=== PATIENT | female | born 1945 | race Caucasian/White ===

== ENCOUNTER 2016-08-25 13:03 | Emergency (ER) | payer OTHER ==
[~2016-08-25] VITALS: Ht 167.6 cm; Wt 82.0 kg
[2016-08-25 13:08] VITALS: BP 137/80; PULSE 84; RESP 16; TEMP 98.2; O2SAT 98
--- NOTE | 2016-08-25 15:35 | PD ---
HPI Chief Complaint: Musculoskeletal Complaint Time Seen by Provider: 15:35 Travel History International Travel<30 days: No Contact w/Intl Traveler<30days: No Traveled to known affect area: No History of Present Illness HPI 71-year-old female came to the emergency room with history of right leg swelling. Patient says this has been going on for past 1-2 weeks. No history of pain or fever. Patient says that she has history of breast cancer that was recently diagnosed and she is finished chemotherapy. She has also recently been diagnosed with anal cancer and is in the process of getting chemotherapy and radiation. Meanwhile because of the swelling her paper box maker wanted a DVT study. Vital signs were stable. No history of chest pain or shortness of breath. PFSH Past Medical History Narrative Medical List of the past medical, surgical, social and family history is reviewed from the nursing note. Social History Tobacco Use: Yes Allergies-Medications (Allergen,Severity, Reaction): Coded Allergies: Cipro (Verified Allergy, Unknown, 08/25/16) Paxil (Verified Allergy, Unknown, 08/25/16) Tofranil (Verified Allergy, Unknown, 08/25/16) Comments List of her allergies reviewed from the nursing note. Reported Meds & Prescriptions Reported Meds & Active Scripts Active Reported Nitrofurantoin Monohydrate Macrocrystals (Nitrofurantoin Monoh/Nitrofur Macro) 100 Mg Cap 100 Mg PO DIRECTED PRN Anastrozole 1 Mg Tab 1 Mg PO DAILY Acebutolol (Acebutolol HCl) 200 Mg Cap 200 Mg PO DAILY Escitalopram (Escitalopram Oxalate) 20 Mg Tab 20 Mg PO DAILY Fenofibrate 54 Mg Tab 54 Mg PO DAILY [Cystoprotek] DAILY Narrative Medication List of her home medications reviewed from the nursing note. Review of Systems Except as stated in HPI: all other systems reviewed are Neg Physical Exam Narrative GENERAL: Awake, alert, no obvious distress SKIN: Focused skin assessment warm/dry. HEAD: Atraumatic. Normocephalic. EYES: Pupils equal and round. No scleral icterus. No injection or drainage. ENT: No nasal bleeding or discharge. Mucous membranes pink and moist. NECK: Trachea midline. No JVD. CARDIOVASCULAR: Regular rate and rhythm. No murmur appreciated. RESPIRATORY: No accessory muscle use. Clear to auscultation. Breath sounds equal bilaterally. GASTROINTESTINAL: Abdomen soft, non-tender, nondistended. Hepatic and splenic margins not palpable. MUSCULOSKELETAL: No obvious deformities. No clubbing. No cyanosis. Right leg is swollen below the knee. No tenderness. Homans sign negative NEUROLOGICAL: Awake and alert. No obvious cranial nerve deficits. Motor grossly within normal limits. Normal speech. PSYCHIATRIC: Appropriate mood and affect; insight and judgment normal. Data Data Last Documented VS Vital Signs Date Time Temp Pulse Resp B/P Pulse Ox O2 Delivery O2 Flow Rate FiO2 08/25/16 13:08 98.2 84 16 137/80 98 Orders Us Leg Venous Doppler (08/25/16 ) MDM Medical Decision Making Medical Screen Exam Complete: Yes Emergency Medical Condition: Yes Medical Record Reviewed: Yes Differential Diagnosis DVT, Ulrich cyst Narrative Course 4:32 PM ultrasound is back in its negative for DVT or ulrich's cyst. I'll discharge her home. She'll follow up with the primary care. Procedures EKG Prior to Arrival: No Diagnosis Primary Impression: Right leg swelling Referrals: Primary Care Physician Additional Instructions: Please return to the ER if the condition worsens or any other new concerns. Otherwise follow-up with your primary care on Sunday. He should have a repeat ultrasound done within a week in case a DVT shows up by then. Keep the leg elevated. Also follow-up with your oncologist. Disposition: DISCHARGE HOME Condition: Stable Tanya Michael MD Aug 25, 2016 15:35
[2016-08-25] MEDS ORDERED: CYSTOPROTEK (15:53)
[2016-08-25] MEDS ORDERED: ANAS1TAB PO (15:53)
[2016-08-25] MEDS ORDERED: FENO54TA PO (15:53)
[2016-08-25] MEDS ORDERED: NITR100C4 PO (15:53)
[2016-08-25] MEDS ORDERED: ESCI20TA PO (15:53)
[2016-08-25] MEDS ORDERED: ACEB200C PO (15:53)
--- NOTE | 2016-08-25 16:24 | RADRPT ---
EXAM DATE/TIME: 08/25/2016 15:57 [facility] COMPARISON: No previous studies available for comparison. INDICATIONS : Right leg swelling and redness. MEDICAL HISTORY : Carcinoma, breast. Carcinoma, anal. Depression. SURGICAL HISTORY : Lumpectomy. ENCOUNTER: Initial ACUITY: 2 weeks PAIN SCORE: 0/10 LOCATION: Bilateral leg. TECHNIQUE: Venous ultrasound of the leg was performed from the inguinal ligament to the proximal calf. Real-bernadette e, color Doppler and spectral tracing, compression and augmentation techniques were used. FINDINGS: There is normal compressibility of the deep venous system from the inguinal region to the proximal ca lf. No echogenic clot is seen in the lumen of the common femoral, femoral, popliteal, and posterior tibial veins. There is a normal response of the venous system to proximal and distal augmentation an d respiration. CONCLUSION: No DVT is identified in the right lower extremity. Jurgen Olvera MD on August 25, 2016 at 16:22 Board Certified Radiologist. This report was verified electronically.
== END 2016-08-25 17:12 | disposition home or self-care (01) ==
LOC: NEPD 13:03
DX: M79.89 Other specified soft tissue disorders (principal); Z85.3 Personal history of malignant neoplasm of breast; C21.0 Malignant neoplasm of anus, unspecified; Z72.0 Tobacco use
CPT/HCPCS: 93971; 99284

== ENCOUNTER 2016-09-15 06:06 | Day surgery (SDC) | payer OTHER ==
[~2016-09-15] VITALS: Ht 165.1 cm; Wt 81.0 kg
[~2016-09-15 06:06] MED LIST: ACEB200C PO; ANAS1TAB PO; CYSTOPROTEK; ESCI20TA PO; FENO54TA PO; NITR100C4 PO
[2016-09-15 06:38] VITALS: BP 149/93; PULSE 83; RESP 20; TEMP 98.6; O2SAT 92
[2016-09-15] MEDS ORDERED: THER650C (06:43)
[2016-09-15] MEDS ORDERED: CALCCAP (06:43)
[2016-09-15] MEDS ORDERED: MULT1TAB46 (06:43)
[2016-09-15] MEDS ORDERED: VITA2000 PO (06:43)
[2016-09-15] MEDS ORDERED: ASCO500W (06:43)
[2016-09-15] MEDS ORDERED: POVIDONE IODINE 5% (ANTISEPSIS KIT) 4 APPLICATIONS EACH NARE SCH (07:00)
[2016-09-15] MEDS ORDERED: VANCOMYCIN 1000 MG/NS 250 ML - implanted port/tunneled catheter IV SCH ×2 (07:00)
[2016-09-15] MEDS ORDERED: ceFAZolin 2 GM PREMIX 50 ML - implanted port/tunneled catheter insertion IV SCH (07:00)
[2016-09-15] MEDS ORDERED: SODIUM CHLORIDE 0.9% 1000 ML IV SCH (07:00)
[2016-09-15] MEDS ORDERED: CHLORHEXIDINE GLUCONATE 2 % 1 PACK (2 CLOTHS) TOPICAL SCH (07:00)
[2016-09-15] MEDS ORDERED: LIDOCAINE HCL 1% 20 ML VIAL ONE (07:40)
--- NOTE | 2016-09-15 09:03 | PD.RAD ---
Post CT Procedure Prog Note Pre Procedure Diagnosis: (1) Anal cancer (2) Pelvic lymphadenopathy Post Procedure Diagnosis: (1) Anal cancer (2) Pelvic lymphadenopathy Procedure Date: Sep 15, 2016 Supervising Radiologist: Jurgen Olvera Estimated blood loss: minimal Anesthesia: Conscious Sedation Plan of Activity Patient to Unit: ROPU Patient Condition: Good See PACS Report for procedural detail/treatment Biopsy Imaging Guidance: CT Side: Right Biopsy Procedure: Lymph Node, Pelvic Mass Site: right pelvic internal iliac or junction station lymphadenopathy Specimen: Core Biopsy Plan To ROPU then discharge. Jurgen Olvera MD Sep 15, 2016 09:03
[2016-09-15] MEDS ORDERED: LIDOCAINE 1%/EPINEPHrine 1:100,000 SOLN 20 ML VIAL ONE (09:23)
--- NOTE | 2016-09-15 09:28 | RADRPT ---
EXAM DATE/TIME: 09/15/2016 08:08 [facility] COMPARISON: No previous studies available for comparison. INDICATIONS : Right pelvic lymph node. SEDATION TIME: 30 minutes BIOPSY SITE: Right MEDICATION(S): 1.) 3 mg midazolam (Versed) IV 2.) 150 mcg fentanyl (Sublimaze) IV DEVICE(S): 1.) 20 gauge Temno core biopsy needle MEDICAL HISTORY : Carcinoma, breast. Carcinoma, anal. SURGICAL HISTORY : Hysterectomy. ENCOUNTER: Initial ACUITY: 1 day PAIN SCORE: 0/10 LOCATION: Right pelvis A total of eight core specimen(s) were obtained and sent to the laboratory for pathologic evaluation. PROCEDURE: 1. CT guided pelvic biopsy. 2. Conscious sedation with continuous EKG and oximetry monitoring. 3. EKG and oximetry remained stable throughout the procedure. Prior to the procedure informed consent was obtained. The patient's prior PET/CT examination was revi ewed. Using automated exposure control and adjustment of the mA and/or kV according to patient size, radiat ion dose was kept as low as reasonably achievable to obtain optimal diagnostic quality images. DICOM format image data is available electronically for review and comparison. The site was prepped in a sterile fashion. Full sterile technique was used, including cap, mask, corazon rile gloves and gown and a large sterile sheet. Hand hygiene and 2% chlorhexidine and/or betadine/al cohol prep was utilized per protocol for cutaneous antisepsis. The skin and subcutaneous tissues wer e infiltrated with local anesthetic solution. With CT guidance the right pelvic mass was visualized. It is directly adjacent to internal and wireless sales representative al iliac vessels. Biopsy was performed using the prescribed needle as above. Adequate hemostasis was obtained with compression at the puncture site. Follow-up CT scan reveals no hemorrhage or acute abnormality. The patient tolerated the procedure well and there were no complications. The patient was returned to the Radiology Outpatient Unit in stable condition. CONCLUSION: Uncomplicated CT guided biopsy of the right pelvic mass. Jurgen Olvera MD on September 15, 2016 at 9:26 Board Certified Radiologist. This report was verified electronically.
[2016-09-15 10:30] VITALS: BP 122/78; PULSE 81; RESP 16; TEMP 97.8; O2SAT 95
[2016-09-15] MEDS ORDERED: SODIUM CHLORIDE 0.9% FLUSH 10 ML FLUSH IVF PRN (10:30)
[2016-09-15 10:45] VITALS: BP 154/76; PULSE 81; RESP 16; O2SAT 95
--- NOTE | 2016-09-15 10:47 | PD.RAD ---
Post Procedure Progress Note Pre Procedure Diagnosis: (1) Anal cancer Post Procedure Diagnosis: (1) Anal cancer Procedure Date: Sep 15, 2016 Supervising Radiologist: Regan Fitzpatrick Proceduralist/Assist: Juwan Greenberg RT(R), RT Eder(R) Anesthesia: Local, Analgesia, Conscious Sedation Plan of Activity Patient to Unit: ROPU Patient Condition: Good See PACS Report for procedural detail/treatment Central Venous Access Device Procedure 1 Right Internal Jugular Infusaport Placement single lumen Cambodian: 8 Regan Fitzpatrick MD Sep 15, 2016 10:47
[2016-09-15] MEDS ORDERED: MIDAZOLAM HCL 2 MG/2 ML VIAL IV ONE (10:59)
[2016-09-15 11:15] VITALS: BP 122/58; PULSE 78; RESP 16; O2SAT 95
[2016-09-15 11:45] VITALS: BP 118/65; PULSE 76; RESP 16; O2SAT 95
[2016-09-15 12:15] VITALS: BP 121/71; PULSE 80; RESP 16; O2SAT 95
--- NOTE | 2016-09-15 16:47 | RADRPT ---
EXAM DATE/TIME: 09/15/2016 09:41 [facility] COMPARISON: No previous studies available for comparison. INDICATIONS : Patient presents with anal cancer in need of port placement for chemotherapy treatment. MEDICAL HISTORY : Breast and anal cancer Anxiety Arhtritis Uterine fibroids SURGICAL HISTORY : Lumpectomy Pelvic biopsy ENCOUNTER: Initial ACUITY: 1 month PAIN SCORE: 0/10 LOCATION: N/A FLUORO TIME: 0.8 minutes IMAGE SERIES: 0 SEDATION TIME: 30 minutes ACCESS: Right internal jugular vein SEDATION: 1.) 2.5 mg midazolam (Versed) IV 2.) 100 mcg fentanyl (Sublimaze) IV 3.) 0.5mg hydromorphone (Dilaudid) IV 4.) 4mg ondansetron (Zofran) IV Prophylactic antibiotics were administered with appropriate pre-procedure timing. Vancomycin within 2 hours of procedure, Ancef (or alternative) within 1 hour of procedure. DEVICE: 1. 8 Latvian single lumen Smart port CT w/vortex PROCEDURE : 1. Continuous pulse oximetry and EKG monitoring. 2. Intravenous conscious sedation. 3. Ultrasound guidance for venous access. 4. Fluoroscopic guided implantable central venous port placement. The patient was placed supine. The neck was prepped in sterile fashion. Full sterile technique was u sed, including cap, mask, sterile gloves and gown, and a large sterile sheet. Hand hygiene and 2% ch lorhexidine Betadine was utilized per protocol for cutaneous antisepsis with appropriate dry time for site. The skin and subcutaneous tissues were infiltrated with local anesthetic solution. Under direct ultrasound guidance, central venous access was accomplished in the targeted vessel. The ultrasound images depicting access guidance were stored and saved to PACS for permanent record. A s ubcutaneous pocket was created using blunt dissection. The port was introduced to the pocket. The c atheter tubing was fed through a subcutaneous tunnel to the venotomy site. The catheter tubing was c ut to a suitable length and then was introduced through a valved Peel-Away sheath and positioned with catheter tubing tip at the cavo-atrial junction level. The pocket incision was closed with subcutic ular Vicryl suture. Steri-Strips were applied. The port was flushed and locked with heparin solutio n per protocol. Sterile dressing was applied to the site. The patient tolerated the procedure well. Conscious sedation was performed with the prescribed dosages and duration as above in the presence of an independent trained radiology nurse to assist in the monitoring of the patient. EKG and oximetry remained stable throughout the procedure. The patient tolerated the procedure well and there were no complications. The patient was sent to post anesthesia recovery in stable condition. CONCLUSION: Uncomplicated ultrasound and fluoroscopic guided implanted central venous port catheter placement as described in detail above. An 8 Latvian Power port was placed. Regan Fitzpatrick MD on September 15, 2016 at 16:45 Board Certified Radiologist. This report was verified electronically.
== END 2016-09-15 12:50 | disposition home or self-care (01) ==
LOC: HROP 06:06 → HRIP 06:11 → HROP 12:50
PROVIDERS: ATTEND Internal Medicine Hematology & Oncology
DX: C96.9 Malignant neoplasm of lymphoid, hematopoietic and related tissue, unspecified (principal); C50.919 Malignant neoplasm of unspecified site of unspecified female breast; C21.0 Malignant neoplasm of anus, unspecified; F41.9 Anxiety disorder, unspecified; M19.90 Unspecified osteoarthritis, unspecified site; Z90.710 Acquired absence of both cervix and uterus
CPT/HCPCS: 36561; 49180; 76937; 77001; 77012; 88305; 99152; 99153; C1788; J1642; J2250; J3010

== ENCOUNTER 2016-11-03 09:37 | Day surgery (SDC) | payer OTHER ==
[2016-11-03] VITALS (7 sets, daily range): BP systolic 110–165; BP diastolic 65–114; PULSE 74–95; RESP 16–20; TEMP 98.1–98.4; O2SAT 93–96
[~2016-11-03 09:37] MED LIST changes: +ASCO500W; +CALCCAP; +MULT1TAB46; +THER650C; +VITA2000 PO
[2016-11-03] MEDS ORDERED: IOHEXOL 300 MG/ML 50 ML BTL (for RAD DIAG) OTHER ONE (09:38)
[2016-11-03] MEDS ORDERED: ONDA1TAB17 PO (10:05)
[2016-11-03] MEDS ORDERED: PROM25TA10 PO (10:05)
[2016-11-03] MEDS ORDERED: SODIUM CHLORIDE 0.9% 1000 ML IV SCH (10:15)
[2016-11-03] MEDS ORDERED: MIDAZOLAM HCL 2 MG/2 ML VIAL ONE (10:51)
--- NOTE | 2016-11-03 13:43 | RADRPT ---
EXAM DATE/TIME: 11/03/2016 10:17 [facility] COMPARISON: No previous studies available for comparison. INDICATIONS : Patient presents with possible flipped port in need of port evaluation with possible manipulation. MEDICAL HISTORY : Right breast cancer Edema Arthritis Depression High cholesterol Uterine fibroids SURGICAL HISTORY : Right port Lumpectomy Breast biopsy ENCOUNTER: Subsequent ACUITY: > 1 year PAIN SCORE: 0/10 LOCATION: N/A FLUORO TIME: 0.1 minutes IMAGE SERIES: 1 SEDATION TIME: 10minutes CONTRAST: 5 cc Omnipaque (iohexol) 350 MEDICATION(S): 1.) 1.5 mg midazolam (Versed) IV 2.) 75 mcg fentanyl (Sublimaze) IV PROCEDURE : 1. Access of Hveezp-n-vqyd. 2. Port patency injection. The risks, benefits and alternatives to the procedure were explained and verbal and written consent w as obtained. The patient was placed supine. The port was prepped in sterile fashion. Full sterile t echnique was used, including cap, mask, sterile gloves and gown, and a large sterile sheet. Hand hyg iene and 2% chlorhexidine prep was utilized per protocol for cutaneous antisepsis with appropriate dr y time for site. The port was flipped manually. The previously placed port was accessed and positive contrast was inje cted for evaluation. Injection demonstrates good position of the port with each blood return CONCLUSION: 1. Uncomplicated port revision Vinicius Kirk MD on November 03, 2016 at 13:39 Board Certified Radiologist. This report was verified electronically.
== END 2016-11-03 13:40 | disposition home or self-care (01) ==
LOC: HROP 09:37 → HRIP 09:40 → HROP 13:40
PROVIDERS: ATTEND Internal Medicine Hematology & Oncology
DX: T85.698A Other mechanical complication of other specified internal prosthetic devices, implants and grafts, initial encounter (principal); C50.911 Malignant neoplasm of unspecified site of right female breast; C21.0 Malignant neoplasm of anus, unspecified; E78.00 Pure hypercholesterolemia, unspecified
CPT/HCPCS: 36576; 36598; 99152; J1642; J2250; J3010; Q9967

== ENCOUNTER 2016-12-12 13:51 | Day surgery (SDC) | payer OTHER ==
[~2016-12-12] VITALS: Ht 165.1 cm; Wt 75.0 kg
[~2016-12-12 13:51] MED LIST changes: +ONDA8TAB7 PO; +PROM25TA10 PO
[2016-12-12 14:06] VITALS: BP 129/90; PULSE 88; RESP 20; TEMP 98.3; O2SAT 95
[2016-12-12 14:44] LABS: AUTOMATED NEUTROPHIL # 1.9 TH/MM3 (1.8-7.7); BASOPHIL % 0.4 % (0.0-2.0); EOSINOPHIL # 0.1 TH/MM3 (0-0.4); EOSINOPHIL % 2.7 % (0.0-4.0); HEMATOCRIT 36.7 % (35.0-46.0); HEMO FLAGS DIFF FINAL; LYMPH % 36.9 % (9.0-44.0); LYMPHOCYTE # 1.3 TH/MM3 (1.0-4.8); MEAN CELL VOLUME 97.2 FL (80.0-100.0); MEAN CORPUSCULAR HEMOGLOBIN 32.8 PG (27.0-34.0); MEAN CORPUSCULAR HGB CONC 33.7 % (32.0-36.0); MONO % 5.9 % (0.0-8.0); NEUT % 54.1 % (16.0-70.0); PLATELET COUNT 212 TH/MM3 (150-450); RED BLOOD COUNT 3.77 MIL/MM3 (4.00-5.30); RED CELL DISTRIBUTION WIDTH 18.8 % (11.6-17.2); WHITE BLOOD COUNT 3.6 TH/MM3 (4.0-11.0)
[2016-12-12] MEDS ORDERED: MIDAZOLAM HCL 2 MG/2 ML VIAL ONE ×2 (14:45→15:11)
[2016-12-12 14:55] LABS: APTT (PATIENT) 23.9 SEC (24.3-30.1); PROTHROMBIN TIME - PATIENT 10.6 SEC (9.8-11.6)
[2016-12-12 16:00] VITALS: BP 128/76; PULSE 81; RESP 18; TEMP 97.8; O2SAT 92
[2016-12-12 16:15] VITALS: BP 146/88; PULSE 78; RESP 16; O2SAT 94
[2016-12-12 16:45] VITALS: BP 115/73; PULSE 82; RESP 16; O2SAT 94
--- NOTE | 2016-12-12 16:45 | PD.RAD ---
Post Procedure Progress Note Pre Procedure Diagnosis: (1) Flipped Infusaport (2) Anal cancer Post Procedure Diagnosis: (1) Anal cancer (2) Flipped Infusaport Procedure Date: Dec 12, 2016 Supervising Radiologist: Regan Fitzpatrick Proceduralist/Assist: Juwan Greenberg, RT(R), Clem Lares, RT(R) Anesthesia: Local, Analgesia, Conscious Sedation Plan of Activity Patient to Unit: ROPU Patient Condition: Good See PACS Report for procedural detail/treatment Central Venous Access Device Procedure 1 Right Internal Jugular Infusaport Reposition single lumen Austrian: 8 Findings: Port flipped. Second event. Port pocket distended with lidocaine and saline and repositioned appropriately. 2-0 suture placed through lateral suture ringlet to secure port (done fluoroscopically). Will remove in ~10 days. Regan Fitzpatrick MD Dec 12, 2016 16:45
--- NOTE | 2016-12-12 17:09 | RADRPT ---
EXAM DATE/TIME: 12/12/2016 15:51 [facility] COMPARISON: [id number] REVISION, RIGHT, November 03, 2016, 0:00. INDICATIONS : Patient with history of anal cancer.Infusaport flipped. MEDICAL HISTORY : 1. Anal cancer 2. Depression 3. high cholesterol 4. uterine fibroids SURGICAL HISTORY : 1. Infusaport 2. lumpectomy 3. breast bx 4. colonoscopy ENCOUNTER: Initial ACUITY: 2 days PAIN SCORE: FLUORO TIME: 3.4 minutes IMAGE SERIES: 4 SEDATION TIME: 36 minutes ACCESS: Right infusaport SEDATION: 1.) 4 mg midazolam (Versed) IV 2.) 100 mcg fentanyl (Sublimaze) IV PROCEDURE : 1. Continuous pulse oximetry and EKG monitoring. 2. Intravenous conscious sedation. 3. Fluoroscopic guided port revision. 4. Ultrasound guidance for venous access. The patient was placed supine. The neck was prepped in sterile fashion. Full sterile technique was u sed, including cap, mask, sterile gloves and gown, and a large sterile sheet. Hand hygiene and 2% ch lorhexidine Betadine was utilized per protocol for cutaneous antisepsis with appropriate dry time for site. Sterile gel and sterile probe cover were utilized for ultrasound guidance. The port pocket a nd subcutaneous tissues were infiltrated with local anesthetic solution. Direct fluoroscopic images show confirmed that the port was in fact flipped left to right. The port p ocket distended with 15-20 cc of lidocaine and saline, I was able to reposition the port appropriatel y in the pocket with some difficulty. As this was the second time report has flipped, again using 2-0 Prolene suture and a 40 mm curved needle to access the lateral suture ringlet of the port under dire ct fluoroscopic visualization. The suture was secured to the skin surface through infusion tubing and the plan is to leave this in place for approximately 10 days to allow the regional tissues to grow t hrough the port ringlets and secure the device in the port pocket. Conscious sedation was performed with the prescribed dosages and duration as above in the presence of an independent trained radiology nurse to assist in the monitoring of the patient. EKG and oximetry remained stable throughout the procedure. The patient tolerated the procedure well and there were n o complications. The patient was sent to post anesthesia recovery in stable condition. CONCLUSION: Uncomplicated fluoroscopic guided port revision as described in detail above. Patient is scheduled to return in approximately 10 days to have the anchoring suture removed. We will discuss interim dressing changes with the oncology center. Regan Fitzpatrick MD on December 12, 2016 at 16:59 Board Certified Radiologist. This report was verified electronically.
== END 2016-12-12 17:10 | disposition home or self-care (01) ==
LOC: HROP 13:51 → HRIP 13:52 → HROP 17:10
PROVIDERS: ATTEND Internal Medicine Hematology & Oncology
DX: Z45.2 Encounter for adjustment and management of vascular access device (principal); C21.0 Malignant neoplasm of anus, unspecified; I10 Essential (primary) hypertension; Z79.01 Long term (current) use of anticoagulants
CPT/HCPCS: 36576; 77001; 85025; 85610; 85730; 99152; 99153; J2250; J3010; J1642

== ENCOUNTER 2016-12-15 10:01 | Day surgery (SDC) | payer OTHER ==
[2016-12-15 10:13] VITALS: BP 125/77; PULSE 108; RESP 20; TEMP 97.8; O2SAT 96
== END 2016-12-15 11:00 | disposition home or self-care (01) ==
LOC: HROP 10:01 → HRIP 10:04 → HROP 11:00
PROVIDERS: ATTEND Radiology Body Imaging
DX: Z48.00 Encounter for change or removal of nonsurgical wound dressing (principal)
CPT/HCPCS: 99212; G0463

== ENCOUNTER 2016-12-20 10:29 | Day surgery (SDC) | payer OTHER ==
[2016-12-20 10:35] VITALS: BP 123/74; PULSE 93; RESP 20; TEMP 98.3; O2SAT 96
--- NOTE | 2016-12-20 12:15 | PD.RAD ---
Post Procedure Progress Note Pre Procedure Diagnosis: (1) Flipped Infusaport Post Procedure Diagnosis: (1) Flipped Infusaport Procedure Date: Dec 20, 2016 Supervising Radiologist: Regan Fitzpatrick Plan of Activity See PACS Report for procedural detail/treatment Central Venous Access Device Findings: Port with anchor checked. Looks good. No erythema. Dressing changed. Will return Sunday for anchor removal. Regan Fitzpatrick MD Dec 20, 2016 12:15
== END 2016-12-20 10:45 | disposition home or self-care (01) ==
LOC: HROP 10:29 → HRIP 10:32 → HROP 10:45
PROVIDERS: ATTEND Radiology Body Imaging
DX: Z45.2 Encounter for adjustment and management of vascular access device (principal)
CPT/HCPCS: 99212; G0463

== ENCOUNTER 2016-12-22 10:07 | Day surgery (SDC) | payer OTHER ==
[2016-12-22 10:21] VITALS: BP 144/91; PULSE 98; RESP 20; TEMP 97.6; O2SAT 96
== END 2016-12-22 11:00 | disposition home or self-care (01) ==
LOC: HROP 10:07 → HRIP 10:08 → HROP 11:00
PROVIDERS: ATTEND Radiology Body Imaging
DX: Z48.02 Encounter for removal of sutures (principal); C21.0 Malignant neoplasm of anus, unspecified

== ENCOUNTER 2017-12-05 13:06 | Inpatient (IN) ==
--- NOTE | 2017-12-05 15:06 | ED ---
HPI General Chief complaint: Recheck/Abnormal Lab/Rx Stated complaint: doctor sent Time Seen by Provider: 12/05/17 14:00 Source: patient Mode of arrival: ambulatory Limitations: no limitations History of Present Illness HPI narrative: 72-year-old woman, history of breast cancer in the past, recent treatment for anal squamous cell carcinoma with metastases, treated initially with chemotherapy, then treated with radiation to the primary. She presents referred by Dr. Rollins for kidney injury with doubling of her creatinine and right ureteral obstruction. This is been persisting, initially got referred to a darkroom worker I think by her primary physician. She been having back pain off and on for the past month or so. 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 SKIN: Focused skin assessment warm/dry. HEAD: Atraumatic. Normocephalic. EYES: Pupils equal and round. No scleral icterus. No injection or drainage. ENT: No nasal bleeding or discharge. Mucous membranes pink and moist. NECK: Trachea midline. No JVD. CARDIOVASCULAR: Regular rate and rhythm. No murmur appreciated. RESPIRATORY: No accessory muscle use. Clear to auscultation. Breath sounds equal bilaterally. GASTROINTESTINAL: Abdomen soft, non-tender, nondistended. Hepatic and splenic margins not palpable. MUSCULOSKELETAL: No obvious deformities. No clubbing. No cyanosis. No edema. NEUROLOGICAL: Awake and alert. No obvious cranial nerve deficits. Motor grossly within normal limits. Normal speech. PSYCHIATRIC: Appropriate mood and affect; insight and judgment normal. Course Initial Documented Vital Signs Temperature 98.4 F 12/05/17 13:10 Pulse Rate 81 12/05/17 13:10 Respiratory Rate 18 12/05/17 13:10 Blood Pressure 125/73 12/05/17 13:10 Pulse Oximetry 98 12/05/17 13:10 Last Documented Vital Signs Temperature 98.4 F 12/05/17 13:10 Pulse Rate 81 12/05/17 13:10 Respiratory Rate 18 12/05/17 13:10 Blood Pressure 125/73 12/05/17 13:10 Pulse Oximetry 98 12/05/17 13:10 Medical Decision Making MDM Narrative Medical decision making narrative: 72-year-old woman, treatment for recent malignancy, good response, now with ureteral obstruction and. Creatinine doubled from 0.9-2. I reviewed the ultrasound from [facility] [place] [facility], revealed moderate right-sided hydronephrosis to the mid ureter. Suspicion for ureteral obstruction and kidney injury. Patient will be admitted, urology consult, reassess. Medical Screen Exam Complete: Yes Emergency Medical Condition: Yes Discharge Plan Physicians Team ED Provider: Rusty Estrada Primary Care Provider: Mj Shearer Discharge Interventions Interventions: Vital Signs Last Done: 12/05/17 13:10 Status ED Status: With Doctor
[2017-12-05] MEDS ORDERED: Acetaminophen 325 MG Tablet PO PRN ×2 (15:08)
[2017-12-05] MEDS ORDERED: Dextrose 50% in Water 50 ML Vial IV.PUSH PRN (15:08)
[2017-12-05] MEDS ORDERED: Naloxone Inj 0.4 MG/ML Vial IV.PUSH PRN (15:08)
[2017-12-05] MEDS ORDERED: Morphine Sulfate Inj 2 MG/ML Vial IV.PUSH PRN (15:08)
[2017-12-05] MEDS ORDERED: oxyCODONE/Acetaminophen 10/325 Tablet PO PRN (15:08)
[2017-12-05] MEDS ORDERED: Bisacodyl 10 MG Supp RECTAL PRN (15:08)
[2017-12-05] MEDS ORDERED: Morphine Inj 4 MG/ML Vial IV.PUSH PRN ×3 (15:08)
[2017-12-05 15:28] LABS: Baso % (Auto) 0.6 % (0.0-2.0); Eos # (Auto) 0.1 th/mm3 (0.0-0.4); Eos % (Auto) 1.8 % (0.0-4.0); Hematocrit 27.8 % (35.0-46.0); Hemoglobin 9.7 gm/dL (11.6-15.3); Lymph # (Auto) 0.5 th/mm3 (1.0-4.8); Lymph % (Auto) 18.6 % (9.0-44.0); Mean Corpuscular HGB Conc 34.8 % (32.0-36.0); Mean Corpuscular Hemoglobin 32.4 pg (27.0-34.0); Mean Corpuscular Volume 92.9 fL (80.0-100.0); Mean Platelet Volume 7.6 fL (7.0-11.0); Mono # (Auto) 0.1 th/mm3 (0.0-0.9); Mono % (Auto) 5.2 % (0.0-8.0); Neut # (Auto) 2.1 th/mm3 (1.8-7.7); Neut % (Auto) 73.8 % (16.0-70.0); Platelet Count 161 th/mm3 (150-450); Red Blood Count 2.99 mil/mm3 (4.00-5.30); Red Cell Distribution Width 17.1 % (11.6-17.2); White Blood Count 2.9 th/mm3 (4.0-11.0)
[2017-12-05 15:35] LABS: Bilirubin,Urine Negative (Negative); Clarity,Urine Clear (Clear); Color,Urine Yellow (Yellw/Straw); Glucose,Urine (UA) Negative (Negative); Hyaline Casts,Urine 5 /lpf (0-3); Leukocyte Esterase,Urine Negative (Negative); Mucus,Urine Few /lpf (Occasional); Nitrite,Urine Negative (Negative); Specific Gravity,Urine 1.016 (1.002-1.035)
--- NOTE | 2017-12-05 15:40 | P.HPIM ---
History of Present Illness Service: [facility] Primary Care Physician: Mj Shearer MD Chief Complaint: ABNORMAL LABS History of Present Illness: Patient is a 72-year-old female with a history of breast cancer in the past as well as recent treatment for anal squamous cell carcinoma with metastasis that was initially treated with chemotherapy then treated with radiation to the primary. Patient sees Dr. Stallings for oncology. He noted that her kidney function had doubled her creatinine and noted to have a right ureteral obstruction by way of ultrasounds. Noted to have a kidney injury. Patient referred to financial adviser by her primary physician. We will also need to see urology. Regarding this right hydronephrosis and obstruction. Increased renal cell carcinoma. No labs are available here yet today only labs from yesterday Past medical history significant for diabetes as well as the previous breast cancer with history of lumpectomy and radiation and squamous cell carcinoma of the anal area with metastasis that was treated with chemotherapy then treated with radiation to the primary area. Past medical history mother had anal cancer also Inpatient Certification: I certify that the inpatient services were ordered in accordance with Medicare regulations governing the order. This includes certification that hospital inpatient services are reasonable and necessary and in the case of services not specified as inpatient-only under 42 CFR 419.22(n), that they are appropriately provided as inpatient services in accordance to with the 2-midnight benchmark under 43 CFR 412.3(e) Estimated Total Length of Stay (Days): 3 Plans for Post Hospital Care: Not yet determined Review of Systems All other systems reviewed negative except as stated in HPI [facility] - History History Provided By: Patient - Medical History Medical History: Medical History (Last Updated 12/05/17 @ 15:24 by Chicho Castillo DO) Abnormal rectal biopsy Anal cancer Breast cancer Port-A-Cath in place Port-A-Cath in place Squamous cell cancer of scalp and skin of neck - Surgical History Surgical History: Surgical History (Last Reviewed 12/05/17 @ 15:25 by Chicho Castillo DO) H/O lumpectomy - Family History Family History: Family History (Last Updated 12/05/17 @ 15:24 by Chicho Castillo DO) Other Anal cancer - Social History I have reviewed the patient's Social History: Yes - Tobacco History Second Hand Smoke Exposure: No Tobacco Use In Past 30 Days: No Smoking Status: Former smoker - Alcohol History How Often Do You Have a Drink Containing Alcohol: Never - Substance Use History Substance History: No History of Abuse - Travel History History of Recent Travel: No Recent Travel in the [place] Within the Last 8 Weeks: No Recent Travel Out of the Country Within the Last 8 Weeks: No - Immunization History Tetanus Immunization: <5 Years Medications and Allergies Active Medications: Active Medications Acetaminophen (Tylenol) 650 mg PO Q4H PRN PRN Reason: Temp > 100.4 Acetaminophen (Tylenol) 650 mg PO Q6HR PRN PRN Reason: PAIN SCALE 1 TO 2 Al Hydroxide/Mg Hydroxide (Milk Of Magnesia Liq) 30 ml PO Q12H PRN PRN Reason: Mild Constipation Bisacodyl (Dulcolax Supp) 10 mg RECTAL DAILY PRN PRN Reason: SEVERE CONSITIPATION Dextrose (D50w Vial) 50 ml IV.PUSH UNSCH PRN PRN Reason: PER HYPOGLYCEMIA PROTOCOL Famotidine (Pepcid) 10 mg PO BID ALIN Glucagon (Glucagon Inj) 1 mg OTHER PRN PRN PRN Reason: for Hypoglycemia Protocol Sodium Chloride (Ns Inj) 1,000 mls @ 100 mls/hr IV.CONT .Q10H ALIN Insulin Aspart (Novolog Insulin Correctional Sugar Inj) 0 unit SQ ACHS AND 3AM ALIN; Protocol Lactulose (Lactulose Liq) 30 ml PO DAILY PRN PRN Reason: SEVERE CONSITIPATION Morphine Sulfate (Morphine Inj) 2 mg IV.PUSH Q3H PRN PRN Reason: PAIN 3-5; IF UABLE TO TAKE PO Morphine Sulfate (Morphine Inj) 4 mg IV.PUSH Q3H PRN PRN Reason: PAIN 6-10;IF UNABLE TO TAKE PO Morphine Sulfate (Morphine Inj) 4 mg IV.PUSH Q3H PRN PRN Reason: BREAKTHROUGH PAIN Morphine Sulfate (Morphine Inj) 4 mg IV.PUSH Q1H PRN PRN Reason: Pain Scale 7-10 (Intractable) Naloxone HCl (Narcan Inj) 0.4 mg IV.PUSH UNSCH PRN PRN Reason: SEE LABEL COMMENTS Ondansetron HCl (Zofran Inj) 4 mg IV.PUSH Q6H PRN PRN Reason: NAUSEA OR VOMITING Oxycodone/Acetaminophen (Percocet 10/325 Mg) 1 tab PO Q6H PRN PRN Reason: PAIN SCALE 6 TO 10 Oxycodone/Acetaminophen (Percocet 5/325 Mg) 1 tab PO Q6H PRN PRN Reason: PAIN SCALE 3 TO 5 Senna/Docusate Sodium (Cuca-Colace) 1 tab PO BID ALIN Sennosides (Senokot) 17.2 mg PO Q12H PRN PRN Reason: Moderate Constipation Temazepam (Restoril) 15 mg PO HS PRN PRN Reason: INSOMNIA Allergies Allergy/AdvReac Type Severity Reaction Status Date / Time ciprofloxacin Allergy Unknown Hives Verified 12/05/17 13:13 imipramine Allergy Unknown Agitation Verified 12/05/17 13:13 paroxetine Allergy Unknown Agitation Verified 12/05/17 13:13 Home Medications Medication Instructions Recorded Confirmed Type acebutolol 200 mg PO DAILY 12/05/17 12/05/17 History anastrozole 1 mg PO DAILY 12/05/17 12/05/17 History escitalopram oxalate 20 mg PO DAILY 12/05/17 12/05/17 History fenofibrate 54 mg PO BID 12/05/17 12/05/17 History gabapentin 100 mg PO DAILY 12/05/17 12/05/17 History trazodone 50 mg PO HS 12/05/17 12/05/17 History Exam Vital signs: Vital Signs 12/05/17 13:10 12/05/17 14:30 Temperature 98.4 F Pulse Rate 81 76 Respiratory Rate 18 19 Blood Pressure 125/73 120/58 L Pulse Oximetry 98 96 Intake & Output 12/04/17 12/05/17 12/05/17 18:59 06:59 18:59 Weight 68.946 kg Narrative: GENERAL: Awake alert and oriented x3 talkative and cooperative appears stated age SKIN: Warm and dry. HEAD: Atraumatic. Normocephalic. EYES: Pupils equal and round. No scleral icterus. No injection or drainage. ENT: No nasal bleeding or discharge. Mucous membranes pink and moist. NECK: Trachea midline. No JVD. CARDIOVASCULAR: Regular rate and rhythm. S1-S2 no S3 or S4 chest port accessed RESPIRATORY: No accessory muscle use. Clear to auscultation. Breath sounds equal bilaterally. GASTROINTESTINAL: Abdomen soft, non-tender, nondistended. Hepatic and splenic margins not palpable. Some CVA tenderness on the right MUSCULOSKELETAL: Extremities without clubbing, cyanosis, or edema. No obvious deformities. NEUROLOGICAL: Awake and alert. No obvious cranial nerve deficits. Motor grossly within normal limits. Five out of 5 muscle strength in the arms and legs. Normal speech. PSYCHIATRIC: Appropriate mood and affect; insight and judgment normal. Results - Labs CBC & Chem 7: 12/05/17 14:46 12/05/17 14:46 Capalex VTE Risk Assessment [place] VTE Risk Assessment: Moderate/High Risk (score >= 2) Sarthakrini Risk Assessment Model: Point Value = 1 Point Value = 2 Point Value = 3 Point Value = 5 Age 41-60 Minor surgery BMI > 25 kg/m2 Swollen legs Varicose veins or History of unexplained or recurrent spontaneous Oral contraceptives or hormone replacement Sepsis (< 1 month) Serious lung disease, including pneumonia (< 1 month) Abnormal pulmonary function Acute myocardial infarction Congestive heart failure (< 1 month) History of inflammatory bowel disease Medical patient at bed rest Age 61-74 Arthroscopic surgery Major open surgery (> 45 min) Laparoscopic surgery (> 45 min) Malignancy Confined to bed (> 72 hours) Immobilizing plaster cast Central venous access Age >= 75 History of VTE Family history of VTE Factor V Leiden Prothrombin [id number] Lupus anticoagulant Anticardiolipin antibodies Elevated serum homocysteine Heparin-induced thrombocytopenia Other congenital or acquired thrombophilia Stroke (< 1 month) Elective arthroplasty Hip, pelvis, or leg fracture Acute spinal cord injury (< 1 month) Prophylaxis Regimen: Total Risk Factor Score Risk Level Prophylaxis Regimen 0-1 Low Early ambulation 2 Moderate Order ONE of the following: *Sequential Compression Device (SCD) *Heparin 5000 units SQ BID 3-4 Higher Order ONE of the following medications: *Heparin 5000 units SQ TID *Enoxaparin/Lovenox 40 mg SQ daily (WT < 150 kg, CrCl > 30 mL/min) *Enoxaparin/Lovenox 30 mg SQ daily (WT < 150 kg, CrCl > 10-29 mL/min) *Enoxaparin/Lovenox 30 mg SQ BID (WT < 150 kg, CrCl > 30 mL/min) AND/OR *Sequential Compression Device (SCD) 5 or more Highest Order ONE of the following medications: *Heparin 5000 units SQ TID (Preferred with Epidurals) *Enoxaparin/Lovenox 40 mg SQ daily (WT < 150 kg, CrCl > 30 mL/min) *Enoxaparin/Lovenox 30 mg SQ daily (WT < 150 kg, CrCl > 10-29 mL/min) *Enoxaparin/Lovenox 30 mg SQ BID (WT < 150 kg, CrCl > 30 mL/min) AND *Sequential Compression Device (SCD) Assessment and Plan - Plan Right hydronephrosis with elevated creatinine -Continue on IV fluids with normal saline -Consult urology-have discussed with Dr. 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 labs PT and OT to eval and treat Consult urology and oncology and nephrology GI prophylaxis with low-dose Pepcid DVT prophylaxis with SCDs and MALENA rangel Code Status: Full code Discussed Condition With: RN and patient and emergency room physician and urology Discharge Planning: Pending clearance by all
[2017-12-05 15:43] LABS: Calcium 9.3 mg/dL (8.5-10.1); Carbon Dioxide 27.6 meq/L (21.0-32.0); Potassium 4.4 meq/L (3.5-5.1)
[2017-12-05] MEDS ORDERED: Sodium Chloride 0.9% 2 ML Flush PRN IV.FLUSH (16:19)
[2017-12-05] MEDS: Sod Chloride 0.9% Inj 1,000 ML IV.CONT SCH (16:36)
--- NOTE | 2017-12-05 16:46 | CT ---
EXAM DATE: 12/05/2017 4:23 PM EDT AGE/SEX: 72 years / Female INDICATIONS: Abdominal discomfort. Possible obstruction. CLINICAL DATA: This is the patient's initial encounter. Patient reports that signs and symptoms have been present for 4 - 6 days and indicates a pain score of 5/10. MEDICAL/SURGICAL HISTORY: Carcinoma, breast. Carcinoma, anal. None. RADIATION DOSE: 7.58 CTDI (mGy) COMPARISON: [facility], CT ABDOMEN AND PELVIS W/ CONTRAST, 03/07/2017. . TECHNIQUE: Multiple contiguous axial images were obtained through the abdomen. Images were obtained using multiple row detector helical technique. Using automated exposure control and adjustment of the mA and/or kV according to patient size, radiation dose was kept as low as reasonably achievable to o btain optimal diagnostic quality images. DICOM format image data is available electronically for rev iew and comparison. FINDINGS: Lower Lungs: The visualized lower lungs are clear. Liver: The liver has a homogeneous density without space-occupying lesion. There is no dilation of th e biliary tree. Spleen: Homogeneous density without enlargement. Pancreas: Unremarkable without mass or calcification. Kidneys: Left kidney remains unremarkable in appearance. The right kidney now demonstrates moderate hydronephrosis with dilatation of the proximal right ureter down to level of the pelvis. Below that p oint the ureter appears fairly normal in caliber and is difficult to delineate from the bowel and adj acent structures. No distinct ureteral calculus is identified. Adrenal Glands: Unremarkable. Aorta: The aorta and proximal iliac vessels are grossly unremarkable without aneurysmal dilation. Bowel/Mesentery: The bowel loops are grossly unremarkable. The cecum and sigmoid colon have a normal configuration. Abdominal Wall: Intact. Retroperitoneum: Table appearance. There is a borderline prominent right pelvic lymph node again not ed without change. There is no new adenopathy. Bladder: Contours are smooth. Reproductive Organs: No abnormal masses or calcifications seen. Inguinal: The inguinal region is unremarkable without evidence of adenopathy. Bony Structures: Unremarkable. CONCLUSION: 1. Moderate right hydronephrosis and dilatation of the proximal ureter with no identifiable ureteral calculus. The distal ureter is difficult to delineate. 2. The left kidney is unremarkable. 3. Stable right pelvic lymph node likely reactive. Electronically signed by: Clifford Carrasquillo MD 12/05/2017 4:44 PM EDT
[2017-12-05] MEDS: Insulin NovoLOG Aspart Correctional Sugar Inj SQ SCH ×2 (18:15→21:07)
[2017-12-05] MEDS ORDERED: Influenza (Quadrivalent) Vaccine 0.5 ML Syringe IM ONE (18:30)
[2017-12-05] MEDS ORDERED: Temazepam 15 MG Capsule PO PRN (21:00)
[2017-12-05] MEDS ORDERED: FENOFIBRATE 54 MG PO SCH (21:00)
[2017-12-05] MEDS: Sodium Chloride 0.9% 2 ML Flush BID IV.FLUSH SCH (21:06)
[2017-12-05] MEDS: traZODone 50 MG Tablet PO SCH (21:08)
[2017-12-05] MEDS: Senna/Docusate Sodium 8.6/50 MG Tablet PO SCH (21:08)
[2017-12-05] MEDS: Famotidine 20 MG Tablet PO SCH ×2 (21:08→21:13)
[2017-12-06] MEDS: Sod Chloride 0.9% Inj 1,000 ML IV.CONT SCH ×3 (02:42→21:37)
[2017-12-06] MEDS: Insulin NovoLOG Aspart Correctional Sugar Inj SQ SCH ×5 (02:45→20:29)
[2017-12-06 07:29] LABS: Baso % (Auto) 0.7 % (0.0-2.0); Eos # (Auto) 0.1 th/mm3 (0.0-0.4); Eos % (Auto) 4.1 % (0.0-4.0); Hematocrit 25.1 % (35.0-46.0); Hemoglobin 8.5 gm/dL (11.6-15.3); Lymph # (Auto) 0.7 th/mm3 (1.0-4.8); Lymph % (Auto) 28.1 % (9.0-44.0); Mean Corpuscular HGB Conc 33.9 % (32.0-36.0); Mean Corpuscular Hemoglobin 31.6 pg (27.0-34.0); Mean Corpuscular Volume 93.2 fL (80.0-100.0); Mean Platelet Volume 7.1 fL (7.0-11.0); Mono # (Auto) 0.2 th/mm3 (0.0-0.9); Mono % (Auto) 6.4 % (0.0-8.0); Neut # (Auto) 1.6 th/mm3 (1.8-7.7); Neut % (Auto) 60.7 % (16.0-70.0); Platelet Count 141 th/mm3 (150-450); Red Blood Count 2.69 mil/mm3 (4.00-5.30); Red Cell Distribution Width 16.7 % (11.6-17.2); White Blood Count 2.6 th/mm3 (4.0-11.0)
[2017-12-06 07:59] LABS: Albumin 3.4 g/dL (3.4-5.0); Anion Gap 8 meq/L (5-15); Aspartate Aminotransferase 16 U/L (15-37); Blood Urea Nitrogen 31 mg/dL (7-18); Calcium 8.5 mg/dL (8.5-10.1); Carbon Dioxide 26.1 meq/L (21.0-32.0); Chloride 110 meq/L (98-107); Glomerular Filtration Rate 29 mL/min (>89); Glucose,Random 98 mg/dL (74-106); Magnesium 2.2 mg/dL (1.5-2.5); Sodium 144 meq/L (136-145)
[2017-12-06 08:15] LABS: Alanine Aminotransferase 21 U/L (10-53); Alkaline Phosphatase 42 U/L (45-117); Free T4 (Free Thyroxine) 0.94 ng/dL (0.76-1.46); Phosphorus 3.2 mg/dL (2.5-4.9); Total Protein 6.3 g/dL (6.4-8.2)
[2017-12-06] MEDS: Famotidine 20 MG Tablet PO SCH ×2 (08:49→20:28)
[2017-12-06] MEDS: Anastrozole 1 MG Tablet PO SCH (08:50)
[2017-12-06] MEDS: Gabapentin 100 MG Capsule PO SCH (08:50)
[2017-12-06] MEDS: Senna/Docusate Sodium 8.6/50 MG Tablet PO SCH ×2 (08:50→20:29)
--- NOTE | 2017-12-06 10:26 | NM ---
EXAM DATE: 12/06/2017 10:14 AM EDT AGE/SEX: 72 years / Female INDICATIONS: Rule out right renal obstruction. CLINICAL DATA: This is the patient's initial encounter. Patient reports that signs and symptoms have been present for 2 weeks and indicates a pain score of 0/10. MEDICAL/SURGICAL HISTORY: Carcinoma, anal. Carcinoma, breast. Carcinoma, squamous cell. Hist ory of chemotherapy and radiation therapy. . Lumpectomy. COMPARISON: [facility] [place], CT ABDOMEN & PELVIS W/O CONTRAST, 12/05/2017. . TECHNIQUE: Following the intravenous administration of radiotracer, dynamic imaging of flow and excre tory phases was performed. DOSE: 21.2 mCi Tc99m DTPA IV MEDICATION: 40 mg Lasix IV at 13 minutes. min FINDINGS: Flow: There is decreased flow and overall perfusion to the right kidney compared to the left. Differential Function: 30.9 % on Right. 69.1 % on Left. . Excretion: There is normal renal cortical transit time and normal rate of washout from the left kidn ey. There is no radiotracer cumulative within the right collecting system. CONCLUSION: 1. The right kidney showing marked decrease perfusion and overall clinical transit consistent with s evere obstruction. Left kidney is unremarkable. Electronically signed by: Rusty Storm MD 12/06/2017 10:24 AM EDT
[2017-12-06] MEDS ORDERED: Metoprolol Tartrate 25 MG Tablet PO ONE (13:00)
[2017-12-06] MEDS ORDERED: Chlorhexidine Gluconate 2% 1 Pack (2 Cloths) TOPICAL ONE (13:00)
[2017-12-06] MEDS ORDERED: Sodium Chlor 0.9% Inj 500 ML IV.CONT ONE (13:00)
[2017-12-06] MEDS ORDERED: ceFAZolin 1 GM Premix Inj 1 GM/50 ML FROZ.PIGGY IV.SIG ONE (14:53)
[2017-12-06] MEDS ORDERED: ceFAZolin 1 GM Premix Inj 1 GM/50 ML FROZ.PIGGY IV.SIG SCH (15:00)
[2017-12-06] MEDS ORDERED: Iohexol Inj 350 MG/ML 100 ML Bottle (for RAD Diag) IVCONTRAST ONE (16:15)
[2017-12-06 16:38] LABS: Hemoglobin A1c 5.5 % (4.3-6.0)
--- NOTE | 2017-12-06 16:45 | P.OP ---
- Preoperative Diagnosis (1) Obstruction of right ureter (2) Hydronephrosis, right - Postoperative Diagnosis (1) Hydronephrosis, right (2) Obstruction of right ureter Date of procedure: 12/06/17 Procedure: Cystoscopy, right retrograde pyelogram, right ureteral dilatation, right double- J stent insertion Anesthesia: other Surgeon: Corwin Shay DO Estimated blood loss (mL): 0 Pathology: none sent Operation and Findings: 72-year-old female with a history of prior radiation for anal cancer who developed right hydronephrosis with right flank pain. Renal scan demonstrated for perfusion of the right kidney with high-grade obstruction this morning. Decision made to bring the patient to the operating room to undergo cystoscopy right double-J stent insertion. Risk and benefits were discussed preoperatively and she was willing to proceed. Patient was brought to the operating room and identified by myself. She is placed in a dorsal lithotomy position, prepped and draped you sterile fashion, received preprocedure antibiotics and general LMA anesthesia was administered. 22 Telugu cystoscope was inserted the bladder; feldman cystoscopy did not reveal any abnormalities. 5 Telugu open-ended catheter inserted into the distal right ureteral orifice and retrograde pyelogram study was performed. Narrowing of the ureter with beading was noted in the mid ureter. A 0.35 sensor wire was passed through the open- ended catheter. The open-ended catheter was then removed. Attempt was made to place a 6 Telugu right double-J stent but this was unsuccessful. Microvasive ureteral dilators were then passed over the wire and I was able to dilated up to an 8 Telugu. The 6 Telugu 22 cm left double-J stent was then placed with a good curl in the bladder and the kidney. The bladder was evacuated and she was awoken and transferred recovery in stable condition. She will follow-up in the office in a month to see how her symptomatology is. We will need to see if she develops right-sided flank pain she may develop recurrent obstruction, as the stent may fail.
[2017-12-06] MEDS ORDERED: fentaNYL Citrate Inj 100 MCG/2 ML Ampul ONE (16:49)
--- NOTE | 2017-12-06 17:08 | P.PNIM ---
Subjective Interval history: Patient reports mild lower abd discomfort. just got out of surgery. Physical Exam Vital signs: Vital Signs 12/05/17 18:00 12/05/17 19:50 12/05/17 20:00 Temperature 98.5 F 98.4 F Pulse Rate 75 73 76 Respiratory Rate 17 17 Blood Pressure 146/69 H 118/58 L Pulse Oximetry 96 99 12/06/17 00:00 12/06/17 00:05 12/06/17 03:45 Temperature 98.1 F Pulse Rate 73 78 78 Respiratory Rate 16 Blood Pressure 109/59 L Pulse Oximetry 92 L 12/06/17 04:00 12/06/17 08:00 12/06/17 12:00 Temperature 97.9 F 99.0 F 98.0 F Pulse Rate 76 77 83 Respiratory Rate 16 17 17 Blood Pressure 99/56 L 107/54 L 119/61 Pulse Oximetry 95 94 L 95 12/06/17 16:00 Temperature Pulse Rate 86 Respiratory Rate Blood Pressure Pulse Oximetry Intake & Output 12/05/17 12/06/17 12/06/17 18:59 06:59 18:59 Intake Total 1240 / 1240 150 / 150 Balance 1240 / 1240 150 / 150 Weight 71.8 kg 71.8 kg Intake: IV 1000 / 1000 50 / 50 NS Inj 1,000 ML @ 100 mls/hr IV 1000 / 1000 .CONT .Q10H [facility] Rx#:[id number] Ancef 1 GM Premix Inj 1 gm In 50 / 50 50 ml @ 0 mls/hr IV.SIG .STK- MED ONE Rx#:[id number] Oral 240 / 240 Anesthesia Amount 100 / 100 Other: # Voids 3 1 Date of Last Bowel Movement 12/03/17 Weight On Admission 71.8 kg Narrative: GENERAL: This is a well-nourished, well-developed patient, in no apparent distress. Chest wall - right port in place CARDIOVASCULAR: Regular rate and rhythm RESPIRATORY: Clear to auscultation. Breath sounds equal bilaterally. No wheezes , rales, or rhonchi. GASTROINTESTINAL: Abdomen soft, non-tender, nondistended. Normal active bowel sounds MUSCULOSKELETAL: Extremities without clubbing, cyanosis, or edema. NEURO: Alert & Oriented x4 to person, place, time, situation. Moves all ext x4 Results - Labs CBC & Chem 7: 12/06/17 06:30 12/06/17 06:30 Laboratory Results - last 24 hr 12/05/17 12/05/17 12/06/17 18:15 19:33 02:41 WBC RBC Hgb Hct MCV MCH MCHC RDW Plt Count MPV Neut % (Auto) Lymph % (Auto) [place] % (Auto) Eos % (Auto) Baso % (Auto) Neut # (Auto) Lymph # (Auto) [place] # (Auto) Eos # (Auto) Baso # (Auto) WBC Differential Differential Comment Sodium Potassium Chloride Carbon Dioxide Anion Gap BUN Creatinine Estimated GFR POC Glucose 148 H 114 H 94 Random Glucose Calcium Phosphorus Magnesium Total Bilirubin AST ALT Alkaline Phosphatase Total Protein Albumin TSH Free T4 12/06/17 12/06/17 12/06/17 06:30 06:30 13:25 WBC 2.6 L RBC 2.69 L Hgb 8.5 L Hct 25.1 L MCV 93.2 MCH 31.6 MCHC 33.9 RDW 16.7 Plt Count 141 L MPV 7.1 Neut % (Auto) 60.7 Lymph % (Auto) 28.1 [place] % (Auto) 6.4 Eos % (Auto) 4.1 H Baso % (Auto) 0.7 Neut # (Auto) 1.6 L Lymph # (Auto) 0.7 L [place] # (Auto) 0.2 Eos # (Auto) 0.1 Baso # (Auto) 0.0 WBC Differential . Differential Comment Auto diff final Sodium 144 Potassium 4.0 Chloride 110 H Carbon Dioxide 26.1 Anion Gap 8 BUN 31 H Creatinine 1.72 H Estimated GFR 29 L POC Glucose 96 Random Glucose 98 Calcium 8.5 D Phosphorus 3.2 Magnesium 2.2 Total Bilirubin 0.3 AST 16 ALT 21 Alkaline Phosphatase 42 L Total Protein 6.3 L D Albumin 3.4 TSH 2.250 Free T4 0.94 - Imaging Impressions Renal Scan w/Medication NM 12/06/17 00:00 CONCLUSION: 1. The right kidney showing marked decrease perfusion and overall clinical transit consistent with severe obstruction. Left kidney is unremarkable. Assessment and Plan - Plan 72 year old WF presents with Right hydronephrosis with CHOCO -Continue on IV fluids with normal saline NM renogram shows marked decrease perfusion and overall clinical transit consistent with severe obstruction. Dr. 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 Stallings Oncology DVT prophylaxis with SCDs and MALENA rangel Discharge Planning: home in am if renal function improves and cleared by nephrology.
[2017-12-06] MEDS: Sodium Chloride 0.9% 2 ML Flush BID IV.FLUSH SCH ×2 (17:10→20:30)
--- NOTE | 2017-12-06 18:10 | MB ---
cc: JaspalDarrickn Quinton DO DATE: 12/05/2017 HISTORY OF PRESENT ILLNESS: This is a 72-year-old female with history of breast cancer and history of anal squamous cell carcinoma with metastases treated with chemo and radiation in the past. She was noted to have a rise in her creatinine and was seen by Dr. Hanley. She presented to the ER with a 3-month history of right-sided flank pain. CT scan was performed demonstrating right hydronephrosis and hydroureter and also a renal scan was performed demonstrating decreased function of the right kidney with severe high-grade obstruction on that side. PAST MEDICAL HISTORY: Includes breast cancer, anal squamous cell cancer. PAST SURGICAL HISTORY: Noted for lumpectomy. Rectal biopsy. FAMILY HISTORY: Denies heart disease. SOCIAL HISTORY: Former smoker, does not drink. No history of drug abuse. ALLERGIES AND MEDICATIONS: Please refer to the chart. REVIEW OF SYSTEMS: Right-sided flank pain, intermittent in nature over the last 3 months. Denies nausea or vomiting at present, fever, chills, chest pain, shortness of breath, bleeding disorders, gait disturbances skin lesions or psychiatric problems. Remaining review of systems were reviewed and were negative. PHYSICAL EXAMINATION: VITAL SIGNS: Today 98, heart rate 76, respiratory rate 17, 119/61. GENERAL: Well-developed, well-nourished, 72-year-old female in no acute distress. HEENT: Normocephalic, atraumatic. Pupils equal, round, reactive to light. Extraocular movements intact. NECK: Supple. HEART: Regular rate and rhythm. LUNGS: Clear. ABDOMEN: Soft, nontender, nondistended. There is right CVA tenderness noted with palpation. GENITALIA: Normal female external genitalia. EXTREMITIES: Show no cyanosis, clubbing, or edema. LABORATORY DATA: White count 2.6, hemoglobin 8.5, hematocrit 25.1, platelet count of 141. Sodium 144, potassium 4.0, chloride 110, CO2 26.1, BUN of 31, creatinine 1.7, glucose of 96. Again, CT scan moderate right hydro dilatation of the proximal ureter with no identifiable ureteral calculus. Left kidney is unremarkable. Stable right pelvic lymph node, likely reactive. Renal scan: Marked decreased perfusion of the right kidney with overall clinic transit time consistent with severe obstruction. Left kidney is unremarkable. ASSESSMENT: A 72-year-old female with history of squamous anal cancer with right hydronephrosis with obstruction based on renal scan findings, we will plan for cystoscopy, right double-J stent insertion. Risks and benefits discussed. The patient willing to proceed. N.p.o. DO Joseph Myles , 03:51 PM , 04:02 PM
[2017-12-06] MEDS: traZODone 50 MG Tablet PO SCH (20:29)
[2017-12-07 00:01] VITALS: RESP 18
--- NOTE | 2017-12-07 01:04 | MB ---
cc: Shilpi Stallings MD DATE: 12/06/2017 REASON FOR CONSULTATION: Consult requested by hospitalist Dr. Chicho Castillo for followup of anal cancer. HISTORY OF PRESENT ILLNESS: Kaya is a 72-year-old female. She has a history of breast cancer and anal cancer. She has been treated with chemotherapy for stage IV anal cancer. She had an excellent response. However, she was recently found to have locally recurrent/residual disease in the anal area. She was referred to radiation oncologist. The patient was treated with radiation therapy. She has tolerated the treatment well. Subsequently, she was evaluated by colorectal surgeon, Dr. Mohini Andujar. She did the exam and did not find any evidence of residual disease. The patient came in yesterday to my office for followup of anal cancer. She brought in the lab results which showed that her creatinine has gone up from 0.7 to 2.0. The primary physician nurse practitioner obtained the sonogram of the kidneys. This showed right hydronephrosis. The patient was referred to admeasurer, Dr. Brown. The patient has an appointment with Dr. Brown in 2-3 weeks. However when I saw her yesterday, I requested her to see a urologist, Dr. Da Silva. The patient has previously seen Dr. Da Silva. I called up his office and tried to get an earlier appointment. However, I was told that Dr. Da Silva has no openings until end of December. The patient got frustrated with that. She decided to come to the emergency room for further evaluation. The patient came to the emergency room yesterday, and a blood test showed a creatinine of 1.83. Urology was consulted. Dr. Shay saw the patient, who recommended the patient should have a CAT scan of the abdomen and pelvis. This was done and did show moderate right hydronephrosis and dilatation of the proximal ureter with no identifiable ureteral calculus. The distal ureter is difficult to delineate. The left kidney is unremarkable. There is a stable right pelvic lymph node noted, likely reactive. No evidence of residual tumor noted. I have been asked to see the patient for further evaluation of the anal cancer. The patient underwent cystoscopy with right retrograde pyelogram and right ureteral dilatation and right double-J stent insertion today by Dr. Shay. There were no urinary bladder abnormalities noted. A retrograde pyelogram showed narrowing of the ureter with beading in the mid ureter. Attempt was made to place right double-J stent, but this was unsuccessful. Micro invasive ureteral dilators were then passed over the wire, and dilatation was done. A 22 cm left double-J stent was then placed with a good curl in the bladder and the kidney. The patient has tolerated the procedure well. The patient is feeling much better that the procedure went very well, and now she has the ureteral stent. PAST MEDICAL HISTORY: 1. Right breast cancer, which was diagnosed in 10/2015. She had a lumpectomy and sentinel lymph node sampling. The tumor was 0.6 cm. The sentinel lymph nodes were negative. After the lumpectomy, she had radiation therapy, and she was started on anastrozole endocrine therapy in 03/2016. 2. 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 She was treated with palliative cisplatin and 5-FU chemotherapy. However, she had severe reaction from the 5-FU. Subsequently, she was treated with single-agent cisplatin chemotherapy with an excellent response. She completed a total of 9 cycles of cisplatin chemotherapy in 05/2017. Restaging PET scan on 05/30/2017 showed interval resolution of uptake in the multiple lymph nodes with stable uptake in anus. The patient was reevaluated by the colorectal surgeon Dr. Mhoini Andujar. She was found to have residual disease and underwent radiation therapy which she recently finished. 3. Anxiety disorder. 4. Arthritis. 5. Depression. 6. Hypercholesterolemia. 7. Irregular heartbeat. 8. Mitral valve prolapse. 9. Peripheral neuropathy. 10. Rheumatoid arthritis. 11. Melanoma of the skin of the back. PAST SURGICAL HISTORY: Breast biopsy and an anal mass biopsy. Infusaport placement. Right pelvic lymph node biopsy. Colonoscopy. Melanoma removed from the back. Lumpectomy. ALLERGIES: CIPRO, PAXIL, . MEDICATIONS: 1. Anastrozole. 2. Aspirin. 3. Caltrate. 4. Cetirizine. 5. Escitalopram. 6. Fenofibrate. 7. Gabapentin. 8. Lidocaine. 9. Magnesium. 10. Metformin. 11. Ondansetron. 12. . 13. Trazodone. FAMILY HISTORY: Parents from old age. She has 1 brother and 1 sister, 1 son and 1 daughter, all alive and well. SOCIAL HISTORY: The patient is . She stopped smoking 35 years ago. She used to smoke 2 packs a day for 20 years. She quit drinking alcohol 40 years ago. She is a retired counselor. PHYSICAL EXAMINATION: GENERAL: She is a well-developed, well-nourished white female, in no apparent distress. VITAL SIGNS: Temperature 97.8, heart rate is 80, blood pressure 102/55, O2 saturation is 95%. HEAD, EYES, EARS, NOSE, AND THROAT: Pupils equal, round, reactive to light and accommodation, extraocular movements intact. Anicteric. No oral lesions noted. No thrush noted. NECK: Supple. No JVD. No masses noted. LUNGS: Clear. No wheezing, rhonchi, or rales. HEART: Regular rate and rhythm. No murmur heard. ABDOMEN: Soft and nontender. No hepatosplenomegaly. No abnormal bowel sounds. No guarding or rigidity noted. EXTREMITIES: No pedal edema. No cyanosis, no clubbing. NEUROLOGIC: Awake, alert, oriented x 3. Sensory and motor seem to be intact. SKIN: No bruises or petechiae noted. BREASTS: No masses noted. LYMPH NODES: No cervical, supraclavicular, or axillary lymphadenopathy noted. BACK: There is no spinal tenderness noted. ASSESSMENT: 1. Acute renal failure due to right hydronephrosis from ureteral obstruction. 2. Right ureteral obstruction. The etiology of that is unknown. 3. Status post ureteral stent placement. 4. History of anal cancer stage IV, status post chemotherapy followed by radiation therapy to the residual tumor in the anal canal. 5. Right breast cancer, currently on anastrozole. PLAN: I have reviewed her available records. I discussed the CAT scan of the abdomen and pelvis findings which do not show any evidence of residual or recurrent malignancy. She has moderate to severe right hydronephrosis due to ureteral obstruction. The patient underwent cystoscopy which did not show any bladder pathology or abnormalities. Retrograde pyelograms did show significant narrowing of the ureter. She underwent successful ureteral stent placement. No obvious malignancy noted. It is not clear why she had developed right ureteral stricture. I suspect that this could be the effect of the radiation therapy, but this may not be the case. The patient is feeling better. If she remains stable, then she could be discharged to home tomorrow from my standpoint. I will follow her in the office. Thank you for asking my opinion. MD PATY Winchester/sera/do , 11:40 PM , 12:05 AM TRACEY
[2017-12-07] MEDS: Insulin NovoLOG Aspart Correctional Sugar Inj SQ SCH ×2 (03:31→08:43)
[2017-12-07 04:33] VITALS: O2SAT 97
[2017-12-07] MEDS: Sod Chloride 0.9% Inj 1,000 ML IV.CONT SCH ×2 (05:25→07:14)
[2017-12-07 05:59] LABS: Baso % (Auto) 0.2 % (0.0-2.0); Eos % (Auto) 0.5 % (0.0-4.0); Hemoglobin 9.2 gm/dL (11.6-15.3); Lymph # (Auto) 0.5 th/mm3 (1.0-4.8); Lymph % (Auto) 17.3 % (9.0-44.0); Mean Corpuscular HGB Conc 34.3 % (32.0-36.0); Mean Corpuscular Hemoglobin 31.4 pg (27.0-34.0); Mean Corpuscular Volume 91.8 fL (80.0-100.0); Mean Platelet Volume 7.1 fL (7.0-11.0); Mono # (Auto) 0.1 th/mm3 (0.0-0.9); Mono % (Auto) 5.2 % (0.0-8.0); Neut # (Auto) 2.2 th/mm3 (1.8-7.7); Neut % (Auto) 76.8 % (16.0-70.0); Platelet Count 171 th/mm3 (150-450); Red Blood Count 2.94 mil/mm3 (4.00-5.30); Red Cell Distribution Width 16.3 % (11.6-17.2); White Blood Count 2.8 th/mm3 (4.0-11.0)
[2017-12-07 06:21] LABS: Calcium 8.6 mg/dL (8.5-10.1); Carbon Dioxide 27.1 meq/L (21.0-32.0)
[2017-12-07 08:27] VITALS: BP 124/58; TEMP 98.1
[2017-12-07] MEDS: Senna/Docusate Sodium 8.6/50 MG Tablet PO SCH (08:37)
[2017-12-07] MEDS: Gabapentin 100 MG Capsule PO SCH (08:37)
[2017-12-07] MEDS: Anastrozole 1 MG Tablet PO SCH (08:37)
[2017-12-07] MEDS: Famotidine 20 MG Tablet PO SCH (08:38)
[2017-12-07] MEDS: Sodium Chloride 0.9% 2 ML Flush BID IV.FLUSH SCH (08:44)
--- NOTE | 2017-12-07 09:01 | P.PNIM ---
Subjective Interval history: Patient reports some mild burning on urination. No abdominal pain. Tolerating diet after procedure. Physical Exam Vital signs: Vital Signs 12/06/17 12:00 12/06/17 16:00 12/06/17 16:42 Temperature 98.0 F 98.4 F Pulse Rate 83 86 74 Respiratory Rate 17 15 Blood Pressure 119/61 101/56 L Pulse Oximetry 95 96 12/06/17 16:45 12/06/17 17:00 12/06/17 17:15 Temperature Pulse Rate 75 77 73 Respiratory Rate 16 19 19 Blood Pressure 101/56 L 103/56 L 120/57 L Pulse Oximetry 94 L 95 94 L 12/06/17 17:26 12/06/17 17:28 12/06/17 18:00 Temperature 98.2 F 97.8 F Pulse Rate 74 80 Respiratory Rate 18 17 Blood Pressure 122/62 102/55 L Pulse Oximetry 95 95 95 12/06/17 20:00 12/07/17 00:00 12/07/17 03:45 Temperature 98.5 F 98.1 F Pulse Rate 77 72 71 Respiratory Rate 18 18 Blood Pressure 96/50 L 99/58 L Pulse Oximetry 90 L 93 L 12/07/17 04:00 12/07/17 08:00 Temperature 97.9 F 98.1 F Pulse Rate 74 83 Respiratory Rate 18 18 Blood Pressure 109/58 L 124/58 L Pulse Oximetry 97 97 Intake & Output 12/06/17 12/07/17 12/07/17 18:59 06:59 18:59 Intake Total 1550 / 1550 Output Total 1250 / 1250 Balance 1550 / 1550 -1250 / -1250 Weight 68.3 kg Intake: IV 1050 / 1050 NS Inj 1,000 ML @ 100 mls/hr IV 1000 / 1000 .CONT .Q10H [facility] Rx#:[id number] Ancef 1 GM Premix Inj 1 gm In 50 / 50 50 ml @ 0 mls/hr IV.SIG .STK- [facility] ONE Rx#:[id number] Oral 300 / 300 Anesthesia Amount 200 / 200 Output: Urine 1250 / 1250 Other: # Voids 2 Date of Last Bowel Movement 01/03/18 # Bowel Movements 0 Narrative: GENERAL: This is a well-nourished, well-developed patient, in no apparent distress. Chest wall - right port in place CARDIOVASCULAR: Regular rate and rhythm RESPIRATORY: Clear to auscultation. Breath sounds equal bilaterally. No wheezes , rales, or rhonchi. GASTROINTESTINAL: Abdomen soft, non-tender, nondistended. Normal active bowel sounds MUSCULOSKELETAL: Extremities without clubbing, cyanosis, or edema. NEURO: Alert & Oriented x4 to person, place, time, situation. Moves all ext x4 Results - Labs CBC & Chem 7: 12/07/17 05:30 12/07/17 05:30 Laboratory Results - last 24 hr 12/06/17 12/06/17 12/06/17 06:30 13:25 17:06 WBC RBC Hgb Hct MCV MCH MCHC RDW Plt Count MPV Neut % (Auto) Lymph % (Auto) [place] % (Auto) Eos % (Auto) Baso % (Auto) Neut # (Auto) Lymph # (Auto) [place] # (Auto) Eos # (Auto) Baso # (Auto) WBC Differential Differential Comment Sodium Potassium Chloride Carbon Dioxide Anion Gap BUN Creatinine Estimated GFR POC Glucose 96 94 Random Glucose Hemoglobin A1c 5.5 Calcium 12/06/17 12/07/17 12/07/17 19:52 03:30 05:30 WBC 2.8 L RBC 2.94 L Hgb 9.2 L Hct 27.0 L MCV 91.8 MCH 31.4 MCHC 34.3 RDW 16.3 Plt Count 171 MPV 7.1 Neut % (Auto) 76.8 H Lymph % (Auto) 17.3 [place] % (Auto) 5.2 Eos % (Auto) 0.5 Baso % (Auto) 0.2 Neut # (Auto) 2.2 Lymph # (Auto) 0.5 L [place] # (Auto) 0.1 Eos # (Auto) 0.0 Baso # (Auto) 0.0 WBC Differential . Differential Comment Auto diff final Sodium Potassium Chloride Carbon Dioxide Anion Gap BUN Creatinine Estimated GFR POC Glucose 196 H 118 H Random Glucose Hemoglobin A1c Calcium 12/07/17 05:30 WBC RBC Hgb Hct MCV MCH MCHC RDW Plt Count MPV Neut % (Auto) Lymph % (Auto) [place] % (Auto) Eos % (Auto) Baso % (Auto) Neut # (Auto) Lymph # (Auto) [place] # (Auto) Eos # (Auto) Baso # (Auto) WBC Differential Differential Comment Sodium 141 Potassium 4.0 Chloride 106 Carbon Dioxide 27.1 Anion Gap 8 BUN 30 H Creatinine 1.77 H Estimated GFR 28 L POC Glucose Random Glucose 108 H Hemoglobin A1c Calcium 8.6 - Imaging Impressions Renal Scan w/Medication NM 12/06/17 00:00 CONCLUSION: 1. The right kidney showing marked decrease perfusion and overall clinical transit consistent with severe obstruction. Left kidney is unremarkable. Assessment and Plan - Plan 72 year old WF presents with Right hydronephrosis with CHOCO -Given IV fluids with normal saline NM renogram shows marked decrease perfusion and overall clinical transit consistent with severe obstruction. Dr. Shay, Urologist performed cystoscopy, right retrograde pyelogram, right ureteral dilatation, right double-J stent insertion yesterday on 12/05 - postoperative care, pain control, patient urinating without difficulty. Acute on chronic kidney disease stage II - due to obstruction -IVF, s/p right ureteral stent insertion -creatinine has been stable overnight. 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 Stallings Oncology DVT prophylaxis with SCDs and MALENA alessandroe Discharge patient to home Condition on discharge: Improved Regular Diet as tolerated Ad Lisa activity Rx written: Pyridium 100 mg p.o. 3 times daily as needed for dysuria Follow-up with primary care physician FU with Dr. Stallings BMP in 1 week Discharge Planning: dc to home today
--- NOTE | 2017-12-07 09:39 | P.PNURO ---
Subjective Patient symptoms today: Pt feels well s/p cysto with right JJ stent insertion Objective Vital Signs: Vital Signs 12/06/17 12:00 12/06/17 16:00 12/06/17 16:42 Temperature 98.0 F 98.4 F Pulse Rate 83 86 74 Respiratory Rate 17 15 Blood Pressure 119/61 101/56 L Pulse Oximetry 95 96 12/06/17 16:45 12/06/17 17:00 12/06/17 17:15 Temperature Pulse Rate 75 77 73 Respiratory Rate 16 19 19 Blood Pressure 101/56 L 103/56 L 120/57 L Pulse Oximetry 94 L 95 94 L 12/06/17 17:26 12/06/17 17:28 12/06/17 18:00 Temperature 98.2 F 97.8 F Pulse Rate 74 80 Respiratory Rate 18 17 Blood Pressure 122/62 102/55 L Pulse Oximetry 95 95 95 12/06/17 20:00 12/07/17 00:00 12/07/17 03:45 Temperature 98.5 F 98.1 F Pulse Rate 77 72 71 Respiratory Rate 18 18 Blood Pressure 96/50 L 99/58 L Pulse Oximetry 90 L 93 L 12/07/17 04:00 12/07/17 08:00 Temperature 97.9 F 98.1 F Pulse Rate 74 83 Respiratory Rate 18 18 Blood Pressure 109/58 L 124/58 L Pulse Oximetry 97 97 Intake & Output 12/06/17 12/07/17 12/07/17 18:59 06:59 18:59 Intake Total 1550 / 1550 Output Total 1250 / 1250 Balance 1550 / 1550 -1250 / -1250 Weight 68.3 kg Intake: IV 1050 / 1050 NS Inj 1,000 ML @ 100 mls/hr IV 1000 / 1000 .CONT .Q10H [facility] Rx#:[id number] Ancef 1 GM Premix Inj 1 gm In 50 / 50 50 ml @ 0 mls/hr IV.SIG .STK- [facility] Rx#:[id number] Oral 300 / 300 Anesthesia Amount 200 / 200 Output: Urine 1250 / 1250 Other: # Voids 2 Date of Last Bowel Movement 01/03/18 # Bowel Movements 0 Result Diagrams: 12/07/17 05:30 12/07/17 05:30 Imaging: Impressions Renal Scan w/Medication NM 12/06/17 00:00 CONCLUSION: 1. The right kidney showing marked decrease perfusion and overall clinical transit consistent with severe obstruction. Left kidney is unremarkable. Medications and IVs: Active Medications Generic Name Dose Route Start Last Admin Trade Name Cristobal PRN Reason Stop Dose Admin Acebutolol HCl 200 mg 12/06/17 09:00 12/07/17 08:37 Sectral PO 200 mg DAILY ALIN Administration Acetaminophen 650 mg 12/05/17 15:08 12/07/17 08:37 Tylenol PO 650 mg Q4H PRN Administration Temp > 100.4 Acetaminophen 650 mg 12/05/17 15:08 Tylenol PO Q6HR PRN PAIN SCALE 1 TO 2 Al Hydroxide/Mg Hydroxide 30 ml 12/05/17 15:08 Milk Of Magnesia Liq PO Q12H PRN Mild Constipation Anastrozole 1 mg 12/06/17 09:00 12/07/17 08:37 Arimidex PO 1 mg DAILY ALIN Administration Bisacodyl 10 mg 12/05/17 15:08 Dulcolax Supp RECTAL DAILY PRN SEVERE CONSITIPATION Dextrose 50 ml 12/05/17 15:08 D50w Vial IV.PUSH UNSCH PRN PER HYPOGLYCEMIA PROTOCOL Escitalopram Oxalate 20 mg 12/06/17 09:00 12/07/17 08:37 Lexapro PO 20 mg DAILY ALIN Administration Famotidine 10 mg 12/05/17 21:00 12/07/17 08:38 Pepcid PO 10 mg BID ALIN Administration Gabapentin 100 mg 12/06/17 09:00 12/07/17 08:37 Neurontin PO 100 mg DAILY ALIN Administration Glucagon 1 mg 12/05/17 15:08 Glucagon Inj OTHER PRN PRN for Hypoglycemia Protocol Sodium Chloride 1,000 mls @ 100 mls/hr 12/05/17 15:30 12/07/17 07:14 Ns Inj IV.CONT Not Given .Q10H ALIN Lactated Ringer's 1,000 mls @ 30 mls/hr 12/06/17 13:00 12/06/17 15:09 Lr 1000 Ml Inj IV.CONT 12/07/17 12:59 30 mls/hr .Q24H ONE Administration Insulin Aspart 0 unit 12/05/17 17:00 12/07/17 08:43 Novolog Insulin Correctional Sugar Inj SQ Not Given ACHS AND 3AM ALIN Protocol Lactulose 30 ml 12/05/17 15:08 Lactulose Liq PO DAILY PRN SEVERE CONSITIPATION Miscellaneous Information 0 each 12/06/17 16:45 Misc Nursing Information OTHER 12/07/17 16:44 UNSCH PRN SEE LABEL COMMENTS Morphine Sulfate 2 mg 12/05/17 15:08 Morphine Inj IV.PUSH Q3H PRN PAIN 3-5; IF UNABLE TO TAKE PO Morphine Sulfate 4 mg 12/05/17 15:08 Morphine Inj IV.PUSH Q3H PRN PAIN 6-10;IF UNABLE TO TAKE PO Morphine Sulfate 4 mg 12/05/17 15:08 Morphine Inj IV.PUSH Q3H PRN BREAKTHROUGH PAIN Morphine Sulfate 4 mg 12/05/17 15:08 Morphine Inj IV.PUSH Q1H PRN Pain Scale 7-10 (Intractable) Naloxone HCl 0.4 mg 12/05/17 15:08 Narcan Inj IV.PUSH UNSCH PRN SEE LABEL COMMENTS Ondansetron HCl 4 mg 12/05/17 15:08 Zofran Inj IV.PUSH Q6H PRN NAUSEA OR VOMITING Oxycodone/Acetaminophen 1 tab 12/05/17 15:08 Percocet 10/325 Mg PO Q6H PRN PAIN SCALE 6 TO 10 Oxycodone/Acetaminophen 1 tab 12/05/17 15:08 12/06/17 18:43 Percocet 5/325 Mg PO 1 tab Q6H PRN Administration PAIN SCALE 3 TO 5 Senna/Docusate Sodium 1 tab 12/05/17 21:00 12/07/17 08:37 Cuca-Colace PO 1 tab BID ALIN Administration Sennosides 17.2 mg 12/05/17 15:08 Senokot PO Q12H PRN Moderate Constipation Sodium Chloride 2 ml 12/05/17 21:00 12/07/17 08:44 Ns Flush IV.FLUSH 2 ml BID ALIN Administration Sodium Chloride 2 ml 12/05/17 16:19 Ns Flush IV.FLUSH PRN PRN FLUSH AFTER USING IV ACCESS Temazepam 15 mg 12/05/17 21:00 Restoril PO HS PRN INSOMNIA Trazodone HCl 50 mg 12/05/17 21:00 12/06/17 20:29 Desyrel PO 50 mg HS ALIN Administration Objective Remarks: Abd;soft,nt,nd neg CVAT Assessment and Plan - Plan Stable s/p cysto with right JJ stent insertion D/C home F/U one month
[2017-12-07 10:14] VITALS: PULSE 82
--- NOTE | 2017-12-07 18:56 | ECG ---
Date Performed: 12/06/2017 Time Performed: 12:32:50 PTAGE: 72 years EKG: Sinus rhythm MODERATE INTRAVENTRICULAR CONDUCTION DELAY BORDERLINE ECG NO PREVIOUS TRACING DOCTOR: Rafael Chappell Interpretating Date/Time 12/07/2017 18:54:16
== END 2017-12-07 12:09 | disposition home or self-care (01) ==
LOC: NEPE 13:06 → NEDA 15:02 → N04 17:35
PROVIDERS: ADMIT Family Medicine; ATTEND Family Medicine

== ENCOUNTER 2018-03-05 13:58 | Inpatient (IN) ==
--- NOTE | 2018-03-05 14:32 | ED ---
HPI General Chief complaint: Nausea/Vomiting/Diarrhea Stated complaint: kidney/back complaint/dr sent Time Seen by Provider: 03/05/18 14:12 Source: patient Limitations: no limitations History of Present Illness HPI Narrative: 72-year-old female with a history of recurrent metastatic anal cancer and ureteral obstruction status post nephrostomy tube placement presents for evaluation of nausea, vomiting, and weakness for the past week. Patient has been seen in the ED and infusion center and given IV fluids however continues to have minimal p.o. intake. Onset (ago): week(s) (1) Description of Vomiting: food contents Description of Diarrhea: none Associated Abdominal Pain: No Relieving factors: none Exacerbating factors: none Associated symptoms: Reports malaise, nausea/vomiting, weakness and decreased urine output; Denies myalgias, chest pain, cough, diaphoresis, fever/chills, rash, dysuria, shortness of breath and altered mental status Related Data Home Medications Medication Instructions Recorded Confirmed acebutolol 200 mg PO DAILY 12/05/17 03/05/18 anastrozole 1 mg PO DAILY 12/05/17 03/05/18 escitalopram oxalate 20 mg PO DAILY 12/05/17 03/05/18 gabapentin 100 mg PO DAILY 12/05/17 03/05/18 trazodone 50 mg PO HS 12/05/17 03/05/18 ondansetron 8 mg PO TID PRN 03/05/18 03/05/18 Allergies Allergy/AdvReac Type Severity Reaction Status Date / Time ciprofloxacin Allergy Intermediate Hives Verified 03/05/18 14:17 imipramine Allergy Intermediate Agitation Verified 03/05/18 14:17 paroxetine Allergy Intermediate Agitation Verified 03/05/18 14:17 Review of Systems ROS: all other systems reviewed are negative [facility] Medical History Medical History Abnormal rectal biopsy (Acute) Anal cancer (Acute) Breast cancer (Acute) Port-A-Cath in place (Acute) Port-A-Cath in place (Acute) 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) Surgical History Surgical History H/O lumpectomy (Acute) Family History Family History Other Anal cancer Diabetes Social History Social History Substance History: No History of Abuse Second Hand Smoke Exposure: No Smoking Status: Former smoker Tobacco Type: Cigarettes How Often Do You Have a Drink Containing Alcohol: Never Hx Recent Travel: No Recent Travel in [facility] within the Last 8 Weeks: No Recent Out of Country Travel within the Last 8 Weeks: No Immunization History Tetanus Immunization: >5 Years Exam Narrative Exam Narrative: GENERAL: Awake, alert, no acute distress SKIN: Focused skin assessment warm/dry. HEAD: Atraumatic. Normocephalic. EYES: Pupils equal and round. No scleral icterus. No injection or drainage. ENT: No nasal bleeding or discharge. Mucous membranes pink and moist. NECK: Trachea midline. No JVD. CARDIOVASCULAR: Regular rate and rhythm. No murmur appreciated. RESPIRATORY: No accessory muscle use. Clear to auscultation. Breath sounds equal bilaterally. GASTROINTESTINAL: Abdomen soft, non-tender, nondistended. Hepatic and splenic margins not palpable. MUSCULOSKELETAL: No obvious deformities. No clubbing. No cyanosis. No edema. NEUROLOGICAL: Awake and alert. No obvious cranial nerve deficits. Motor grossly within normal limits. Normal speech. PSYCHIATRIC: Appropriate mood and affect; insight and judgment normal. Course Initial Documented Vital Signs Temperature 97.9 F 03/05/18 14:07 Pulse Rate 144 H 03/05/18 14:07 Respiratory Rate 18 03/05/18 14:07 Blood Pressure 90/50 L 03/05/18 14:07 Pulse Oximetry 98 03/05/18 14:07 Last Documented Vital Signs Temperature 97.9 F 03/05/18 14:07 Pulse Rate 94 H 03/05/18 16:50 Respiratory Rate 18 03/05/18 16:50 Blood Pressure 114/64 03/05/18 16:50 Pulse Oximetry 99 03/05/18 16:50 Medical Decision Making MDM Narrative Medical decision making narrative: 72-year-old female with metastatic anal cancer presents for evaluation of persistent vomiting. Concern for bowel obstruction, will check CT abdomen and pelvis. Will check labs to look for electrolyte abnormalities and assess renal function. Will treat with antiemetics. Labs with hypokalemia to 2.8. Will replete intravenously. Labs also show worsening of patient's creatinine to 3.3 from 2.47 yesterday. UA without evidence of infection. EKG was slight ST depressions laterally however first troponin negative. CT scan of the abdomen shows nephrostomy tubes in good position and a large fluid-filled distended stomach. Gastroenterology consulted and will perform EGD tomorrow. Discussed with oncology who recommends admission. Patient admitted to medicine Medical Screen Exam Complete: Yes Emergency Medical Condition: Yes Lab Data Lab results reviewed: Yes I reviewed the patient's lab results. Result diagrams: 03/05/18 14:30 03/05/18 14:30 Lab Results 03/05/18 03/05/18 Range/Units 14:30 14:30 WBC 6.5 (4.0-11.0) th/mm3 RBC 3.66 L (4.00-5.30) mil/mm3 Hgb 11.7 (11.6-15.3) gm/dL Hct 34.2 L (35.0-46.0) % MCV 93.5 (80.0-100.0) fL MCH 31.9 (27.0-34.0) pg MCHC 34.2 (32.0-36.0) % RDW 14.6 (11.6-17.2) % Plt Count 334 D (150-450) th/mm3 MPV 7.5 (7.0-11.0) fL Neut % (Auto) 77.7 H (16.0-70.0) % Lymph % (Auto) 14.9 (9.0-44.0) % [place] % (Auto) 6.3 (0.0-8.0) % Eos % (Auto) 0.8 (0.0-4.0) % Baso % (Auto) 0.3 (0.0-2.0) % Neut # (Auto) 5.0 (1.8-7.7) th/mm3 Lymph # (Auto) 1.0 (1.0-4.8) th/mm3 [place] # (Auto) 0.4 (0.0-0.9) th/mm3 Eos # (Auto) 0.1 (0.0-0.4) th/mm3 Baso # (Auto) 0.0 (0.0-0.2) th/mm3 WBC Differential . Differential Comment Auto diff final Sodium 134 L (136-145) meq/L Potassium 2.8 L* (3.5-5.1) meq/L Chloride 82 L (98-107) meq/L Carbon Dioxide 41.3 H (21.0-32.0) meq/L Anion Gap 11 (5-15) meq/L BUN 51 H (7-18) mg/dL Creatinine 3.30 H (0.50-1.00) mg/dL Estimated GFR 14 L (>89) mL/min Random Glucose 192 H (74-106) mg/dL Calcium 10.0 (8.5-10.1) mg/dL Magnesium 2.5 (1.5-2.5) mg/dL Total Bilirubin 0.8 (0.2-1.0) mg/dL AST 20 (15-37) U/L ALT 17 (10-53) U/L Alkaline Phosphatase 98 (45-117) U/L Troponin I Less than 0.02 L (0.02-0.05) ng/mL Total Protein 9.0 H (6.4-8.2) g/dL Albumin 4.4 (3.4-5.0) g/dL Imaging Data Radiologist's impression: Abdomen/Pelvis CT 03/05/18 14:25 CONCLUSION: 1. Bilateral nephroureteral ostomy is present in good position. There is some soft tissue around the right nephrostomy tube in the upper pelvis uncertain etiology. A new left tube is in excellent position. Markedly distended fluid- filled stomach with a very thin wall. ECG Data Attestation: I personally reviewed and interpreted this ECG as follows: Interpretation: Sinus tachycardia, rate of 106, ST depressions in lead II, aVF, V2 through V6 Discharge Plan Discharge Disposition Patient Disposition: ED Admit(ED Internal Use Only) Discharge Condition Condition: Fair Discharge Order Discharge Orders: ED Use Only Admit Order (Routine); Ordered 03/05/18 Ordered By: Viola Banda Discharge Details Diagnosis: Nausea and/or vomiting, Gastric distention Physicians Team ED Provider: Viola Banda Primary Care Provider: Mj Shearer Attending Provider: Sebastian Rolon Other Providers: Piyush Richards ; [employer] Discharge Interventions Interventions: Vital Signs Last Done: 03/05/18 16:50 Status ED Status: Admitted Patient
[2018-03-05 14:47] LABS: Baso % (Auto) 0.3 % (0.0-2.0); Eos # (Auto) 0.1 th/mm3 (0.0-0.4); Eos % (Auto) 0.8 % (0.0-4.0); Hematocrit 34.2 % (35.0-46.0); Hemoglobin 11.7 gm/dL (11.6-15.3); Lymph % (Auto) 14.9 % (9.0-44.0); Mean Corpuscular HGB Conc 34.2 % (32.0-36.0); Mean Corpuscular Hemoglobin 31.9 pg (27.0-34.0); Mean Corpuscular Volume 93.5 fL (80.0-100.0); Mean Platelet Volume 7.5 fL (7.0-11.0); Mono # (Auto) 0.4 th/mm3 (0.0-0.9); Mono % (Auto) 6.3 % (0.0-8.0); Neut % (Auto) 77.7 % (16.0-70.0); Platelet Count 334 th/mm3 (150-450); Red Blood Count 3.66 mil/mm3 (4.00-5.30); Red Cell Distribution Width 14.6 % (11.6-17.2); White Blood Count 6.5 th/mm3 (4.0-11.0)
[2018-03-05 15:16] LABS: Alanine Aminotransferase 17 U/L (10-53); Albumin 4.4 g/dL (3.4-5.0); Alkaline Phosphatase 98 U/L (45-117); Anion Gap 11 meq/L (5-15); Aspartate Aminotransferase 20 U/L (15-37); Blood Urea Nitrogen 51 mg/dL (7-18); Carbon Dioxide 41.3 meq/L (21.0-32.0); Chloride 82 meq/L (98-107); Glomerular Filtration Rate 14 mL/min (>89); Glucose,Random 192 mg/dL (74-106); Magnesium 2.5 mg/dL (1.5-2.5); Sodium 134 meq/L (136-145)
--- NOTE | 2018-03-05 15:18 | CT ---
EXAM DATE: 03/05/2018 3:11 PM EST AGE/SEX: 72 years / Female INDICATIONS: Nausea, vomiting and weakness. Left nephrostomy tube placed yesterday. CLINICAL DATA: This is the patient's initial encounter. Patient reports that signs and symptoms have been present for 1 day and indicates a pain score of 5/10. MEDICAL/SURGICAL HISTORY: Carcinoma, anal. Carcinoma, breast. Carcinoma, squamous cell. Deborah l failure. Nephrostomy tube, left. Nephrostomy tube, right. Lumpectomy. RADIATION DOSE: 14.17 CTDI (mGy) [place] [facility] [place] 12/05/2017. . TECHNIQUE: Multiple contiguous axial images were obtained through the abdomen. Images were obtained using multiple row detector helical technique. Using automated exposure control and adjustment of the mA and/or kV according to patient size, radiation dose was kept as low as reasonably achievable to o btain optimal diagnostic quality images. DICOM format image data is available electronically for rev iew and comparison. FINDINGS: Lower Lungs: The visualized lower lungs are clear. Liver: The liver has a homogeneous density without space-occupying lesion. There is no dilation of th e biliary tree. Spleen: Homogeneous density without enlargement. Pancreas: Unremarkable without mass or calcification. Kidneys: Normal in size and shape. No evidence of mass or hydronephrosis. Bilateral nephroureteral o stomy tubes both in good position. There is soft tissue around the right catheter in the upper pelvis and mid pelvis uncertain etiology Adrenal Glands: Unremarkable. Aorta: The aorta and proximal iliac vessels are grossly unremarkable without aneurysmal dilation. Bowel/Mesentery: Markedly distended fluid-filled stomach. The bowel loops are grossly unremarkable. T he cecum and sigmoid colon have a normal configuration. Abdominal Wall: Intact. Retroperitoneum: No evidence of adenopathy in the retrocrural, para-aortic, or deep pelvic regions. Bladder: Contours are smooth. Reproductive Organs: No abnormal masses or calcifications seen. Inguinal: The inguinal region is unremarkable without evidence of adenopathy. Bony Structures: Unremarkable. CONCLUSION: 1. Bilateral nephroureteral ostomy is present in good position. There is some soft tissue around the right nephrostomy tube in the upper pelvis uncertain etiology. A new left tube is in excellent posit ion. Markedly distended fluid-filled stomach with a very thin wall. Electronically signed by: Rusty Storm MD Board Certified Radiologist 03/05/2018 3:17 PM EST
[2018-03-05 15:21] LABS: Potassium 2.8 meq/L (3.5-5.1)
[2018-03-05] MEDS: Potassium Chlor 20 mEq Premix 20 MEQ/100 ML PIGGYBACK IV.SIG SCH ×2 (16:02→17:59)
[2018-03-05] MEDS ORDERED: Escitalopram 10 MG Tablet PO ONE (16:03)
[2018-03-05] MEDS ORDERED: Gabapentin 100 MG Capsule PO ONE (16:03)
--- NOTE | 2018-03-05 17:09 | P.HP ---
History of Present Illness Primary Care Physician: Mj Shearer MD History of Present Illness: 72-year-old white female being admitted for intractable nausea vomiting. Patient was in her usual state of health after being discharged yesterday from her oncologist office for IV fluids for dehydration secondary to nausea vomiting , when she went home and had persistent symptoms. Thus per her instruction she came to the emergency department today. Patient reports that she can vomit even on an empty stomach, does have emesis with stomach contents showing up. Denies having any abimbola abdominal pain. Reports that the last bowel movement she had was about 3 days ago which was loose, has been taking MiraLAX for at least about a month now. But she does endorse barely eating any food due to her nausea and vomiting. Patient denies any new pains at the site of her bilateral nephrostomy sites. Denies any abimbola abdominal pain. Reports that she has been suffering from nausea and vomiting chronically. She reports that recently she is gone almost 10 days without a bowel movement until the when she had 3 days ago. Prior to this month her usual pattern is going every 3-4 days. 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 She had a pre-existing tube that was placed back in January 16 on the right side. In the ED today patient's creatinine was found to be 3.3 with GFR at about 14. Potassium was 2.8. Patient was given IV potassium, Reglan, and IV fluids. CT scan of the abdomen was performed which showed a large distended fluid-filled stomach per radiology. Per my independent review there were no findings suggestive of severe constipation. Inpatient Certification: I certify that the inpatient services were ordered in accordance with Medicare regulations governing the order. This includes certification that hospital inpatient services are reasonable and necessary and in the case of services not specified as inpatient-only under 42 CFR 419.22(n), that they are appropriately provided as inpatient services in accordance to with the 2-midnight benchmark under 43 CFR 412.3(e) Estimated Total Length of Stay (Days): 2 Plans for Post Hospital Care: Not yet determined Review of Systems All other systems reviewed negative except as stated in HPI PMFSH - History History Provided By: Patient - Medical History Medical History: Medical History (Last Reviewed 03/05/18 @ 17:04 by Sebastian Rolon MD) Abnormal rectal biopsy Anal cancer Breast cancer Port-A-Cath in place Port-A-Cath in place Squamous cell cancer of scalp and skin of neck - Surgical History Surgical History: Surgical History (Last Reviewed 03/05/18 @ 17:04 by Sebastian Rolon MD) H/O lumpectomy - Family History Family History: Family History (Last Updated 03/05/18 @ 17:04 by Sebastian Rolon MD) Other Anal cancer Diabetes - Social History I have reviewed the patient's Social History: Yes - Tobacco History Second Hand Smoke Exposure: No Smoking Status: Former smoker Tobacco Type: Cigarettes - Alcohol History How Often Do You Have a Drink Containing Alcohol: Never - Substance Use History Substance History: No History of Abuse - Travel History History of Recent Travel: No Recent Travel in the [place] Within the Last 8 Weeks: No Recent Travel Out of the Country Within the Last 8 Weeks: No - Immunization History Tetanus Immunization: >5 Years Medications and Allergies Active Medications: Active Medications Potassium Chloride (Kcl 20 Meq Premix Inj) 20 meq in 100 mls @ 50 mls/hr IV.SIG Q2H ALIN Stop: 03/05/18 19:29 Last Admin: 03/05/18 16:02 Dose: 50 mls/hr Sodium Chloride (Ns Flush) 2 ml IV.FLUSH PRN PRN PRN Reason: FLUSH AFTER USING IV ACCESS Allergies Allergy/AdvReac Type Severity Reaction Status Date / Time ciprofloxacin Allergy Intermediate Hives Verified 03/05/18 14:17 imipramine Allergy Intermediate Agitation Verified 03/05/18 14:17 paroxetine Allergy Intermediate Agitation Verified 03/05/18 14:17 Home Medications Medication Instructions Recorded Confirmed Type acebutolol 200 mg PO DAILY 12/05/17 03/05/18 History anastrozole 1 mg PO DAILY 12/05/17 03/05/18 History escitalopram oxalate 20 mg PO DAILY 12/05/17 03/05/18 History gabapentin 100 mg PO DAILY 12/05/17 03/05/18 History trazodone 50 mg PO HS 12/05/17 03/05/18 History ondansetron 8 mg PO TID PRN 03/05/18 03/05/18 History Exam Vital signs: Vital Signs 03/05/18 14:07 03/05/18 14:15 03/05/18 16:50 Temperature 97.9 F Pulse Rate 144 H 114 H 94 H Respiratory Rate 18 18 18 Blood Pressure 90/50 L 121/65 114/64 Pulse Oximetry 98 94 L 99 Intake & Output 03/04/18 03/05/18 03/05/18 18:59 06:59 18:59 Weight 72.575 kg Narrative: VS: afebrile GENERAL: Well-nourished elderly white female who appears younger than her stated age, no acute distress SKIN: Warm and dry. EYES: Pupils equal and round. No scleral icterus. No injection or drainage. ENT: No nasal bleeding or discharge. Mucous membranes pink and moist. Dentures in place CARDIOVASCULAR: Regular rate and rhythm. no murmurs RESPIRATORY: No accessory muscle use. Clear to auscultation. Breath sounds equal bilaterally. GASTROINTESTINAL: Abdomen soft, non-tender, nondistended. Nephrostomy tubes in place with no surrounding erythema. Drainage noted with urine of good color. Extremities: No clubbing, cyanosis, or edema. No obvious deformities. MUSCULOSKELETAL: adequate muscle bulk and tone for age and habitus NEUROLOGICAL: Awake and alert. No obvious cranial nerve deficits. No facial droop nor slurred speech noted. PSYCHIATRIC: Appropriate mood and affect; insight and judgment normal. Results - Labs CBC & Chem 7: 03/05/18 14:30 03/05/18 14:30 Labs: Laboratory Results - last 24 hr 03/05/18 03/05/18 14:30 14:30 WBC 6.5 RBC 3.66 L Hgb 11.7 Hct 34.2 L MCV 93.5 MCH 31.9 MCHC 34.2 RDW 14.6 Plt Count 334 D MPV 7.5 Neut % (Auto) 77.7 H Lymph % (Auto) 14.9 [place] % (Auto) 6.3 Eos % (Auto) 0.8 Baso % (Auto) 0.3 Neut # (Auto) 5.0 Lymph # (Auto) 1.0 Mineral # (Auto) 0.4 Eos # (Auto) 0.1 Baso # (Auto) 0.0 WBC Differential . Differential Comment Auto diff final Sodium 134 L Potassium 2.8 L* Chloride 82 L Carbon Dioxide 41.3 H Anion Gap 11 BUN 51 H Creatinine 3.30 H Estimated GFR 14 L Random Glucose 192 H Calcium 10.0 Magnesium 2.5 Total Bilirubin 0.8 AST 20 ALT 17 Alkaline Phosphatase 98 Troponin I Less than 0.02 L Total Protein 9.0 H Albumin 4.4 - Imaging Impressions Abdomen/Pelvis CT 03/05/18 14:25 CONCLUSION: 1. Bilateral nephroureteral ostomy is present in good position. There is some soft tissue around the right nephrostomy tube in the upper pelvis uncertain etiology. A new left tube is in excellent position. Markedly distended fluid- filled stomach with a very thin wall. Caprini VTE Risk Assessment Caprini VTE Risk Assessment: Moderate/High Risk (score >= 2) Caprini Risk Assessment Model: Point Value = 1 Point Value = 2 Point Value = 3 Point Value = 5 Age 41-60 Minor surgery BMI > 25 kg/m2 Swollen legs Varicose veins or History of unexplained or recurrent spontaneous Oral contraceptives or hormone replacement Sepsis (< 1 month) Serious lung disease, including pneumonia (< 1 month) Abnormal pulmonary function Acute myocardial infarction Congestive heart failure (< 1 month) History of inflammatory bowel disease Medical patient at bed rest Age 61-74 Arthroscopic surgery Major open surgery (> 45 min) Laparoscopic surgery (> 45 min) Malignancy Confined to bed (> 72 hours) Immobilizing plaster cast Central venous access Age >= 75 History of VTE Family history of VTE Factor V Leiden Prothrombin [id number] Lupus anticoagulant Anticardiolipin antibodies Elevated serum homocysteine Heparin-induced thrombocytopenia Other congenital or acquired thrombophilia Stroke (< 1 month) Elective arthroplasty Hip, pelvis, or leg fracture Acute spinal cord injury (< 1 month) Prophylaxis Regimen: Total Risk Factor Score Risk Level Prophylaxis Regimen 0-1 Low Early ambulation 2 Moderate Order ONE of the following: *Sequential Compression Device (SCD) *Heparin 5000 units SQ BID 3-4 Higher Order ONE of the following medications: *Heparin 5000 units SQ TID *Enoxaparin/Lovenox 40 mg SQ daily (WT < 150 kg, CrCl > 30 mL/min) *Enoxaparin/Lovenox 30 mg SQ daily (WT < 150 kg, CrCl > 10-29 mL/min) *Enoxaparin/Lovenox 30 mg SQ BID (WT < 150 kg, CrCl > 30 mL/min) AND/OR *Sequential Compression Device (SCD) 5 or more Highest Order ONE of the following medications: *Heparin 5000 units SQ TID (Preferred with Epidurals) *Enoxaparin/Lovenox 40 mg SQ daily (WT < 150 kg, CrCl > 30 mL/min) *Enoxaparin/Lovenox 30 mg SQ daily (WT < 150 kg, CrCl > 10-29 mL/min) *Enoxaparin/Lovenox 30 mg SQ BID (WT < 150 kg, CrCl > 30 mL/min) AND *Sequential Compression Device (SCD) Assessment and Plan - Plan 72-year-old white female being admitted for intractable nausea vomiting with a distended fluid-filled stomach per CT. 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 Intractable nausea vomiting Acute on chronic pattern Resulting in dehydration IV fluids, Zofran -GI consulted to help elucidate underlying etiology of gastric distention, may entertain NG tube insertion versus motility issue versus obstruction issue -Unable to proceed with contrast CT secondary to renal impairment at this time -BMP in a.m. Acute kidney injury Secondary to above IV fluids BMP in a.m. 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 However recurrence was detected on PET scan within the last 2 months.
--- NOTE | 2018-03-05 17:37 | P.CONGI ---
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 Patient had recent bilateral nephrostomy tube insertion secondary to possible scarring of the urethra/ureter from radiation and chemotherapy and elevated creatinine and BUN. Patient presented to the emergency room today for intractable nausea vomiting for the last 9 days mostly of previously ingested food. Normally patient has constipation and takes senna and MiraLAX ago .2 days ago after MiraLAX patient had loose stools associated with nausea and vomiting . Patient also reports to frequent restaurants. However denies abdominal pain and blood in the stool. Denies fever. CT showed bilateral nephroureteral ostomy is present in good position. There is some soft tissue around the right nephrostomy tube in the upper pelvis uncertain etiology. A new left tube is in excellent position. Markedly distended fluid- filled stomach with a very thin wall. Our service is being consulted for intractable nausea and vomiting with CT findings of fluid-filled stomach. Hemoglobin 11.7 hematocrit of 34.2 platelet 334. Liver enzymes were not elevated. <Morgan Howell - Last Filed: 03/05/18 18:08> Review of Systems All other systems reviewed negative except as stated in HPI <Morgan Howell - Last Filed: 03/05/18 18:08> PMFSH - History History Provided By: Patient - Medical History Medical History: Medical History (Last Reviewed 03/05/18 @ 17:04 by Sebastian Rolon MD) Abnormal rectal biopsy Anal cancer Breast cancer Port-A-Cath in place Port-A-Cath in place Squamous cell cancer of scalp and skin of neck - Surgical History Surgical History: Surgical History (Last Reviewed 03/05/18 @ 17:04 by Sebastian Rolon MD) H/O lumpectomy - Family History Family History: Family History (Last Updated 03/05/18 @ 17:04 by Sebastian Rolon MD) Other Anal cancer Diabetes - Tobacco History Second Hand Smoke Exposure: No Smoking Status: Former smoker Tobacco Type: Cigarettes - Alcohol History How Often Do You Have a Drink Containing Alcohol: Never - Substance Use History Substance History: No History of Abuse - Travel History History of Recent Travel: No Recent Travel in the [place] Within the Last 8 Weeks: No Recent Travel Out of the Country Within the Last 8 Weeks: No - Immunization History Tetanus Immunization: >5 Years <Morgan Howell - Last Filed: 03/05/18 18:08> - Medical History Medical History: Medical History (Last Reviewed 03/05/18 @ 17:04 by Sebastian Rolon MD) Abnormal rectal biopsy Anal cancer Breast cancer Port-A-Cath in place Port-A-Cath in place Squamous cell cancer of scalp and skin of neck - Surgical History Surgical History: Surgical History (Last Reviewed 03/05/18 @ 17:04 by Sebastian Rolon MD) H/O lumpectomy - Family History Family History: Family History (Last Updated 03/05/18 @ 17:04 by Sebastian Rolon MD) Other Anal cancer Diabetes <MercedAmmar - Last Filed: 03/05/18 19:41> Medications and Allergies Active Medications: Active Medications Potassium Chloride (Kcl 20 Meq Premix Inj) 20 meq in 100 mls @ 50 mls/hr IV.SIG Q2H ALIN Stop: 03/05/18 19:29 Last Admin: 03/05/18 16:02 Dose: 50 mls/hr Sodium Chloride (Ns Flush) 2 ml IV.FLUSH PRN PRN PRN Reason: FLUSH AFTER USING IV ACCESS <Morgan Howell - Last Filed: 03/05/18 18:08> Active Medications: Active Medications Gabapentin (Neurontin) 100 mg PO DAILY ALIN Sodium Chloride (Ns Inj) 1,000 mls @ 100 mls/hr IV.CONT .Q10H ALIN Last Admin: 03/05/18 17:42 Dose: 100 mls/hr Promethazine HCl (Phenergan Inj) 12.5 mg IM Q6H PRN PRN Reason: NAUSEA Sodium Chloride (Ns Flush) 2 ml IV.FLUSH PRN PRN PRN Reason: FLUSH AFTER USING IV ACCESS Trazodone HCl (Desyrel) 50 mg PO HS ALIN <HemguilleanAmmar - Last Filed: 03/05/18 19:41> Allergies Allergy/AdvReac Type Severity Reaction Status Date / Time ciprofloxacin Allergy Intermediate Hives Verified 03/05/18 14:17 imipramine Allergy Intermediate Agitation Verified 03/05/18 14:17 paroxetine Allergy Intermediate Agitation Verified 03/05/18 14:17 Home Medications Medication Instructions Recorded Confirmed Type acebutolol 200 mg PO DAILY 12/05/17 03/05/18 History anastrozole 1 mg PO DAILY 12/05/17 03/05/18 History escitalopram oxalate 20 mg PO DAILY 12/05/17 03/05/18 History gabapentin 100 mg PO DAILY 12/05/17 03/05/18 History trazodone 50 mg PO HS 12/05/17 03/05/18 History ondansetron 8 mg PO TID PRN 03/05/18 03/05/18 History Exam Vital signs: Vital Signs 03/05/18 14:07 03/05/18 14:15 03/05/18 16:50 Temperature 97.9 F Pulse Rate 144 H 114 H 94 H Respiratory Rate 18 18 18 Blood Pressure 90/50 L 121/65 114/64 Pulse Oximetry 98 94 L 99 Intake & Output 03/04/18 03/05/18 03/05/18 18:59 06:59 18:59 Weight 72.575 kg - Constitutional no acute distress - Routine HEENT Exam Head: Present: normocephalic - Routine Neck Exam Present: supple - Routine Chest/Breast/Axilla Exam Comments: Port-A-Cath right subclavian - Routine Respiratory Exam Present: CTA bilaterally - Routine Cardiovascular Exam Present: RRR, S1, S2 Comments: Patient was having PVCs - Routine Abdominal Exam Present: soft. Absent: tenderness Comments: Slight distention of the abdomen, hypoactive at this time - Routine Skin Exam Present: intact - Routine Neurological Exam Present: alert, oriented X3 <Abdurahman,Arsheema - Last Filed: 03/05/18 18:08> Vital signs: Vital Signs 03/05/18 14:07 03/05/18 14:15 03/05/18 16:50 Temperature 97.9 F Pulse Rate 144 H 114 H 94 H Respiratory Rate 18 18 18 Blood Pressure 90/50 L 121/65 114/64 Pulse Oximetry 98 94 L 99 Intake & Output 03/05/18 03/05/18 03/06/18 06:59 18:59 06:59 Intake Total 100 / 100 Balance 100 / 100 Weight 72.575 kg Intake: IV 100 / 100 KCl 20 mEq Premix Inj 20 meq In 100 / 100 100 ml @ 50 mls/hr IV.SIG Q2H ALIN Rx#:[id number] <Evelin Blackwoodharpreet - Last Filed: 03/05/18 19:41> Results - Labs CBC & Chem 7: 03/05/18 14:30 03/05/18 14:30 Labs: Laboratory Results - last 24 hr 03/05/18 03/05/18 14:30 14:30 WBC 6.5 RBC 3.66 L Hgb 11.7 Hct 34.2 L MCV 93.5 MCH 31.9 MCHC 34.2 RDW 14.6 Plt Count 334 D MPV 7.5 Neut % (Auto) 77.7 H Lymph % (Auto) 14.9 Sumner % (Auto) 6.3 Eos % (Auto) 0.8 Baso % (Auto) 0.3 Neut # (Auto) 5.0 Lymph # (Auto) 1.0 Sumner # (Auto) 0.4 Eos # (Auto) 0.1 Baso # (Auto) 0.0 WBC Differential . Differential Comment Auto diff final Sodium 134 L Potassium 2.8 L* Chloride 82 L Carbon Dioxide 41.3 H Anion Gap 11 BUN 51 H Creatinine 3.30 H Estimated GFR 14 L Random Glucose 192 H Calcium 10.0 Magnesium 2.5 Total Bilirubin 0.8 AST 20 ALT 17 Alkaline Phosphatase 98 Troponin I Less than 0.02 L Total Protein 9.0 H Albumin 4.4 - Imaging Impressions Abdomen/Pelvis CT 03/05/18 14:25 CONCLUSION: 1. Bilateral nephroureteral ostomy is present in good position. There is some soft tissue around the right nephrostomy tube in the upper pelvis uncertain etiology. A new left tube is in excellent position. Markedly distended fluid- filled stomach with a very thin wall. <Morgan Howell - Last Filed: 03/05/18 18:08> - Labs CBC & Chem 7: 03/05/18 14:30 03/05/18 14:30 Labs: Laboratory Results - last 24 hr 03/05/18 03/05/18 14:30 14:30 WBC 6.5 RBC 3.66 L Hgb 11.7 Hct 34.2 L MCV 93.5 MCH 31.9 MCHC 34.2 RDW 14.6 Plt Count 334 D MPV 7.5 Neut % (Auto) 77.7 H Lymph % (Auto) 14.9 Sumner % (Auto) 6.3 Eos % (Auto) 0.8 Baso % (Auto) 0.3 Neut # (Auto) 5.0 Lymph # (Auto) 1.0 Sumner # (Auto) 0.4 Eos # (Auto) 0.1 Baso # (Auto) 0.0 WBC Differential . Differential Comment Auto diff final Sodium 134 L Potassium 2.8 L* Chloride 82 L Carbon Dioxide 41.3 H Anion Gap 11 BUN 51 H Creatinine 3.30 H Estimated GFR 14 L Random Glucose 192 H Calcium 10.0 Magnesium 2.5 Total Bilirubin 0.8 AST 20 ALT 17 Alkaline Phosphatase 98 Troponin I Less than 0.02 L Total Protein 9.0 H Albumin 4.4 - Imaging Impressions Abdomen/Pelvis CT 03/05/18 14:25 CONCLUSION: 1. Bilateral nephroureteral ostomy is present in good position. There is some soft tissue around the right nephrostomy tube in the upper pelvis uncertain etiology. A new left tube is in excellent position. Markedly distended fluid- filled stomach with a very thin wall. <Sultana Blackwood - Last Filed: 03/05/18 19:41> Assessment and Plan (1) Nausea and/or vomiting Status: Acute Code(s): R11.2 - Nausea with vomiting, unspecified (2) Gastric distention Status: Acute Code(s): K31.89 - Other diseases of stomach and duodenum (3) Electrolyte imbalance Status: Acute Code(s): E87.8 - Other disorders of electrolyte and fluid balance, not elsewhere classified (4) Acute kidney failure Status: Acute Code(s): N17.9 - Acute kidney failure, unspecified - Plan 03/05/2018 Assessment Nausea vomiting -patient status post bilateral hydroureter nephrostomy with acute kidney failure and electrolyte imbalance might have predispose patient to have intractable nausea and vomiting. Although her CAT scan showed some fluid- filled stomach, there was no signs of obstruction. Initially we would like to put an NG tube to decompress the stomach, patient declined. Also patient does not clinically look that NG tube is needed at this point. We did put an order for a 10 needed basis. Acute kidney failure-creatinine 3.13 BUN 51 patient is status post bilateral nephrostomy per CT scan does not have any obstruction and draining some urine into the nephrostomy bag bilaterally. Electrolyte imbalance -patient potassium is critical at 2.8 it is currently being replaced. She had some PVCs on the heart monitor, can be attributed to low in potassium as well as the nauseous feeling. Hopefully patient will improve after all the electrolytes will be corrected. Plan -N.p.o. after midnight -for egd in am -NG tube as needed -Monitor labs -Electrolytes replacement -Stool studies -Reglan every 8 hours as needed -Supportive care -Further recommendations to follow Patient was seen and examined by myself with Dr. Blackwood and this note is written on his behalf - Attending Attestation Dr. Blackwood <Morgan Howell - Last Filed: 03/05/18 18:08> (1) Nausea and/or vomiting Status: Acute Code(s): R11.2 - Nausea with vomiting, unspecified (2) Gastric distention Status: Acute Code(s): K31.89 - Other diseases of stomach and duodenum (3) Electrolyte imbalance Status: Acute Code(s): E87.8 - Other disorders of electrolyte and fluid balance, not elsewhere classified (4) Acute kidney failure Status: Acute Code(s): N17.9 - Acute kidney failure, unspecified - Plan Patient was seen and examined, agree with above note, we need to rule out gastric outlet obstruction with the severe nausea vomiting and distended stomach so we will plan on doing upper endoscopy tomorrow, discussed with patient and and both agreeable to have it done <Sultana Blackwood - Last Filed: 03/05/18 19:41> <Sultana Blackwood - Last Filed: 03/05/18 19:41> (1) Nausea and/or vomiting Qualifiers: Vomiting type: unspecified Vomiting Intractability: intractable Qualified Code(s): R11.2 - Nausea with vomiting, unspecified
[2018-03-05] MEDS: Sod Chloride 0.9% Inj 1,000 ML IV.CONT SCH ×2 (17:42→21:50)
[2018-03-05] MEDS: traZODone 50 MG Tablet PO SCH (21:54)
[2018-03-06 02:00] LABS: Bacteria,Urine Rare /hpf; Bilirubin,Urine Negative (Negative); Clarity,Urine Hazy (Clear); Color,Urine Yellow (Yellw/Straw); Glucose,Urine (UA) Negative (Negative); Hyaline Casts,Urine 7 /lpf (0-3); Leukocyte Esterase,Urine Large (Negative); Mucus,Urine Few /lpf (Occasional); Nitrite,Urine Negative (Negative); Renal Epithelial Cells,Urine <1 /hpf; Specific Gravity,Urine 1.018 (1.002-1.035); Squamous Epithelial Cell,Urine <1 /hpf (0-5); Transitional Epi Cells,Urine <1 /hpf
[2018-03-06] MEDS: Sod Chloride 0.9% Inj 1,000 ML IV.CONT SCH ×4 (04:32→20:47)
[2018-03-06 06:08] LABS: Calcium 8.9 mg/dL (8.5-10.1)
[2018-03-06 06:15] LABS: Potassium 2.4 meq/L (3.5-5.1)
[2018-03-06] MEDS: Potassium Chlor 20 mEq Premix 20 MEQ/100 ML PIGGYBACK IV.SIG SCH ×4 (07:01→16:47)
[2018-03-06] MEDS: Gabapentin 100 MG Capsule PO SCH (08:45)
[2018-03-06] MEDS ORDERED: Lidocaine PF 1% Inj 5 ML Syringe INFILTRATN ONE (10:19)
--- NOTE | 2018-03-06 12:54 | P.PNIM ---
Subjective Interval history: Follow up for nausea, vomiting, abdominal pain and weakness. Patient is currently doing well. Denies any chest pain, shortness of breath, fever or chills. She does not have any further nausea or vomiting. Physical Exam Vital signs: Vital Signs 03/05/18 14:07 03/05/18 14:15 03/05/18 16:50 Temperature 97.9 F Pulse Rate 144 H 114 H 94 H Respiratory Rate 18 18 18 Blood Pressure 90/50 L 121/65 114/64 Pulse Oximetry 98 94 L 99 03/05/18 20:00 03/06/18 00:00 03/06/18 04:00 Temperature 98.2 F 98.8 F 98.4 F Pulse Rate 94 H 105 H 100 H Respiratory Rate 18 18 18 Blood Pressure 111/69 115/57 L 108/68 Pulse Oximetry 93 L 94 L 97 03/06/18 06:31 03/06/18 08:00 Temperature 98.4 F 98.6 F Pulse Rate 96 H 94 H Respiratory Rate 18 16 Blood Pressure 104/63 124/61 Pulse Oximetry 95 94 L Intake & Output 03/05/18 03/06/18 03/06/18 18:59 06:59 18:59 Intake Total 100 / 100 1100 / 1100 1400 / 1400 Output Total 100 / 100 Balance 100 / 100 1000 / 1000 1400 / 1400 Weight 72.575 kg 73.3 kg Intake: IV 100 / 100 1100 / 1100 1200 / 1200 NS Inj 1,000 ML @ 100 mls/hr IV 1000 / 1000 1000 / 1000 .CONT .Q10H ALIN Rx#:[id number] KCl 20 mEq Premix Inj 20 meq In 100 / 100 100 / 100 200 / 200 100 ml @ 50 mls/hr IV.SIG Q2H ALIN Rx#:[id number] Anesthesia Amount 200 / 200 Output: Emesis 100 / 100 Other: # Emeses 1 Narrative: GENERAL: Well-nourished, well-developed patient. SKIN: Warm and dry. HEAD: Normocephalic. EYES: No scleral icterus. No injection or drainage. NECK: Supple, trachea midline. No JVD or lymphadenopathy. CARDIOVASCULAR: Regular rate and rhythm without murmurs, gallops, or rubs. RESPIRATORY: Breath sounds equal bilaterally. No accessory muscle use. GASTROINTESTINAL: Abdomen soft, non-tender, nondistended. MUSCULOSKELETAL: No cyanosis, or edema. BACK: Nontender without obvious deformity. No CVA tenderness. Results Labs CBC & Chem 7: 03/05/18 14:30 03/06/18 04:21 Imaging Imaging: Impressions Abdomen/Pelvis CT 03/05/18 14:25 CONCLUSION: 1. Bilateral nephroureteral ostomy is present in good position. There is some soft tissue around the right nephrostomy tube in the upper pelvis uncertain etiology. A new left tube is in excellent position. Markedly distended fluid- filled stomach with a very thin wall. Assessment and Plan (1) Nausea and/or vomiting: Code(s): R11.2 - Nausea with vomiting, unspecified Status: Acute (2) Gastric distention: Code(s): K31.89 - Other diseases of stomach and duodenum Status: Acute (3) Electrolyte imbalance: Code(s): E87.8 - Other disorders of electrolyte and fluid balance, not elsewhere classified Status: Acute (4) Acute kidney failure: Code(s): N17.9 - Acute kidney failure, unspecified Status: Acute Plan 72-year-old white female being admitted for intractable nausea vomiting with a distended fluid-filled stomach per CT. 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 Intractable nausea vomiting Acute on chronic pattern Resulting in dehydration IV fluids, Zofran -GI consulted. Upper GI series is pending. Acute kidney injury Severe Hypokalemia 2.4 today. -Mg is 2.5. Creatinine improved from 3.3 to 2.75. Likely due to contracted neuropathy as well as prerenal. Pt received 40meq of KCL IV, will give 40 meQ more IV. -Maintain nephrostomy tubes at this time with drainage, monitor intake and output -Nephrology consulted for borderline renal function Continue IV fluid normal saline at 150 cc/h. Repeat BMP tomorrow morning. 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 However recurrence was detected on PET scan within the last 2 months. Full code. SCDs. If prolonged hospitalization anticipated, will consider pharmacological DVT prophylaxis. _ (1) Acute kidney failure Qualifiers: Acute renal failure type: (2) Nausea and/or vomiting Qualifiers: Vomiting Intractability: intractable Vomiting type: unspecified Qualified Code(s): R11.2 - Nausea with vomiting, unspecified
[2018-03-06] MEDS: traZODone 50 MG Tablet PO SCH (20:42)
--- NOTE | 2018-03-06 20:47 | ECG ---
Date Performed: 03/05/2018 Time Performed: 14:24:30 PTAGE: 72 years EKG: SINUS TACHYCARDIA ABNORMAL RHYTHM ECG NO PREVIOUS TRACING DOCTOR: Mark Lewis Interpretating Date/Time 03/06/2018 20:44:16
[2018-03-06] MEDS: Senna/Docusate Sodium 8.6/50 MG Tablet PO SCH (21:56)
[2018-03-07] MEDS: Sod Chloride 0.9% Inj 1,000 ML IV.CONT SCH ×4 (00:47→20:00)
[2018-03-07 06:57] LABS: Calcium 8.8 mg/dL (8.5-10.1); Carbon Dioxide 36.4 meq/L (21.0-32.0)
[2018-03-07 07:04] LABS: Potassium 2.9 meq/L (3.5-5.1)
[2018-03-07] MEDS: Gabapentin 100 MG Capsule PO SCH (09:16)
[2018-03-07] MEDS: Senna/Docusate Sodium 8.6/50 MG Tablet PO SCH ×2 (09:18→20:41)
--- NOTE | 2018-03-07 11:59 | P.PNGI ---
Subjective Interval history: Follow up on patient admitted with intractable nausea and vomiting x 9 days. EGD yesterday, gastritis and esophagitis, biopsied. 2-1/2 L of fluid was removed from her stomach. Patient seen and examined. Family at bedside. Patient reports abdominal pain and ongoing nausea. Family member reports one episode of vomiting this morning. Family member states that after procedure yesterday patient's abdomen was no longer distended, but he reports that today distention has increased. Patient states she has not eaten anything and has not had a bowel movement. <Vandana Solis - Last Filed: 03/07/18 12:15> Physical Exam Vital signs: Vital Signs 03/06/18 16:00 03/06/18 20:00 03/07/18 00:00 Temperature 98.3 F 97.3 F L 99.5 F Pulse Rate 88 88 96 H Respiratory Rate 16 18 16 Blood Pressure 121/59 L 136/61 123/62 Pulse Oximetry 92 L 96 91 L 03/07/18 04:00 03/07/18 08:00 03/07/18 11:26 Temperature 99.2 F 98.6 F 98.3 F Pulse Rate 66 94 H 93 H Respiratory Rate 17 16 14 Blood Pressure 121/58 L 124/67 127/62 Pulse Oximetry 92 L 96 Intake & Output 03/06/18 03/07/18 03/07/18 18:59 06:59 18:59 Intake Total 2500 / 2500 2099 / 2100 Output Total 550 / 550 675 / 675 Balance 2500 / 2500 1550 / 1550 -675 / -675 Weight 73.8 kg Intake: IV 2300 / 2300 2099 / 2100 NS Inj 1,000 ML @ 150 mls/hr IV 1999 .CONT .Q6H40M ALIN Rx#:[id number] KCl 20 mEq Premix Inj 20 meq In 300 / 300 100 / 100 100 ml @ 50 mls/hr IV.SIG Q2H ALIN Rx#:[id number] Oral 0 / 0 Anesthesia Amount 200 / 200 Output: Urine Amount (Stoma) 550 / 550 675 / 675 Nephrostomy Tube Left 250 / 250 450 / 450 Nephrostomy Tube Right 300 / 300 225 / 225 Other: # Voids 2 Date of Last Bowel Movement 03/06/18 # Bowel Movements 0 1 # Emeses 400 - Constitutional no acute distress - Routine HEENT Exam Head: Present: normocephalic - Routine Abdominal Exam Present: soft, tenderness. Absent: guarding, firm <Vandana Solis - Last Filed: 03/07/18 12:15> Vital signs: Vital Signs 03/06/18 20:00 03/07/18 00:00 03/07/18 04:00 Temperature 97.3 F L 99.5 F 99.2 F Pulse Rate 88 96 H 66 Respiratory Rate 18 16 17 Blood Pressure 136/61 123/62 121/58 L Pulse Oximetry 96 91 L 92 L 03/07/18 08:00 03/07/18 11:26 03/07/18 16:00 Temperature 98.6 F 98.3 F 97.9 F Pulse Rate 94 H 93 H 115 H Respiratory Rate 16 14 19 Blood Pressure 124/67 127/62 147/90 H Pulse Oximetry 96 99 Intake & Output 03/07/18 03/07/18 03/08/18 06:59 18:59 06:59 Intake Total 2100 / 2100 1100 / 1100 Output Total 550 / 550 675 / 675 Balance 1550 / 1550 425 / 425 Weight 73.8 kg Intake: IV 2100 / 2100 1100 / 1100 NS Inj 1,000 ML @ 150 mls/hr IV 2000 / 2000 1000 / 1000 .CONT .Q6H40M ALIN Rx#:[id number] KCl 20 mEq Premix Inj 20 meq In 100 / 100 100 / 100 100 ml @ 50 mls/hr IV.SIG Q2H ALIN Rx#:[id number] Oral 0 / 0 Output: Urine Amount (Stoma) 550 / 550 675 / 675 Nephrostomy Tube Left 250 / 250 450 / 450 Nephrostomy Tube Right 300 / 300 225 / 225 Other: # Voids 3 Date of Last Bowel Movement 03/06/18 # Bowel Movements 1 0 # Emeses 400 <Sultana Blackwood - Last Filed: 03/07/18 19:04> Results - Labs CBC & Chem 7: 03/05/18 14:30 03/07/18 05:25 Laboratory Results - last 24 hr 03/06/18 03/07/18 17:01 05:25 Sodium 146 H Potassium 3.3 L D 2.9 L* Chloride 101 D Carbon Dioxide 36.4 H Anion Gap 9 BUN 36 H Creatinine 1.66 H Estimated GFR 30 L Random Glucose 100 Calcium 8.8 Microbiology 03/06/18 01:20 Clean Catch Urine Urine Culture - Preliminary No growth in 24 hours 03/06/18 22:10 Stool Stool for WBCs - Final No WBC's seen 03/06/18 22:10 Stool Cryptosporidium Antigen - Final Negative - No Cryptosporicium antigen detected In selected cases of patients with a history of immunosuppression or foreign travel, a full ova and parasites examination may be desired. Contact the microbiology lab if full workup is indicated and subit another specimen for testing. 03/06/18 22:10 Stool Giardia Antigen (VIN) - Final Negative - No Giardia Antigen detected In selected cases of patients with a history of immunosuppression or foreign travel, a full ova and parasites examination may be desired. Contact the microbiology lab if full workup is indicated and subit another specimen for testing. <Vandana Solis - Last Filed: 03/07/18 12:15> - Labs CBC & Chem 7: 03/05/18 14:30 03/07/18 05:25 Laboratory Results - last 24 hr 03/07/18 05:25 Sodium 146 H Potassium 2.9 L* Chloride 101 D Carbon Dioxide 36.4 H Anion Gap 9 BUN 36 H Creatinine 1.66 H Estimated GFR 30 L Random Glucose 100 Calcium 8.8 Microbiology 03/06/18 22:10 Stool Enteric Pathogens (PCR) - Final 03/06/18 01:20 Clean Catch Urine Urine Culture - Preliminary No growth in 24 hours 03/06/18 22:10 Stool Stool for WBCs - Final No WBC's seen 03/06/18 22:10 Stool Cryptosporidium Antigen - Final Negative - No Cryptosporicium antigen detected In selected cases of patients with a history of immunosuppression or foreign travel, a full ova and parasites examination may be desired. Contact the microbiology lab if full workup is indicated and subit another specimen for testing. 03/06/18 22:10 Stool Giardia Antigen (VIN) - Final Negative - No Giardia Antigen detected In selected cases of patients with a history of immunosuppression or foreign travel, a full ova and parasites examination may be desired. Contact the microbiology lab if full workup is indicated and subit another specimen for testing. - Imaging Impressions Abdomen/Pelvis CT 03/07/18 00:00 CONCLUSION: 1. There appears to be an obstruction at the beginning of the third portion of the duodenum. This retroperitoneal soft tissue which also partially encases the anterior margin of the right ureter could be either lymphadenopathy or soft tissue mass from the third portion of the duodenum. Upper GI and Small Bowel X-Ray 03/07/18 00:00 CONCLUSION: Marked distention of the stomach which is still fluid-filled. Questionable obstructing of the third portion of the duodenum. <Sultana Blackwood - Last Filed: 03/07/18 19:04> Assessment and Plan (1) Nausea and/or vomiting Status: Acute Code(s): R11.2 - Nausea with vomiting, unspecified (2) Gastric distention Status: Acute Code(s): K31.89 - Other diseases of stomach and duodenum (3) Electrolyte imbalance Status: Acute Code(s): E87.8 - Other disorders of electrolyte and fluid balance, not elsewhere classified (4) Acute kidney failure Status: Acute Code(s): N17.9 - Acute kidney failure, unspecified - Plan 03/06/18 Patient was seen and examined, agree with above note, we need to rule out gastric outlet obstruction with the severe nausea vomiting and distended stomach so we will plan on doing upper endoscopy tomorrow, discussed with patient and and both agreeable to have it done 03/07/18 Nausea, vomiting, gastric distention: EGD yesterday, biopsies for gastritis and duodenitis pending. Patient continues to have nausea and vomiting. Gastrografin upper GI with small bowel series has been ordered. Will keep n.p.o. NG tube if patient consents. Continue IV fluids and antiemetics. Patient was seen and examined by myself and Dr. Blackwood and this note was written on his behalf. <Vandana Solis - Last Filed: 03/07/18 12:15> (1) Nausea and/or vomiting Status: Acute Code(s): R11.2 - Nausea with vomiting, unspecified (2) Gastric distention Status: Acute Code(s): K31.89 - Other diseases of stomach and duodenum (3) Electrolyte imbalance Status: Acute Code(s): E87.8 - Other disorders of electrolyte and fluid balance, not elsewhere classified (4) Acute kidney failure Status: Acute Code(s): N17.9 - Acute kidney failure, unspecified - Plan Patient was seen and examined, agree with above note, patient has a history of anal cancer, came with nausea vomiting, now has gastric outlet obstruction, I placed NG tube today, will put to suction, will ask surgery evaluation <Sultana Blackwood - Last Filed: 03/07/18 19:04> <Vandana Solis - Last Filed: 03/07/18 12:15> (1) Nausea and/or vomiting Qualifiers: Vomiting type: unspecified Vomiting Intractability: intractable Qualified Code(s): R11.2 - Nausea with vomiting, unspecified <Sultana Blackwood - Last Filed: 03/07/18 19:04> (1) Nausea and/or vomiting Qualifiers: Vomiting type: unspecified Vomiting Intractability: intractable Qualified Code(s): R11.2 - Nausea with vomiting, unspecified
[2018-03-07] MEDS ORDERED: Diatrizoate Meglum/Diatrizoate Sod Liq 120 ML Bottle (for RAD diag) PO ONE (15:01)
--- NOTE | 2018-03-07 15:41 | P.PNIM ---
Subjective Interval history: Follow up for nausea, vomiting, abdominal pain and weakness. Patient had nausea, vomiting yesterday and today. No fever, chills. Physical Exam Vital signs: Vital Signs 03/06/18 16:00 03/06/18 20:00 03/07/18 00:00 Temperature 98.3 F 97.3 F L 99.5 F Pulse Rate 88 88 96 H Respiratory Rate 16 18 16 Blood Pressure 121/59 L 136/61 123/62 Pulse Oximetry 92 L 96 91 L 03/07/18 04:00 03/07/18 08:00 03/07/18 11:26 Temperature 99.2 F 98.6 F 98.3 F Pulse Rate 66 94 H 93 H Respiratory Rate 17 16 14 Blood Pressure 121/58 L 124/67 127/62 Pulse Oximetry 92 L 96 Intake & Output 03/06/18 03/07/18 03/07/18 18:59 06:59 18:59 Intake Total 2500 / 2500 2100 / 2100 Output Total 550 / 550 675 / 675 Balance 2500 / 2500 1550 / 1550 -675 / -675 Weight 73.8 kg Intake: IV 2300 / 2300 2100 / 2100 NS Inj 1,000 ML @ 150 mls/hr IV 1999 / 1999 .CONT .Q6H40M ALIN Rx#:[id number] KCl 20 mEq Premix Inj 20 meq In 300 / 300 100 / 100 100 ml @ 50 mls/hr IV.SIG Q2H ALIN Rx#:[id number] Oral 0 / 0 Anesthesia Amount 200 / 200 Output: Urine Amount (Stoma) 550 / 550 675 / 675 Nephrostomy Tube Left 250 / 250 450 / 450 Nephrostomy Tube Right 300 / 300 225 / 225 Other: # Voids 2 Date of Last Bowel Movement 03/06/18 # Bowel Movements 0 1 # Emeses 400 Narrative: GENERAL: Well-nourished, well-developed patient. SKIN: Warm and dry. HEAD: Normocephalic. EYES: No scleral icterus. No injection or drainage. NECK: Supple, trachea midline. No JVD or lymphadenopathy. CARDIOVASCULAR: Regular rate and rhythm without murmurs, gallops, or rubs. RESPIRATORY: Breath sounds equal bilaterally. No accessory muscle use. GASTROINTESTINAL: Abdomen soft, non-tender, nondistended. MUSCULOSKELETAL: No cyanosis, or edema. BACK: Nontender without obvious deformity. No CVA tenderness. Results Labs CBC & Chem 7: 03/05/18 14:30 03/07/18 05:25 Labs: Microbiology 03/06/18 22:10 Stool Enteric Pathogens (PCR) - Final 03/06/18 01:20 Clean Catch Urine Urine Culture - Preliminary No growth in 24 hours 03/06/18 22:10 Stool Stool for WBCs - Final No WBC's seen 03/06/18 22:10 Stool Cryptosporidium Antigen - Final Negative - No Cryptosporicium antigen detected In selected cases of patients with a history of immunosuppression or foreign travel, a full ova and parasites examination may be desired. Contact the microbiology lab if full workup is indicated and subit another specimen for testing. 03/06/18 22:10 Stool Giardia Antigen (VIN) - Final Negative - No Giardia Antigen detected In selected cases of patients with a history of immunosuppression or foreign travel, a full ova and parasites examination may be desired. Contact the microbiology lab if full workup is indicated and subit another specimen for testing. Assessment and Plan (1) Nausea and/or vomiting: Code(s): R11.2 - Nausea with vomiting, unspecified Status: Acute (2) Gastric distention: Code(s): K31.89 - Other diseases of stomach and duodenum Status: Acute (3) Electrolyte imbalance: Code(s): E87.8 - Other disorders of electrolyte and fluid balance, not elsewhere classified Status: Acute (4) Acute kidney failure: Code(s): N17.9 - Acute kidney failure, unspecified Status: Acute Plan 72-year-old white female being admitted for intractable nausea vomiting with a distended fluid-filled stomach per CT. 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 Intractable nausea vomiting Acute on chronic pattern Resulting in dehydration IV fluids, Zofran -GI consulted. Upper GI series is pending. CT abd/pelvis pending per GI as well. Acute kidney injury Severe Hypokalemia 2.4 --> 2.9 today. Mild hypernatremia - Na 146. -Mg is 2.5. Creatinine improved from 3.3 to 2.75 --> 1.66. Likely due to obstructed uropathy as well as prerenal. Will provide more IV KCL. Repeat BMP in the AM. -Maintain nephrostomy tubes at this time with drainage, monitor intake and output -Switch fluid to D5W 84cc/hour. 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 However recurrence was detected on PET scan within the last 2 months. Full code. SCDs. Will start Lovenox 30mg Qday. _ (1) Nausea and/or vomiting Qualifiers: Vomiting type: unspecified Vomiting Intractability: intractable Qualified Code(s): R11.2 - Nausea with vomiting, unspecified (2) Acute kidney failure Qualifiers: Acute renal failure type:
--- NOTE | 2018-03-07 15:54 | FL ---
EXAM DATE: 03/07/2018 3:42 PM EST AGE/SEX: 72 years / Female INDICATIONS: Obstruction. CLINICAL DATA: This is the patient's subsequent encounter. Patient reports that signs and symptoms h ave been present for 3 weeks and indicates a pain score of 4/10. MEDICAL/SURGICAL HISTORY: None. Nephrostomy tube, left. Nephrostomy tube, right. COMPARISON: [facility], ABDOMEN 1V KUB, 03/02/2018. . FLUORO TIME: 2.5 minutes. IMAGE COUNT: 16 RADIATION DOSE: 7666.5 DAP FINDINGS: Preliminary film is unremarkable with bilateral double-J nephroureteral catheters. Gastroview demonstrates the GE junction is patent. There is rapid filling of a very distended fluid-f illed stomach. There is emptying of the stomach into the duodenum. The first and second portions of d uodenum fill. No contrast identified of the third portion of the duodenum. No contrast identified in any of the small bowel loops. On the CT scan of the soft tissue of the right ureter which also abuts the third portion of the duode num could be an obstructing mass. Noncontrast CT scan of the abdomen is planned. CONCLUSION: Marked distention of the stomach which is still fluid-filled. Questionable obstructing of the third p ortion of the duodenum. Electronically signed by: Rusty Storm MD Board Certified Radiologist 03/07/2018 3:53 PM EST
--- NOTE | 2018-03-07 16:04 | CT ---
EXAM DATE: 03/07/2018 3:38 PM EST AGE/SEX: 72 years / Female INDICATIONS: Stomach not emptying post upper GI. CLINICAL DATA: This is the patient's initial encounter. Patient reports that signs and symptoms have been present for 1 day and indicates a pain score of 7/10. MEDICAL/SURGICAL HISTORY: Carcinoma, anal. Carcinoma, breast. Renal failure, acute. Nephrosto my tube, left. Nephrostomy tube, right. Lumpectomy. RADIATION DOSE: 9.51 CTDI (mGy) COMPARISON: [facility] [place], CT ABDOMEN & PELVIS W/O CONTRAST, 03/05/2018. . TECHNIQUE: Multiple contiguous axial images were obtained through the abdomen. Images were obtained using multiple row detector helical technique. Using automated exposure control and adjustment of the mA and/or kV according to patient size, radiation dose was kept as low as reasonably achievable to o btain optimal diagnostic quality images. DICOM format image data is available electronically for rev iew and comparison. FINDINGS: Noncontrast CT scan of the abdomen was performed. The patient has a markedly distended stomach again with a markedly thickened wall. There are varying levels of contrast within the stomach. There is mar ked distention involving the first and second portions of the duodenum. There is a obstruction at the third portion of the duodenum. The may be related to the soft tissue previously identified anterior margin of the right ureter. Whether there is actually a mass coming from the third portion of the duo denum or considerable retroperitoneal lymphadenopathy encasing the right ureter and third portion of the duodenum is uncertain. CONCLUSION: 1. There appears to be an obstruction at the beginning of the third portion of the duodenum. This re troperitoneal soft tissue which also partially encases the anterior margin of the right ureter could be either lymphadenopathy or soft tissue mass from the third portion of the duodenum. Electronically signed by: Rusty Storm MD Board Certified Radiologist 03/07/2018 4:03 PM EST
[2018-03-07] MEDS: Potassium Chlor 20 mEq Premix 20 MEQ/100 ML PIGGYBACK IV.SIG SCH ×2 (16:05→18:19)
[2018-03-07] MEDS: Dextrose 5% in Water Inj 1,000 ML IV.CONT SCH ×2 (16:05→22:48)
[2018-03-07] MEDS: Morphine Inj 4 MG/ML Vial IV.PUSH PRN ×2 (17:09→22:47)
[2018-03-07] MEDS: Enoxaparin Inj 30 MG/0.3 ML Syringe SQ SCH (17:11)
[2018-03-07] MEDS: traZODone 50 MG Tablet PO SCH (20:41)
[2018-03-08] MEDS: Morphine Inj 4 MG/ML Vial IV.PUSH PRN ×5 (05:08→22:22)
[2018-03-08] MEDS: Dextrose 5% in Water Inj 1,000 ML IV.CONT SCH ×3 (05:24→17:31)
[2018-03-08 05:50] LABS: Calcium 9.1 mg/dL (8.5-10.1); Carbon Dioxide 36.5 meq/L (21.0-32.0)
[2018-03-08 06:23] LABS: Potassium 2.8 meq/L (3.5-5.1)
[2018-03-08 07:01] LABS: Magnesium 2.1 mg/dL (1.5-2.5)
[2018-03-08] MEDS: Senna/Docusate Sodium 8.6/50 MG Tablet PO SCH ×2 (09:08→22:39)
[2018-03-08] MEDS: Gabapentin 100 MG Capsule PO SCH (09:08)
[2018-03-08] MEDS: Enoxaparin Inj 30 MG/0.3 ML Syringe SQ SCH (17:32)
--- NOTE | 2018-03-08 18:00 | P.PNGI ---
Subjective Interval history: Patient sitting up in bed Spouse present NG tube to low intermittent wall suction with scant amount of gastric drainage this a.m. N.p.o. Abdomen softer Patient asking to eat denies nausea vomiting Bilateral nephrostomy tubes present draining <Carolyn Hollingsworth - Last Filed: 03/08/18 17:47> Physical Exam Vital signs: Vital Signs 03/07/18 20:00 03/08/18 00:00 03/08/18 01:05 Temperature 99.2 F 99.1 F Pulse Rate 91 H 83 Respiratory Rate 18 17 18 Blood Pressure 127/63 108/57 L Pulse Oximetry 96 90 L 03/08/18 04:00 03/08/18 08:00 03/08/18 12:00 Temperature 98.4 F 97.9 F 98.6 F Pulse Rate 79 76 107 H Respiratory Rate 16 14 12 Blood Pressure 120/57 L 112/57 L 113/69 Pulse Oximetry 93 L 95 95 03/08/18 15:58 Temperature 98.6 F Pulse Rate 101 H Respiratory Rate 18 Blood Pressure 119/56 L Pulse Oximetry 97 Intake & Output 03/07/18 03/08/18 03/08/18 18:59 06:59 18:59 Intake Total 1100 / 1100 1100 / 1100 1000 / 1000 Output Total 675 / 675 3350 / 3350 Balance 425 / 425 -2250 / -2250 1000 / 1000 Weight 71.2 kg Intake: IV 1100 / 1100 1100 / 1100 1000 / 1000 D5W Inj 1,000 ML @ 84 mls/hr IV 1000 / 1000 1000 / 1000 .CONT .[id number] ALIN Rx#:[id number] NS Inj 1,000 ML @ 150 mls/hr IV 1000 / 1000 .CONT .Q6H40M ALIN Rx#:[id number] KCl 20 mEq Premix Inj 20 meq In 100 / 100 100 / 100 100 ml @ 50 mls/hr IV.SIG Q2H ALIN Rx#:[id number] Oral 0 / 0 Output: Emesis 300 / 300 Urine Amount (Stoma) 675 / 675 600 / 600 Nephrostomy Tube Left 450 / 450 275 / 275 Nephrostomy Tube Right 225 / 225 325 / 325 Gastric Drainage 2450 / 2450 Right Nare Nasogastric Tube 2450 / 2450 Other: # Voids 3 Date of Last Bowel Movement 03/07/18 # Bowel Movements 0 # Emeses 400 2 - Constitutional no acute distress, cooperative - Routine HEENT Exam Head: Present: normocephalic ENT: Present: mucous membranes moist - Routine Neck Exam Present: supple - Routine Respiratory Exam Present: CTA bilaterally - Routine Abdominal Exam Present: soft. Absent: tenderness, distended, guarding, firm - Routine Exam Comments: Bilateral nephrostomy tubes present draining clear arthur urine - Routine Extremities Exam Present: edema - Routine Skin Exam Present: dry, warm - Routine Psychiatric Exam Present: normal affect, cooperative <Hollingsworth,Carolyn - Last Filed: 03/08/18 17:47> Vital signs: Vital Signs 03/08/18 15:58 03/08/18 20:00 03/09/18 00:00 Temperature 98.6 F 98.8 F 100.6 F H Pulse Rate 101 H 101 H 97 H Respiratory Rate 18 17 16 Blood Pressure 119/56 L 124/70 130/66 Pulse Oximetry 97 97 96 03/09/18 04:00 03/09/18 08:00 Temperature 99.9 F H 100.0 F H Pulse Rate 95 H 106 H Respiratory Rate 17 18 Blood Pressure 126/68 142/68 H Pulse Oximetry 92 L 94 L Intake & Output 03/08/18 03/09/18 03/09/18 18:59 06:59 18:59 Intake Total 1000 / 1000 1100 / 1100 350 / 350 Output Total 425 / 425 Balance 1000 / 1000 1100 / 1100 -75 / -75 Weight 71.5 kg Intake: IV 1000 / 1000 1100 / 1100 350 / 350 Intralipid 20% Inj 250 ML @ 31. 250 / 250 25 mls/hr IV.CENTRAL DAILY@1999 ALIN Rx#:[id number] D5W Inj 1,000 ML @ 84 mls/hr IV 1000 / 1000 1000 / 1000 .CONT .[id number] ALIN Rx#:[id number] KCl 20 mEq Premix Inj 20 meq In 100 / 100 100 / 100 100 ml @ 50 mls/hr IV.SIG Q2H ALIN Rx#:[id number] Output: Urine Amount (Stoma) 425 / 425 Nephrostomy Tube Left 100 / 100 Nephrostomy Tube Right 325 / 325 Gastric Drainage 0 / 0 Right Nare Nasogastric Tube 0 / 0 Other: # Voids 0 Date of Last Bowel Movement 03/07/18 # Bowel Movements 0 <Hudes,Robinson - Last Filed: 03/09/18 12:36> Results - Labs CBC & Chem 7: 03/05/18 14:30 03/08/18 05:04 Laboratory Results - last 24 hr 03/08/18 03/08/18 05:04 05:04 Sodium 139 Potassium 2.8 L* Chloride 95 L Carbon Dioxide 36.5 H Anion Gap 8 BUN 34 H Creatinine 1.62 H Estimated GFR 31 L Random Glucose 154 H Calcium 9.1 Magnesium 2.1 Microbiology 03/06/18 01:20 Clean Catch Urine Urine Culture - Final No growth in 48 hours 03/06/18 22:10 Stool Enteric Pathogens (PCR) - Final <Carolyn Hollingsworth - Last Filed: 03/08/18 17:47> - Labs CBC & Chem 7: 03/05/18 14:30 03/09/18 07:05 Laboratory Results - last 24 hr 03/08/18 03/08/18 03/08/18 05:04 05:04 23:05 Sodium Potassium Chloride Carbon Dioxide Anion Gap BUN Creatinine Estimated GFR POC Glucose 156 H Random Glucose Calcium Magnesium 2.1 Prealbumin 19 L Cancelled 03/09/18 03/09/18 06:18 07:05 Sodium 131 L Potassium 3.1 L Chloride 86 L D Carbon Dioxide 36.8 H Anion Gap 8 BUN 31 H Creatinine 1.65 H Estimated GFR 31 L POC Glucose 235 H Random Glucose 227 H Calcium 8.9 Magnesium Prealbumin Microbiology 03/06/18 01:20 Clean Catch Urine Urine Culture - Final No growth in 48 hours - Imaging Impressions Abdomen X-Ray 03/09/18 00:00 CONCLUSION: Significant amount of persistent oral contrast identified within a somewhat dilated stomach. Findings are consistent with gastroparesis. <Robinson Buckley - Last Filed: 03/09/18 12:36> Assessment and Plan (1) Nausea and/or vomiting Status: Acute Code(s): R11.2 - Nausea with vomiting, unspecified (2) Gastric distention Status: Acute Code(s): K31.89 - Other diseases of stomach and duodenum (3) Electrolyte imbalance Status: Acute Code(s): E87.8 - Other disorders of electrolyte and fluid balance, not elsewhere classified (4) Acute kidney failure Status: Acute Code(s): N17.9 - Acute kidney failure, unspecified - Plan 03/06/18 Patient was seen and examined, agree with above note, we need to rule out gastric outlet obstruction with the severe nausea vomiting and distended stomach so we will plan on doing upper endoscopy tomorrow, discussed with patient and and both agreeable to have it done 03/07/18 Nausea, vomiting, gastric distention: EGD yesterday, biopsies for gastritis and duodenitis pending. Patient continues to have nausea and vomiting. Gastrografin upper GI with small bowel series has been ordered. Will keep n.p.o. NG tube if patient consents. Continue IV fluids and antiemetics. 03/08/2018 Nausea vomiting Gastric distention Patient sitting up in bed N.p.o. NG tube to low intermittent wall suction with scant output 03/07/2018 upper GI and small bowel follow-through: Marked distention of the stomach which is still fluid-filled. Questionable obstructing of the third portion of the duodenum. (Images reviewed by Dr. Buckley) Interventional radiology consulted for biopsy third portion of duodenum. As per Dr. Sanchez, lesion not amendable to biopsy. General surgery evaluation recommended. Plan -N.p.o. -NG tube to low intermittent wall suction -General surgery consulted -Monitor labs -Analgesics and antiemetics as per attending -Supportive care -Further recommendations to follow This patient has been seen by myself and Dr. Buckley and this note is written on his behalf - Attending Attestation Dr. Buckley <Carolyn Hollingsworth - Last Filed: 03/08/18 17:47> (1) Nausea and/or vomiting Status: Acute Code(s): R11.2 - Nausea with vomiting, unspecified (2) Gastric distention Status: Acute Code(s): K31.89 - Other diseases of stomach and duodenum (3) Electrolyte imbalance Status: Acute Code(s): E87.8 - Other disorders of electrolyte and fluid balance, not elsewhere classified (4) Acute kidney failure Status: Acute Code(s): N17.9 - Acute kidney failure, unspecified - Attending Attestation I have seen and examined the patient and reviewed the patients care with the [employer]ER HELPER. I agree with the above assessment and recommendations as documented above. <Robinson Buckley - Last Filed: 03/09/18 12:36> <Carolyn Hollingsworth - Last Filed: 03/08/18 17:47> (1) Nausea and/or vomiting Qualifiers: Vomiting type: unspecified Vomiting Intractability: intractable Qualified Code(s): R11.2 - Nausea with vomiting, unspecified <Robinson Buckley - Last Filed: 03/09/18 12:36> (1) Nausea and/or vomiting Qualifiers: Vomiting type: unspecified Vomiting Intractability: intractable Qualified Code(s): R11.2 - Nausea with vomiting, unspecified
--- NOTE | 2018-03-08 18:49 | MB ---
cc: Mark Alfredo MD DATE: 03/08/2018 CHIEF COMPLAINT: Intractable nausea and vomiting, gastric outlet obstruction. MARINE EQUIPMENT TEST ENGINEER: Dr. Jackson. HISTORY OF PRESENT ILLNESS: The patient is a 72-year-old female who was admitted on 03/05/2018 due to refractory intractable nausea or vomiting. The patient has had multiple medical issues including history of anal cancer with metastasis and undergone chemoradiation treatments and presented due to dehydration and vomiting. She had further workup including CT scan with showing of a severely dilated stomach. She states relatively normal loose bowel movements that require MiraLax and had bilateral nephrostomy tube placement. She states the vomiting started several days ago and continued to get worse. She had further workup including endoscopy showing a significantly dilated stomach with duodenitis and esophagitis. She further had NG tube placement. At the time of procedure, she had approximately 3 L removed from her stomach. Upper GI small-bowel follow-through shows a distended stomach, fluid filled, with questionable obstruction in third portion of the duodenum. Surgery was consulted for further definitive surgical intervention. On my exam, the patient is resting more comfortably with NG tube in place. She states she has minimal pain, 2/10. Some relief with pain medicine, better with lying still and improvement with NG tube. PAST MEDICAL HISTORY: Anal cancer, breast cancer, lumpectomy, squamous cell cancer of scalp. PAST SURGICAL HISTORY: Lumpectomy, port-A-Cath placement, rectal biopsies, anal cancer treated with chemoradiation. FAMILY HISTORY: Mother with anal cancer and diabetes. SOCIAL HISTORY: History of smoking. Denies current smoking. Denies ETOH or IVDA. ALLERGIES: CIPRO, IMIPRAMINE, PAROXETINE. REVIEW OF SYSTEMS: GENERAL: Denies fevers, chills. HEENT: Denies eye pain, ear pain. NECK: No swelling or pain. LUNGS: Denies cough or wheeze. HEART: Denies palpitations or chest pain. ABDOMEN: Complains of nausea, vomiting, abdominal pain. GENITOURINARY: Denies dysuria, hematuria, nephrostomy tubes. EXTREMITIES: Denies swelling or tenderness. NEUROLOGIC: Denies change in mood or sensorium. PHYSICAL EXAMINATION: GENERAL: No acute distress. VITAL SIGNS: Temperature 98.6, pulse 107, respirations 12, blood pressure 113/69, saturation 95%. HEENT: Pupils equal, round, reactive. NG tube in place. Moist mucous membranes. NECK: Supple. Trachea midline. LUNGS: Bilateral expansion, clear. HEART: S1, S2 regular. ABDOMEN: Soft, mild distention. Minimal tenderness to deep palpation. No rebound or guarding. EXTREMITIES: Warm and well perfused. NEUROLOGIC: GCS of 15. 5/5 motor in all extremities. BACK: No step-off. LABORATORY AND DIAGNOSTIC DATA: WBC 6.5, hemoglobin 11.7, hematocrit 34.2, platelet 334. Sodium 139, potassium 2.8, chloride 95, BUN 34, creatinine 1.6, albumin 4.4. CT reviewed by myself showing bilateral nephrostomy tubes, markedly dilated fluid-filled stomach. Upper GI: Dilated stomach, likely obstruction in third portion of the duodenum. ASSESSMENT AND PLAN: The patient is a 72-year-old female who presents with gastric outlet obstruction, intractable nausea and vomiting, severely dilated stomach, history of anal cancer with recurrent anal cancer disease, and a recent PET scan showing recurrent metastatic disease. The patient is planning for repeat chemotherapy. PLAN: After full workup, the patient with the above-noted issues. At this point, the patient does have a severely dilated stomach with NG tube in place for temporization. The patient will likely benefit from surgical intervention. I discussed treatment options with the patient regarding considering endoscopic dilation which appears to likely not be possible. Therefore, the patient can undergo either decompressive gastrostomy tube with jejunostomy tube versus a gastrojejunostomy. I discussed the surgical intervention that is possible, laparoscopic or open procedure, and described the risk associated with this. Further, I discussed the patient needs her electrolytes corrected, her nutrition optimized and medical clearance prior to embarking on surgical intervention. She states understanding and agreed and would like to proceed. We will likely plan this early next week. MD EDWIGE Pedraza/sera , 05:54 PM , 06:06 PM
[2018-03-08] MEDS ORDERED: POTASSIUM CHLORIDE IV.SIG SCH ×6 (20:00)
[2018-03-08] MEDS ORDERED: SODIUM CHLORIDE IV.SIG SCH ×6 (20:00)
[2018-03-08] MEDS ORDERED: [UNRECOGNIZED DRUG - OTHER] IV.SIG SCH ×6 (20:00)
--- NOTE | 2018-03-08 22:03 | P.PNIM ---
Subjective Interval history: Follow up for gastric outlet obstruction, hypokalemia. Patient is doing well. After NG tube was placed, she feels much improved. No fever, chills. No abdominal discomfort. Physical Exam Vital signs: Vital Signs 03/08/18 00:00 03/08/18 01:05 03/08/18 04:00 Temperature 99.1 F 98.4 F Pulse Rate 83 79 Respiratory Rate 17 18 16 Blood Pressure 108/57 L 120/57 L Pulse Oximetry 90 L 93 L 03/08/18 08:00 03/08/18 12:00 03/08/18 15:58 Temperature 97.9 F 98.6 F 98.6 F Pulse Rate 76 107 H 101 H Respiratory Rate 14 12 18 Blood Pressure 112/57 L 113/69 119/56 L Pulse Oximetry 95 95 97 03/08/18 20:00 Temperature 98.8 F Pulse Rate 101 H Respiratory Rate 17 Blood Pressure 124/70 Pulse Oximetry 97 Intake & Output 03/08/18 03/08/18 03/09/18 06:59 18:59 06:59 Intake Total 1100 / 1100 1000 / 1000 Output Total 3350 / 3350 Balance -2250 / -2250 1000 / 1000 Weight 71.2 kg Intake: IV 1100 / 1100 1000 / 1000 D5W Inj 1,000 ML @ 84 mls/hr IV 1000 / 1000 1000 / 1000 .CONT .[id number] ALIN Rx#:[id number] KCl 20 mEq Premix Inj 20 meq In 100 / 100 100 ml @ 50 mls/hr IV.SIG Q2H ALIN Rx#:[id number] Output: Emesis 300 / 300 Urine Amount (Stoma) 600 / 600 Nephrostomy Tube Left 275 / 275 Nephrostomy Tube Right 325 / 325 Gastric Drainage 2450 / 2450 Right Nare Nasogastric Tube 2450 / 2450 Other: Date of Last Bowel Movement 03/07/18 # Emeses 2 Narrative: GENERAL: Well-nourished, well-developed patient. SKIN: Warm and dry. HEAD: Normocephalic. EYES: No scleral icterus. No injection or drainage. NECK: Supple, trachea midline. No JVD or lymphadenopathy. CARDIOVASCULAR: Regular rate and rhythm without murmurs, gallops, or rubs. RESPIRATORY: Breath sounds equal bilaterally. No accessory muscle use. GASTROINTESTINAL: Abdomen soft, non-tender, nondistended. NG tube in place. MUSCULOSKELETAL: No cyanosis, or edema. BACK: Nontender without obvious deformity. No CVA tenderness. Results Labs CBC & Chem 7: 03/05/18 14:30 03/08/18 05:04 Labs: Microbiology 03/06/18 01:20 Clean Catch Urine Urine Culture - Final No growth in 48 hours Assessment and Plan (1) Nausea and/or vomiting: Code(s): R11.2 - Nausea with vomiting, unspecified Status: Acute (2) Gastric distention: Code(s): K31.89 - Other diseases of stomach and duodenum Status: Acute (3) Electrolyte imbalance: Code(s): E87.8 - Other disorders of electrolyte and fluid balance, not elsewhere classified Status: Acute (4) Acute kidney failure: Code(s): N17.9 - Acute kidney failure, unspecified Status: Acute Plan 72-year-old white female being admitted for intractable nausea vomiting with a distended fluid-filled stomach per CT. 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 Gastric outlet obstruction IV fluids, Zofran -GI as well as General surgery following. -TPN started per General surgery. Probable Surgical intervention early next week. Acute kidney injury Severe Hypokalemia 2.4 --> 2.8 today. Mild hypernatremia - Na 146 ---> 139. -Mg is 2.5. Creatinine improved from 3.3 to 2.75 --> 1.62. Likely due to obstructed uropathy as well as prerenal. Will provide more IV KCL. Mg 2.1. 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 However recurrence was detected on PET scan within the last 2 months. Full code. SCDs. Lovenox 30mg Qday. _ (1) Nausea and/or vomiting Qualifiers: Vomiting type: unspecified Vomiting Intractability: intractable Qualified Code(s): R11.2 - Nausea with vomiting, unspecified (2) Acute kidney failure Qualifiers: Acute renal failure type:
[2018-03-08] MEDS: Potassium Chlor 20 mEq Premix 20 MEQ/100 ML PIGGYBACK IV.SIG SCH (22:28)
[2018-03-08] MEDS: TPN FLUID IV.SIG SCH (22:28)
[2018-03-08] MEDS: traZODone 50 MG Tablet PO SCH (22:39)
[2018-03-09] MEDS: Morphine Inj 4 MG/ML Vial IV.PUSH PRN ×4 (02:20→21:39)
[2018-03-09] MEDS: Potassium Chlor 20 mEq Premix 20 MEQ/100 ML PIGGYBACK IV.SIG SCH ×3 (02:25→16:54)
[2018-03-09 07:54] LABS: Calcium 8.9 mg/dL (8.5-10.1); Carbon Dioxide 36.8 meq/L (21.0-32.0); Potassium 3.1 meq/L (3.5-5.1)
[2018-03-09] MEDS: Gabapentin 100 MG Capsule PO SCH (09:09)
[2018-03-09] MEDS: Senna/Docusate Sodium 8.6/50 MG Tablet PO SCH ×2 (09:10→21:16)
--- NOTE | 2018-03-09 09:50 | P.PNGS ---
Subjective Interval history: in bathroom trying to have BM, DW family in room, mild pain, no emesis. RN reports no output from NG Physical Exam Vital signs: Vital Signs 03/08/18 12:00 03/08/18 15:58 03/08/18 20:00 Temperature 98.6 F 98.6 F 98.8 F Pulse Rate 107 H 101 H 101 H Respiratory Rate 12 18 17 Blood Pressure 113/69 119/56 L 124/70 Pulse Oximetry 95 97 97 03/09/18 00:00 03/09/18 04:00 03/09/18 08:00 Temperature 100.6 F H 99.9 F H 100.0 F H Pulse Rate 97 H 95 H 106 H Respiratory Rate 16 17 18 Blood Pressure 130/66 126/68 142/68 H Pulse Oximetry 96 92 L 94 L Intake & Output 03/08/18 03/09/18 03/09/18 18:59 06:59 18:59 Intake Total 1000 / 1000 1100 / 1100 350 / 350 Output Total 425 / 425 Balance 1000 / 1000 1100 / 1100 -75 / -75 Weight 71.5 kg Intake: IV 1000 / 1000 1100 / 1100 350 / 350 Intralipid 20% Inj 250 ML @ 31. 250 / 250 25 mls/hr IV.CENTRAL DAILY@2000 [facility] Rx#:[id number] D5W Inj 1,000 ML @ 84 mls/hr IV 1000 / 1000 1000 / 1000 .CONT .[id number] [facility] Rx#:[id number] KCl 20 mEq Premix Inj 20 meq In 100 / 100 100 / 100 100 ml @ 50 mls/hr IV.SIG Q2H [facility] Rx#:[id number] Output: Urine Amount (Stoma) 425 / 425 Nephrostomy Tube Left 100 / 100 Nephrostomy Tube Right 325 / 325 Gastric Drainage 0 / 0 Right Nare Nasogastric Tube 0 / 0 Other: # Voids 0 # Bowel Movements 0 Results - Labs 03/05/18 14:30 03/09/18 07:05 Laboratory Results - last 24 hr 03/08/18 03/08/18 03/08/18 05:04 05:04 23:05 Sodium Potassium Chloride Carbon Dioxide Anion Gap BUN Creatinine Estimated GFR POC Glucose 156 H Random Glucose Calcium Magnesium 2.1 Prealbumin 19 L Cancelled 03/09/18 03/09/18 06:18 07:05 Sodium 131 L Potassium 3.1 L Chloride 86 L D Carbon Dioxide 36.8 H Anion Gap 8 BUN 31 H Creatinine 1.65 H Estimated GFR 31 L POC Glucose 235 H Random Glucose 227 H Calcium 8.9 Magnesium Prealbumin - Imaging Imaging: ITS Impressions Abdomen/Pelvis CT 03/07/18 00:00 CONCLUSION: 1. There appears to be an obstruction at the beginning of the third portion of the duodenum. This retroperitoneal soft tissue which also partially encases the anterior margin of the right ureter could be either lymphadenopathy or soft tissue mass from the third portion of the duodenum. Upper GI and Small Bowel X-Ray 03/07/18 00:00 CONCLUSION: Marked distention of the stomach which is still fluid-filled. Questionable obstructing of the third portion of the duodenum. Assessment and Plan - Assessment (1) Gastric distention Code(s): K31.89 - Other diseases of stomach and duodenum Status: Acute - Plan will check NG placement with KUB this am surgical plan per Dr. Alfredo
--- NOTE | 2018-03-09 10:51 | XR ---
EXAM DATE: 03/09/2018 10:31 AM EST AGE/SEX: 72 years / Female INDICATIONS: Abdominal pain CLINICAL DATA: This is the patient's initial encounter. Patient reports that signs and symptoms have been present for 4 - 6 days and indicates a pain score of 0/10. MEDICAL/SURGICAL HISTORY: Carcinoma, cervical. Carcinoma, anal. Carcinoma, breast. Renal failur e, acute. . Carcinoma, anal. Carcinoma, breast. Renal failure, acute. Nephrostomy tube, left. Nephr ostomy tube, right. Lumpectomy. COMPARISON: [facility] [place], UGI WITH SMALL BOWEL SERIES, 03/07/2018. [facility] [place], CT ABDOMEN & PELVIS W/O CONTRAST, 03/07/2018. . FINDINGS: There are bilateral nephrostomy tubes present. Nasogastric tube with the proximal port overlying the level of the stomach. There is residual flocculated oral contrast identified within the stomach from prior upper GI exam. Small amount of residual contrast identified within the cecum and sigmoid colon . No air-fluid levels are seen. Lung bases are clear. CONCLUSION: Significant amount of persistent oral contrast identified within a somewhat dilated stomach. Findings are consistent with gastroparesis. Electronically signed by: Amparo Ferrera MD Board Certified Radiologist 03/09/2018 10:50 AM EST
--- NOTE | 2018-03-09 12:17 | P.PNIM ---
Subjective Interval history: Follow up for gastric outlet obstruction, hypokalemia. Patient is doing well. NG tube in place. No abd pain. Afebrile. Physical Exam Vital signs: Vital Signs 03/08/18 15:58 03/08/18 20:00 03/09/18 00:00 Temperature 98.6 F 98.8 F 100.6 F H Pulse Rate 101 H 101 H 97 H Respiratory Rate 18 17 16 Blood Pressure 119/56 L 124/70 130/66 Pulse Oximetry 97 97 96 03/09/18 04:00 03/09/18 08:00 Temperature 99.9 F H 100.0 F H Pulse Rate 95 H 106 H Respiratory Rate 17 18 Blood Pressure 126/68 142/68 H Pulse Oximetry 92 L 94 L Intake & Output 03/08/18 03/09/18 03/09/18 18:59 06:59 18:59 Intake Total 1000 / 1000 1100 / 1100 350 / 350 Output Total 425 / 425 Balance 1000 / 1000 1100 / 1100 -75 / -75 Weight 71.5 kg Intake: IV 1000 / 1000 1100 / 1100 350 / 350 Intralipid 20% Inj 250 ML @ 31. 250 / 250 25 mls/hr IV.CENTRAL DAILY@2000 [facility] Rx#:[id number] D5W Inj 1,000 ML @ 84 mls/hr IV 1000 / 1000 1000 / 1000 .CONT .[id number] [facility] Rx#:[id number] KCl 20 mEq Premix Inj 20 meq In 100 / 100 100 / 100 100 ml @ 50 mls/hr IV.SIG Q2H [facility] Rx#:[id number] Output: Urine Amount (Stoma) 425 / 425 Nephrostomy Tube Left 100 / 100 Nephrostomy Tube Right 325 / 325 Gastric Drainage 0 / 0 Right Nare Nasogastric Tube 0 / 0 Other: # Voids 0 Date of Last Bowel Movement 03/07/18 # Bowel Movements 0 Narrative: GENERAL: Well-nourished, well-developed patient. SKIN: Warm and dry. HEAD: Normocephalic. EYES: No scleral icterus. No injection or drainage. NECK: Supple, trachea midline. No JVD or lymphadenopathy. CARDIOVASCULAR: Regular rate and rhythm without murmurs, gallops, or rubs. RESPIRATORY: Breath sounds equal bilaterally. No accessory muscle use. GASTROINTESTINAL: Abdomen soft, non-tender, nondistended. NG tube in place. MUSCULOSKELETAL: No cyanosis, or edema. BACK: Nontender without obvious deformity. No CVA tenderness. Results Labs CBC & Chem 7: 03/05/18 14:30 03/09/18 07:05 Labs: Microbiology 03/06/18 01:20 Clean Catch Urine Urine Culture - Final No growth in 48 hours Imaging Imaging: Impressions Abdomen X-Ray 03/09/18 00:00 CONCLUSION: Significant amount of persistent oral contrast identified within a somewhat dilated stomach. Findings are consistent with gastroparesis. Assessment and Plan (1) Gastric distention: Code(s): K31.89 - Other diseases of stomach and duodenum Status: Acute Plan 72-year-old white female being admitted for intractable nausea vomiting with a distended fluid-filled stomach per CT. 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 Gastric outlet obstruction IV fluids, Zofran -GI as well as General surgery following. -TPN started per General surgery. Probable Surgical intervention early next week. Acute kidney injury Severe Hypokalemia 2.4 --> 2.8 --> 3.1 today. Mild hypernatremia - Na 146 ---> 139 --> 131. -Mg is 2.5. Creatinine improved from 3.3 to 2.75 --> 1.62. Likely due to obstructed uropathy as well as prerenal. Will provide more IV KCL. Mg 2.1. 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 However recurrence was detected on PET scan within the last 2 months. Full code. SCDs. Lovenox 30mg Qday.
[2018-03-09] MEDS: Enoxaparin Inj 30 MG/0.3 ML Syringe SQ SCH (16:03)
--- NOTE | 2018-03-09 16:06 | P.PNGI ---
Subjective Interval history: Patient resting comfortably Spouse present NG tube to low intermittent wall suction with moderate amount of dark greenish drainage approximately 700 mL's since 7 AM per bedside nurse <Carolyn Hollingsworth - Last Filed: 03/09/18 16:01> Physical Exam Vital signs: Vital Signs 03/08/18 20:00 03/09/18 00:00 03/09/18 04:00 Temperature 98.8 F 100.6 F H 99.9 F H Pulse Rate 101 H 97 H 95 H Respiratory Rate 17 16 17 Blood Pressure 124/70 130/66 126/68 Pulse Oximetry 97 96 92 L 03/09/18 08:00 03/09/18 12:00 Temperature 100.0 F H 98.9 F Pulse Rate 106 H 106 H Respiratory Rate 18 18 Blood Pressure 142/68 H 122/64 Pulse Oximetry 94 L 94 L Intake & Output 03/08/18 03/09/18 03/09/18 18:59 06:59 18:59 Intake Total 1000 / 1000 1100 / 1100 350 / 350 Output Total 425 / 425 Balance 1000 / 1000 1100 / 1100 -75 / -75 Weight 71.5 kg Intake: IV 1000 / 1000 1100 / 1100 350 / 350 Intralipid 20% Inj 250 ML @ 31. 250 / 250 25 mls/hr IV.CENTRAL DAILY@2000 [facility] Rx#:[id number] D5W Inj 1,000 ML @ 84 mls/hr IV 1000 / 1000 1000 / 1000 .CONT .[id number] [facility] Rx#:[id number] KCl 20 mEq Premix Inj 20 meq In 100 / 100 100 / 100 100 ml @ 50 mls/hr IV.SIG Q2H [facility] Rx#:[id number] Output: Urine Amount (Stoma) 425 / 425 Nephrostomy Tube Left 100 / 100 Nephrostomy Tube Right 325 / 325 Gastric Drainage 0 / 0 Right Nare Nasogastric Tube 0 / 0 Other: # Voids 0 Date of Last Bowel Movement 03/07/18 # Bowel Movements 0 - Constitutional no acute distress, cooperative - Routine HEENT Exam Head: Present: normocephalic - Routine Respiratory Exam Present: CTA bilaterally. Absent: accessory muscle use - Routine Cardiovascular Exam Present: RRR - Routine Abdominal Exam Present: soft. Absent: tenderness, distended, guarding, firm - Routine Extremities Exam Absent: edema - Routine Skin Exam Present: dry, warm - Routine Psychiatric Exam Present: cooperative <Carolyn Hollingsworth - Last Filed: 03/09/18 16:01> Vital signs: Vital Signs 03/09/18 12:00 03/09/18 16:00 03/09/18 18:28 Temperature 98.9 F 98.9 F Pulse Rate 106 H 86 Respiratory Rate 18 17 20 Blood Pressure 122/64 125/65 Pulse Oximetry 94 L 95 03/09/18 20:00 03/09/18 22:34 03/10/18 00:00 Temperature 99.7 F H 98.9 F Pulse Rate 95 H 94 H Respiratory Rate 18 18 18 Blood Pressure 114/66 102/62 Pulse Oximetry 95 94 L 03/10/18 08:00 Temperature 97.8 F Pulse Rate 80 Respiratory Rate 18 Blood Pressure 113/57 L Pulse Oximetry 93 L Intake & Output 03/09/18 03/10/18 03/10/18 18:59 06:59 18:59 Intake Total 570 / 570 2309.38 / 2309.38 Output Total 1925 / 1925 2475 / 2475 Balance -1355 / -1355 -165.62 / -165.62 Weight 71.8 kg Intake: IV 550 / 550 2309.38 / 2309.38 Intralipid 20% Inj 250 ML @ 31. 250 / 250 250 / 250 25 mls/hr IV.CENTRAL DAILY@1999 [facility] Rx#:[id number] KCl 20 mEq Premix Inj 20 meq In 300 / 300 100 ml @ 50 mls/hr IV.SIG Q2H [facility] Rx#:[id number] TPN Fluid 2 Liter - Custom 2058.38 / 059.38 ML @ 83 mls/hr IV.SIG DAILY@1999 [facility] Rx#:[id number] Oral 20 / 20 Output: Urine Amount (Stoma) 1325 / 1325 475 / 475 Nephrostomy Tube Left 700 / 700 200 / 200 Nephrostomy Tube Right 625 / 625 275 / 275 Gastric Drainage 600 / 600 1999 Right Nare Nasogastric Tube 600 / 600 1999 Other: Date of Last Bowel Movement 03/07/18 03/07/18 <Robinson Buckley - Last Filed: 03/10/18 09:38> Results - Labs CBC & Chem 7: 03/05/18 14:30 03/09/18 07:05 Laboratory Results - last 24 hr 03/08/18 03/08/18 03/08/18 05:04 05:04 23:05 Sodium Potassium Chloride Carbon Dioxide Anion Gap BUN Creatinine Estimated GFR POC Glucose 156 H Random Glucose Calcium Magnesium 2.1 Prealbumin 19 L Cancelled 03/09/18 03/09/18 06:18 07:05 Sodium 131 L Potassium 3.1 L Chloride 86 L D Carbon Dioxide 36.8 H Anion Gap 8 BUN 31 H Creatinine 1.65 H Estimated GFR 31 L POC Glucose 235 H Random Glucose 227 H Calcium 8.9 Magnesium Prealbumin - Imaging Impressions Abdomen X-Ray 03/09/18 00:00 CONCLUSION: Significant amount of persistent oral contrast identified within a somewhat dilated stomach. Findings are consistent with gastroparesis. <Carolyn Hollingsworth - Last Filed: 03/09/18 16:01> - Labs CBC & Chem 7: 03/05/18 14:30 03/09/18 07:05 Laboratory Results - last 24 hr 03/09/18 03/10/18 21:26 06:12 POC Glucose 223 H 217 H - Imaging Impressions Abdomen X-Ray 03/09/18 00:00 CONCLUSION: Significant amount of persistent oral contrast identified within a somewhat dilated stomach. Findings are consistent with gastroparesis. <Robinson Buckley - Last Filed: 03/10/18 09:38> Assessment and Plan (1) Nausea and/or vomiting Status: Acute Code(s): R11.2 - Nausea with vomiting, unspecified (2) Gastric distention Status: Acute Code(s): K31.89 - Other diseases of stomach and duodenum (3) Electrolyte imbalance Status: Acute Code(s): E87.8 - Other disorders of electrolyte and fluid balance, not elsewhere classified (4) Acute kidney failure Status: Acute Code(s): N17.9 - Acute kidney failure, unspecified - Plan 03/06/18 Patient was seen and examined, agree with above note, we need to rule out gastric outlet obstruction with the severe nausea vomiting and distended stomach so we will plan on doing upper endoscopy tomorrow, discussed with patient and and both agreeable to have it done 03/07/18 Nausea, vomiting, gastric distention: EGD yesterday, biopsies for gastritis and duodenitis pending. Patient continues to have nausea and vomiting. Gastrografin upper GI with small bowel series has been ordered. Will keep n.p.o. NG tube if patient consents. Continue IV fluids and antiemetics. 03/08/2018 Nausea vomiting Gastric distention Patient sitting up in bed N.p.o. NG tube to low intermittent wall suction with scant output 03/07/2018 upper GI and small bowel follow-through: Marked distention of the stomach which is still fluid-filled. Questionable obstructing of the third portion of the duodenum. (Images reviewed by Dr. Buckley) Interventional radiology consulted for biopsy third portion of duodenum. As per Dr. Sanchez, lesion not amendable to biopsy. General surgery evaluation recommended. 03/09/2018 Nausea vomiting= resolved, NG tube to low intermittent wall suction estimated 600 mL's drainage over the last 8 hours Gastric distention= abdomen soft nontender General surgery following= plan for decompressive gastrostomy with jejunostomy versus J G-tube plan for upcoming week Plan -N.p.o. -NG to low intermittent wall suction -General surgery following -Recommending general surgery performed biopsy of retroperitoneal mass -Monitor labs -Analgesics and antiemetics as per attending -Supportive care This patient has been seen by myself and Dr. Buckley and this note is written on his behalf - Attending Attestation Dr. Buckley <Carolyn Hollingsworth - Last Filed: 03/09/18 16:01> (1) Nausea and/or vomiting Status: Acute Code(s): R11.2 - Nausea with vomiting, unspecified (2) Gastric distention Status: Acute Code(s): K31.89 - Other diseases of stomach and duodenum (3) Electrolyte imbalance Status: Acute Code(s): E87.8 - Other disorders of electrolyte and fluid balance, not elsewhere classified (4) Acute kidney failure Status: Acute Code(s): N17.9 - Acute kidney failure, unspecified - Attending Attestation I have seen and examined the patient and reviewed the patients care with the [employer]. I agree with the above assessment and recommendations as documented above. <Robinson Buckley - Last Filed: 03/10/18 09:38> <Carolyn Hollingsworth - Last Filed: 03/09/18 16:01> (1) Nausea and/or vomiting Qualifiers: Vomiting type: unspecified Vomiting Intractability: intractable Qualified Code(s): R11.2 - Nausea with vomiting, unspecified <Robinson Buckley - Last Filed: 03/10/18 09:38> (1) Nausea and/or vomiting Qualifiers: Vomiting type: unspecified Vomiting Intractability: intractable Qualified Code(s): R11.2 - Nausea with vomiting, unspecified
[2018-03-09] MEDS ORDERED: TPN FLUID IV.SIG SCH (20:00)
[2018-03-09] MEDS: TPN FLUID IV.SIG SCH (21:16)
[2018-03-09] MEDS: traZODone 50 MG Tablet PO SCH (21:16)
[2018-03-10] MEDS: Morphine Inj 4 MG/ML Vial IV.PUSH PRN ×4 (02:06→22:17)
--- NOTE | 2018-03-10 09:07 | P.DIET ---
Nutritional Evaluation Type of nutrition evaluation: initial Nutrition consult regarding: TPN/PPN (Custom TPN) Objective - Diagnosis nausea and vomiting - Objective % IBW: 126 (IBW: 125lbs) Body Weight Used for Calculations: Actual (71.8kg) Energy Needs - Lower Range (kCal/kg): 30 Energy Needs - Upper Range (kCal/kg): 35 Lower Limit kCal/kg (kCals): 2,154 Upper Limit kCal/kg (kCals): 2,513 Lower Limit Protein Factor (Grams per Kg): 1.2 Upper Limit Protein Factor (Grams per Kg): 1.5 Lower Protein Needs (Protein): 86 Upper Protein Needs (Protein): 108 Fluid Factor (ml/kg): 30 Estimated Fluid Needs (ml): 2,154 Dietitian Reviewed in Medical Record: Curent medications, Intake & Output, Labs , Medical history, TPN/PPN Diet Order: NPO Objective Comments: PMH: Anal Cancer, Breast Cancer Meds include: Phenergan, Custom TPN with 20% Lipids Labs include: Cr 1.65, Glu 227, Na 131, K+ 3.1 Assessment Assessment: Pt at high nutritional risk r/t current clinical status. Pt admitted with nausea /vomiting, has gastric outlet obstruction, NG tube in place. Pt has recurring anal cancer with mets to the pelvis and clavicle. Pt's nutritional needs as assessed above. She is currently receiving TPN, 2L custom renal formula (83ml/hr ) plus 20% lipids, 31.25ml/hr for 8 hrs daily. Per pharmacy this provides 2260kcals and 100gms AA's which is adequate to meet pt's nutritional needs at this time. Per GI: plan for decompressive gastrostomy with jejunostomy versus J G-tube plan for upcoming week. Will continue to monitor clinical course. Recommendations: TPN plus 20% lipids Dietitian following Dietitian to Monitor: Lab values, Intake & Output, TPN/PPN tolerance, Weight change, Medical course
[2018-03-10] MEDS: Gabapentin 100 MG Capsule PO SCH (09:46)
[2018-03-10] MEDS: Senna/Docusate Sodium 8.6/50 MG Tablet PO SCH ×2 (09:46→22:07)
--- NOTE | 2018-03-10 10:23 | P.PNGS ---
Subjective Patient reports: feels better (vomit x1, no bowel fxn) Physical Exam Vital signs: Vital Signs 03/09/18 12:00 03/09/18 16:00 03/09/18 18:28 Temperature 98.9 F 98.9 F Pulse Rate 106 H 86 Respiratory Rate 18 17 20 Blood Pressure 122/64 125/65 Pulse Oximetry 94 L 95 03/09/18 20:00 03/09/18 22:34 03/10/18 00:00 Temperature 99.7 F H 98.9 F Pulse Rate 95 H 94 H Respiratory Rate 18 18 18 Blood Pressure 114/66 102/62 Pulse Oximetry 95 94 L 03/10/18 08:00 Temperature 97.8 F Pulse Rate 80 Respiratory Rate 18 Blood Pressure 113/57 L Pulse Oximetry 93 L Intake & Output 03/09/18 03/10/18 03/10/18 18:59 06:59 18:59 Intake Total 570 / 570 2309.38 / 2309.38 Output Total 1925 / 1925 2475 / 2475 Balance -1355 / -1355 -165.62 / -165.62 Weight 71.8 kg Intake: IV 550 / 550 2309.38 / 2309.38 Intralipid 20% Inj 250 ML @ 31. 250 / 250 250 / 250 25 mls/hr IV.CENTRAL DAILY@1999 [facility] Rx#:[id number] KCl 20 mEq Premix Inj 20 meq In 300 / 300 100 ml @ 50 mls/hr IV.SIG Q2H [facility] Rx#:[id number] TPN Fluid 2 Liter - Custom 2, 2058.38 / 2058.38 059.38 ML @ 83 mls/hr IV.SIG DAILY@1999 [facility] Rx#:[id number] Oral 20 / 20 Output: Urine Amount (Stoma) 1325 / 1325 475 / 475 Nephrostomy Tube Left 700 / 700 200 / 200 Nephrostomy Tube Right 625 / 625 275 / 275 Gastric Drainage 600 / 600 1999 Right Nare Nasogastric Tube 600 / 600 1999 Other: Date of Last Bowel Movement 03/07/18 03/07/18 - Routine Respiratory Exam Present: CTA bilaterally - Routine Abdominal Exam Present: soft (mild distension, mild ttp) Results - Labs 03/05/18 14:30 03/09/18 07:05 Laboratory Results - last 24 hr 03/09/18 03/10/18 21:26 06:12 POC Glucose 223 H 217 H - Imaging Imaging: ITS Impressions Abdomen/Pelvis CT 03/07/18 00:00 CONCLUSION: 1. There appears to be an obstruction at the beginning of the third portion of the duodenum. This retroperitoneal soft tissue which also partially encases the anterior margin of the right ureter could be either lymphadenopathy or soft tissue mass from the third portion of the duodenum. Upper GI and Small Bowel X-Ray 03/07/18 00:00 CONCLUSION: Marked distention of the stomach which is still fluid-filled. Questionable obstructing of the third portion of the duodenum. Abdomen X-Ray 03/09/18 00:00 CONCLUSION: Significant amount of persistent oral contrast identified within a somewhat dilated stomach. Findings are consistent with gastroparesis. Assessment and Plan - Assessment (1) Gastric distention Code(s): K31.89 - Other diseases of stomach and duodenum Status: Acute - Plan gastric outlet obstruction ng with 2000 cc per nurse PLAN npo, tpn pain control ambulation, dvt ppx discussed with patient and family will plan for gastrojejunostomy possible jejunostomy tube early this week discussed with Dr. March who will assume care recheck electrolytes replace k
--- NOTE | 2018-03-10 14:55 | US ---
EXAM DATE: 03/10/2018 2:47 PM EST AGE/SEX: 72 years / Female INDICATIONS: Right arm swelling. CLINICAL DATA: This is the patient's initial encounter. Patient reports that signs and symptoms have been present for 2 days and indicates a pain score of 2/10. MEDICAL/SURGICAL HISTORY: . Anal cancer. Breast cancer. . Rectal biopsy. Port a cath placement . Lumpectomy. COMPARISON: No prior exams available for comparison. FINDINGS: The right internal jugular vein is small in size but patent. The portions of the subclavia n vein visualized are patent. The axillary vein is patent. The basilic and brachial veins are patent. The examination does demonstrates thrombosis of the right cephalic vein throughout most of its course within the upper arm. Other: None. CONCLUSION: 1. Thrombosis of the cephalic vein within the upper arm. The remainder of the venous structures of t he arm are patent. 2. The visualized portions of subclavian vein are patent. Electronically signed by: Sravan Sanchez MD Board Certified Radiologist 03/10/2018 2:53 PM EST
--- NOTE | 2018-03-10 15:04 | P.PNIM ---
Subjective Interval history: Follow up for gastric outlet obstruction, hypokalemia. Patient is currently doing well. Denies any chest pain, shortness of breath, fever or chills. Currently on TPN. She reports some erythema and swelling of her right upper extremity above the antecubital fossa. Physical Exam Vital signs: Vital Signs 03/09/18 16:00 03/09/18 18:28 03/09/18 20:00 Temperature 98.9 F 99.7 F H Pulse Rate 86 95 H Respiratory Rate 17 20 18 Blood Pressure 125/65 114/66 Pulse Oximetry 95 95 03/09/18 22:34 03/10/18 00:00 03/10/18 08:00 Temperature 98.9 F 97.8 F Pulse Rate 94 H 80 Respiratory Rate 18 18 18 Blood Pressure 102/62 113/57 L Pulse Oximetry 94 L 93 L 03/10/18 12:00 Temperature 98.2 F Pulse Rate 97 H Respiratory Rate 18 Blood Pressure 119/64 Pulse Oximetry 96 Intake & Output 03/09/18 03/10/18 03/10/18 18:59 06:59 18:59 Intake Total 570 / 570 2309.38 / 2309.38 Output Total 1925 / 1925 2475 / 2475 Balance -1355 / -1355 -165.62 / -165.62 Weight 71.8 kg Intake: IV 550 / 550 2309.38 / 2309.38 Intralipid 20% Inj 250 ML @ 31. 250 / 250 250 / 250 25 mls/hr IV.CENTRAL DAILY@1999 [facility] Rx#:[id number] KCl 20 mEq Premix Inj 20 meq In 300 / 300 100 ml @ 50 mls/hr IV.SIG Q2H [facility] Rx#:[id number] TPN Fluid 2 Liter - Custom , / 059.38 ML @ 83 mls/hr IV.SIG DAILY@1999 [facility] Rx#:[id number] Oral 20 / 20 Output: Urine Amount (Stoma) 1325 / 1325 475 / 475 Nephrostomy Tube Left 700 / 700 200 / 200 Nephrostomy Tube Right 625 / 625 275 / 275 Gastric Drainage 600 / 600 1999 Right Nare Nasogastric Tube 600 / 600 1999 Other: Date of Last Bowel Movement 03/07/18 03/07/18 Narrative: GENERAL: Well-nourished, well-developed patient. SKIN: Warm and dry. HEAD: Normocephalic. EYES: No scleral icterus. No injection or drainage. NECK: Supple, trachea midline. No JVD or lymphadenopathy. CARDIOVASCULAR: Regular rate and rhythm without murmurs, gallops, or rubs. RESPIRATORY: Breath sounds equal bilaterally. No accessory muscle use. GASTROINTESTINAL: Abdomen soft, non-tender, nondistended. NG tube in place. MUSCULOSKELETAL: No cyanosis, or edema. RUE above AC fossa, there is a small area of erythema with cord like subcutaneous lesion, suspicious for thrombophlebitis. BACK: Nontender without obvious deformity. No CVA tenderness. Results Labs CBC & Chem 7: 03/05/18 14:30 03/09/18 07:05 Imaging Imaging: Impressions Venous Doppler Study 03/10/18 00:00 CONCLUSION: 1. Thrombosis of the cephalic vein within the upper arm. The remainder of the venous structures of the arm are patent. 2. The visualized portions of subclavian vein are patent. Assessment and Plan (1) Gastric distention: Code(s): K31.89 - Other diseases of stomach and duodenum Status: Acute Plan 72-year-old white female being admitted for intractable nausea vomiting with a distended fluid-filled stomach per CT. 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 Gastric outlet obstruction IV fluids, Zofran -GI as well as General surgery following. -TPN started per General surgery. Probable Surgical intervention early next week. Acute kidney injury Severe Hypokalemia 2.4 --> 2.8 --> 3.1 Mild hypernatremia - Na 146 ---> 139 --> 131. -Mg is 2.5. Creatinine improved from 3.3 to 2.75 --> 1.62. Likely due to obstructed uropathy as well as prerenal. Will provide more IV KCL. Mg 2.1. -Maintain nephrostomy tubes at this time with drainage, monitor intake and output -BMP in the AM. Probable superficial thrombophlebitis Right upper extremity above the antecubital fossa has a cordlike subcutaneous lesion. We will obtain ultrasound to rule out DVT. However it appears to be from a phlebitis. If it is thrombophlebitis, we could consider NSAIDs but not ideal in the setting of CKD. -Fortunately, risk of PE is very low in this superficial thrombophlebitis. 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 However recurrence was detected on PET scan within the last 2 months. Full code. SCDs. Lovenox 30mg Qday.
--- NOTE | 2018-03-10 17:16 | P.PNGI ---
Subjective Interval history: Patient awake and alert Family present NG tube in place with copious amounts of dark green gastric content No reported abdominal pain or nausea <Carolyn Hollingsworth - Last Filed: 03/10/18 17:11> Physical Exam Vital signs: Vital Signs 03/09/18 18:28 03/09/18 20:00 03/09/18 22:34 Temperature 99.7 F H Pulse Rate 95 H Respiratory Rate 20 18 18 Blood Pressure 114/66 Pulse Oximetry 95 03/10/18 00:00 03/10/18 08:00 03/10/18 12:00 Temperature 98.9 F 97.8 F 98.2 F Pulse Rate 94 H 80 97 H Respiratory Rate 18 18 18 Blood Pressure 102/62 113/57 L 119/64 Pulse Oximetry 94 L 93 L 96 Intake & Output 03/09/18 03/10/18 03/10/18 18:59 06:59 18:59 Intake Total 570 / 570 2309.38 / 2309.38 Output Total 1925 / 1925 2475 / 2475 Balance -1355 / -1355 -165.62 / -165.62 Weight 71.8 kg Intake: IV 550 / 550 2309.38 / 2309.38 Intralipid 20% Inj 250 ML @ 31. 250 / 250 250 / 250 25 mls/hr IV.CENTRAL DAILY@1999 [facility] Rx#:[id number] KCl 20 mEq Premix Inj 20 meq In 300 / 300 100 ml @ 50 mls/hr IV.SIG Q2H [facility] Rx#:[id number] TPN Fluid 2 Liter - Custom , 2058.38 / 059.38 ML @ 83 mls/hr IV.SIG DAILY@1999 [facility] Rx#:[id number] Oral 20 / 20 Output: Urine Amount (Stoma) 1325 / 1325 475 / 475 Nephrostomy Tube Left 700 / 700 200 / 200 Nephrostomy Tube Right 625 / 625 275 / 275 Gastric Drainage 600 / 600 1999 Right Nare Nasogastric Tube 600 / 600 1999 Other: Date of Last Bowel Movement 03/07/18 03/07/18 - Constitutional no acute distress, cooperative - Routine HEENT Exam Head: Present: normocephalic Comments: Nasogastric tube to low intermittent wall suction - Routine Respiratory Exam Absent: accessory muscle use - Routine Abdominal Exam Present: soft. Absent: tenderness, distended, guarding, firm - Routine Skin Exam Present: dry, warm - Routine Neurological Exam Present: alert, oriented X3 <DarrickCarolyn - Last Filed: 03/10/18 17:11> Vital signs: Vital Signs 03/10/18 12:00 03/10/18 16:00 03/10/18 20:00 Temperature 98.2 F 98.7 F 98.7 F Pulse Rate 97 H 109 H 101 H Respiratory Rate 18 17 17 Blood Pressure 119/64 130/62 109/63 Pulse Oximetry 96 96 99 03/11/18 00:00 03/11/18 03:58 Temperature 98.0 F 98.8 F Pulse Rate 96 H 100 H Respiratory Rate 17 17 Blood Pressure 115/65 133/64 Pulse Oximetry 93 L 94 L Intake & Output 03/10/18 03/11/18 03/11/18 18:59 06:59 18:59 Intake Total 0 / 0 2309.38 / 2309.38 Output Total 2300 / 2300 Balance 0 / 0 9.38 / 9.38 Weight 71.8 kg Intake: IV 2309.38 / 2309.38 Intralipid 20% Inj 250 ML @ 31. 250 / 250 25 mls/hr IV.CENTRAL DAILY@1999 [facility] Rx#:[id number] TPN Fluid 2 Liter - Custom 2, 2058.38 / 205.38 059.38 ML @ 83 mls/hr IV.SIG DAILY@1999 [facility] Rx#:[id number] Oral 0 / 0 0 / 0 Output: Urine Amount (Stoma) 700 / 700 Nephrostomy Tube Left 350 / 350 Nephrostomy Tube Right 350 / 350 Gastric Drainage 1600 / 1600 Right Nare Nasogastric Tube 1600 / 1600 Other: # Voids 3 0 Date of Last Bowel Movement 03/06/17 03/06/17 # Bowel Movements 0 0 <Robinson Buckley - Last Filed: 03/11/18 08:30> Results - Labs CBC & Chem 7: 03/05/18 14:30 03/09/18 07:05 Laboratory Results - last 24 hr 03/09/18 03/10/18 21:26 06:12 POC Glucose 223 H 217 H - Imaging Impressions Venous Doppler Study 03/10/18 00:00 CONCLUSION: 1. Thrombosis of the cephalic vein within the upper arm. The remainder of the venous structures of the arm are patent. 2. The visualized portions of subclavian vein are patent. <Carolyn Hollingsworth - Last Filed: 03/10/18 17:11> - Labs CBC & Chem 7: 03/05/18 14:30 03/09/18 07:05 Laboratory Results - last 24 hr 03/10/18 03/11/18 03/11/18 17:34 04:22 07:20 POC Glucose 254 H 359 H 381 H - Imaging Impressions Venous Doppler Study 03/10/18 00:00 CONCLUSION: 1. Thrombosis of the cephalic vein within the upper arm. The remainder of the venous structures of the arm are patent. 2. The visualized portions of subclavian vein are patent. <Robinson Buckley - Last Filed: 03/11/18 08:30> Assessment and Plan (1) Nausea and/or vomiting Status: Acute Code(s): R11.2 - Nausea with vomiting, unspecified (2) Gastric distention Status: Acute Code(s): K31.89 - Other diseases of stomach and duodenum (3) Electrolyte imbalance Status: Acute Code(s): E87.8 - Other disorders of electrolyte and fluid balance, not elsewhere classified (4) Acute kidney failure Status: Acute Code(s): N17.9 - Acute kidney failure, unspecified - Plan 03/06/18 Patient was seen and examined, agree with above note, we need to rule out gastric outlet obstruction with the severe nausea vomiting and distended stomach so we will plan on doing upper endoscopy tomorrow, discussed with patient and and both agreeable to have it done 03/07/18 Nausea, vomiting, gastric distention: EGD yesterday, biopsies for gastritis and duodenitis pending. Patient continues to have nausea and vomiting. Gastrografin upper GI with small bowel series has been ordered. Will keep n.p.o. NG tube if patient consents. Continue IV fluids and antiemetics. 03/08/2018 Nausea vomiting Gastric distention Patient sitting up in bed N.p.o. NG tube to low intermittent wall suction with scant output 03/07/2018 upper GI and small bowel follow-through: Marked distention of the stomach which is still fluid-filled. Questionable obstructing of the third portion of the duodenum. (Images reviewed by Dr. Buckley) Interventional radiology consulted for biopsy third portion of duodenum. As per Dr. Sanchez, lesion not amendable to biopsy. General surgery evaluation recommended. 03/09/2018 Nausea vomiting= resolved, NG tube to low intermittent wall suction estimated 600 mL's drainage over the last 8 hours Gastric distention= abdomen soft nontender General surgery following= plan for decompressive gastrostomy with jejunostomy versus J G-tube plan for upcoming week 03/10/2018 Nausea vomiting resolved-NG tube to low intermittent wall suction estimated 1500 mL's dark green gastric content noted Denies abdominal pain General surgery following-possible gastrostomy with jejunostomy versus jejunostomy tube early this week Plan -N.p.o. -NG to low intermittent wall suction -General surgery following -Recommending general surgery perform biopsy of retroperitoneal mass -Monitor labs -Analgesics and antiemetics as per attending -Supportive care -GI will sign off at this time care referred to general surgery. Please notify if any further assistance needed This patient has been seen by myself and Dr. Buckley and this note is written on his behalf - Attending Attestation Dr. Buckley <Carolyn Hollingsworth - Last Filed: 03/10/18 17:11> (1) Nausea and/or vomiting Status: Acute Code(s): R11.2 - Nausea with vomiting, unspecified (2) Gastric distention Status: Acute Code(s): K31.89 - Other diseases of stomach and duodenum (3) Electrolyte imbalance Status: Acute Code(s): E87.8 - Other disorders of electrolyte and fluid balance, not elsewhere classified (4) Acute kidney failure Status: Acute Code(s): N17.9 - Acute kidney failure, unspecified - Attending Attestation I have seen and examined the patient and reviewed the patients care with the GIS COORDINATOR. I agree with the above assessment and recommendations as documented above. <Robinson Buckley - Last Filed: 03/11/18 08:30> <Carolyn Hollingsworth - Last Filed: 03/10/18 17:11> (1) Nausea and/or vomiting Qualifiers: Vomiting type: unspecified Vomiting Intractability: intractable Qualified Code(s): R11.2 - Nausea with vomiting, unspecified <Robinson Buckley - Last Filed: 03/11/18 08:30> (1) Nausea and/or vomiting Qualifiers: Vomiting type: unspecified Vomiting Intractability: intractable Qualified Code(s): R11.2 - Nausea with vomiting, unspecified
[2018-03-10] MEDS: Enoxaparin Inj 30 MG/0.3 ML Syringe SQ SCH (17:36)
[2018-03-10] MEDS: TPN FLUID IV.SIG SCH (22:05)
[2018-03-10] MEDS: traZODone 50 MG Tablet PO SCH (22:07)
[2018-03-11 08:36] LABS: Calcium 9.4 mg/dL (8.5-10.1)
[2018-03-11 08:41] LABS: Potassium 2.9 meq/L (3.5-5.1)
[2018-03-11] MEDS: Senna/Docusate Sodium 8.6/50 MG Tablet PO SCH ×2 (08:43→20:38)
[2018-03-11] MEDS: Gabapentin 100 MG Capsule PO SCH (08:43)
[2018-03-11] MEDS ORDERED: Bupivacaine/Epinephrine PF Inj 0.5% 30 ML Vial ONE (09:57)
[2018-03-11] MEDS ORDERED: Insulin NovoLIN Regular Correctional Sugar Inj ONE (10:51)
[2018-03-11] MEDS ORDERED: Glycopyrrolate Inj 1 MG/5 ML Syringe IV.PUSH ONE (10:56)
[2018-03-11] MEDS ORDERED: Succinylcholine Inj 100 MG/5 ML Syringe IV.PUSH ONE (10:56)
[2018-03-11] MEDS ORDERED: Neostigmine Inj 5 MG/5 ML Syringe IV.PUSH ONE (10:56)
[2018-03-11] MEDS ORDERED: Lidocaine PF 1% Inj 5 ML Syringe OTHER ONE (10:56)
[2018-03-11] MEDS ORDERED: Phenylephrine/NS 1000 MCG/10ML Syringe IV.PUSH ONE (10:56)
[2018-03-11] MEDS: Potassium Chlor 20 mEq Premix 20 MEQ/100 ML PIGGYBACK IV.SIG SCH ×7 (11:00→22:51)
--- NOTE | 2018-03-11 11:04 | P.OP ---
- Preoperative Diagnosis (1) Gastric outlet obstruction - Postoperative Diagnosis (1) Gastric outlet obstruction Procedure: lap gastrojejunostomy with rny reconstruction Anesthesia: GETA Surgeon: Mark Alfredo MD Estimated blood loss (mL): 5
[2018-03-11] MEDS ORDERED: Chlorhexidine Gluconate 2% 1 Pack (2 Cloths) TOPICAL ONE (11:18)
[2018-03-11] MEDS ORDERED: Metoprolol Tartrate 25 MG Tablet PO ONE (11:18)
[2018-03-11] MEDS ORDERED: Sodium Chlor 0.9% Inj 500 ML IV.SIG SCH (12:00)
--- NOTE | 2018-03-11 12:04 | P.PNIM ---
Subjective Interval history: Follow up for gastric outlet obstruction, hypokalemia. Patient is currently doing well. NG tube is in place. She would likely go to surgery today. No fever or chills. Tolerating TPN well. Physical Exam Vital signs: Vital Signs 03/10/18 16:00 03/10/18 20:00 03/11/18 00:00 Temperature 98.7 F 98.7 F 98.0 F Pulse Rate 109 H 101 H 96 H Respiratory Rate 17 17 17 Blood Pressure 130/62 109/63 115/65 Pulse Oximetry 96 99 93 L 03/11/18 03:58 03/11/18 08:00 Temperature 98.8 F 98.6 F Pulse Rate 100 H 89 Respiratory Rate 17 16 Blood Pressure 133/64 110/58 L Pulse Oximetry 94 L 95 Intake & Output 03/10/18 03/11/18 03/11/18 18:59 06:59 18:59 Intake Total 0 / 0 2309.38 / 2309.38 Output Total 2300 / 2300 Balance 0 / 0 9.38 / 9.38 Weight 71.8 kg Intake: IV 2309.38 / 2309.38 Intralipid 20% Inj 250 ML @ 31. 250 / 250 25 mls/hr IV.CENTRAL DAILY@1999 [facility] Rx#:[id number] TPN Fluid 2 Liter - Custom 2, 2058.38 / 205.38 059.38 ML @ 83 mls/hr IV.SIG DAILY@1999 [facility] Rx#:[id number] Oral 0 / 0 0 / 0 Output: Urine Amount (Stoma) 700 / 700 Nephrostomy Tube Left 350 / 350 Nephrostomy Tube Right 350 / 350 Gastric Drainage 1600 / 1600 Right Nare Nasogastric Tube 1600 / 1600 Other: # Voids 3 0 Date of Last Bowel Movement 03/06/17 03/06/17 # Bowel Movements 0 0 Narrative: GENERAL: Well-nourished, well-developed patient. SKIN: Warm and dry. HEAD: Normocephalic. EYES: No scleral icterus. No injection or drainage. NECK: Supple, trachea midline. No JVD or lymphadenopathy. CARDIOVASCULAR: Regular rate and rhythm without murmurs, gallops, or rubs. RESPIRATORY: Breath sounds equal bilaterally. No accessory muscle use. GASTROINTESTINAL: Abdomen soft, non-tender, nondistended. NG tube in place. MUSCULOSKELETAL: No cyanosis, or edema. RUE above AC fossa, there is a small area of erythema with cord like subcutaneous lesion, suspicious for thrombophlebitis. BACK: Nontender without obvious deformity. No CVA tenderness. Results Labs CBC & Chem 7: 03/05/18 14:30 03/11/18 07:20 Imaging Imaging: Impressions Venous Doppler Study 03/10/18 00:00 CONCLUSION: 1. Thrombosis of the cephalic vein within the upper arm. The remainder of the venous structures of the arm are patent. 2. The visualized portions of subclavian vein are patent. Assessment and Plan (1) Gastric distention: Code(s): K31.89 - Other diseases of stomach and duodenum Status: Acute Plan 72-year-old white female being admitted for intractable nausea vomiting with a distended fluid-filled stomach per CT. 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 Gastric outlet obstruction IV fluids, Zofran -GI as well as General surgery following. -TPN started per General surgery. Probable Surgical intervention early next week. Acute kidney injury Severe Hypokalemia 3.1 --> 2.9. Mild hypernatremia - Na 146 ---> 139 --> 131. -Mg is 2.5. Creatinine improved from 3.3 to 2.75 --> 1.62. Likely due to obstructed uropathy as well as prerenal. Will provide more IV KCL. Mg 2.1. -Maintain nephrostomy tubes at this time with drainage, monitor intake and output -Check K+ in the AM. Superficial thrombophlebitis Right upper extremity above the antecubital fossa has a cordlike subcutaneous lesion. US shows superficial thrombophlebitis. Will use heating pad, possibly NSAIDs. -Fortunately, risk of PE is very low in this superficial thrombophlebitis. -Discussed with Surgery attending and patient/family. Will continue to monitor. -Anticoagulation could be considered for short period of time - only because of ongoing anal cancer. 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 However recurrence was detected on PET scan within the last 2 months. Full code. SCDs. Lovenox 30mg Qday.
[2018-03-11 13:00] LABS: Amorphous Sediment,Urine Rare /hpf; Bacteria,Urine Many /hpf; Bilirubin,Urine Negative (Negative); Clarity,Urine Cloudy (Clear); Color,Urine Yellow (Yellw/Straw); Glucose,Urine (UA) 500 or Greater mg/dL (Negative); Hyaline Casts,Urine 2 /lpf (0-3); Leukocyte Esterase,Urine Large (Negative); Mucus,Urine Few /lpf (Occasional); Nitrite,Urine Negative (Negative); Squamous Epithelial Cell,Urine <1 /hpf (0-5)
[2018-03-11] MEDS ORDERED: fentaNYL Citrate Inj 100 MCG/2 ML Ampul ONE ×2 (13:23)
[2018-03-11] MEDS ORDERED: *Meperidine Inj 25 MG/ML Vial PERIprocedural Use ONLY ONE (13:23)
[2018-03-11] MEDS ORDERED: *Ondansetron Inj 4 MG/2 ML Vial PERIprocedural Use ONLY ONE (13:23)
[2018-03-11] MEDS ORDERED: *morphine SULFATE 4 MG/ML PERIprocedure ONLY ONE (13:29)
[2018-03-11 14:00] LABS: Baso % (Auto) 0.2 % (0.0-2.0); Eos # (Auto) 0.1 th/mm3 (0.0-0.4); Eos % (Auto) 1.5 % (0.0-4.0); Hematocrit 27.1 % (35.0-46.0); Hemoglobin 9.4 gm/dL (11.6-15.3); Lymph # (Auto) 0.5 th/mm3 (1.0-4.8); Lymph % (Auto) 8.9 % (9.0-44.0); Mean Corpuscular HGB Conc 34.7 % (32.0-36.0); Mean Corpuscular Hemoglobin 31.5 pg (27.0-34.0); Mean Corpuscular Volume 90.6 fL (80.0-100.0); Mean Platelet Volume 7.6 fL (7.0-11.0); Mono # (Auto) 0.3 th/mm3 (0.0-0.9); Mono % (Auto) 5.5 % (0.0-8.0); Neut # (Auto) 4.3 th/mm3 (1.8-7.7); Neut % (Auto) 83.9 % (16.0-70.0); Platelet Count 196 th/mm3 (150-450); Red Blood Count 2.99 mil/mm3 (4.00-5.30); Red Cell Distribution Width 14.5 % (11.6-17.2); White Blood Count 5.1 th/mm3 (4.0-11.0)
[2018-03-11 14:28] LABS: Calcium 9.2 mg/dL (8.5-10.1); Carbon Dioxide 34.6 meq/L (21.0-32.0); Potassium 3.4 meq/L (3.5-5.1)
[2018-03-11] MEDS: Morphine Inj 4 MG/ML Vial IV.PUSH PRN ×2 (16:17→20:34)
[2018-03-11] MEDS ORDERED: Dextrose 50% in Water 50 ML Vial IV.PUSH PRN (19:27)
[2018-03-11] MEDS: Insulin NovoLOG Aspart Correctional Sugar Inj SQ SCH (20:37)
[2018-03-11] MEDS: traZODone 50 MG Tablet PO SCH (20:38)
[2018-03-11] MEDS ORDERED: Insulin Detemir Inj 1,000 UNIT/10 ML Vial SQ SCH (21:00)
[2018-03-11] MEDS: TPN FLUID IV.SIG SCH (22:39)
[2018-03-12] MEDS: Morphine Inj 4 MG/ML Vial IV.PUSH PRN ×3 (00:34→08:16)
[2018-03-12] MEDS: Potassium Chlor 20 mEq Premix 20 MEQ/100 ML PIGGYBACK IV.SIG SCH (01:22)
--- NOTE | 2018-03-12 01:35 | MP ---
cc: Mark Alfredo MD DATE OF OPERATION: 03/11/2018 PREOPERATIVE DIAGNOSIS: History of anal cancer, status post chemoradiation, gastric outlet obstruction. POSTOPERATIVE DIAGNOSIS: History of anal cancer, status post chemoradiation, gastric outlet obstruction. PROCEDURE PERFORMED: Laparoscopic Avni-en-Y gastric bypass with gastrojejunostomy. SURGEON: Mark Alfredo MD JOB PRESS OPERATOR: Zeinab. ANESTHESIA: GETA. IV FLUIDS: See anesthesia sheet. ESTIMATED BLOOD LOSS: 15 mL. DRAINS: None. COMPLICATIONS: None. WOUND CLASSIFICATION: Clean/contaminated. SPECIMENS: None. FINDINGS: Large, distended stomach. Good hemostasis. INDICATIONS: This is a 72-year-old female who presented with excessive nausea and vomiting. The patient has a history of anal cancer, status post chemoradiation, and developed a significant retroperitoneal mass versus scarring including her third portion of the duodenum. The patient had an NG tube placed with over 3 liters obtained and endoscopy and upper GI with significance for gastric outlet obstruction. Decision was made for a gastric bypass. DETAILS OF PROCEDURE: The patient was taken to the operating suite, placed in supine position. She was prepped and draped in the usual sterile fashion after induction of general endotracheal anesthesia. A brief timeout was done stating correct patient, procedure, surgical site, and we were all in agreement with this. Attention was first directed to the inferior umbilicus, 18 cm distal from the xiphoid, just below the umbilicus. Local anesthetic was injected. Stab svitlana incision was made. The Visiport Optiview 5 mm was done to enter the abdomen safely. Abdomen insufflated to 15 mmHg pneumoperitoneum. On cursory inspection, there was no evidence of injury. There was noted to be a very large stomach that had been somewhat decompressed with the NG tube. The bowel was noted to be relatively mobile. On exploration, there was no evidence of carcinoid, no pneumatosis and no evidence of other significant disease. The colon was identified. The omentum was retracted cephalad. A Harmonic scalpel was used to transect the omentum from the colon and gastrocolic ligament. This was done from the hepatic to the splenic flexure, across the transverse colon to split the omentum. The colon was then retracted cephalad. The ligament of Treitz was identified. The small bowel was walked approximately 20 cm distally to find an appropriate place for transection. A MICHAEL stapler with SeamGuard reinforcement was done to transect bowel in preparation for creation of the gastrojejunostomy and jejunojejunostomy. This was done with a reinforced stapler. A clip was placed to sav the proximal end. The distal limb was then further walked another 30 cm distally. Two enterotomies were made in the antimesenteric borders of the biliopancreatic limb and a previously transected, again in conjunction with the creation of our jejunojejunostomy. A linear MICHAEL stapler was used to create a fxjnxrj-hic-xfxsxoa layer. This was done with a xdqu-sq-sxue stapling of . Next, the enterotomies were grasped with a [place]. Conjoined enterotomies were done with Endo-MICHAEL stapler. Small clips were placed on the staple line for hemostasis. A 2-0 silk was used to the small redundant portion and a Lapra-Ty was placed. Once we were satisfied with this, then the patient was placed in a reverse Trendelenburg, left side up. Greater curvature of the stomach was identified and an appropriate area and the greater curvature vessels were taken down using Harmonic scalpel. Once an adequate landing zone was obtained, the posterior curvature of the stomach in a retrogastric fashion was viewed. The Harmonic scalpel was used to make small enterotomies in the gastric portion in the jejunal limb, the Avni limb portion. The Avni limb was brought cephalad and a small enterotomy was made on the antimesenteric border using the Harmonic scalpel. Again, using Endo-MICHAEL stapler, a yuyqgnh-xom-abcrcpn layer was created over the fascia and the gastrojejunostomy. Next, to close the conjoined enterotomy, a second firing of the Endo-MICHAEL stapler was done as well. Next, a 2-0 Vicryl suture was used to reinforce both the cross stitch and reapproximate the small bowel against the posterior wall of the stomach. Next, attention was then directed to the mesenteric defect in the jejunojejunostomy. Nonabsorbable silk was used in a suture in a running fashion to approximate the jejunojejunostomy defect. Small minimal bleeding was noted. SNoW anticoagulant was placed. Next, Evicel was placed against the anastomosis and staple lines for reinforcement. Next, the two 12 mm ports were closed with 0 Vicryl on a transfascial suture closure. Next, 4-0 Monocryl done to all subcuticular port sites. Sterile dressings were then placed. The patient tolerated the procedure well. All lap and instrument counts were correct at the end of procedure. No complications. The patient was extubated and taken stable to PACU. MD EDWIGE Pedraza/dimitris/ , 10:55 PM , 11:08 PM
[2018-03-12] MEDS ORDERED: Acetaminophen 650 MG Supp RECTAL ONE (05:03)
[2018-03-12 06:10] LABS: Baso % (Auto) 0.1 % (0.0-2.0); Eos # (Auto) 0.1 th/mm3 (0.0-0.4); Eos % (Auto) 0.8 % (0.0-4.0); Hematocrit 27.8 % (35.0-46.0); Hemoglobin 9.4 gm/dL (11.6-15.3); Lymph # (Auto) 0.3 th/mm3 (1.0-4.8); Lymph % (Auto) 4.7 % (9.0-44.0); Mean Corpuscular HGB Conc 33.7 % (32.0-36.0); Mean Corpuscular Hemoglobin 30.8 pg (27.0-34.0); Mean Corpuscular Volume 91.3 fL (80.0-100.0); Mean Platelet Volume 8.1 fL (7.0-11.0); Mono # (Auto) 0.3 th/mm3 (0.0-0.9); Neut # (Auto) 5.7 th/mm3 (1.8-7.7); Neut % (Auto) 89.4 % (16.0-70.0); Platelet Count 191 th/mm3 (150-450); Red Blood Count 3.05 mil/mm3 (4.00-5.30); Red Cell Distribution Width 14.9 % (11.6-17.2); White Blood Count 6.4 th/mm3 (4.0-11.0)
[2018-03-12 06:28] LABS: Carbon Dioxide 32.9 meq/L (21.0-32.0); Potassium 3.7 meq/L (3.5-5.1)
--- NOTE | 2018-03-12 06:29 | XR ---
EXAM DATE: 03/12/2018 6:07 AM EST AGE/SEX: 72 years / Female INDICATIONS: Left anterior chest pain and short of breath. CLINICAL DATA: This is the patient's subsequent encounter. Patient reports that signs and symptoms h ave been present for 4 - 6 days and indicates a pain score of 6/10. MEDICAL/SURGICAL HISTORY: Carcinoma, rectal. Carcinoma, breast. Carcinoma, cervical. renal f ailure acute, chemo Nephrostomy tube, left. Nephrostomy tube, right. Infusaport COMPARISON: POI, CT CHEST W AND W/O CONTRAST, 08/30/2015. POI, XR CHEST PA AND LAT, 03/31/2015. . FINDINGS: Portable AP view of the chest demonstrates a normal-sized cardiac silhouette. Nasogastric tube is pre sent. Right chest wall [id number] is present with distal tip at the cavoatrial junction. No effusi on, consolidation, or pneumothorax is identified. The bones there is a possible free air beneath the right hemidiaphragm. The bones demonstrate no acute finding. There is mild atelectasis at the lung ba ses. CONCLUSION: 1. Possible free air beneath the right hemidiaphragm. This suggests bowel perforation if there has b een no recent abdominal or pelvic surgeries. Suggest correlating with clinical history and physical e xamination. 2. Otherwise, no acute finding is identified within the chest. Electronically signed by: Jurgen Olvera MD Board Certified Radiologist 03/12/2018 6:28 AM EST
[2018-03-12] MEDS: Gabapentin 100 MG Capsule PO SCH (08:16)
[2018-03-12] MEDS: Senna/Docusate Sodium 8.6/50 MG Tablet PO SCH ×2 (08:16→21:45)
[2018-03-12] MEDS: Insulin NovoLOG Aspart Correctional Sugar Inj SQ SCH ×4 (08:16→21:43)
[2018-03-12] MEDS ORDERED: Insulin Detemir Inj 1,000 UNIT/10 ML Vial SQ ONE (08:45)
[2018-03-12] MEDS ORDERED: HYDROmorphone PF Inj 0.5 MG/0.5 ML Syringe IV.PUSH PRN (09:34)
[2018-03-12] MEDS: HYDROmorphone PF Inj 1 MG/ML Ampul IV.PUSH PRN ×4 (10:53→21:37)
--- NOTE | 2018-03-12 13:33 | P.PNIM ---
Subjective Interval history: Follow up for gastric outlet obstruction, hypokalemia. Patient is doing well. No fever, chills. Complains of post surgical pain. Physical Exam Vital signs: Vital Signs 03/11/18 13:45 03/11/18 13:50 03/11/18 13:52 Temperature 97.9 F Pulse Rate 93 H 95 H Respiratory Rate 13 16 Blood Pressure 127/60 130/61 Pulse Oximetry 100 100 100 03/11/18 16:00 03/11/18 20:00 03/12/18 00:00 Temperature 97 F L 98.5 F 100 F H Pulse Rate 101 H 99 H 104 H Respiratory Rate 17 18 20 Blood Pressure 121/58 L 114/59 L 149/65 H Pulse Oximetry 100 99 96 03/12/18 04:00 03/12/18 08:00 03/12/18 12:00 Temperature 100.5 F H 100 F H 98 F Pulse Rate 121 H 110 H 101 H Respiratory Rate 22 17 17 Blood Pressure 114/59 L 117/64 99/54 L Pulse Oximetry 93 L 94 L 94 L Intake & Output 03/11/18 03/12/18 03/12/18 18:59 06:59 18:59 Intake Total 1400 / 1400 2609.38 / 2609.38 100 / 100 Output Total 350 / 350 1675 / 1675 Balance 1050 / 1050 934.38 / 934.38 100 / 100 Weight 76.7 kg Intake: IV 300 / 300 2609.38 / 2609.38 100 / 100 Intralipid 20% Inj 250 ML @ 31. 250 / 250 25 mls/hr IV.CENTRAL DAILY@1999 [facility] Rx#:[id number] KCl 20 mEq Premix Inj 20 meq In 200 / 200 300 / 300 100 ml @ 50 mls/hr IV.SIG Q2H [facility] Rx#:[id number] TPN Fluid 2 Liter - Custom , 2058.38 / 205.38 059.38 ML @ 83 mls/hr IV.SIG DAILY@1999 [facility] Rx#:[id number] Rocephin Inj 1,000 MG In NS Inj 100 / 100 100 ML @ 200 mls/hr IV.SIG Q24H [facility] Rx#:[id number] Anesthesia Amount 1100 / 1100 Output: Estimated Blood Loss 15 / 15 Urine Amount (Stoma) 325 / 325 1525 / 1525 Nephrostomy Tube Left 150 / 150 425 / 425 Nephrostomy Tube Right 175 / 175 1100 / 1100 Gastric Drainage 150 / 150 Right Nare Nasogastric Tube 150 / 150 Other: Date of Last Bowel Movement 03/06/17 # Emeses 0 Narrative: GENERAL: Well-nourished, well-developed patient. SKIN: Warm and dry. HEAD: Normocephalic. EYES: No scleral icterus. No injection or drainage. NECK: Supple, trachea midline. No JVD or lymphadenopathy. CARDIOVASCULAR: Regular rate and rhythm without murmurs, gallops, or rubs. RESPIRATORY: Breath sounds equal bilaterally. No accessory muscle use. GASTROINTESTINAL: Abdomen soft, non-tender, nondistended. NG tube in place. s/p Avni-en-Y with gastrojejunostomy. MUSCULOSKELETAL: No cyanosis, or edema. RUE above AC fossa, there is a small area of erythema with cord like subcutaneous lesion, suspicious for thrombophlebitis. BACK: Nontender without obvious deformity. No CVA tenderness. Results Labs CBC & Chem 7: 03/12/18 05:49 03/12/18 05:49 Imaging Imaging: Impressions Chest X-Ray 03/12/18 00:00 CONCLUSION: 1. Possible free air beneath the right hemidiaphragm. This suggests bowel perforation if there has been no recent abdominal or pelvic surgeries. Suggest correlating with clinical history and physical examination. 2. Otherwise, no acute finding is identified within the chest. Assessment and Plan (1) Gastric distention: Code(s): K31.89 - Other diseases of stomach and duodenum Status: Acute Plan 72-year-old white female being admitted for intractable nausea vomiting with a distended fluid-filled stomach per CT. 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 Gastric outlet obstruction IV fluids, Zofran -GI as well as General surgery following. -TPN started per General surgery. Probable Surgical intervention early next week. Hyperglycemia -likely due to TPN. -Will add regular insulin 10 units per L of TPN. -Will reduce Levemir 10 --> 7 units QHS. Continue sliding scale insulin. Acute kidney injury Severe Hypokalemia - resolved. K+ 3.7 now. Mild hypernatremia - resolved. -Creatinine improved from 3.3 to 2.75 --> 1.62 --> 1.38. Likely due to obstructed uropathy as well as prerenal. -Maintain nephrostomy tubes at this time with drainage, monitor intake and output Superficial thrombophlebitis Right upper extremity above the antecubital fossa has a cordlike subcutaneous lesion. US shows superficial thrombophlebitis. Will use heating pad, possibly NSAIDs. -Fortunately, risk of PE is very low in this superficial thrombophlebitis. -No anticoagulation indicated. 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 However recurrence was detected on PET scan within the last 2 months. Full code. SCDs. Lovenox 30mg Qday.
--- NOTE | 2018-03-12 16:22 | P.PNGS ---
Subjective Interval history: Resting in bed Concerned pain medications are not strong enough at bedside Physical Exam Vital signs: Vital Signs 03/11/18 20:00 03/12/18 00:00 03/12/18 04:00 Temperature 98.5 F 100 F H 100.5 F H Pulse Rate 99 H 104 H 121 H Respiratory Rate 18 20 22 Blood Pressure 114/59 L 149/65 H 114/59 L Pulse Oximetry 99 96 93 L 03/12/18 08:00 03/12/18 12:00 Temperature 100 F H 98 F Pulse Rate 110 H 101 H Respiratory Rate 17 17 Blood Pressure 117/64 99/54 L Pulse Oximetry 94 L 94 L Intake & Output 03/11/18 03/12/18 03/12/18 18:59 06:59 18:59 Intake Total 1400 / 1400 2609.38 / 2609.38 100 / 100 Output Total 350 / 350 1675 / 1675 750 / 750 Balance 1050 / 1050 934.38 / 934.38 -650 / -650 Weight 76.7 kg Intake: IV 300 / 300 2609.38 / 2609.38 100 / 100 Intralipid 20% Inj 250 ML @ 31. 250 / 250 25 mls/hr IV.CENTRAL DAILY@1999 [facility] Rx#:[id number] KCl 20 mEq Premix Inj 20 meq In 200 / 200 300 / 300 100 ml @ 50 mls/hr IV.SIG Q2H [facility] Rx#:[id number] TPN Fluid 2 Liter - Custom , 2058.38 / 2058. 059.38 ML @ 83 mls/hr IV.SIG DAILY@1999 [facility] Rx#:[id number] Rocephin Inj 1,000 MG In NS Inj 100 / 100 100 ML @ 200 mls/hr IV.SIG Q24H [facility] Rx#:[id number] Anesthesia Amount 1100 / 1100 Output: Estimated Blood Loss 15 / 15 Urine Amount (Stoma) 325 / 325 1525 / 1525 750 / 750 Nephrostomy Tube Left 150 / 150 425 / 425 550 / 550 Nephrostomy Tube Right 175 / 175 1100 / 1100 200 / 200 Gastric Drainage 10 / 10 150 / 150 Right Nare Nasogastric Tube / 150 / 150 Other: Date of Last Bowel Movement 03/06/17 # Emeses 0 Narrative: Alert and awake Abd: soft; lap sites c/d/i with Steri strips in place NGT in place with green bilious drainage Results - Labs 03/12/18 05:49 03/12/18 05:49 Laboratory Results - last 24 hr 03/11/18 03/12/18 03/12/18 20:26 05:49 05:49 WBC 6.4 RBC 3.05 L Hgb 9.4 L Hct 27.8 L MCV 91.3 MCH 30.8 MCHC 33.7 RDW 14.9 Plt Count 191 MPV 8.1 Neut % (Auto) 89.4 H Lymph % (Auto) 4.7 L Bonner % (Auto) 5.0 Eos % (Auto) 0.8 Baso % (Auto) 0.1 Neut # (Auto) 5.7 Lymph # (Auto) 0.3 L Bonner # (Auto) 0.3 Eos # (Auto) 0.1 Baso # (Auto) 0.0 WBC Differential . Differential Comment Auto diff final Sodium Potassium Chloride Carbon Dioxide Anion Gap BUN Creatinine Estimated GFR POC Glucose 287 H Random Glucose Lactic Acid 1.9 Calcium 03/12/18 03/12/18 03/12/18 05:49 07:38 11:31 WBC RBC Hgb Hct MCV MCH MCHC RDW Plt Count MPV Neut % (Auto) Lymph % (Auto) Bonner % (Auto) Eos % (Auto) Baso % (Auto) Neut # (Auto) Lymph # (Auto) Bonner # (Auto) Eos # (Auto) Baso # (Auto) WBC Differential Differential Comment Sodium 133 L Potassium 3.7 Chloride 93 L Carbon Dioxide 32.9 H Anion Gap 7 BUN 41 H Creatinine 1.38 H Estimated GFR 38 L POC Glucose 372 H 313 H Random Glucose 345 H D Lactic Acid Calcium 9.0 - Imaging Imaging: ITS Impressions Abdomen/Pelvis CT 03/07/18 00:00 CONCLUSION: 1. There appears to be an obstruction at the beginning of the third portion of the duodenum. This retroperitoneal soft tissue which also partially encases the anterior margin of the right ureter could be either lymphadenopathy or soft tissue mass from the third portion of the duodenum. Upper GI and Small Bowel X-Ray 03/07/18 00:00 CONCLUSION: Marked distention of the stomach which is still fluid-filled. Questionable obstructing of the third portion of the duodenum. Abdomen X-Ray 03/09/18 00:00 CONCLUSION: Significant amount of persistent oral contrast identified within a somewhat dilated stomach. Findings are consistent with gastroparesis. Venous Doppler Study 03/10/18 00:00 CONCLUSION: 1. Thrombosis of the cephalic vein within the upper arm. The remainder of the venous structures of the arm are patent. 2. The visualized portions of subclavian vein are patent. Chest X-Ray 03/12/18 00:00 CONCLUSION: 1. Possible free air beneath the right hemidiaphragm. This suggests bowel perforation if there has been no recent abdominal or pelvic surgeries. Suggest correlating with clinical history and physical examination. 2. Otherwise, no acute finding is identified within the chest. Assessment and Plan - Assessment (1) Gastric distention Code(s): K31.89 - Other diseases of stomach and duodenum Status: Acute Plan: 72 year old female POD1 lap Avni en Y gastric bypass with gastrojejunostomy -Continue NGT to LIWS -TPN -Adjusted pain medications and added Ofirmiv -OOB as tolerated -Plan for UGI
[2018-03-12] MEDS ORDERED: TPN FLUID IV.SIG SCH ×2 (20:00)
[2018-03-12] MEDS ORDERED: Insulin Detemir Inj 1,000 UNIT/10 ML Vial SQ SCH (21:00)
[2018-03-12] MEDS: traZODone 50 MG Tablet PO SCH (21:45)
[2018-03-12] MEDS: TPN FLUID IV.SIG SCH (22:07)
[2018-03-13] MEDS: HYDROmorphone PF Inj 1 MG/ML Ampul IV.PUSH PRN ×6 (00:57→22:31)
[2018-03-13] MEDS: Insulin NovoLOG Aspart Correctional Sugar Inj SQ SCH ×4 (09:39→22:06)
[2018-03-13] MEDS: Senna/Docusate Sodium 8.6/50 MG Tablet PO SCH ×2 (09:40→21:53)
[2018-03-13] MEDS: Gabapentin 100 MG Capsule PO SCH (09:40)
--- NOTE | 2018-03-13 11:50 | P.PNGS ---
Subjective Interval history: Sitting on the side of the bed Physical Exam Vital signs: Vital Signs 03/12/18 12:00 03/12/18 22:16 03/13/18 01:07 Temperature 98 F 98.5 F 99 F Pulse Rate 101 H 105 H 112 H Respiratory Rate 17 20 20 Blood Pressure 99/54 L 125/61 107/56 L Pulse Oximetry 94 L 94 L 94 L 03/13/18 08:00 03/13/18 08:30 Temperature 98.8 F Pulse Rate 105 H Respiratory Rate 16 18 Blood Pressure 121/70 Pulse Oximetry 90 L Intake & Output 03/12/18 03/13/18 03/13/18 18:59 06:59 18:59 Intake Total 200 / 200 259.38 / 259.38 Output Total 750 / 750 1300 / 1300 525 / 525 Balance -550 / -550 -1040.62 / -1040.62 -525 / -525 Intake: IV 200 / 200 259.38 / 259.38 Ofirmev Inj 1,000 mg In 100 ml 100 / 100 200 / 200 @ 400 mls/hr IV.SIG Q6H [facility] Rx# :[id number] Rocephin Inj 1,000 MG In NS Inj 100 / 100 100 ML @ 200 mls/hr IV.SIG Q24H [facility] Rx#:[id number] Output: Urine Amount (Stoma) 750 / 750 350 / 350 525 / 525 Nephrostomy Tube Left 550 / 550 200 / 200 300 / 300 Nephrostomy Tube Right 200 / 200 150 / 150 225 / 225 Gastric Drainage 950 / 950 Right Nare Nasogastric Tube 950 / 950 Narrative: Alert and awake Abd: soft; minimally tender; lap sites with Steri Strips in place Bilateral nephrostomy tubes in place with urine draining Results - Labs 03/12/18 05:49 03/12/18 05:49 Laboratory Results - last 24 hr 03/11/18 03/12/18 03/12/18 09:25 16:52 21:42 POC Glucose 303 H 203 H Urine Color Yellow Urine Clarity Cloudy H Urine pH 5.0 Ur Specific [place] 1.020 Urine Protein 100 H Urine Glucose (UA) 500 or greater Urine Ketones Negative Urine Occult Blood Moderate H Urine Nitrate Negative Urine Bilirubin Negative Urine Urobilinogen Less than 2 Ur Leukocyte Esterase Large H Urine RBC 5 H Urine WBC 157 H Urine WBC Clumps Few H Ur Squamous Epith Cells <1 Amorphous Sediment Rare H Urine Bacteria Many H Hyaline Casts 2 Urine Mucus Few H Micro UA Comment Culture indicated Urine Culture Comments Culture indicated 03/13/18 08:33 POC Glucose 283 H Urine Color Urine Clarity Urine pH Ur Specific [place] Urine Protein Urine Glucose (UA) Urine Ketones Urine Occult Blood Urine Nitrate Urine Bilirubin Urine Urobilinogen Ur Leukocyte Esterase Urine RBC Urine WBC Urine WBC Clumps Ur Squamous Epith Cells Amorphous Sediment Urine Bacteria Hyaline Casts Urine Mucus Micro UA Comment Urine Culture Comments - Imaging Imaging: ITS Impressions Abdomen/Pelvis CT 03/07/18 00:00 CONCLUSION: 1. There appears to be an obstruction at the beginning of the third portion of the duodenum. This retroperitoneal soft tissue which also partially encases the anterior margin of the right ureter could be either lymphadenopathy or soft tissue mass from the third portion of the duodenum. Upper GI and Small Bowel X-Ray 03/07/18 00:00 CONCLUSION: Marked distention of the stomach which is still fluid-filled. Questionable obstructing of the third portion of the duodenum. Abdomen X-Ray 03/09/18 00:00 CONCLUSION: Significant amount of persistent oral contrast identified within a somewhat dilated stomach. Findings are consistent with gastroparesis. Venous Doppler Study 03/10/18 00:00 CONCLUSION: 1. Thrombosis of the cephalic vein within the upper arm. The remainder of the venous structures of the arm are patent. 2. The visualized portions of subclavian vein are patent. Chest X-Ray 03/12/18 00:00 CONCLUSION: 1. Possible free air beneath the right hemidiaphragm. This suggests bowel perforation if there has been no recent abdominal or pelvic surgeries. Suggest correlating with clinical history and physical examination. 2. Otherwise, no acute finding is identified within the chest. Assessment and Plan - Assessment (1) Gastric distention Code(s): K31.89 - Other diseases of stomach and duodenum Status: Acute Plan: 72 year old female POD1 lap Avni en Y gastric bypass with gastrojejunostomy -Continue NGT to LIWS -TPN; adding insulin to formula -Current pain regiment working -OOB as tolerated -Plan for UGI tomorrow
--- NOTE | 2018-03-13 13:08 | P.PNIM ---
Subjective Interval history: Follow up for gastric outlet obstruction, hypokalemia. Patient complains of some abdominal pain. She still has NG tube in place. No fever or chills. Physical Exam Vital signs: Vital Signs 03/12/18 22:16 03/13/18 01:07 03/13/18 08:00 Temperature 98.5 F 99 F 98.8 F Pulse Rate 105 H 112 H 105 H Respiratory Rate 20 20 16 Blood Pressure 125/61 107/56 L 121/70 Pulse Oximetry 94 L 94 L 90 L 03/13/18 08:30 Temperature Pulse Rate Respiratory Rate 18 Blood Pressure Pulse Oximetry Intake & Output 03/12/18 03/13/18 03/13/18 18:59 06:59 18:59 Intake Total 200 / 200 259.38 / 259.38 Output Total 750 / 750 1300 / 1300 525 / 525 Balance -550 / -550 -1040.62 / -1040.62 -525 / -525 Intake: IV 200 / 200 259.38 / 259.38 Ofirmev Inj 1,000 mg In 100 ml 100 / 100 200 / 200 @ 400 mls/hr IV.SIG Q6H [facility] Rx# :[id number] Rocephin Inj 1,000 MG In NS Inj 100 / 100 100 ML @ 200 mls/hr IV.SIG Q24H [facility] Rx#:[id number] Output: Urine Amount (Stoma) 750 / 750 350 / 350 525 / 525 Nephrostomy Tube Left 550 / 550 200 / 200 300 / 300 Nephrostomy Tube Right 200 / 200 150 / 150 225 / 225 Gastric Drainage 950 / 950 Right Nare Nasogastric Tube 950 / 950 Narrative: GENERAL: Well-nourished, well-developed patient. SKIN: Warm and dry. HEAD: Normocephalic. EYES: No scleral icterus. No injection or drainage. NECK: Supple, trachea midline. No JVD or lymphadenopathy. CARDIOVASCULAR: Regular rate and rhythm without murmurs, gallops, or rubs. RESPIRATORY: Breath sounds equal bilaterally. No accessory muscle use. GASTROINTESTINAL: Abdomen soft, non-tender, nondistended. NG tube in place. s/p Avni-en-Y with gastrojejunostomy. MUSCULOSKELETAL: No cyanosis, or edema. RUE above AC fossa, there is a small area of erythema with cord like subcutaneous lesion, suspicious for thrombophlebitis. BACK: Nontender without obvious deformity. No CVA tenderness. Results Labs CBC & Chem 7: 03/12/18 05:49 03/12/18 05:49 Labs: Microbiology 03/12/18 09:55 Blood - Line Aerobic Blood Culture - Preliminary No growth in 1 day 03/12/18 09:55 Blood - Line Anaerobic Blood Culture - Preliminary No growth in 1 day 03/12/18 05:49 Blood - Peripheral Aerobic Blood Culture - Preliminary No growth in 1 day 03/12/18 05:49 Blood - Peripheral Anaerobic Blood Culture - Preliminary No growth in 1 day 03/12/18 05:59 Blood - Peripheral Aerobic Blood Culture - Preliminary No growth in 1 day 03/12/18 05:59 Blood - Peripheral Anaerobic Blood Culture - Preliminary No growth in 1 day 03/11/18 09:25 Clean Catch Urine Urine Culture - Preliminary gram positive cocci Assessment and Plan (1) Gastric distention: Code(s): K31.89 - Other diseases of stomach and duodenum Status: Acute Plan 72-year-old white female being admitted for intractable nausea vomiting with a distended fluid-filled stomach per CT. 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 Gastric outlet obstruction IV fluids, Zofran -GI as well as General surgery following. -TPN started per General surgery. -s/p lap Avni en Y gastric bypass with gastrojejunostomy 03/12/2018 Upper GI series to be done tomorrow 03/14/2018. Adjust his pain medications: Management liquid every 4 hours as needed, Dilaudid IV PRN. Hyperglycemia -likely due to TPN. -Will add regular insulin 10 units per L of TPN. -Will reduce Levemir 10--> 14 units QHS. Continue sliding scale insulin. Acute kidney injury Severe Hypokalemia - resolved. K+ 3.7 now. Mild hypernatremia - resolved. -Creatinine improved from 3.3 to 2.75 --> 1.62 --> 1.38. Likely due to obstructed uropathy as well as prerenal. -Maintain nephrostomy tubes at this time with drainage, monitor intake and output Superficial thrombophlebitis Right upper extremity above the antecubital fossa has a cordlike subcutaneous lesion. US shows superficial thrombophlebitis. Will use heating pad, possibly NSAIDs. -Fortunately, risk of PE is very low in this superficial thrombophlebitis. -No anticoagulation indicated. 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 However recurrence was detected on PET scan within the last 2 months. Full code. SCDs. Restart Lovenox when okay with surgery.
[2018-03-13] MEDS: traZODone 50 MG Tablet PO SCH (21:53)
[2018-03-13] MEDS: TPN FLUID IV.SIG SCH (22:05)
[2018-03-13] MEDS: Insulin Detemir Inj 1,000 UNIT/10 ML Vial SQ SCH (22:06)
[2018-03-14] MEDS: HYDROmorphone PF Inj 1 MG/ML Ampul IV.PUSH PRN ×3 (02:00→11:10)
[2018-03-14] MEDS: Insulin NovoLOG Aspart Correctional Sugar Inj SQ SCH ×4 (08:32→21:42)
[2018-03-14] MEDS: Senna/Docusate Sodium 8.6/50 MG Tablet PO SCH ×2 (09:09→23:01)
[2018-03-14] MEDS: Gabapentin 100 MG Capsule PO SCH (09:09)
[2018-03-14] MEDS ORDERED: Diatrizoate Meglum/Diatrizoate Sod Liq 120 ML Bottle (for RAD diag) NG/OG ONE (10:45)
--- NOTE | 2018-03-14 11:42 | FL ---
EXAM DATE: 03/14/2018 11:06 AM EST AGE/SEX: 72 years / Female INDICATIONS: Post lap dk en y gastric bypass with gastrojejunostomy. CLINICAL DATA: This is the patient's subsequent encounter. Patient reports that signs and symptoms h ave been present for 3 days and indicates a pain score of 9/10. MEDICAL/SURGICAL HISTORY: . Anal cancer. Breast cancer. . . Port a cath placement. Lumpectomy .Rectal biopsy. COMPARISON: [facility], ABDOMEN 1V KUB, 03/09/2018. . FLUORO TIME: 1.8 IMAGE COUNT: 22 RADIATION DOSE: 749.26 DAP FINDINGS: Weaver Dobby Loom radiograph demonstrates bilateral nephroureterostomy tubes. Nasogastric tube. Surgical clips in left upper quadrant of the abdomen. Prominent degenerative findings of the thoracic and lumbar spine . Bowel gas pattern is within normal limits. 120 cc of Gastrografin contrast was injected into the stomach through the nasogastric tube. Contrast fills the stomach. No evidence of leak. Contrast passes into the jejunum through the gastroj ejunal anastomosis. No evidence of leak in this region. No evidence of obstruction. Contrast then pas ses into the mid to distal small bowel on the postprocedure radiographs. No evidence of bowel dilatat ion. CONCLUSION: Unremarkable postoperative appearance. Evidence of gastric bypass procedure with gastrojejunostomy. A nastomosis is patent. No evidence of leak or obstruction. Electronically signed by: Camacho Euceda MD Board Certified Radiologist 03/14/2018 11:40 AM EST
--- NOTE | 2018-03-14 12:59 | P.PNGS ---
Subjective Interval history: Up to the side of the bed Just pack from UGI Physical Exam Vital signs: Vital Signs 03/13/18 16:00 03/13/18 20:00 03/14/18 00:00 Temperature 97.6 F 99.0 F 99.0 F Pulse Rate 110 H 117 H 116 H Respiratory Rate 16 20 20 Blood Pressure 106/58 L 121/66 88/52 L Pulse Oximetry 94 L 98 95 03/14/18 00:42 03/14/18 00:49 03/14/18 04:00 Temperature 98.6 F Pulse Rate 108 H 98 H Respiratory Rate 20 18 20 Blood Pressure 114/66 118/65 Pulse Oximetry 94 L 95 03/14/18 08:00 03/14/18 12:00 Temperature 98.6 F 98.2 F Pulse Rate 102 H 134 H Respiratory Rate 16 16 Blood Pressure 104/60 105/66 Pulse Oximetry 93 L 93 L Intake & Output 03/13/18 03/14/18 03/14/18 18:59 06:59 18:59 Intake Total 100 / 100 350 / 350 Output Total 2200 / 2200 1400 / 1400 Balance -2200 / -2200 -1300 / -1300 350 / 350 Intake: IV 100 / 100 350 / 350 Intralipid 20% Inj 250 ML @ 31. 250 / 250 25 mls/hr IV.CENTRAL DAILY@2000 [facility] Rx#:[id number] Ofirmev Inj 1,000 mg In 100 ml 100 / 100 100 / 100 @ 400 mls/hr IV.SIG Q4H [facility] Rx# :[id number] Output: Urine Amount (Stoma) 925 / 925 400 / 400 Nephrostomy Tube Left 550 / 550 300 / 300 Nephrostomy Tube Right 375 / 375 100 / 100 Gastric Drainage 1275 / 1275 1000 / 1000 Right Nare Nasogastric Tube 1275 / 1275 1000 / 1000 Other: # Voids 2 Narrative: Alert and awake Abd: soft; Steri Strips in place NGT to LIWS Results - Labs 03/12/18 05:49 03/12/18 05:49 Laboratory Results - last 24 hr 03/13/18 03/13/18 03/14/18 17:40 21:55 07:39 POC Glucose 237 H 245 H 360 H 03/14/18 12:29 POC Glucose 256 H - Imaging Imaging: ITS Impressions Abdomen/Pelvis CT 03/07/18 00:00 CONCLUSION: 1. There appears to be an obstruction at the beginning of the third portion of the duodenum. This retroperitoneal soft tissue which also partially encases the anterior margin of the right ureter could be either lymphadenopathy or soft tissue mass from the third portion of the duodenum. Upper GI and Small Bowel X-Ray 03/07/18 00:00 CONCLUSION: Marked distention of the stomach which is still fluid-filled. Questionable obstructing of the third portion of the duodenum. Abdomen X-Ray 03/09/18 00:00 CONCLUSION: Significant amount of persistent oral contrast identified within a somewhat dilated stomach. Findings are consistent with gastroparesis. Venous Doppler Study 03/10/18 00:00 CONCLUSION: 1. Thrombosis of the cephalic vein within the upper arm. The remainder of the venous structures of the arm are patent. 2. The visualized portions of subclavian vein are patent. Chest X-Ray 03/12/18 00:00 CONCLUSION: 1. Possible free air beneath the right hemidiaphragm. This suggests bowel perforation if there has been no recent abdominal or pelvic surgeries. Suggest correlating with clinical history and physical examination. 2. Otherwise, no acute finding is identified within the chest. Gastrografin Study 03/14/18 00:00 CONCLUSION: Unremarkable postoperative appearance. Evidence of gastric bypass procedure with gastrojejunostomy. Anastomosis is patent. No evidence of leak or obstruction. Assessment and Plan - Assessment (1) Gastric distention Code(s): K31.89 - Other diseases of stomach and duodenum Status: Acute Plan: 72 year old female POD3 lap Avni en Y gastric bypass with gastrojejunostomy -UGI shows parent anastomosis -Will start trials of clamping NGT; check residuals Q4 hours; if any nausea/ vomiting occur ---connected back to LIWS -TPN; continue to closely monitor glucose -Current pain regiment working -OOB as tolerated
--- NOTE | 2018-03-14 15:04 | P.DIET ---
Nutritional Evaluation Type of nutrition evaluation: follow-up Nutrition consult regarding: TPN/PPN Objective - Diagnosis nausea and vomiting - Objective % IBW: 126 (IBW: 125lbs) Body Weight Used for Calculations: Actual (71.8kg) Energy Needs - Lower Range (kCal/kg): 30 Energy Needs - Upper Range (kCal/kg): 35 Lower Limit kCal/kg (kCals): 2,154 Upper Limit kCal/kg (kCals): 2,513 Lower Limit Protein Factor (Grams per Kg): 1.2 Upper Limit Protein Factor (Grams per Kg): 1.5 Lower Protein Needs (Protein): 86 Upper Protein Needs (Protein): 108 Fluid Factor (ml/kg): 30 Estimated Fluid Needs (ml): 2,154 Dietitian Reviewed in Medical Record: Curent medications, Intake & Output, Labs , Medical history, TPN/PPN Diet Order: NPO Objective Comments: PMH: Anal Cancer, Breast Cancer POC glucose 237, 245, 360, 256 Assessment Assessment: Pt at high nutritional risk r/t current clinical status. Pt admitted with nausea /vomiting, had gastric outlet obstruction. She is s/p Avni-En-Y on (03/11). NG tube in place and clamping trials are planned. Pt has recurring anal cancer with mets to the pelvis and clavicle. Pt's nutritional needs as assessed above. She is currently receiving Clinimix 5/20 renal @ 83 mls/hr plus 20% lipids, 31.25ml/hr for 8 hrs daily. This provides 2260kcals and 100gms AA's which is adequate to meet pt's nutritional needs at this time. Elevated glucose continues. Wt changes noted. Recommendations: Continue current TPN/lipids May add insulin to TPN for better glucose control. Consult Pharmacy. Dietitian to Monitor: Lab values, Intake & Output, TPN/PPN tolerance, Weight change, Medical course
[2018-03-14] MEDS ORDERED: TPN FLUID IV.SIG SCH (20:00)
[2018-03-14] MEDS: TPN FLUID IV.SIG SCH (21:23)
[2018-03-14] MEDS: traZODone 50 MG Tablet PO SCH ×2 (21:26→23:47)
[2018-03-14] MEDS: Insulin Detemir Inj 1,000 UNIT/10 ML Vial SQ SCH (21:42)
--- NOTE | 2018-03-14 21:53 | P.PNIM ---
Subjective Interval history: Follow up for gastric outlet obstruction, hypokalemia. Patient returned from radiology after upper GI series. NG Tube in place. No fever, chills. Physical Exam Vital signs: Vital Signs 03/14/18 00:00 03/14/18 00:42 03/14/18 00:49 Temperature 99.0 F Pulse Rate 116 H 108 H Respiratory Rate 20 20 18 Blood Pressure 88/52 L 114/66 Pulse Oximetry 95 94 L 03/14/18 04:00 03/14/18 08:00 03/14/18 12:00 Temperature 98.6 F 98.6 F 98.2 F Pulse Rate 98 H 102 H 134 H Respiratory Rate 20 16 16 Blood Pressure 118/65 104/60 105/66 Pulse Oximetry 95 93 L 93 L 03/14/18 16:00 Temperature 97.8 F Pulse Rate 124 H Respiratory Rate 16 Blood Pressure 104/57 L Pulse Oximetry 95 Intake & Output 03/14/18 03/14/18 03/15/18 06:59 18:59 06:59 Intake Total 100 / 100 450 / 450 Output Total 1400 / 1400 1500 / 1500 Balance -1300 / -1300 -1050 / -1050 Intake: IV 100 / 100 450 / 450 Intralipid 20% Inj 250 ML @ 31. 250 / 250 25 mls/hr IV.CENTRAL DAILY@2000 [facility] Rx#:[id number] Ofirmev Inj 1,000 mg In 100 ml 100 / 100 200 / 200 @ 400 mls/hr IV.SIG Q4H PRN Rx# :[id number] Output: Urine Amount (Stoma) 400 / 400 400 / 400 Nephrostomy Tube Left 300 / 300 150 / 150 Nephrostomy Tube Right 100 / 100 250 / 250 Gastric Drainage 1000 / 1000 1100 / 1100 Right Nare Nasogastric Tube 1000 / 1000 1100 / 1100 Other: # Voids 2 Narrative: GENERAL: Well-nourished, well-developed patient. SKIN: Warm and dry. HEAD: Normocephalic. EYES: No scleral icterus. No injection or drainage. NECK: Supple, trachea midline. No JVD or lymphadenopathy. CARDIOVASCULAR: Regular rate and rhythm without murmurs, gallops, or rubs. RESPIRATORY: Breath sounds equal bilaterally. No accessory muscle use. GASTROINTESTINAL: Abdomen soft, non-tender, nondistended. NG tube in place. s/p Avni-en-Y with gastrojejunostomy. MUSCULOSKELETAL: No cyanosis, or edema. RUE above AC fossa, there is a small area of erythema with cord like subcutaneous lesion, suspicious for thrombophlebitis. BACK: Nontender without obvious deformity. No CVA tenderness. Results Labs CBC & Chem 7: 03/12/18 05:49 03/12/18 05:49 Labs: Microbiology 03/11/18 09:25 Clean Catch Urine Urine Culture - Final Enterococcus faecalis 03/12/18 09:55 Blood - Line Aerobic Blood Culture - Preliminary No growth in 2 days 03/12/18 09:55 Blood - Line Anaerobic Blood Culture - Preliminary No growth in 2 days 03/12/18 05:49 Blood - Peripheral Aerobic Blood Culture - Preliminary No growth in 2 days 03/12/18 05:49 Blood - Peripheral Anaerobic Blood Culture - Preliminary No growth in 2 days 03/12/18 05:59 Blood - Peripheral Aerobic Blood Culture - Preliminary No growth in 2 days 03/12/18 05:59 Blood - Peripheral Anaerobic Blood Culture - Preliminary No growth in 2 days Imaging Imaging: Impressions Gastrografin Study 03/14/18 00:00 CONCLUSION: Unremarkable postoperative appearance. Evidence of gastric bypass procedure with gastrojejunostomy. Anastomosis is patent. No evidence of leak or obstruction. Assessment and Plan (1) Gastric distention: Code(s): K31.89 - Other diseases of stomach and duodenum Status: Acute Plan 72-year-old white female being admitted for intractable nausea vomiting with a distended fluid-filled stomach per CT. 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 Gastric outlet obstruction IV fluids, Zofran -GI as well as General surgery following. -TPN started per General surgery. -s/p lap Avni en Y gastric bypass with gastrojejunostomy 03/12/2018 Upper GI series to be done tomorrow 03/14/2018. -Acetaminophen, Dilaudid PRN for pain management. Hyperglycemia -likely due to TPN. -Will add regular insulin 10 units per L of TPN. -Levemir 14 units QHS --> 12 units BID. . Continue sliding scale insulin, high scale. Acute kidney injury Severe Hypokalemia - resolved. K+ 3.7 now. Mild hypernatremia - resolved. -Creatinine improved from 3.3 to 2.75 --> 1.62 --> 1.38. Likely due to obstructed uropathy as well as prerenal. -Maintain nephrostomy tubes at this time with drainage, monitor intake and output Superficial thrombophlebitis Right upper extremity above the antecubital fossa has a cordlike subcutaneous lesion. US shows superficial thrombophlebitis. Will use heating pad, possibly NSAIDs. -Fortunately, risk of PE is very low in this superficial thrombophlebitis. -No anticoagulation indicated. 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 However recurrence was detected on PET scan within the last 2 months. Full code. SCDs. Restart Lovenox when okay with surgery.
[2018-03-14] MEDS ORDERED: Sodium Chloride 0.9% 2 ML Flush PRN IV.FLUSH (21:55)
[2018-03-15] MEDS: HYDROmorphone PF Inj 1 MG/ML Ampul IV.PUSH PRN ×7 (01:47→21:59)
[2018-03-15 06:11] LABS: Baso % (Auto) 0.5 % (0.0-2.0); Eos # (Auto) 0.2 th/mm3 (0.0-0.4); Eos % (Auto) 3.5 % (0.0-4.0); Hematocrit 29.8 % (35.0-46.0); Hemoglobin 10.2 gm/dL (11.6-15.3); Lymph # (Auto) 0.9 th/mm3 (1.0-4.8); Lymph % (Auto) 13.2 % (9.0-44.0); Mean Corpuscular HGB Conc 34.2 % (32.0-36.0); Mean Corpuscular Hemoglobin 31.3 pg (27.0-34.0); Mean Corpuscular Volume 91.4 fL (80.0-100.0); Mean Platelet Volume 8.9 fL (7.0-11.0); Mono # (Auto) 0.4 th/mm3 (0.0-0.9); Mono % (Auto) 5.8 % (0.0-8.0); Neut # (Auto) 5.4 th/mm3 (1.8-7.7); Platelet Count 229 th/mm3 (150-450); Red Blood Count 3.26 mil/mm3 (4.00-5.30); Red Cell Distribution Width 14.8 % (11.6-17.2)
[2018-03-15 06:35] LABS: Calcium 9.9 mg/dL (8.5-10.1); Carbon Dioxide 41.8 meq/L (21.0-32.0)
[2018-03-15 06:36] LABS: Potassium 3.1 meq/L (3.5-5.1)
[2018-03-15] MEDS: Insulin NovoLOG Aspart Correctional Sugar Inj SQ SCH ×4 (07:58→21:51)
[2018-03-15] MEDS: Sodium Chloride 0.9% 2 ML Flush BID IV.FLUSH SCH ×2 (08:03→21:53)
[2018-03-15] MEDS: Gabapentin 100 MG Capsule PO SCH (08:08)
[2018-03-15] MEDS: Senna/Docusate Sodium 8.6/50 MG Tablet PO SCH ×2 (08:08→21:51)
[2018-03-15] MEDS ORDERED: Insulin Detemir Inj 1,000 UNIT/10 ML Vial SQ SCH (09:00)
--- NOTE | 2018-03-15 10:19 | P.PNGS ---
Subjective Interval history: Resting in bed No issues Physical Exam Vital signs: Vital Signs 03/14/18 12:00 03/14/18 16:00 03/14/18 20:00 Temperature 98.2 F 97.8 F 98.1 F Pulse Rate 134 H 124 H 113 H Respiratory Rate 16 16 18 Blood Pressure 105/66 104/57 L 120/75 Pulse Oximetry 93 L 95 97 03/14/18 23:01 03/15/18 00:00 03/15/18 04:17 Temperature 99.5 F Pulse Rate 119 H Respiratory Rate 20 18 20 Blood Pressure 139/69 Pulse Oximetry 94 L 03/15/18 07:25 03/15/18 08:00 Temperature 98.2 F Pulse Rate 110 H Respiratory Rate 20 16 Blood Pressure 115/63 Pulse Oximetry 95 Intake & Output 03/14/18 03/15/18 03/15/18 18:59 06:59 18:59 Intake Total 450 / 450 250 / 250 100 / 100 Output Total 1500 / 1500 150 / 150 Balance -1050 / -1050 100 / 100 100 / 100 Weight 70.9 kg Intake: IV 450 / 450 250 / 250 Intralipid 20% Inj 250 ML @ 31. 250 / 250 250 / 250 25 mls/hr IV.CENTRAL DAILY@2000 [facility] Rx#:[id number] Ofirmev Inj 1,000 mg In 100 ml 200 / 200 @ 400 mls/hr IV.SIG Q4H PRN Rx# :[id number] Oral 100 / 100 Output: Urine Amount (Stoma) 400 / 400 Nephrostomy Tube Left 150 / 150 Nephrostomy Tube Right 250 / 250 Gastric Drainage 1100 / 1100 150 / 150 Right Nare Nasogastric Tube 1100 / 1100 150 / 150 Other: # Voids 2 Narrative: Alert and awake Abd: soft; minimally tender, Steri Strips in place NGT in place Results - Labs 03/15/18 05:50 03/15/18 05:50 Laboratory Results - last 24 hr 03/14/18 03/14/18 03/14/18 12:29 17:50 21:39 WBC RBC Hgb Hct MCV MCH MCHC RDW Plt Count MPV Neut % (Auto) Lymph % (Auto) Donley % (Auto) Eos % (Auto) Baso % (Auto) Neut # (Auto) Lymph # (Auto) Donley # (Auto) Eos # (Auto) Baso # (Auto) WBC Differential Differential Comment Sodium Potassium Chloride Carbon Dioxide Anion Gap BUN Creatinine Estimated GFR POC Glucose 256 H 322 H 208 H Random Glucose Calcium 03/15/18 03/15/18 03/15/18 05:50 05:50 07:28 WBC 7.0 RBC 3.26 L Hgb 10.2 L Hct 29.8 L MCV 91.4 MCH 31.3 MCHC 34.2 RDW 14.8 Plt Count 229 MPV 8.9 Neut % (Auto) 77.0 H Lymph % (Auto) 13.2 Donley % (Auto) 5.8 Eos % (Auto) 3.5 Baso % (Auto) 0.5 Neut # (Auto) 5.4 Lymph # (Auto) 0.9 L Donley # (Auto) 0.4 Eos # (Auto) 0.2 Baso # (Auto) 0.0 WBC Differential . Differential Comment Auto diff final Sodium 131 L Potassium 3.1 L Chloride 83 L Carbon Dioxide 41.8 H Anion Gap 6 BUN 58 H Creatinine 1.70 H Estimated GFR 30 L POC Glucose 317 H Random Glucose 312 H Calcium 9.9 - Imaging Imaging: ITS Impressions Abdomen/Pelvis CT 03/07/18 00:00 CONCLUSION: 1. There appears to be an obstruction at the beginning of the third portion of the duodenum. This retroperitoneal soft tissue which also partially encases the anterior margin of the right ureter could be either lymphadenopathy or soft tissue mass from the third portion of the duodenum. Upper GI and Small Bowel X-Ray 03/07/18 00:00 CONCLUSION: Marked distention of the stomach which is still fluid-filled. Questionable obstructing of the third portion of the duodenum. Abdomen X-Ray 03/09/18 00:00 CONCLUSION: Significant amount of persistent oral contrast identified within a somewhat dilated stomach. Findings are consistent with gastroparesis. Venous Doppler Study 03/10/18 00:00 CONCLUSION: 1. Thrombosis of the cephalic vein within the upper arm. The remainder of the venous structures of the arm are patent. 2. The visualized portions of subclavian vein are patent. Chest X-Ray 03/12/18 00:00 CONCLUSION: 1. Possible free air beneath the right hemidiaphragm. This suggests bowel perforation if there has been no recent abdominal or pelvic surgeries. Suggest correlating with clinical history and physical examination. 2. Otherwise, no acute finding is identified within the chest. Gastrografin Study 03/14/18 00:00 CONCLUSION: Unremarkable postoperative appearance. Evidence of gastric bypass procedure with gastrojejunostomy. Anastomosis is patent. No evidence of leak or obstruction. Assessment and Plan - Assessment (1) Gastric distention Code(s): K31.89 - Other diseases of stomach and duodenum Status: Acute Plan: 72 year old female POD4 lap Avni en Y gastric bypass with gastrojejunostomy -UGI shows patent anastomosis -Continue trials of clamping NGT; check residuals Q4 hours; if any nausea/ vomiting occur ---connected back to [facility] -TPN; continue to closely monitor glucose; replace K -Current pain regiment working -OOB as tolerated -Family requests consult to Dr. Stallings
[2018-03-15] MEDS: Sod Chloride 0.9% Inj 1,000 ML IV.CONT SCH ×2 (11:23→21:25)
[2018-03-15] MEDS: Potassium Chlor 20 mEq Premix 20 MEQ/100 ML PIGGYBACK IV.SIG SCH ×2 (11:25→15:38)
[2018-03-15] MEDS ORDERED: Heparin Central Flush 100 UNIT/ML 5 ML Vial IV.FLUSH PRN (15:19)
--- NOTE | 2018-03-15 16:42 | P.PNIM ---
Subjective Interval history: Follow up for gastric outlet obstruction, hypokalemia. Patient is currently doing well. Denies any chest pain, shortness of breath, fever or chills. Physical Exam Vital signs: Vital Signs 03/14/18 20:00 03/14/18 23:01 03/15/18 00:00 Temperature 98.1 F 99.5 F Pulse Rate 113 H 119 H Respiratory Rate 18 20 18 Blood Pressure 120/75 139/69 Pulse Oximetry 97 94 L 03/15/18 04:17 03/15/18 07:25 03/15/18 08:00 Temperature 98.2 F Pulse Rate 110 H Respiratory Rate 20 20 16 Blood Pressure 115/63 Pulse Oximetry 95 03/15/18 12:00 03/15/18 16:00 Temperature 97.9 F 98.7 F Pulse Rate 109 H 114 H Respiratory Rate 16 16 Blood Pressure 111/60 115/60 Pulse Oximetry 95 97 Intake & Output 03/14/18 03/15/18 03/15/18 18:59 06:59 18:59 Intake Total 450 / 450 250 / 250 200 / 200 Output Total 1500 / 1500 150 / 150 Balance -1050 / -1050 100 / 100 200 / 200 Weight 70.9 kg Intake: IV 450 / 450 250 / 250 100 / 100 Intralipid 20% Inj 250 ML @ 31. 250 / 250 250 / 250 25 mls/hr IV.CENTRAL DAILY@2000 [facility] Rx#:[id number] Ofirmev Inj 1,000 mg In 100 ml 200 / 200 @ 400 mls/hr IV.SIG Q4H PRN Rx# :[id number] KCl 20 mEq Premix Inj 20 meq In 100 / 100 100 ml @ 50 mls/hr IV.SIG Q2H [facility] Rx#:[id number] Oral 100 / 100 Output: Urine Amount (Stoma) 400 / 400 Nephrostomy Tube Left 150 / 150 Nephrostomy Tube Right 250 / 250 Gastric Drainage 1100 / 1100 150 / 150 Right Nare Nasogastric Tube 1100 / 1100 150 / 150 Other: # Voids 2 Narrative: GENERAL: Well-nourished, well-developed patient. SKIN: Warm and dry. HEAD: Normocephalic. EYES: No scleral icterus. No injection or drainage. NECK: Supple, trachea midline. No JVD or lymphadenopathy. CARDIOVASCULAR: Regular rate and rhythm without murmurs, gallops, or rubs. RESPIRATORY: Breath sounds equal bilaterally. No accessory muscle use. GASTROINTESTINAL: Abdomen soft, non-tender, nondistended. NG tube in place. s/p Avni-en-Y with gastrojejunostomy. MUSCULOSKELETAL: No cyanosis, or edema. RUE above AC fossa, there is a small area of erythema with cord like subcutaneous lesion, suspicious for thrombophlebitis. BACK: Nontender without obvious deformity. No CVA tenderness. Results Labs CBC & Chem 7: 03/15/18 05:50 03/15/18 05:50 Labs: Microbiology 03/12/18 09:55 Blood - Line Aerobic Blood Culture - Preliminary No growth in 3 days 03/12/18 09:55 Blood - Line Anaerobic Blood Culture - Preliminary No growth in 3 days 03/12/18 05:49 Blood - Peripheral Aerobic Blood Culture - Preliminary No growth in 3 days 03/12/18 05:49 Blood - Peripheral Anaerobic Blood Culture - Preliminary No growth in 3 days 03/12/18 05:59 Blood - Peripheral Aerobic Blood Culture - Preliminary No growth in 3 days 03/12/18 05:59 Blood - Peripheral Anaerobic Blood Culture - Preliminary No growth in 3 days 03/11/18 09:25 Clean Catch Urine Urine Culture - Final Enterococcus faecalis Assessment and Plan (1) Gastric distention: Code(s): K31.89 - Other diseases of stomach and duodenum Status: Acute Plan 72-year-old white female being admitted for intractable nausea vomiting with a distended fluid-filled stomach per CT. 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 Gastric outlet obstruction IV fluids, Zofran -GI as well as General surgery following. -TPN started per General surgery. -s/p lap Avni en Y gastric bypass with gastrojejunostomy 03/12/2018 Upper GI series 03/15/2018 shows patent anastomosis. Per surgery, continue clamping of NG tube with residual check every 4 hours. -Acetaminophen, Dilaudid PRN for pain management. Hyperglycemia -likely due to TPN. -Will add regular insulin 10 units per L of TPN. -Levemir 12 --> 15 units BID. . Continue sliding scale insulin, high scale. Acute kidney injury Severe Hypokalemia - resolved. K+ 3.7 now. Mild hypernatremia - resolved. -Creatinine improved from 1.38 --> 1.70 Likely prerenal. -Maintain nephrostomy tubes at this time with drainage, monitor intake and output. Dr. Shay discussed with patient on 03/15/2018. Superficial thrombophlebitis Right upper extremity above the antecubital fossa has a cordlike subcutaneous lesion. US shows superficial thrombophlebitis. Will use heating pad, possibly NSAIDs. -Fortunately, risk of PE is very low in this superficial thrombophlebitis. -No anticoagulation indicated. 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 However recurrence was detected on PET scan within the last 2 months. Full code. SCDs. Restart Lovenox when okay with surgery. Progress Note: Quality VTE Deep Vein Thrombosis/Pulmonary Embolism Present on Admission: No
--- NOTE | 2018-03-15 18:41 | MB ---
cc: Shilpi Stallings MD DATE: 03/15/2018 REASON FOR CONSULTATION: Consult requested by general surgeon Dr. Alfredo for evaluation of metastatic recurrent anal cancer. HISTORY OF PRESENT ILLNESS: Kaya is a 72-year-old female. She presented to the emergency room with intractable nausea, vomiting and unable to eat or drink anything. On arrival, blood test shows acute renal failure in spite of having bilateral nephrostomy tube. The CT of the abdomen and pelvis showed distended stomach. GI was consulted. The patient underwent upper endoscopy by Dr. Richards. Significant fluid was suctioned from the dilated stomach. The patient was found to have gastric outlet obstruction. General surgery was consulted. The patient underwent a Avni-en-Y gastrojejunostomy bypass. She still has the NG tube. The patient has been complaining of significant pain in spite of getting narcotics. I have been asked to see her for further evaluation. The patient's daughter was present at the bedside. She has been getting Dilaudid. It seems like her pain comes back before she is due for another dose of the Dilaudid. She is not able to eat or drink anything at this time. She still has the NG tube. The patient is currently on TPN for nourishment. The patient's acute renal failure has improved with hydration. Admission labs on 03/05/2018 show creatinine of 3.3. This is improved to 1.38 just 3 days ago on 03/12/2018. Today, her creatinine went up again to 1.7. The patient presented with rectal bleeding in 08/2016. She underwent colonoscopy which showed anal mass. The biopsy showed squamous cell carcinoma. The staging PET scan showed significant uptake in the anal canal and right deep pelvic lymph node, right iliac lymph node, paraaortic lymph node, and left supraclavicular lymph node. The biopsy of the deep right pelvic lymph node came back consistent with poorly differentiated squamous cell carcinoma from anal canal. In 09/2016, she was started on palliative cisplatinum and 5-FU chemotherapy. Unfortunately, she has developed severe mucositis and diarrhea with rash with the first cycle of chemotherapy. This was most likely due to the 5-FU. She underwent DPD deficiency test and the results came back negative. Subsequently, she was treated with single-agent cisplatin chemotherapy only. She had a total of 9 cycles of cisplatin chemotherapy, which she completed in 05/2017. The restaging PET scan showed interval resolution of uptake in multiple lymph nodes. Also, there was stable uptake in the anus. She had a flexible sigmoidoscopy in 07/2017 which showed residual anal mass and the biopsy confirmed high-grade intraepithelial neoplasia, but invasion cannot be excluded. Given that she only had disease in that area, she was treated with radiation therapy from 08/23/2017 through 10/02/[address] Bess. The patient did well. In 11/2017, she came in for follow up , and her creatinine was found to be elevated. The abdominal ultrasound showed right hydronephrosis. The patient was admitted to [facility]. She was evaluated by urologist, Dr. Shay. The patient underwent ureteral stent placement. She was found to have high-grade obstruction in the right kidney. On 01/25/2018, she underwent percutaneous right nephrostomy tube. The patient went to see Dr. Mohini Andujar for followup and underwent endoscopy with biopsy on 02/20/2018. The pathology report showed recurrent squamous cell carcinoma. The restaging PET scan on 02/25/2018 show evidence of persistent disease in the anus with enlarging size and local recurrence. She also has bilateral deep pelvic, right iliac, and left inguinal hypermetabolic lymph nodes. Also, there is recurrence of 2 left supraclavicular lymph nodes with increased size and uptake. Since patient's creatinine was high she was not a candidate to resume chemotherapy. The patient was referred to interventional radiologist. The patient underwent bilateral nephrostomy tube placement. She had the procedure on 02/28/2018. She tolerated the procedure well and then went home. The patient called our office that she is having nausea and vomiting. She was requesting for hydration which was given a day prior in our office. I advised the patient that she should come to the emergency room for further evaluation of the nausea and vomiting. This was very unusual for the patient to have nausea and vomiting given that she was not on chemotherapy. The patient is now admitted and she was found to have gastric outlet obstruction for which she underwent bypass surgery. Rest of the review of system is negative. PAST MEDICAL HISTORY: 1. Right breast cancer. 2. Anxiety disorder. 3. Arthritis. 4. Depression. 5. Hemorrhoids. 6. Hypercholesterolemia. 7. Peripheral neuropathy. 8. Rheumatoid arthritis. 9. Uterine fibroids. 10. Anal cancer. PAST SURGICAL HISTORY: 1. Breast biopsy. 2. Anal mass biopsy. 3. Infusaport 4. Right ureteral stent placement. 5. Right pelvic lymph node biopsy. 6. Colonoscopy. 7. Melanoma removed from the back. 8. Lumpectomy and breast biopsy. ALLERGIES: CIPRO, PAXIL, AND TOFRANIL. MEDICATIONS: Please see EMR. FAMILY HISTORY: Both parents are . She has 1 brother and 1 sister, 1 son and 1 daughter. All alive and well. SOCIAL HISTORY: The patient is and lives with her . She is a retired counselor. She quit smoking 35 years ago. She used to smoke 2 packs a day for 20 years. She quit drinking 40 years ago. PHYSICAL EXAMINATION: GENERAL: This is a well-developed, chronically ill appearing white female in no apparent distress. VITAL SIGNS: Temperature 97.9, heart rate is 109, blood pressure is 111/60, O2 saturation 95%. HEENT: PERRLA. EOMI, anicteric. No oral lesions noted. NECK: Left supraclavicular lymphadenopathy noted. LUNGS: Clear. No wheezing, rhonchi, or rales. HEART: Regular rate and rhythm. ABDOMEN: Soft. Bowel sounds are positive. EXTREMITIES: No pedal edema. NEUROLOGIC: Awake, alert and oriented x3. SKIN: No significant lesions noted. ASSESSMENT: 1. Gastric outlet obstruction, status post gastrojejunostomy. 2. Acute on chronic renal failure, status post bilateral nephrostomy tube placement. 3. Recurrent metastatic anal cancer. PLAN: I have reviewed her available records and had an extensive discussion with the patient and her daughter regarding her present condition. I reviewed the operative note from Dr. Alfredo when he did the laparoscopic exploration for gastrojejunostomy. He did not find any evidence of recurrent malignancy in the abdomen which could be causing the gastric outlet obstruction. The etiology of the gastric outlet obstruction is unknown at the present time. I will discuss this with Dr. Alfredo. The patient's acute renal failure had improved, but now it has started getting worse again. The patient is not a candidate to resume chemotherapy at this time due to worsening renal failure and intractable nausea and vomiting. We will resume the chemotherapy when she is discharged to home and come to the office. Regarding the pain management, I think she will benefit from Duragesic patch 25 mcg. She can continue with Dilaudid for breakthrough pain. Her daughter who works in the behavioral services agrees that she should be on something long-acting. She mentioned that some of her patients come with Duragesic patches. She is familiar with that. The patient agreed to try Duragesic patch. The patient and her daughter have asked several questions, and these were answered to their satisfaction. Thank you for asking my opinion. MD PATY Winchester/sera , 05:19 PM , 05:48 PM [facility]
[2018-03-15] MEDS: TPN FLUID IV.SIG SCH (21:25)
[2018-03-15] MEDS: traZODone 50 MG Tablet PO SCH (21:51)
[2018-03-15] MEDS: Insulin Detemir Inj 1,000 UNIT/10 ML Vial SQ SCH (21:51)
[2018-03-16] MEDS: HYDROmorphone PF Inj 1 MG/ML Ampul IV.PUSH PRN ×7 (01:57→21:46)
[2018-03-16] MEDS: Sod Chloride 0.9% Inj 1,000 ML IV.CONT SCH ×5 (02:02→21:46)
[2018-03-16 07:24] LABS: Calcium 8.9 mg/dL (8.5-10.1); Carbon Dioxide 36.3 meq/L (21.0-32.0); Potassium 3.4 meq/L (3.5-5.1)
[2018-03-16] MEDS ORDERED: Potassium Chlor 10 mEq Premix 10 MEQ/100 ML PIGGYBACK IV.SIG ONE (09:30)
[2018-03-16] MEDS: Insulin NovoLOG Aspart Correctional Sugar Inj SQ SCH ×4 (09:34→21:47)
[2018-03-16] MEDS: Insulin Detemir Inj 1,000 UNIT/10 ML Vial SQ SCH ×2 (10:07→21:47)
[2018-03-16] MEDS: Anastrozole 1 MG Tablet PO SCH (10:27)
[2018-03-16] MEDS: Senna/Docusate Sodium 8.6/50 MG Tablet PO SCH ×2 (10:27→21:46)
[2018-03-16] MEDS: Sodium Chloride 0.9% 2 ML Flush BID IV.FLUSH SCH ×2 (10:28→21:41)
[2018-03-16] MEDS: Gabapentin 100 MG Capsule PO SCH (10:28)
--- NOTE | 2018-03-16 15:19 | P.PNIM ---
Subjective Interval history: Patient reports less nausea, had soft bowel movement yesterday. Passing gas. Pain controlled Physical Exam Vital signs: Vital Signs 03/15/18 16:00 03/15/18 19:25 03/15/18 20:00 Temperature 98.7 F 98.6 F Pulse Rate 114 H 97 H Respiratory Rate 16 20 18 Blood Pressure 115/60 111/59 L Pulse Oximetry 97 94 L 03/15/18 23:04 03/16/18 00:00 03/16/18 04:00 Temperature 98.2 F 99.1 F Pulse Rate 100 H 110 H Respiratory Rate 18 18 18 Blood Pressure 129/60 134/60 Pulse Oximetry 94 L 95 03/16/18 04:20 03/16/18 08:00 03/16/18 11:42 Temperature 98.4 F 98.2 F Pulse Rate 115 H 105 H Respiratory Rate 20 17 16 Blood Pressure 122/63 114/57 L Pulse Oximetry 94 L 96 Intake & Output 03/15/18 03/16/18 03/16/18 18:59 06:59 18:59 Intake Total 200 / 200 2100 / 2100 1000 / 1000 Output Total 350 / 350 400 / 400 Balance -150 / -150 1700 / 1700 1000 / 1000 Weight 69.9 kg Intake: IV 100 / 100 2100 / 2100 1000 / 1000 NS Inj 1,000 ML @ 100 mls/hr IV 2000 / 2000 1000 / 1000 .CONT .Q10H [facility] Rx#:[id number] KCl 20 mEq Premix Inj 20 meq In 100 / 100 100 / 100 100 ml @ 50 mls/hr IV.SIG Q2H [facility] Rx#:[id number] Oral 100 / 100 0 / 0 Output: Urine Amount (Stoma) 350 / 350 400 / 400 Nephrostomy Tube Left 200 / 200 300 / 300 Nephrostomy Tube Right 150 / 150 100 / 100 Gastric Drainage 0 / 0 Right Nare Nasogastric Tube 0 / 0 Other: # Voids 6 Date of Last Bowel Movement 03/15/18 03/15/18 # Bowel Movements 1 Narrative: GENERAL: Well-nourished, well-developed patient laying in bed with NG tube clamped CARDIOVASCULAR: Regular rate and rhythm RESPIRATORY: Breath sounds equal bilaterally. No accessory muscle use. GASTROINTESTINAL: Abdomen soft, non-tender, nondistended. NG tube in place and clamped. s/p Avni-en-Y with gastrojejunostomy. Normoactive bowel sounds MUSCULOSKELETAL: No cyanosis, or edema. Neuro exam alert and oriented x3 Results Labs CBC & Chem 7: 03/15/18 05:50 03/16/18 06:45 Labs: Microbiology 03/12/18 09:55 Blood - Line Aerobic Blood Culture - Preliminary No growth in 4 days 03/12/18 09:55 Blood - Line Anaerobic Blood Culture - Preliminary No growth in 4 days 03/12/18 05:49 Blood - Peripheral Aerobic Blood Culture - Preliminary No growth in 4 days 03/12/18 05:49 Blood - Peripheral Anaerobic Blood Culture - Preliminary No growth in 4 days 03/12/18 05:59 Blood - Peripheral Aerobic Blood Culture - Preliminary No growth in 4 days 03/12/18 05:59 Blood - Peripheral Anaerobic Blood Culture - Preliminary No growth in 4 days Assessment and Plan (1) Gastric distention: Code(s): K31.89 - Other diseases of stomach and duodenum Status: Acute Plan 72-year-old white female being admitted for intractable nausea vomiting with a distended fluid-filled stomach per CT. 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 Gastric outlet obstruction Continue supportive care with TPN, postoperative care, anti-emetics -GI as well as General surgery following. -TPN started per General surgery. -s/p lap Avni en Y gastric bypass with gastrojejunostomy 03/12/2018 Upper GI series 03/15/2018 shows patent anastomosis. Per surgery, continue clamping of NG tube with residual check every 4 hours. -Acetaminophen, Dilaudid PRN for pain management. Hyperglycemia -likely due to TPN. -Added regular insulin 10 units per L of TPN. -Increase Levemir to 18 units subcu twice daily Continue sliding scale insulin, high scale. Acute kidney injury now improved Severe Hypokalemia - resolved. K+ 3.7 now. Mild hypernatremia - resolved. -Creatinine improved at 1.32 today likely prerenal. -Maintain nephrostomy tubes at this time with drainage, monitor intake and output. Dr. Shay discussed with patient on 03/15/2018 per previous documentation from Dr. Jackson. Superficial thrombophlebitis Right upper extremity above the antecubital fossa has a cordlike subcutaneous lesion. US shows superficial thrombophlebitis. Will use heating pad, possibly NSAIDs. -No anticoagulation indicated. 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 However recurrence was detected on PET scan within the last 2 months. Full code. SCDs. Lovenox Progress Note: Quality VTE Deep Vein Thrombosis/Pulmonary Embolism Present on Admission: No
[2018-03-16] MEDS: Enoxaparin Inj 30 MG/0.3 ML Syringe SQ SCH (15:58)
[2018-03-16] MEDS: TPN FLUID IV.SIG SCH (21:32)
[2018-03-16] MEDS: traZODone 50 MG Tablet PO SCH (21:46)
--- NOTE | 2018-03-16 22:18 | P.PNGS ---
Subjective Patient reports: feels better, pain is less, no bowel movement Physical Exam Vital signs: Vital Signs 03/15/18 23:04 03/16/18 00:00 03/16/18 04:00 Temperature 98.2 F 99.1 F Pulse Rate 100 H 110 H Respiratory Rate 18 18 18 Blood Pressure 129/60 134/60 Pulse Oximetry 94 L 95 03/16/18 04:20 03/16/18 08:00 03/16/18 11:42 Temperature 98.4 F 98.2 F Pulse Rate 115 H 105 H Respiratory Rate 20 18 16 Blood Pressure 122/63 114/57 L Pulse Oximetry 94 L 96 03/16/18 16:00 Temperature 99.1 F Pulse Rate 103 H Respiratory Rate 17 Blood Pressure 128/59 L Pulse Oximetry 92 L Intake & Output 03/16/18 03/16/18 03/17/18 06:59 18:59 06:59 Intake Total 2350 / 2350 1000 / 1000 1000 / 1000 Output Total 400 / 400 200 / 200 50 / 50 Balance 1950 / 1950 800 / 800 950 / 950 Weight 69.9 kg Intake: IV 2350 / 2350 1000 / 1000 1000 / 1000 Intralipid 20% Inj 250 ML @ 31. 250 / 250 25 mls/hr IV.CENTRAL DAILY@1999 [facility] Rx#:[id number] NS Inj 1,000 ML @ 100 mls/hr IV 1999 / 1999 1000 / 1000 1000 / 1000 .CONT .Q10H [facility] Rx#:[id number] KCl 20 mEq Premix Inj 20 meq In 100 / 100 100 ml @ 50 mls/hr IV.SIG Q2H [facility] Rx#:[id number] Oral 0 / 0 Output: Urine Amount (Stoma) 400 / 400 200 / 200 Nephrostomy Tube Left 300 / 300 100 / 100 Nephrostomy Tube Right 100 / 100 100 / 100 Gastric Drainage 0 / 0 50 / 50 Right Nare Nasogastric Tube 0 / 0 50 / 50 Other: Date of Last Bowel Movement 03/15/18 03/15/18 - Constitutional no acute distress - Routine Abdominal Exam Present: soft, tenderness. Absent: normoactive bowel sounds, distended, rebound , guarding Comments: Incisions clean dry and intact, nondistended Results - Labs 03/15/18 05:50 03/16/18 06:45 Laboratory Results - last 24 hr 03/16/18 03/16/18 03/16/18 06:45 08:35 12:28 Sodium 134 L Potassium 3.4 L Chloride 93 L D Carbon Dioxide 36.3 H Anion Gap 5 BUN 54 H Creatinine 1.32 H Estimated GFR 40 L POC Glucose 280 H 174 H Random Glucose 279 H Calcium 8.9 D 03/16/18 03/16/18 16:52 21:10 Sodium Potassium Chloride Carbon Dioxide Anion Gap BUN Creatinine Estimated GFR POC Glucose 186 H 183 H Random Glucose Calcium - Imaging Imaging: ITS Impressions Abdomen/Pelvis CT 03/07/18 00:00 CONCLUSION: 1. There appears to be an obstruction at the beginning of the third portion of the duodenum. This retroperitoneal soft tissue which also partially encases the anterior margin of the right ureter could be either lymphadenopathy or soft tissue mass from the third portion of the duodenum. Upper GI and Small Bowel X-Ray 03/07/18 00:00 CONCLUSION: Marked distention of the stomach which is still fluid-filled. Questionable obstructing of the third portion of the duodenum. Abdomen X-Ray 03/09/18 00:00 CONCLUSION: Significant amount of persistent oral contrast identified within a somewhat dilated stomach. Findings are consistent with gastroparesis. Venous Doppler Study 03/10/18 00:00 CONCLUSION: 1. Thrombosis of the cephalic vein within the upper arm. The remainder of the venous structures of the arm are patent. 2. The visualized portions of subclavian vein are patent. Chest X-Ray 03/12/18 00:00 CONCLUSION: 1. Possible free air beneath the right hemidiaphragm. This suggests bowel perforation if there has been no recent abdominal or pelvic surgeries. Suggest correlating with clinical history and physical examination. 2. Otherwise, no acute finding is identified within the chest. Gastrografin Study 03/14/18 00:00 CONCLUSION: Unremarkable postoperative appearance. Evidence of gastric bypass procedure with gastrojejunostomy. Anastomosis is patent. No evidence of leak or obstruction. Assessment and Plan - Assessment (1) Gastric distention Code(s): K31.89 - Other diseases of stomach and duodenum Status: Acute Plan: 72 year old female POD5 lap Avni en Y gastric bypass with gastrojejunostomy -UGI shows patent anastomosis -Continue trials of clamping NGT; check residuals Q4 hours; if any nausea/ vomiting occur ---connected back to LIWS, clamping trials doing well with small amounts of residual, no nausea or vomiting -TPN; continue to closely monitor glucose; replace K -Current pain regiment working -OOB as tolerated -Family requests consult to Dr. Stallings -Dr. March covering for Dr. Alfredo
[2018-03-17] MEDS: HYDROmorphone PF Inj 1 MG/ML Ampul IV.PUSH PRN ×7 (01:13→21:03)
[2018-03-17] MEDS: Sod Chloride 0.9% Inj 1,000 ML IV.CONT SCH ×2 (04:58→05:34)
[2018-03-17 07:22] LABS: Calcium 8.8 mg/dL (8.5-10.1); Carbon Dioxide 31.9 meq/L (21.0-32.0); Potassium 3.2 meq/L (3.5-5.1)
[2018-03-17] MEDS: Senna/Docusate Sodium 8.6/50 MG Tablet PO SCH ×2 (08:10→20:02)
[2018-03-17] MEDS: Sodium Chloride 0.9% 2 ML Flush BID IV.FLUSH SCH ×2 (08:11→20:02)
[2018-03-17] MEDS: Gabapentin 100 MG Capsule PO SCH (08:11)
[2018-03-17] MEDS: Insulin Detemir Inj 1,000 UNIT/10 ML Vial SQ SCH ×2 (08:12→20:03)
[2018-03-17] MEDS: Anastrozole 1 MG Tablet PO SCH (08:43)
[2018-03-17] MEDS: Insulin NovoLOG Aspart Correctional Sugar Inj SQ SCH ×4 (08:43→20:02)
--- NOTE | 2018-03-17 10:22 | P.PNGS ---
Subjective Patient reports: feels better, pain is less, flatus, no bowel movement (pt and report minimal NG drainage with clamping, no emesis. tolerating popcicles and ice), afebrile Physical Exam Vital signs: Vital Signs 03/16/18 11:42 03/16/18 16:00 03/16/18 20:00 Temperature 98.2 F 99.1 F 98.3 F Pulse Rate 105 H 103 H 99 H Respiratory Rate 16 17 18 Blood Pressure 114/57 L 128/59 L 119/57 L Pulse Oximetry 96 92 L 99 03/17/18 00:00 03/17/18 08:00 Temperature 98.6 F 99.9 F H Pulse Rate 94 H 109 H Respiratory Rate 16 19 Blood Pressure 121/58 L 123/60 Pulse Oximetry 95 92 L Intake & Output 03/16/18 03/17/18 03/17/18 18:59 06:59 18:59 Intake Total 1000 / 1000 2018 Output Total 200 / 200 1150 / 1150 Balance 800 / 800 869 / 869 Weight 76 kg Intake: IV 1000 / 1000 2018 Intralipid 20% Inj 250 ML @ 31. 250 / 250 25 mls/hr IV.CENTRAL DAILY@2000 [facility] Rx#:[id number] NS Inj 1,000 ML @ 100 mls/hr IV 1000 / 1000 1769 / 1769 .CONT .Q10H [facility] Rx#:[id number] Output: Urine Amount (Stoma) 200 / 200 950 / 950 Nephrostomy Tube Left 100 / 100 575 / 575 Nephrostomy Tube Right 100 / 100 375 / 375 Gastric Drainage 200 / 200 Right Nare Nasogastric Tube 200 / 200 Other: Date of Last Bowel Movement 03/15/18 - Routine Abdominal Exam Present: soft, normoactive bowel sounds, wound Results - Labs 03/15/18 05:50 03/17/18 05:05 Laboratory Results - last 24 hr 03/16/18 03/16/18 03/16/18 12:28 16:52 21:10 Sodium Potassium Chloride Carbon Dioxide Anion Gap BUN Creatinine Estimated GFR POC Glucose 174 H 186 H 183 H Random Glucose Calcium 03/17/18 03/17/18 05:05 08:17 Sodium 137 Potassium 3.2 L Chloride 100 Carbon Dioxide 31.9 Anion Gap 5 BUN 41 H Creatinine 1.08 H Estimated GFR 50 L POC Glucose 228 H Random Glucose 189 H Calcium 8.8 - Imaging Imaging: ITS Impressions Abdomen/Pelvis CT 03/07/18 00:00 CONCLUSION: 1. There appears to be an obstruction at the beginning of the third portion of the duodenum. This retroperitoneal soft tissue which also partially encases the anterior margin of the right ureter could be either lymphadenopathy or soft tissue mass from the third portion of the duodenum. Upper GI and Small Bowel X-Ray 03/07/18 00:00 CONCLUSION: Marked distention of the stomach which is still fluid-filled. Questionable obstructing of the third portion of the duodenum. Abdomen X-Ray 03/09/18 00:00 CONCLUSION: Significant amount of persistent oral contrast identified within a somewhat dilated stomach. Findings are consistent with gastroparesis. Venous Doppler Study 03/10/18 00:00 CONCLUSION: 1. Thrombosis of the cephalic vein within the upper arm. The remainder of the venous structures of the arm are patent. 2. The visualized portions of subclavian vein are patent. Chest X-Ray 03/12/18 00:00 CONCLUSION: 1. Possible free air beneath the right hemidiaphragm. This suggests bowel perforation if there has been no recent abdominal or pelvic surgeries. Suggest correlating with clinical history and physical examination. 2. Otherwise, no acute finding is identified within the chest. Gastrografin Study 03/14/18 00:00 CONCLUSION: Unremarkable postoperative appearance. Evidence of gastric bypass procedure with gastrojejunostomy. Anastomosis is patent. No evidence of leak or obstruction. Assessment and Plan - Assessment (1) Gastric distention Code(s): K31.89 - Other diseases of stomach and duodenum Status: Acute Plan: 72 year old female POD5 lap Avni en Y gastric bypass with gastrojejunostomy -UGI shows patent anastomosis -Continue trials of clamping NGT; check residuals Q4 hours; if any nausea/ vomiting occur ---connected back to LIWS, clamping trials doing well with small amounts of residual, no nausea or vomiting -TPN; continue to closely monitor glucose; replace K -Current pain regiment working -OOB as tolerated -Family requests consult to Dr. Stallings -Dr. March covering for Dr. Alfredo - Plan DC NG Start clears Sunday Ice chips and popcicles for now
--- NOTE | 2018-03-17 12:25 | P.PNIM ---
Subjective Interval history: Patient report having bowel movement overnight, passing gas, tolerating clear liquids and popsicle this morning. Happy to have NG tube taken out. Still with some mild abdominal pain. Physical Exam Vital signs: Vital Signs 03/16/18 16:00 03/16/18 20:00 03/17/18 00:00 Temperature 99.1 F 98.3 F 98.6 F Pulse Rate 103 H 99 H 94 H Respiratory Rate 17 18 16 Blood Pressure 128/59 L 119/57 L 121/58 L Pulse Oximetry 92 L 99 95 03/17/18 08:00 Temperature 99.9 F H Pulse Rate 109 H Respiratory Rate 19 Blood Pressure 123/60 Pulse Oximetry 92 L Intake & Output 03/16/18 03/17/18 03/17/18 18:59 06:59 18:59 Intake Total 1000 / 1000 2018 Output Total 200 / 200 1150 / 1150 Balance 800 / 800 869 / 869 Weight 76 kg Intake: IV 1000 / 1000 2018 Intralipid 20% Inj 250 ML @ 31. 250 / 250 25 mls/hr IV.CENTRAL DAILY@1999 [facility] Rx#:[id number] NS Inj 1,000 ML @ 100 mls/hr IV 1000 / 1000 1769 / 1769 .CONT .Q10H [facility] Rx#:[id number] Output: Urine Amount (Stoma) 200 / 200 950 / 950 Nephrostomy Tube Left 100 / 100 575 / 575 Nephrostomy Tube Right 100 / 100 375 / 375 Gastric Drainage 200 / 200 Right Nare Nasogastric Tube 200 / 200 Other: Date of Last Bowel Movement 03/15/18 Narrative: GENERAL: Well-nourished, well-developed patient laying in bed CARDIOVASCULAR: Regular rate and rhythm RESPIRATORY: Breath sounds equal bilaterally. No accessory muscle use. GASTROINTESTINAL: Abdomen soft, non-tender, nondistended. Normoactive bowel sounds MUSCULOSKELETAL: No cyanosis, or edema. Neuro exam alert and oriented x3 Results Labs CBC & Chem 7: 03/15/18 05:50 03/17/18 05:05 Labs: Microbiology 03/12/18 09:55 Blood - Line Aerobic Blood Culture - Final No growth in 5 days 03/12/18 09:55 Blood - Line Anaerobic Blood Culture - Final No growth in 5 days 03/12/18 05:49 Blood - Peripheral Aerobic Blood Culture - Final No growth in 5 days 03/12/18 05:49 Blood - Peripheral Anaerobic Blood Culture - Final No growth in 5 days 03/12/18 05:59 Blood - Peripheral Aerobic Blood Culture - Final No growth in 5 days 03/12/18 05:59 Blood - Peripheral Anaerobic Blood Culture - Final No growth in 5 days Assessment and Plan (1) Gastric distention: Code(s): K31.89 - Other diseases of stomach and duodenum Status: Acute Plan 72-year-old white female being admitted for intractable nausea vomiting with a distended fluid-filled stomach per CT. 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 Gastric outlet obstruction Continue supportive care with TPN and wean when diet is advanced, postoperative care, anti-emetics -GI as well as General surgery following. -TPN per General surgery. -s/p lap Avni en Y gastric bypass with gastrojejunostomy 03/12/2018 Upper GI series 03/15/2018 shows patent anastomosis. Per surgery, NG tube discontinued today and start a clear liquid diet -Acetaminophen, Dilaudid PRN for pain management. Hyperglycemia -likely due to TPN. -Added regular insulin 10 units per L of TPN. -Increase Levemir to 20 units subcu twice daily Continue sliding scale insulin, high scale. Acute kidney injury now improved Hypokalemia -replete for potassium 3.2 today Mild hypernatremia - resolved. -Creatinine improved at 1.08 today likely prerenal. -Maintain nephrostomy tubes at this time with drainage, monitor intake and output. Dr. Shay discussed with patient on 03/15/2018 per previous documentation from Dr. Jackson. Superficial thrombophlebitis Right upper extremity above the antecubital fossa has a cordlike subcutaneous lesion. US shows superficial thrombophlebitis. Will use heating pad, possibly NSAIDs. -No anticoagulation indicated. 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 However recurrence was detected on PET scan within the last 2 months. Full code. SCDs. Lovenox Progress Note: Quality VTE Deep Vein Thrombosis/Pulmonary Embolism Present on Admission: No
[2018-03-17] MEDS: Enoxaparin Inj 30 MG/0.3 ML Syringe SQ SCH (16:10)
[2018-03-17] MEDS: traZODone 50 MG Tablet PO SCH (20:02)
[2018-03-17] MEDS: TPN FLUID IV.SIG SCH (20:02)
[2018-03-18] MEDS: HYDROmorphone PF Inj 1 MG/ML Ampul IV.PUSH PRN ×8 (00:29→21:54)
[2018-03-18 07:23] LABS: Calcium 8.9 mg/dL (8.5-10.1); Carbon Dioxide 28.7 meq/L (21.0-32.0); Potassium 3.6 meq/L (3.5-5.1)
[2018-03-18] MEDS: Anastrozole 1 MG Tablet PO SCH (09:54)
[2018-03-18] MEDS: Gabapentin 100 MG Capsule PO SCH (09:54)
[2018-03-18] MEDS: Senna/Docusate Sodium 8.6/50 MG Tablet PO SCH ×2 (09:54→20:15)
[2018-03-18] MEDS: Insulin Detemir Inj 1,000 UNIT/10 ML Vial SQ SCH ×2 (09:55→20:15)
[2018-03-18] MEDS: Sodium Chloride 0.9% 2 ML Flush BID IV.FLUSH SCH ×2 (09:56→20:00)
--- NOTE | 2018-03-18 10:34 | P.PNGS ---
Subjective Interval history: Resting in bed No issues overnight No nausea/vomiting Physical Exam Vital signs: Vital Signs 03/17/18 12:00 03/17/18 20:00 03/18/18 00:00 Temperature 99 F 98.5 F 99.8 F H Pulse Rate 100 H 98 H 110 H Respiratory Rate 19 18 20 Blood Pressure 114/56 L 116/56 L 114/66 Pulse Oximetry 93 L 98 97 03/18/18 08:00 Temperature 98.1 F Pulse Rate 85 Respiratory Rate 17 Blood Pressure 107/52 L Pulse Oximetry 95 Intake & Output 03/17/18 03/18/18 03/18/18 18:59 06:59 18:59 Intake Total 1000 / 1000 250 / 250 Output Total 175 / 175 900 / 900 Balance 1000 / 1000 75 / 75 -900 / -900 Weight 77.4 kg Intake: IV 1000 / 1000 250 / 250 Intralipid 20% Inj 250 ML @ 31. 250 / 250 25 mls/hr IV.CENTRAL DAILY@2000 [facility] Rx#:[id number] NS Inj 1,000 ML @ 100 mls/hr IV 1000 / 1000 .CONT .Q10H [facility] Rx#:[id number] Output: Urine Amount (Stoma) 175 / 175 900 / 900 Nephrostomy Tube Left 75 / 75 425 / 425 Nephrostomy Tube Right 100 / 100 475 / 475 Other: Date of Last Bowel Movement 03/15/18 # Bowel Movements 1 Narrative: Alert and awake Abd: soft; very minimal tenderness at incisions sites; Steri Strips in place Results - Labs 03/15/18 05:50 03/18/18 06:44 Laboratory Results - last 24 hr 03/17/18 03/17/18 03/17/18 11:24 17:59 19:32 Sodium Potassium Chloride Carbon Dioxide Anion Gap BUN Creatinine Estimated GFR POC Glucose 173 H 165 H 130 H Random Glucose Calcium 03/18/18 03/18/18 06:44 08:00 Sodium 139 Potassium 3.6 Chloride 105 Carbon Dioxide 28.7 Anion Gap 5 BUN 35 H Creatinine 1.04 H Estimated GFR 52 L POC Glucose 182 H Random Glucose 180 H Calcium 8.9 - Imaging Imaging: ITS Impressions Abdomen/Pelvis CT 03/07/18 00:00 CONCLUSION: 1. There appears to be an obstruction at the beginning of the third portion of the duodenum. This retroperitoneal soft tissue which also partially encases the anterior margin of the right ureter could be either lymphadenopathy or soft tissue mass from the third portion of the duodenum. Upper GI and Small Bowel X-Ray 03/07/18 00:00 CONCLUSION: Marked distention of the stomach which is still fluid-filled. Questionable obstructing of the third portion of the duodenum. Abdomen X-Ray 03/09/18 00:00 CONCLUSION: Significant amount of persistent oral contrast identified within a somewhat dilated stomach. Findings are consistent with gastroparesis. Venous Doppler Study 03/10/18 00:00 CONCLUSION: 1. Thrombosis of the cephalic vein within the upper arm. The remainder of the venous structures of the arm are patent. 2. The visualized portions of subclavian vein are patent. Chest X-Ray 03/12/18 00:00 CONCLUSION: 1. Possible free air beneath the right hemidiaphragm. This suggests bowel perforation if there has been no recent abdominal or pelvic surgeries. Suggest correlating with clinical history and physical examination. 2. Otherwise, no acute finding is identified within the chest. Gastrografin Study 03/14/18 00:00 CONCLUSION: Unremarkable postoperative appearance. Evidence of gastric bypass procedure with gastrojejunostomy. Anastomosis is patent. No evidence of leak or obstruction. Assessment and Plan - Assessment (1) Gastric distention Code(s): K31.89 - Other diseases of stomach and duodenum Status: Acute Plan: 72 year old female s/p lap Avni en Y gastric bypass with gastrojejunostomy -UGI shows patent anastomosis -NGT out; no nausea/vomiting -Start clear liquids -TPN; continue to closely monitor glucose; will wean as PO diet increased -Current pain regiment working -OOB as tolerated
[2018-03-18] MEDS: Insulin NovoLOG Aspart Correctional Sugar Inj SQ SCH ×4 (10:48→20:05)
--- NOTE | 2018-03-18 13:48 | P.PNIM ---
Subjective Interval history: assumed care today 03/18/18. Patient has no complaints this afternoon. no nausea/vomiting. no abdominal pain. Physical Exam Vital signs: Vital Signs 03/17/18 20:00 03/18/18 00:00 03/18/18 08:00 Temperature 98.5 F 99.8 F H 98.1 F Pulse Rate 98 H 110 H 85 Respiratory Rate 18 20 17 Blood Pressure 116/56 L 114/66 107/52 L Pulse Oximetry 98 97 95 03/18/18 12:00 Temperature 98.1 F Pulse Rate 95 H Respiratory Rate 18 Blood Pressure 117/57 L Pulse Oximetry 97 Intake & Output 03/17/18 03/18/18 03/18/18 18:59 06:59 18:59 Intake Total 1000 / 1000 250 / 250 Output Total 175 / 175 900 / 900 Balance 1000 / 1000 75 / 75 -900 / -900 Weight 77.4 kg Intake: IV 1000 / 1000 250 / 250 Intralipid 20% Inj 250 ML @ 31. 250 / 250 25 mls/hr IV.CENTRAL DAILY@2000 [facility] Rx#:[id number] NS Inj 1,000 ML @ 100 mls/hr IV 1000 / 1000 .CONT .Q10H [facility] Rx#:[id number] Output: Urine Amount (Stoma) 175 / 175 900 / 900 Nephrostomy Tube Left 75 / 75 425 / 425 Nephrostomy Tube Right 100 / 100 475 / 475 Other: Date of Last Bowel Movement 03/15/18 # Bowel Movements 1 Narrative: GENERAL: elderly woman laying in bed, not in distress. HEENT:not pale,anicteric CARDIOVASCULAR: RRR,s1s2 normal. CHEST: PORT cath in situ, CTAB. GASTROINTESTINAL: Abdomen not distended, clear steri strips around incisions, abdomen soft, non-tender with normoactive bowel sounds. MUSCULOSKELETAL: No cyanosis, or edema. Neuro exam alert and oriented x3 Results Labs CBC & Chem 7: 03/15/18 05:50 03/18/18 06:44 Labs: Microbiology 03/12/18 09:55 Blood - Line Aerobic Blood Culture - Final No growth in 5 days 03/12/18 09:55 Blood - Line Anaerobic Blood Culture - Final No growth in 5 days 03/12/18 05:49 Blood - Peripheral Aerobic Blood Culture - Final No growth in 5 days 03/12/18 05:49 Blood - Peripheral Anaerobic Blood Culture - Final No growth in 5 days 03/12/18 05:59 Blood - Peripheral Aerobic Blood Culture - Final No growth in 5 days 03/12/18 05:59 Blood - Peripheral Anaerobic Blood Culture - Final No growth in 5 days Assessment and Plan (1) Gastric distention: Code(s): K31.89 - Other diseases of stomach and duodenum Status: Acute Plan 72-year-old white female being admitted for intractable nausea vomiting found to have gastric outlet obstruction. 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 1. Gastric outlet obstruction -s/p lap Avni en Y gastric bypass with gastrojejunostomy 03/12/2018 Upper GI series 03/15/2018 shows patent anastomosis. -Continue supportive care with TPN and wean when diet is advanced, postoperative care, anti-emetics. NGT removed on 03/17. currently on clear liquid diet, tolerating well. -GI as well as General surgery following. -Acetaminophen, Dilaudid PRN for pain management. Hyperglycemia-likely due to TPN--blood glucose within acceptable limits,range 130-182. -Regular insulin 10 units per L of TPN. -cont Levemir to 20 units subcut twice daily Continue sliding scale insulin, high scale. Acute kidney injury--likely prerenal. now improved -Creatinine peaked at 3.3 on admission, now improved, 1.04 today -Maintain nephrostomy tubes at this time with drainage, monitor intake and output. Dr. Shay discussed with patient on 03/15/2018 per previous documentation from Dr. Jackson. Hypokalemia -replete as needed. k 3.6 today Mild hypernatremia - resolved. Superficial thrombophlebitis Right upper extremity above the antecubital fossa has a cordlike subcutaneous lesion. US shows superficial thrombophlebitis. heating pad prn, heating pad, avoid NSAIDs given recovering renal function. -No anticoagulation indicated. Recurring squamas cell cancer of the anus with metastases to the pelvis and left clavicle -Continue follow-up with oncology as an outpatient -Patient previously underwent 9 months of chemotherapy as well as radiation with ultimate clearing of the cancer the first time. However recurrence was detected on PET scan within the last 2 months. Full code. SCDs. Lovenox Progress Note: Quality VTE Deep Vein Thrombosis/Pulmonary Embolism Present on Admission: No
--- NOTE | 2018-03-18 15:25 | P.PNONC ---
Subjective Interval history: Patient lying in bed, no acute distress. She is tolerating clear liquid diet. Still receiving TPN. She denies any nausea or vomiting. Objective Vital Signs/Intake & Output: Vital Signs 03/17/18 20:00 03/18/18 00:00 03/18/18 08:00 Temperature 98.5 F 99.8 F H 98.1 F Pulse Rate 98 H 110 H 85 Respiratory Rate 18 20 17 Blood Pressure 116/56 L 114/66 107/52 L Pulse Oximetry 98 97 95 03/18/18 12:00 Temperature 98.1 F Pulse Rate 95 H Respiratory Rate 18 Blood Pressure 117/57 L Pulse Oximetry 97 Intake & Output 03/17/18 03/18/18 03/18/18 18:59 06:59 18:59 Intake Total 1000 / 1000 250 / 250 Output Total 175 / 175 900 / 900 Balance 1000 / 1000 75 / 75 -900 / -900 Weight 77.4 kg Intake: IV 1000 / 1000 250 / 250 Intralipid 20% Inj 250 ML @ 31. 250 / 250 25 mls/hr IV.CENTRAL DAILY@2000 [facility] Rx#:[id number] NS Inj 1,000 ML @ 100 mls/hr IV 1000 / 1000 .CONT .Q10H [facility] Rx#:[id number] Output: Urine Amount (Stoma) 175 / 175 900 / 900 Nephrostomy Tube Left 75 / 75 425 / 425 Nephrostomy Tube Right 100 / 100 475 / 475 Other: Date of Last Bowel Movement 03/15/18 # Bowel Movements 1 Result Diagrams: 03/15/18 05:50 03/18/18 06:44 Laboratory Results: Laboratory Results - last 24 hr 03/17/18 03/17/18 03/18/18 17:59 19:32 06:44 Sodium 139 Potassium 3.6 Chloride 105 Carbon Dioxide 28.7 Anion Gap 5 BUN 35 H Creatinine 1.04 H Estimated GFR 52 L POC Glucose 165 H 130 H Random Glucose 180 H Calcium 8.9 03/18/18 03/18/18 08:00 11:43 Sodium Potassium Chloride Carbon Dioxide Anion Gap BUN Creatinine Estimated GFR POC Glucose 182 H 173 H Random Glucose Calcium Culture Results: Microbiology 03/12/18 09:55 Aerobic Blood Culture - Final Blood - Line No growth in 5 days Anaerobic Blood Culture - Final No growth in 5 days 03/12/18 05:49 Aerobic Blood Culture - Final Blood - Peripheral No growth in 5 days Anaerobic Blood Culture - Final No growth in 5 days 03/12/18 05:59 Aerobic Blood Culture - Final Blood - Peripheral No growth in 5 days Anaerobic Blood Culture - Final No growth in 5 days Medications: Active Medications Generic Name Dose Route Start Last Admin Trade Name Freq PRN Reason Stop Dose Admin Anastrozole 1 mg 03/16/18 09:00 03/18/18 09:54 Arimidex PO 1 mg DAILY [facility] Administration Enoxaparin Sodium 30 mg 03/07/18 16:00 03/17/18 16:10 Lovenox Inj SQ 30 mg Q24H [facility] Administration Escitalopram Oxalate 20 mg 03/15/18 11:15 03/18/18 09:54 Lexapro PO 20 mg DAILY [facility] Administration Fentanyl 1 patch 03/15/18 18:00 03/15/18 18:14 Duragesic 25 Mcg Patch.72hr T-DERMAL 1 patch Q3D [facility] Administration Gabapentin 100 mg 03/06/18 09:00 03/18/18 09:54 Neurontin PO 100 mg DAILY [facility] Administration Hydromorphone HCl 1 mg 03/13/18 12:10 03/18/18 12:52 Dilaudid Pf Inj IV.PUSH 1 mg Q3H PRN Administration Pain 6-10 Fat Emulsion Intravenous 250 mls @ 31.25 mls/hr 03/08/18 20:00 03/18/18 04:02 Intralipid 20% Inj IV.CENTRAL Infused DAILY@1999 [facility] Infusion Sodium Chloride 500 mls @ 30 mls/hr 03/11/18 12:00 03/14/18 23:00 Ns Inj IV.SIG Not Given .Q10H [facility] Amino Acids/Electrolytes/Dextrose 2,000 mls @ 83 mls/hr 03/12/18 20:00 20:02 Tpn Fluid 2 Liter - Custom IV.SIG 83 mls/hr DAILY@1999 [facility] Administration Protocol Acetaminophen 1,000 mg in 100 mls @ 400 mls/hr 03/13/18 20:39 03/14/18 19:26 Ofirmev Inj IV.SIG 0 mls/hr Q4H PRN Infusion PAIN 0-5 Insulin Aspart 0 unit 03/14/18 21:50 03/18/18 12:23 Novolog Insulin Correctional Sugar Inj SQ 5 unit ACHS [facility] Administration Protocol Insulin Detemir 18 unit 03/16/18 09:21 03/18/18 09:55 Levemir Inj SQ 18 unit BID [facility] Administration Ondansetron HCl 4 mg 03/07/18 16:13 03/15/18 14:57 Zofran Inj IV.PUSH 4 mg Q6H PRN Administration NAUSEA OR VOMITING Promethazine HCl 12.5 mg 03/05/18 17:24 03/07/18 10:19 Phenergan Inj IM 12.5 mg Q6H PRN Administration NAUSEA Senna/Docusate Sodium 1 tab 03/06/18 21:00 03/18/18 09:54 Cuca-Colace PO 1 tab BID [facility] Administration Sodium Chloride 2 ml 03/15/18 09:00 03/18/18 09:56 Ns Flush IV.FLUSH 2 ml BID [facility] Administration Sodium Chloride 2 ml 03/14/18 21:55 03/17/18 18:05 Ns Flush IV.FLUSH 2 ml PRN PRN Administration FLUSH AFTER USING IV ACCESS Trazodone HCl 50 mg 03/05/18 21:00 03/17/18 20:02 Desyrel PO 50 mg HS [facility] Administration Objective Remarks: GENERAL: Well-nourished, well-developed female patient, no acute distress. SKIN: Warm and dry. HEAD: Normocephalic. EYES: No scleral icterus. No injection or drainage. NECK: Supple, trachea midline. CARDIOVASCULAR: Regular rate and rhythm without murmurs. RESPIRATORY: Breath sounds equal bilaterally. Nonlabored. GASTROINTESTINAL: Abdomen soft, non-tender, nondistended. EXTREMITIES: No cyanosis, or edema. MUSCULOSKELETAL: Adequate muscle tone. NEUROLOGICAL: No obvious focal deficit. Awake, alert, and oriented x3. PSYCHIATRIC: Appropriate mood and affect; insight and judgment normal. Assessment/Plan - Plan Plan: 1. Gastric outlet obstruction, status post gastro-jejunostomy. 2. Nausea and vomiting has resolved, patient tolerating clear liquid diet. Continues on TPN. 2. Renal function continues to improve. - Attending Statement The exam, history, and the medical decision-making described in the above note were completed with the assistance of the mid-level provider. I reviewed and agree with the findings presented. I attest that I had a [id number] encounter with the patient on the same day, and personally performed and documented my assessment and findings in the medical record. Patient is feeling much better since the NG tube was removed yesterday. Patient has been tolerating the clear liquid diet well. This will continue to improve. Patient does not have any further nausea vomiting. She still has significant pain. However she seems to think that the Duragesic patch has helped the pain as it is long-acting. I started her on 25 mcg of Duragesic patch on Sunday. I will increase the dose to 50 mcg today. This was discussed with the patient's nurse who will add another 25 mcg of Duragesic patch to the already change Duragesic patch about an hour ago. Patient's kidney function continues to improve. His creatinine is 1.0 and GFR is 52. We discussed that given his kidney function is improving we will resume chemotherapy with cisplatin as an outpatient. Once she is discharged to home that she will call our office Extensive discussion with the patient and her at bedside. I have answered several of their questions and these seems to be satisfied.
[2018-03-18] MEDS: Enoxaparin Inj 30 MG/0.3 ML Syringe SQ SCH (15:56)
[2018-03-18] MEDS: TPN FLUID IV.SIG SCH (20:04)
[2018-03-18] MEDS: traZODone 50 MG Tablet PO SCH (20:15)
[2018-03-19] MEDS: HYDROmorphone PF Inj 1 MG/ML Ampul IV.PUSH PRN ×7 (00:54→23:23)
[2018-03-19] MEDS: Anastrozole 1 MG Tablet PO SCH (08:56)
[2018-03-19] MEDS: Gabapentin 100 MG Capsule PO SCH (08:56)
[2018-03-19] MEDS: Senna/Docusate Sodium 8.6/50 MG Tablet PO SCH ×2 (08:56→20:14)
[2018-03-19] MEDS: Insulin NovoLOG Aspart Correctional Sugar Inj SQ SCH ×4 (08:56→20:18)
[2018-03-19] MEDS: Insulin Detemir Inj 1,000 UNIT/10 ML Vial SQ SCH ×2 (08:57→20:18)
[2018-03-19] MEDS: Sodium Chloride 0.9% 2 ML Flush BID IV.FLUSH SCH ×2 (08:58→20:15)
--- NOTE | 2018-03-19 11:33 | P.PNGS ---
Subjective Interval history: Resting in bed No issues Tolerating clears +BM Physical Exam Vital signs: Vital Signs 03/18/18 12:00 03/18/18 16:00 03/18/18 19:26 Temperature 98.1 F 98.7 F Pulse Rate 95 H 96 H Respiratory Rate 18 18 18 Blood Pressure 117/57 L 117/70 Pulse Oximetry 97 95 03/18/18 20:00 03/18/18 20:45 03/18/18 22:24 Temperature 98.4 F Pulse Rate 98 H Respiratory Rate 18 18 18 Blood Pressure 114/60 Pulse Oximetry 95 03/19/18 00:00 03/19/18 01:24 03/19/18 04:17 Temperature 98.7 F Pulse Rate 103 H Respiratory Rate 18 18 18 Blood Pressure 134/56 L Pulse Oximetry 94 L 03/19/18 08:00 Temperature 98.5 F Pulse Rate 105 H Respiratory Rate 17 Blood Pressure 145/65 H Pulse Oximetry 97 Intake & Output 03/18/18 03/19/18 03/19/18 18:59 06:59 18:59 Intake Total 250 / 250 Output Total 1400 / 1400 1375 / 1375 Balance -1400 / -1400 -1125 / -1125 Weight 79.2 kg Intake: IV 250 / 250 Intralipid 20% Inj 250 ML @ 31. 250 / 250 25 mls/hr IV.CENTRAL DAILY@1999 [facility] Rx#:[id number] Output: Urine Amount (Stoma) 1400 / 1400 1375 / 1375 Nephrostomy Tube Left 725 / 725 650 / 650 Nephrostomy Tube Right 675 / 675 725 / 725 Other: Date of Last Bowel Movement 03/18/18 03/17/18 # Bowel Movements 1 Narrative: Alert and awake Abd: soft; non tender; Steri Strips in place Results - Labs 03/15/18 05:50 03/18/18 06:44 Laboratory Results - last 24 hr 03/18/18 03/18/18 03/18/18 11:43 16:57 20:04 POC Glucose 173 H 141 H 131 H 03/19/18 03/19/18 02:29 07:43 POC Glucose 167 H 188 H - Imaging Imaging: ITS Impressions Abdomen/Pelvis CT 03/07/18 00:00 CONCLUSION: 1. There appears to be an obstruction at the beginning of the third portion of the duodenum. This retroperitoneal soft tissue which also partially encases the anterior margin of the right ureter could be either lymphadenopathy or soft tissue mass from the third portion of the duodenum. Upper GI and Small Bowel X-Ray 03/07/18 00:00 CONCLUSION: Marked distention of the stomach which is still fluid-filled. Questionable obstructing of the third portion of the duodenum. Abdomen X-Ray 03/09/18 00:00 CONCLUSION: Significant amount of persistent oral contrast identified within a somewhat dilated stomach. Findings are consistent with gastroparesis. Venous Doppler Study 03/10/18 00:00 CONCLUSION: 1. Thrombosis of the cephalic vein within the upper arm. The remainder of the venous structures of the arm are patent. 2. The visualized portions of subclavian vein are patent. Chest X-Ray 03/12/18 00:00 CONCLUSION: 1. Possible free air beneath the right hemidiaphragm. This suggests bowel perforation if there has been no recent abdominal or pelvic surgeries. Suggest correlating with clinical history and physical examination. 2. Otherwise, no acute finding is identified within the chest. Gastrografin Study 03/14/18 00:00 CONCLUSION: Unremarkable postoperative appearance. Evidence of gastric bypass procedure with gastrojejunostomy. Anastomosis is patent. No evidence of leak or obstruction. Assessment and Plan - Assessment (1) Gastric distention Code(s): K31.89 - Other diseases of stomach and duodenum Status: Acute Plan: 72 year old female s/p lap Avni en Y gastric bypass with gastrojejunostomy -UGI shows patent anastomosis -Advance to full liquids -TPN; continue to closely monitor glucose; will wean as PO diet increased -Current pain regiment working -OOB as tolerated
--- NOTE | 2018-03-19 13:52 | P.PNIM ---
Subjective Interval history: she has no abdominal pain,nausea or vomiting. she tolerated clear liquids and has been advanced to full liquid diet. She has been having some intermittent bladder spasms Physical Exam Vital signs: Vital Signs 03/18/18 16:00 03/18/18 19:26 03/18/18 20:00 Temperature 98.7 F 98.4 F Pulse Rate 96 H 98 H Respiratory Rate 18 18 18 Blood Pressure 117/70 114/60 Pulse Oximetry 95 95 03/18/18 20:45 03/18/18 22:24 03/19/18 00:00 Temperature 98.7 F Pulse Rate 103 H Respiratory Rate 18 18 18 Blood Pressure 134/56 L Pulse Oximetry 94 L 03/19/18 01:24 03/19/18 04:17 03/19/18 08:00 Temperature 98.5 F Pulse Rate 105 H Respiratory Rate 18 18 17 Blood Pressure 145/65 H Pulse Oximetry 97 03/19/18 12:00 Temperature 98.5 F Pulse Rate 91 H Respiratory Rate 17 Blood Pressure 125/58 L Pulse Oximetry 96 Intake & Output 03/18/18 03/19/18 03/19/18 18:59 06:59 18:59 Intake Total 250 / 250 Output Total 1400 / 1400 1375 / 1375 Balance -1400 / -1400 -1125 / -1125 Weight 79.2 kg Intake: IV 250 / 250 Intralipid 20% Inj 250 ML @ 31. 250 / 250 25 mls/hr IV.CENTRAL DAILY@1999 [facility] Rx#:[id number] Output: Urine Amount (Stoma) 1400 / 1400 1375 / 1375 Nephrostomy Tube Left 725 / 725 650 / 650 Nephrostomy Tube Right 675 / 675 725 / 725 Other: Date of Last Bowel Movement 03/18/18 03/17/18 # Bowel Movements 1 Narrative: GENERAL: elderly woman laying in bed, not in distress. HEENT:not pale,anicteric CARDIOVASCULAR: RRR,s1s2 normal. CHEST: PORT cath in situ, CTAB. GASTROINTESTINAL: Abdomen not distended, clear steri strips around incisions, abdomen soft, non-tender with normoactive bowel sounds. MUSCULOSKELETAL: No cyanosis, or edema. Neuro exam alert and oriented x3 Results Labs CBC & Chem 7: 03/15/18 05:50 03/19/18 13:45 Assessment and Plan Plan 72-year-old white female being admitted for intractable nausea vomiting found to have gastric outlet obstruction. 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 1. Gastric outlet obstruction -s/p lap Avni en Y gastric bypass with gastrojejunostomy 03/12/2018 Upper GI series 03/15/2018 shows patent anastomosis. -Continue supportive care with TPN and wean when diet is advanced, postoperative care, anti-emetics. NGT removed on 03/17. -was advanced to full liquid diet today. -GI as well as General surgery following. -Acetaminophen, Dilaudid PRN for pain management. Hyperglycemia-likely due to TPN--blood glucose within acceptable limits. -Regular insulin 10 units per L of TPN. -cont Levemir to 20 units subcut twice daily Continue sliding scale insulin, high scale. Acute kidney injury--likely prerenal. now improved -Creatinine peaked at 3.3 on admission, now improved, 1.04 today -Maintain nephrostomy tubes at this time with drainage, monitor intake and output. Dr. Shay discussed with patient on 03/15/2018 per previous documentation from Dr. Jackson. Hypokalemia -replete as needed. k 3.6 today Mild hypernatremia - resolved. Superficial thrombophlebitis Right upper extremity above the antecubital fossa has a cordlike subcutaneous lesion. US shows superficial thrombophlebitis. heating pad prn, heating pad, avoid NSAIDs given recovering renal function. -No anticoagulation indicated. Recurring squamas cell cancer of the anus with metastases to the pelvis and left clavicle -Continue follow-up with oncology as an outpatient -Patient previously underwent 9 months of chemotherapy as well as radiation with ultimate clearing of the cancer the first time. However recurrence was detected on PET scan within the last 2 months. Full code. SCDs. Lovenox Progress Note: Quality VTE Deep Vein Thrombosis/Pulmonary Embolism Present on Admission: No
--- NOTE | 2018-03-19 13:54 | P.DIET ---
Nutritional Evaluation Type of nutrition evaluation: follow-up Nutrition consult regarding: TPN/PPN Subjective Subjective Comments: Tolerated clear liquids. Just advanced to full liquids. Objective - Diagnosis nausea and vomiting - Objective % IBW: 126 (IBW: 125lbs) Body Weight Used for Calculations: Actual (71.8kg) Energy Needs - Lower Range (kCal/kg): 30 Energy Needs - Upper Range (kCal/kg): 35 Lower Limit kCal/kg (kCals): 2,154 Upper Limit kCal/kg (kCals): 2,513 Lower Limit Protein Factor (Grams per Kg): 1.2 Upper Limit Protein Factor (Grams per Kg): 1.5 Lower Protein Needs (Protein): 86 Upper Protein Needs (Protein): 108 Fluid Factor (ml/kg): 30 Estimated Fluid Needs (ml): 2,154 Dietitian Reviewed in Medical Record: Current diet, Curent medications, Intake & Output, Labs, Medical history, TPN/PPN Diet Order: Full Liquids Objective Comments: PMH: Anal Cancer, Breast Cancer Assessment Assessment: Pt remains at high nutritional risk r/t current clinical status. Pt admitted with nausea/vomiting, had gastric outlet obstruction. She is s/p Avni-En-Y on (). Pt has recurring anal cancer with mets to the pelvis and clavicle. Pt's nutritional needs as assessed above. She is currently receiving Clinimix 5/20 renal @ 83 mls/hr plus 20% lipids, 31.25ml/hr for 8 hrs daily. This provides 2260 kcals and 100 gms protien which is adequate to meet pt's nutritional needs. Labs, wts and clinical course reviewed: glucose improved. Recommendations: Continue current TPN/lipids Advance diet per Surgery Dietitian to Monitor: Lab values, Intake & Output, TPN/PPN tolerance, Weight change, PO Intake, Diet advancement, Medical course
--- NOTE | 2018-03-19 14:23 | P.PNONC ---
Subjective Interval history: Patient sitting up in bed with family at bedside. Patient stating that she spoke to Dr. Stallings and is very excited to be able to begin chemo again. States that surgeon was in to see her and has advanced her diet to full liquid. Continues receiving TPN. Denies any nausea or vomiting. Objective Vital Signs/Intake & Output: Vital Signs 03/18/18 16:00 03/18/18 19:26 03/18/18 20:00 Temperature 98.7 F 98.4 F Pulse Rate 96 H 98 H Respiratory Rate 18 18 18 Blood Pressure 117/70 114/60 Pulse Oximetry 95 95 03/18/18 20:45 03/18/18 22:24 03/19/18 00:00 Temperature 98.7 F Pulse Rate 103 H Respiratory Rate 18 18 18 Blood Pressure 134/56 L Pulse Oximetry 94 L 03/19/18 01:24 03/19/18 04:17 03/19/18 08:00 Temperature 98.5 F Pulse Rate 105 H Respiratory Rate 18 18 17 Blood Pressure 145/65 H Pulse Oximetry 97 03/19/18 12:00 Temperature 98.5 F Pulse Rate 91 H Respiratory Rate 17 Blood Pressure 125/58 L Pulse Oximetry 96 Intake & Output 03/18/18 03/19/18 03/19/18 18:59 06:59 18:59 Intake Total 250 / 250 Output Total 1400 / 1400 1375 / 1375 Balance -1400 / -1400 -1125 / -1125 Weight 79.2 kg Intake: IV 250 / 250 Intralipid 20% Inj 250 ML @ 31. 250 / 250 25 mls/hr IV.CENTRAL DAILY@1999 [facility] Rx#:[id number] Output: Urine Amount (Stoma) 1400 / 1400 1375 / 1375 Nephrostomy Tube Left 725 / 725 650 / 650 Nephrostomy Tube Right 675 / 675 725 / 725 Other: Date of Last Bowel Movement 03/18/18 03/17/18 # Bowel Movements 1 Result Diagrams: 03/15/18 05:50 03/18/18 06:44 Laboratory Results: Laboratory Results - last 24 hr 03/18/18 03/18/18 03/19/18 16:57 20:04 02:29 POC Glucose 141 H 131 H 167 H 03/19/18 03/19/18 07:43 11:52 POC Glucose 188 H 122 H Culture Results: Microbiology 03/12/18 09:55 Aerobic Blood Culture - Final Blood - Line No growth in 5 days Anaerobic Blood Culture - Final No growth in 5 days 03/12/18 05:49 Aerobic Blood Culture - Final Blood - Peripheral No growth in 5 days Anaerobic Blood Culture - Final No growth in 5 days 03/12/18 05:59 Aerobic Blood Culture - Final Blood - Peripheral No growth in 5 days Anaerobic Blood Culture - Final No growth in 5 days Medications: Active Medications Generic Name Dose Route Start Last Admin Trade Name Freq PRN Reason Stop Dose Admin Anastrozole 1 mg 03/16/18 09:00 03/19/18 08:56 Arimidex PO 1 mg DAILY ALIN Administration Enoxaparin Sodium 30 mg 03/07/18 16:00 03/18/18 15:56 Lovenox Inj SQ 30 mg Q24H ALIN Administration Escitalopram Oxalate 20 mg 03/15/18 11:15 03/19/18 08:56 Lexapro PO 20 mg DAILY ALIN Administration Fentanyl 1 patch 03/15/18 18:00 03/18/18 18:02 Duragesic 25 Mcg Patch.72hr T-DERMAL 1 patch Q3D ALIN Administration Gabapentin 100 mg 03/06/18 09:00 03/19/18 08:56 Neurontin PO 100 mg DAILY ALIN Administration Hydromorphone HCl 1 mg 03/13/18 12:10 03/19/18 12:56 Dilaudid Pf Inj IV.PUSH 1 mg Q3H PRN Administration Pain 6-10 Fat Emulsion Intravenous 250 mls @ 31.25 mls/hr 03/08/18 20:00 03/19/18 04:04 Intralipid 20% Inj IV.CENTRAL Infused DAILY@1999 [facility] Infusion Sodium Chloride 500 mls @ 30 mls/hr 03/11/18 12:00 03/14/18 23:00 Ns Inj IV.SIG Not Given .Q10H ALIN Amino Acids/Electrolytes/Dextrose 2,000 mls @ 83 mls/hr 03/12/18 20:00 20:04 Tpn Fluid 2 Liter - Custom IV.SIG 83 mls/hr DAILY@1999 ALIN Administration Protocol Acetaminophen 1,000 mg in 100 mls @ 400 mls/hr 03/13/18 20:39 03/14/18 19:26 Ofirmev Inj IV.SIG 0 mls/hr Q4H PRN Infusion PAIN 0-5 Insulin Aspart 0 unit 03/14/18 21:50 03/19/18 11:53 Novolog Insulin Correctional Sugar Inj SQ Not Given ACHS [facility] Protocol Insulin Detemir 18 unit 03/16/18 09:21 03/19/18 08:57 Levemir Inj SQ 18 unit BID ALIN Administration Ondansetron HCl 4 mg 03/07/18 16:13 03/15/18 14:57 Zofran Inj IV.PUSH 4 mg Q6H PRN Administration NAUSEA OR VOMITING Promethazine HCl 12.5 mg 03/05/18 17:24 03/07/18 10:19 Phenergan Inj IM 12.5 mg Q6H PRN Administration NAUSEA Senna/Docusate Sodium 1 tab 03/06/18 21:00 03/19/18 08:56 Cuca-Colace PO 1 tab BID ALIN Administration Sodium Chloride 2 ml 03/15/18 09:00 03/19/18 08:58 Ns Flush IV.FLUSH Not Given BID ALIN Sodium Chloride 2 ml 03/14/18 21:55 03/17/18 18:05 Ns Flush IV.FLUSH 2 ml PRN PRN Administration FLUSH AFTER USING IV ACCESS Trazodone HCl 50 mg 03/05/18 21:00 03/18/18 20:15 Desyrel PO 50 mg HS ALIN Administration Objective Remarks: GENERAL: Well-nourished, well-developed female patient, no acute distress. SKIN: Warm and dry. HEAD: Normocephalic. EYES: No scleral icterus. No injection or drainage. NECK: Supple, trachea midline. CARDIOVASCULAR: Regular rate and rhythm without murmurs. RESPIRATORY: Breath sounds equal bilaterally. Nonlabored. GASTROINTESTINAL: Abdomen soft, non-tender, nondistended. Steri-strips to abdomen intact. EXTREMITIES: No cyanosis, or edema. MUSCULOSKELETAL: Adequate muscle tone. NEUROLOGICAL: No obvious focal deficit. Awake, alert, and oriented x3. PSYCHIATRIC: Appropriate mood and affect; insight and judgment normal Assessment/Plan - Plan Plan: 1. Gastric outlet obstruction, status post gastro-jejunostomy. 2. Nausea and vomiting has resolved, patient advanced to full liquid diet. Continues on TPN. 3. Renal function continues to improve. Will recheck in AM. 4. Will restart chemo outpatient.
[2018-03-19 14:40] LABS: Calcium 8.4 mg/dL (8.5-10.1); Carbon Dioxide 27.2 meq/L (21.0-32.0); Potassium 3.9 meq/L (3.5-5.1)
[2018-03-19] MEDS: Enoxaparin Inj 30 MG/0.3 ML Syringe SQ SCH (16:21)
[2018-03-19] MEDS: traZODone 50 MG Tablet PO SCH (20:14)
[2018-03-19] MEDS: TPN FLUID IV.SIG SCH (20:15)
[2018-03-20] MEDS: HYDROmorphone PF Inj 1 MG/ML Ampul IV.PUSH PRN ×6 (02:22→22:30)
[2018-03-20 05:32] LABS: Baso % (Auto) 0.5 % (0.0-2.0); Eos # (Auto) 0.2 th/mm3 (0.0-0.4); Eos % (Auto) 3.9 % (0.0-4.0); Hematocrit 21.4 % (35.0-46.0); Hemoglobin 7.2 gm/dL (11.6-15.3); Lymph # (Auto) 0.6 th/mm3 (1.0-4.8); Lymph % (Auto) 14.5 % (9.0-44.0); Mean Corpuscular HGB Conc 33.7 % (32.0-36.0); Mean Corpuscular Volume 91.9 fL (80.0-100.0); Mean Platelet Volume 7.8 fL (7.0-11.0); Mono # (Auto) 0.2 th/mm3 (0.0-0.9); Mono % (Auto) 4.7 % (0.0-8.0); Neut # (Auto) 3.4 th/mm3 (1.8-7.7); Neut % (Auto) 76.4 % (16.0-70.0); Platelet Count 237 th/mm3 (150-450); Red Blood Count 2.33 mil/mm3 (4.00-5.30); Red Cell Distribution Width 15.2 % (11.6-17.2); White Blood Count 4.4 th/mm3 (4.0-11.0)
[2018-03-20 05:57] LABS: Alanine Aminotransferase 35 U/L (10-53); Albumin 2.4 g/dL (3.4-5.0); Anion Gap 7 meq/L (5-15); Aspartate Aminotransferase 40 U/L (15-37); Blood Urea Nitrogen 32 mg/dL (7-18); Calcium 8.6 mg/dL (8.5-10.1); Carbon Dioxide 25.4 meq/L (21.0-32.0); Chloride 105 meq/L (98-107); Glomerular Filtration Rate 52 mL/min (>89); Glucose,Random 170 mg/dL (74-106); Potassium 3.7 meq/L (3.5-5.1); Sodium 137 meq/L (136-145)
[2018-03-20 05:59] LABS: Alkaline Phosphatase 125 U/L (45-117)
--- NOTE | 2018-03-20 08:50 | P.PNGS ---
Subjective Patient reports: no new complaints, flatus, bowel movement (pain controlled) Physical Exam Vital signs: Vital Signs 03/19/18 12:00 03/19/18 15:47 03/19/18 20:00 Temperature 98.5 F 98.3 F 98.6 F Pulse Rate 91 H 99 H 97 H Respiratory Rate 17 18 20 Blood Pressure 125/58 L 121/59 L 115/56 L Pulse Oximetry 96 100 95 03/19/18 20:49 03/19/18 23:53 03/20/18 00:00 Temperature 99.2 F Pulse Rate 114 H Respiratory Rate 18 18 20 Blood Pressure 120/72 Pulse Oximetry 96 03/20/18 02:52 03/20/18 05:47 03/20/18 08:00 Temperature 98.7 F Pulse Rate 95 H Respiratory Rate 18 18 16 Blood Pressure 114/65 Pulse Oximetry 97 Intake & Output 03/19/18 03/20/18 03/20/18 18:59 06:59 18:59 Intake Total 250 / 250 Output Total 625 / 625 700 / 700 Balance -625 / -625 -450 / -450 Weight 80.3 kg Intake: IV 250 / 250 Intralipid 20% Inj 250 ML @ 31. 250 / 250 25 mls/hr IV.CENTRAL DAILY@1999 [facility] Rx#:[id number] Output: Urine Amount (Stoma) 625 / 625 700 / 700 Nephrostomy Tube Left 350 / 350 350 / 350 Nephrostomy Tube Right 275 / 275 350 / 350 Other: Date of Last Bowel Movement 03/17/18 03/18/18 - Routine Abdominal Exam Present: soft (incisions c/d/i) Results - Labs 03/20/18 05:23 03/20/18 05:23 Laboratory Results - last 24 hr 03/19/18 03/19/18 03/19/18 11:52 13:45 16:24 WBC RBC Hgb Hct MCV MCH MCHC RDW Plt Count MPV Neut % (Auto) Lymph % (Auto) [place] % (Auto) Eos % (Auto) Baso % (Auto) Neut # (Auto) Lymph # (Auto) [place] # (Auto) Eos # (Auto) Baso # (Auto) WBC Differential Differential Comment Sodium 138 Potassium 3.9 Chloride 106 Carbon Dioxide 27.2 Anion Gap 5 BUN 33 H Creatinine 0.96 Estimated GFR 57 L POC Glucose 122 H 155 H Random Glucose 151 H Calcium 8.4 L Total Bilirubin AST ALT Alkaline Phosphatase Total Protein Albumin 03/19/18 03/20/18 03/20/18 20:18 05:23 05:23 WBC 4.4 RBC 2.33 L Hgb 7.2 L Hct 21.4 L MCV 91.9 MCH 31.0 MCHC 33.7 RDW 15.2 Plt Count 237 MPV 7.8 Neut % (Auto) 76.4 H Lymph % (Auto) 14.5 [place] % (Auto) 4.7 Eos % (Auto) 3.9 Baso % (Auto) 0.5 Neut # (Auto) 3.4 Lymph # (Auto) 0.6 L [place] # (Auto) 0.2 Eos # (Auto) 0.2 Baso # (Auto) 0.0 WBC Differential . Differential Comment Auto diff final Sodium 137 Potassium 3.7 Chloride 105 Carbon Dioxide 25.4 Anion Gap 7 BUN 32 H Creatinine 1.05 H Estimated GFR 52 L POC Glucose 107 Random Glucose 170 H Calcium 8.6 Total Bilirubin 0.3 AST 40 H ALT 35 Alkaline Phosphatase 125 H Total Protein 6.0 L Albumin 2.4 L - Imaging Imaging: ITS Impressions Abdomen/Pelvis CT 03/07/18 00:00 CONCLUSION: 1. There appears to be an obstruction at the beginning of the third portion of the duodenum. This retroperitoneal soft tissue which also partially encases the anterior margin of the right ureter could be either lymphadenopathy or soft tissue mass from the third portion of the duodenum. Upper GI and Small Bowel X-Ray 03/07/18 00:00 CONCLUSION: Marked distention of the stomach which is still fluid-filled. Questionable obstructing of the third portion of the duodenum. Abdomen X-Ray 03/09/18 00:00 CONCLUSION: Significant amount of persistent oral contrast identified within a somewhat dilated stomach. Findings are consistent with gastroparesis. Venous Doppler Study 03/10/18 00:00 CONCLUSION: 1. Thrombosis of the cephalic vein within the upper arm. The remainder of the venous structures of the arm are patent. 2. The visualized portions of subclavian vein are patent. Chest X-Ray 03/12/18 00:00 CONCLUSION: 1. Possible free air beneath the right hemidiaphragm. This suggests bowel perforation if there has been no recent abdominal or pelvic surgeries. Suggest correlating with clinical history and physical examination. 2. Otherwise, no acute finding is identified within the chest. Gastrografin Study 03/14/18 00:00 CONCLUSION: Unremarkable postoperative appearance. Evidence of gastric bypass procedure with gastrojejunostomy. Anastomosis is patent. No evidence of leak or obstruction. Assessment and Plan - Assessment (1) Gastric distention Code(s): K31.89 - Other diseases of stomach and duodenum Status: Acute Plan: 72 year old female s/p lap Avni en Y gastric bypass with gastrojejunostomy -UGI shows patent anastomosis -keep full liquids 5-7 more days then advance to soft diet -TPN; continue to closely monitor glucose; will wean as PO diet increased -Current pain regiment working -OOB as tolerated - d/c planning, fentynal patch transition to po pain meds
[2018-03-20] MEDS: Anastrozole 1 MG Tablet PO SCH (09:06)
[2018-03-20] MEDS: Gabapentin 100 MG Capsule PO SCH (09:06)
[2018-03-20] MEDS: Insulin NovoLOG Aspart Correctional Sugar Inj SQ SCH ×4 (09:07→22:14)
[2018-03-20] MEDS: Insulin Detemir Inj 1,000 UNIT/10 ML Vial SQ SCH ×2 (09:07→22:12)
[2018-03-20] MEDS: Sodium Chloride 0.9% 2 ML Flush BID IV.FLUSH SCH ×2 (09:08→22:12)
[2018-03-20] MEDS: Senna/Docusate Sodium 8.6/50 MG Tablet PO SCH ×2 (09:12→22:13)
--- NOTE | 2018-03-20 11:25 | P.PNONC ---
Subjective Interval history: Patient awake and sitting up in bed with family at bedside. Patient reports loose stools since being on clear liquid and full liquid diets. Last BM 2 days ago. Denies dark stools. Patient denies any chest pain, shortness of breath or bleeding. Objective Vital Signs/Intake & Output: Vital Signs 03/19/18 12:00 03/19/18 15:47 03/19/18 20:00 Temperature 98.5 F 98.3 F 98.6 F Pulse Rate 91 H 99 H 97 H Respiratory Rate 17 18 20 Blood Pressure 125/58 L 121/59 L 115/56 L Pulse Oximetry 96 100 95 03/19/18 20:49 03/19/18 23:53 03/20/18 00:00 Temperature 99.2 F Pulse Rate 114 H Respiratory Rate 18 18 20 Blood Pressure 120/72 Pulse Oximetry 96 03/20/18 02:52 03/20/18 05:47 03/20/18 08:00 Temperature 98.7 F Pulse Rate 95 H Respiratory Rate 18 18 16 Blood Pressure 114/65 Pulse Oximetry 97 Intake & Output 03/19/18 03/20/18 03/20/18 18:59 06:59 18:59 Intake Total 250 / 250 Output Total 625 / 625 700 / 700 Balance -625 / -625 -450 / -450 Weight 80.3 kg Intake: IV 250 / 250 Intralipid 20% Inj 250 ML @ 31. 250 / 250 25 mls/hr IV.CENTRAL DAILY@1999 [facility] Rx#:[id number] Output: Urine Amount (Stoma) 625 / 625 700 / 700 Nephrostomy Tube Left 350 / 350 350 / 350 Nephrostomy Tube Right 275 / 275 350 / 350 Other: Date of Last Bowel Movement 03/17/18 03/18/18 Result Diagrams: 03/20/18 14:00 03/20/18 05:23 Laboratory Results: Laboratory Results - last 24 hr 03/19/18 03/19/18 03/19/18 11:52 13:45 16:24 WBC RBC Hgb Hct MCV MCH MCHC RDW Plt Count MPV Neut % (Auto) Lymph % (Auto) [place] % (Auto) Eos % (Auto) Baso % (Auto) Neut # (Auto) Lymph # (Auto) [place] # (Auto) Eos # (Auto) Baso # (Auto) WBC Differential Differential Comment Sodium 138 Potassium 3.9 Chloride 106 Carbon Dioxide 27.2 Anion Gap 5 BUN 33 H Creatinine 0.96 Estimated GFR 57 L POC Glucose 122 H 155 H Random Glucose 151 H Calcium 8.4 L Total Bilirubin AST ALT Alkaline Phosphatase Total Protein Albumin 03/19/18 03/20/18 03/20/18 20:18 05:23 05:23 WBC 4.4 RBC 2.33 L Hgb 7.2 L Hct 21.4 L MCV 91.9 MCH 31.0 MCHC 33.7 RDW 15.2 Plt Count 237 MPV 7.8 Neut % (Auto) 76.4 H Lymph % (Auto) 14.5 [place] % (Auto) 4.7 Eos % (Auto) 3.9 Baso % (Auto) 0.5 Neut # (Auto) 3.4 Lymph # (Auto) 0.6 L [place] # (Auto) 0.2 Eos # (Auto) 0.2 Baso # (Auto) 0.0 WBC Differential . Differential Comment Auto diff final Sodium 137 Potassium 3.7 Chloride 105 Carbon Dioxide 25.4 Anion Gap 7 BUN 32 H Creatinine 1.05 H Estimated GFR 52 L POC Glucose 107 Random Glucose 170 H Calcium 8.6 Total Bilirubin 0.3 AST 40 H ALT 35 Alkaline Phosphatase 125 H Total Protein 6.0 L Albumin 2.4 L Culture Results: Microbiology 03/12/18 09:55 Aerobic Blood Culture - Final Blood - Line No growth in 5 days Anaerobic Blood Culture - Final No growth in 5 days 03/12/18 05:49 Aerobic Blood Culture - Final Blood - Peripheral No growth in 5 days Anaerobic Blood Culture - Final No growth in 5 days 03/12/18 05:59 Aerobic Blood Culture - Final Blood - Peripheral No growth in 5 days Anaerobic Blood Culture - Final No growth in 5 days Medications: Active Medications Generic Name Dose Route Start Last Admin Trade Name Freq PRN Reason Stop Dose Admin Anastrozole 1 mg 03/16/18 09:00 03/20/18 09:06 Arimidex PO 1 mg DAILY ALIN Administration Enoxaparin Sodium 30 mg 03/07/18 16:00 03/19/18 16:21 Lovenox Inj SQ 30 mg Q24H ALIN Administration Escitalopram Oxalate 20 mg 03/15/18 11:15 03/20/18 09:06 Lexapro PO 20 mg DAILY ALIN Administration Fentanyl 1 patch 03/15/18 18:00 03/18/18 18:02 Duragesic 25 Mcg Patch.72hr T-DERMAL 1 patch Q3D ALIN Administration Gabapentin 100 mg 03/06/18 09:00 03/20/18 09:06 Neurontin PO 100 mg DAILY ALIN Administration Hydromorphone HCl 1 mg 03/13/18 12:10 03/20/18 09:12 Dilaudid Pf Inj IV.PUSH 1 mg Q3H PRN Administration Pain 6-10 Fat Emulsion Intravenous 250 mls @ 31.25 mls/hr 03/08/18 20:00 03/20/18 04:15 Intralipid 20% Inj IV.CENTRAL Infused DAILY@1999 [facility] Infusion Sodium Chloride 500 mls @ 30 mls/hr 03/11/18 12:00 03/14/18 23:00 Ns Inj IV.SIG Not Given .Q10H [facility] Amino Acids/Electrolytes/Dextrose 2,000 mls @ 42 mls/hr 03/12/18 20:00 20:15 Tpn Fluid 2 Liter - Custom IV.SIG 83 mls/hr DAILY@1999 [facility] Administration Protocol Insulin Aspart 0 unit 03/14/18 21:50 03/20/18 09:07 Novolog Insulin Correctional Sugar Inj SQ 5 unit ACHS [facility] Administration Protocol Insulin Detemir 18 unit 03/16/18 09:21 03/20/18 09:07 Levemir Inj SQ 18 unit BID ALIN Administration Ondansetron HCl 4 mg 03/07/18 16:13 03/15/18 14:57 Zofran Inj IV.PUSH 4 mg Q6H PRN Administration NAUSEA OR VOMITING Promethazine HCl 12.5 mg 03/05/18 17:24 03/07/18 10:19 Phenergan Inj IM 12.5 mg Q6H PRN Administration NAUSEA Senna/Docusate Sodium 1 tab 03/06/18 21:00 03/20/18 09:12 Cuca-Colace PO 1 tab BID ALIN Administration Sodium Chloride 2 ml 03/15/18 09:00 03/20/18 09:08 Ns Flush IV.FLUSH 2 ml BID ALIN Administration Sodium Chloride 2 ml 03/14/18 21:55 03/17/18 18:05 Ns Flush IV.FLUSH 2 ml PRN PRN Administration FLUSH AFTER USING IV ACCESS Trazodone HCl 50 mg 03/05/18 21:00 03/19/18 20:14 Desyrel PO 50 mg HS ALIN Administration Objective Remarks: GENERAL: Well-nourished, well-developed female patient, no acute distress. SKIN: Pale, warm and dry. HEAD: Normocephalic. EYES: No scleral icterus. No injection or drainage. MOUTH: Moist mucous membranes, upper denture in place. NECK: Supple, trachea midline. CARDIOVASCULAR: Regular rate and rhythm without murmurs. RESPIRATORY: Breath sounds equal bilaterally. Nonlabored. GASTROINTESTINAL: Abdomen soft, non-tender, nondistended. Steri-strips to abdomen intact. Nephrostomy tube patent with clear yellow urine. EXTREMITIES: No cyanosis. Nonpitting edema to bilateral lower extremities. MUSCULOSKELETAL: Adequate muscle tone. NEUROLOGICAL: No obvious focal deficit. Awake, alert, and oriented x3. PSYCHIATRIC: Appropriate mood and affect; insight and judgment normal Assessment/Plan - Plan Plan: 1. Gastric outlet obstruction, status post gastro-jejunostomy. 2. Nausea and vomiting has resolved, patient advanced to full liquid diet. Continues on TPN, has nonpitting edema to bilateral lower extremities. We will continue to monitor. 3. Renal function continues to improve, slight increase in creatinine overnight. Will recheck in AM. 4. Normocytic anemia. Hemoglobin 7.2, on 03/15/2018 hemoglobin 10.2, will recheck hemoglobin and hematocrit at noon today. Subjectively denies any bleeding. Hemoccult ordered. - Attending Statement The exam, history, and the medical decision-making described in the above note were completed with the assistance of the mid-level provider. I reviewed and agree with the findings presented. I attest that I had a [id number] encounter with the patient on the same day, and personally performed and documented my assessment and findings in the medical record. Patient states that she is feeling better now. She is able to tolerate clear liquids very well. She has a couple of bowel movements Her pain is under control by addition of Duragesic patch 50 mcg. She is not using that much of IV Dilaudid. It used to be every 3-4 hours now she says that she takes every 5-6 hours as needed. Advised her that we will convert IV Dilaudid to p.o. Dilaudid or we can titrate up the Duragesic patch. Patient's kidney function has improved. I will resume the chemotherapy cisplatin next week Sunday as an outpatient. Patient looking forward to resuming the chemotherapy as soon as possible. Patient and her have asked several questions and these were answered to their satisfaction
[2018-03-20 14:18] LABS: Hematocrit 21.9 % (35.0-46.0); Hemoglobin 7.3 gm/dL (11.6-15.3)
--- NOTE | 2018-03-20 14:21 | P.PNIM ---
Subjective Interval history: feeling well. was able to walk the hallway twice. Physical Exam Vital signs: Vital Signs 03/19/18 15:47 03/19/18 20:00 03/19/18 20:49 Temperature 98.3 F 98.6 F Pulse Rate 99 H 97 H Respiratory Rate 18 20 18 Blood Pressure 121/59 L 115/56 L Pulse Oximetry 100 95 03/19/18 23:53 03/20/18 00:00 03/20/18 02:52 Temperature 99.2 F Pulse Rate 114 H Respiratory Rate 18 20 18 Blood Pressure 120/72 Pulse Oximetry 96 03/20/18 05:47 03/20/18 08:00 03/20/18 12:00 Temperature 98.7 F 98.4 F Pulse Rate 95 H 90 Respiratory Rate 18 16 16 Blood Pressure 114/65 111/58 L Pulse Oximetry 97 94 L Intake & Output 03/19/18 03/20/18 03/20/18 18:59 06:59 18:59 Intake Total 250 / 250 Output Total 625 / 625 700 / 700 Balance -625 / -625 -450 / -450 Weight 80.3 kg Intake: IV 250 / 250 Intralipid 20% Inj 250 ML @ 31. 250 / 250 25 mls/hr IV.CENTRAL DAILY@1999 [facility] Rx#:[id number] Output: Urine Amount (Stoma) 625 / 625 700 / 700 Nephrostomy Tube Left 350 / 350 350 / 350 Nephrostomy Tube Right 275 / 275 350 / 350 Other: Date of Last Bowel Movement 03/17/18 03/18/18 Narrative: GENERAL: elderly woman laying in bed, not in distress. HEENT:not pale,anicteric CARDIOVASCULAR: RRR,s1s2 normal. CHEST: PORT cath in situ, CTAB. GASTROINTESTINAL: Abdomen not distended, clear steri strips around incisions, abdomen soft, non-tender with normoactive bowel sounds. MUSCULOSKELETAL: No cyanosis, or edema. Neuro exam alert and oriented x3 Results Labs CBC & Chem 7: 03/21/18 05:45 03/21/18 05:45 Assessment and Plan Plan 72-year-old white female being admitted for intractable nausea vomiting found to have gastric outlet obstruction. 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 1. Gastric outlet obstruction -s/p lap Avni en Y gastric bypass with gastrojejunostomy 03/12/2018 Upper GI series 03/15/2018 shows patent anastomosis. -Continue supportive care with TPN and wean when diet is advanced, postoperative care, anti-emetics. NGT removed on 03/17. -on full liquid diet . -GI as well as General surgery following. -Acetaminophen, Dilaudid PRN for pain management. Hyperglycemia-likely due to TPN--blood glucose within acceptable limits. -Regular insulin 10 units per L of TPN. -cont Levemir to 20 units subcut twice daily Continue sliding scale insulin, high scale. Acute kidney injury--likely prerenal. now improved -Creatinine peaked at 3.3 on admission, now improved, 1.04 today -Nephrostomy tubes were clamped today by Dr. Shay to eval whether there will be any urine flow through the stents.monitor u/o. D/w Hypokalemia -replete as needed. k 3.7 today Mild hypernatremia - resolved. Superficial thrombophlebitis Right upper extremity above the antecubital fossa has a cordlike subcutaneous lesion. US shows superficial thrombophlebitis. heating pad prn, heating pad, avoid NSAIDs given recovering renal function. -No anticoagulation indicated. Recurring squamas cell cancer of the anus with metastases to the pelvis and left clavicle -Continue follow-up with oncology as an outpatient -Patient previously underwent 9 months of chemotherapy as well as radiation with ultimate clearing of the cancer the first time. However recurrence was detected on PET scan within the last 2 months. Full code. SCDs. Lovenox Progress Note: Quality VTE Deep Vein Thrombosis/Pulmonary Embolism Present on Admission: No
[2018-03-20] MEDS: Enoxaparin Inj 30 MG/0.3 ML Syringe SQ SCH ×2 (14:53→18:26)
[2018-03-20] MEDS: TPN FLUID IV.SIG SCH (22:10)
[2018-03-20] MEDS: traZODone 50 MG Tablet PO SCH (22:15)
[2018-03-21 00:25] LABS: Bacteria,Urine Rare /hpf; Bilirubin,Urine Negative (Negative); Clarity,Urine Hazy (Clear); Color,Urine Yellow (Yellw/Straw); Glucose,Urine (UA) Negative (Negative); Hyaline Casts,Urine 5 /lpf (0-3); Leukocyte Esterase,Urine Moderate (Negative); Mucus,Urine Few /lpf (Occasional); Nitrite,Urine Negative (Negative); Renal Epithelial Cells,Urine <1 /hpf; Specific Gravity,Urine 1.015 (1.002-1.035); Squamous Epithelial Cell,Urine <1 /hpf (0-5); Transitional Epi Cells,Urine <1 /hpf
[2018-03-21] MEDS: HYDROmorphone PF Inj 1 MG/ML Ampul IV.PUSH PRN ×6 (01:33→21:53)
[2018-03-21 06:51] LABS: Baso % (Auto) 0.4 % (0.0-2.0); Eos # (Auto) 0.1 th/mm3 (0.0-0.4); Eos % (Auto) 3.7 % (0.0-4.0); Hematocrit 22.4 % (35.0-46.0); Hemoglobin 7.5 gm/dL (11.6-15.3); Lymph # (Auto) 0.7 th/mm3 (1.0-4.8); Lymph % (Auto) 17.3 % (9.0-44.0); Mean Corpuscular HGB Conc 33.5 % (32.0-36.0); Mean Corpuscular Hemoglobin 30.7 pg (27.0-34.0); Mean Corpuscular Volume 91.7 fL (80.0-100.0); Mean Platelet Volume 8.1 fL (7.0-11.0); Mono # (Auto) 0.2 th/mm3 (0.0-0.9); Mono % (Auto) 4.5 % (0.0-8.0); Neut % (Auto) 74.1 % (16.0-70.0); Platelet Count 253 th/mm3 (150-450); Red Blood Count 2.44 mil/mm3 (4.00-5.30); Red Cell Distribution Width 15.3 % (11.6-17.2)
[2018-03-21 07:05] LABS: Calcium 8.6 mg/dL (8.5-10.1); Carbon Dioxide 23.4 meq/L (21.0-32.0); Potassium 3.8 meq/L (3.5-5.1)
[2018-03-21] MEDS: Insulin NovoLOG Aspart Correctional Sugar Inj SQ SCH ×4 (07:49→21:10)
[2018-03-21] MEDS: Gabapentin 100 MG Capsule PO SCH (09:02)
[2018-03-21] MEDS: Senna/Docusate Sodium 8.6/50 MG Tablet PO SCH ×2 (09:03→21:55)
[2018-03-21] MEDS: Anastrozole 1 MG Tablet PO SCH (09:05)
[2018-03-21] MEDS: Insulin Detemir Inj 1,000 UNIT/10 ML Vial SQ SCH ×2 (09:06→22:06)
[2018-03-21] MEDS: Sodium Chloride 0.9% 2 ML Flush BID IV.FLUSH SCH ×2 (09:14→22:06)
[2018-03-21] MEDS ORDERED: Acetaminophen 325 MG Tablet PO PRN (09:46)
[2018-03-21] MEDS ORDERED: Sodium Chlor 0.9% Inj 250 ML IV.SIG SCH (10:00)
--- NOTE | 2018-03-21 10:27 | P.PNONC ---
Subjective Interval history: Patient standing at bedside, in no acute distress. She reports bilateral lower extremity edema. Her shows me pictures when this occurred previously and they stated it was related to the cancer pressing on veins. She reports that improved after chemo. We have discussed different etiologies to include nutritional deficits in the less likely cause being possible DVT. They are eager to restart chemo in case it is from her cancer. Objective Vital Signs/Intake & Output: Vital Signs 03/20/18 12:00 03/20/18 16:00 03/20/18 20:00 Temperature 98.4 F 98.3 F 98.8 F Pulse Rate 90 98 H 107 H Respiratory Rate 16 16 20 Blood Pressure 111/58 L 123/57 L 114/58 L Pulse Oximetry 94 L 94 L 99 03/21/18 01:11 03/21/18 02:05 03/21/18 04:00 Temperature 98.3 F Pulse Rate 122 H Respiratory Rate 16 16 22 Blood Pressure 167/70 H Pulse Oximetry 97 03/21/18 06:30 03/21/18 08:00 Temperature 98.0 F Pulse Rate 112 H Respiratory Rate 16 16 Blood Pressure 136/65 Pulse Oximetry 100 Intake & Output 03/20/18 03/21/18 03/21/18 18:59 06:59 18:59 Intake Total 240 / 240 250 / 250 Output Total 500 / 500 1300 / 1300 Balance -500 / -500 -1060 / -1060 250 / 250 Weight 82.1 kg Intake: IV 250 / 250 Intralipid 20% Inj 250 ML @ 31. 250 / 250 25 mls/hr IV.CENTRAL DAILY@1999 [facility] Rx#:[id number] Oral 240 / 240 Output: Urine 500 / 500 1300 / 1300 Other: # Voids 2 Date of Last Bowel Movement 03/18/18 03/18/18 Result Diagrams: 03/21/18 05:45 03/21/18 05:45 Laboratory Results: Laboratory Results - last 24 hr 03/20/18 03/20/18 03/20/18 14:00 18:28 20:37 WBC RBC Hgb 7.3 L Hct 21.9 L MCV MCH MCHC RDW Plt Count MPV Neut % (Auto) Lymph % (Auto) [place] % (Auto) Eos % (Auto) Baso % (Auto) Neut # (Auto) Lymph # (Auto) [place] # (Auto) Eos # (Auto) Baso # (Auto) WBC Differential Differential Comment Sodium Potassium Chloride Carbon Dioxide Anion Gap BUN Creatinine Estimated GFR POC Glucose 142 H 115 H Random Glucose Calcium Urine Color Urine Clarity Urine pH Ur Specific [place] Urine Protein Urine Glucose (UA) Urine Ketones Urine Occult Blood Urine Nitrate Urine Bilirubin Urine Urobilinogen Ur Leukocyte Esterase Urine RBC Urine WBC Ur Squamous Epith Cells Ur Transition Epith Cell Ur Renal Epithelial Cell Urine Bacteria Hyaline Casts Urine Mucus Micro UA Comment Ur Microscopic Review Urine Culture Comments 03/20/18 03/21/18 03/21/18 22:00 05:45 05:45 WBC 4.0 RBC 2.44 L Hgb 7.5 L Hct 22.4 L MCV 91.7 MCH 30.7 MCHC 33.5 RDW 15.3 Plt Count 253 MPV 8.1 Neut % (Auto) 74.1 H Lymph % (Auto) 17.3 [place] % (Auto) 4.5 Eos % (Auto) 3.7 Baso % (Auto) 0.4 Neut # (Auto) 3.0 Lymph # (Auto) 0.7 L [place] # (Auto) 0.2 Eos # (Auto) 0.1 Baso # (Auto) 0.0 WBC Differential . Differential Comment Auto diff final Sodium 140 Potassium 3.8 Chloride 107 Carbon Dioxide 23.4 Anion Gap 10 BUN 31 H Creatinine 1.07 H Estimated GFR 51 L POC Glucose Random Glucose 92 Calcium 8.6 Urine Color Yellow Urine Clarity Hazy H Urine pH 6.0 Ur Specific [place] 1.015 Urine Protein Negative Urine Glucose (UA) Negative Urine Ketones Negative Urine Occult Blood Small H Urine Nitrate Negative Urine Bilirubin Negative Urine Urobilinogen Less than 2 Ur Leukocyte Esterase Moderate H Urine RBC 4 H Urine WBC 47 H Ur Squamous Epith Cells <1 Ur Transition Epith Cell <1 Ur Renal Epithelial Cell <1 Urine Bacteria Rare H Hyaline Casts 5 Urine Mucus Few H Micro UA Comment Culture indicated Ur Microscopic Review Not Reportable Urine Culture Comments Culture indicated Medications: Active Medications Generic Name Dose Route Start Last Admin Trade Name Freq PRN Reason Stop Dose Admin Anastrozole 1 mg 03/16/18 09:00 03/21/18 09:05 Arimidex PO 1 mg DAILY [facility] Administration Enoxaparin Sodium 30 mg 03/07/18 16:00 03/20/18 18:26 Lovenox Inj SQ Not Given Q24H [facility] Escitalopram Oxalate 20 mg 03/15/18 11:15 03/21/18 09:03 Lexapro PO 20 mg DAILY [facility] Administration Fentanyl 1 patch 03/15/18 18:00 03/18/18 18:02 Duragesic 25 Mcg Patch.72hr T-DERMAL 1 patch Q3D [facility] Administration Gabapentin 100 mg 03/06/18 09:00 03/21/18 09:02 Neurontin PO 100 mg DAILY [facility] Administration Hydromorphone HCl 1 mg 03/13/18 12:10 03/21/18 09:03 Dilaudid Pf Inj IV.PUSH 1 mg Q3H PRN Administration Pain 6-10 Fat Emulsion Intravenous 250 mls @ 31.25 mls/hr 03/08/18 20:00 03/21/18 07:24 Intralipid 20% Inj IV.CENTRAL Infused DAILY@1999 [facility] Infusion Sodium Chloride 500 mls @ 30 mls/hr 03/11/18 12:00 03/14/18 23:00 Ns Inj IV.SIG Not Given .Q10H [facility] Amino Acids/Electrolytes/Dextrose 2,000 mls @ 42 mls/hr 03/12/18 20:00 22:10 Tpn Fluid 2 Liter - Custom IV.SIG 42 mls/hr DAILY@1999 [facility] Administration Protocol Insulin Aspart 0 unit 03/14/18 21:50 03/21/18 07:49 Novolog Insulin Correctional Sugar Inj SQ Not Given [facility] Protocol Insulin Detemir 18 unit 03/16/18 09:21 03/21/18 09:06 Levemir Inj SQ 18 unit BID [facility] Administration Ondansetron HCl 4 mg 03/07/18 16:13 03/15/18 14:57 Zofran Inj IV.PUSH 4 mg Q6H PRN Administration NAUSEA OR VOMITING Oxybutynin Chloride 5 mg 03/20/18 21:00 03/21/18 09:04 Ditropan PO 5 mg BID [facility] Administration Promethazine HCl 12.5 mg 03/05/18 17:24 03/07/18 10:19 Phenergan Inj IM 12.5 mg Q6H PRN Administration NAUSEA Senna/Docusate Sodium 1 tab 03/06/18 21:00 03/21/18 09:03 Cuca-Colace PO 1 tab BID [facility] Administration Sodium Chloride 2 ml 03/15/18 09:00 03/21/18 09:14 Ns Flush IV.FLUSH Not Given BID [facility] Sodium Chloride 2 ml 03/14/18 21:55 03/17/18 18:05 Ns Flush IV.FLUSH 2 ml PRN PRN Administration FLUSH AFTER USING IV ACCESS Trazodone HCl 50 mg 03/05/18 21:00 03/20/18 22:15 Desyrel PO 50 mg HS [facility] Administration Objective Remarks: GENERAL: Well-nourished, well-developed female patient, no acute distress. SKIN: Pale, warm and dry. HEAD: Normocephalic. EYES: No scleral icterus. No injection or drainage. MOUTH: Moist mucous membranes, upper denture in place. NECK: Supple, trachea midline. CARDIOVASCULAR: Regular rate and rhythm without murmurs. RESPIRATORY: Breath sounds equal bilaterally. Nonlabored. GASTROINTESTINAL: Abdomen soft, non-tender, nondistended. Steri-strips to abdomen intact. Nephrostomy tube capped. EXTREMITIES: No cyanosis. 2+ edema to bilateral lower extremities. MUSCULOSKELETAL: Adequate muscle tone. NEUROLOGICAL: No obvious focal deficit. Awake, alert, and oriented x3. PSYCHIATRIC: Appropriate mood and affect; insight and judgment normal Assessment/Plan - Plan Plan: 1. Gastric outlet obstruction, status post gastro-jejunostomy. 2. Nausea and vomiting has resolved, patient advanced to full liquid diet. Continues on TPN. 3. Renal function improved since admission however, slight increase in creatinine over the last 2 days. Continue to monitor 4. Normocytic anemia. Hemoglobin increased slightly to 7.5, stool Hemoccult pending. Will transfuse 1 unit PRBCs. Patient denies any obvious bleeding. She has not had a bowel movement a few days, she has requested suppository this a.m. so that me she may submit a stool sample. 5. Nephrostomy tube has been capped. Per patient nephrology will be ordering an renal ultrasound. Monitor creatinine. 6. Bilateral pitting edema, differentials include decreased protein and albumin , lymphadenopathy or the less likely DVT. Will order bilateral ultrasound to rule out the latter. - Attending Statement The exam, history, and the medical decision-making described in the above note were completed with the assistance of the mid-level provider. I reviewed and agree with the findings presented. I attest that I had a [id number] encounter with the patient on the same day, and personally performed and documented my assessment and findings in the medical record. Patient is complaining of constipation. Her last bowel movement was 2 days ago She does not have any more nausea and vomiting. She is able to eat now. Next is at bedside. nephrostomy tube have been capped. We will monitor creatinine carefully. Patient is anxious to start chemotherapy She has an appointment with me for next week Sunday and [place] office to resume the chemotherapy. Patient and her 's questions were answered to their satisfaction.
[2018-03-21] MEDS ORDERED: Bisacodyl 10 MG Supp RECTAL PRN (10:56)
--- NOTE | 2018-03-21 11:21 | P.PNGS ---
Subjective Interval history: DAILY PROGRESS NOTE FOR SURGICAL ATTENDING, DR. ALLAN MORALES Sitting on the side of the bed Pain minimal Urostomy bags capped Physical Exam Vital signs: Vital Signs 03/20/18 12:00 03/20/18 16:00 03/20/18 20:00 Temperature 98.4 F 98.3 F 98.8 F Pulse Rate 90 98 H 107 H Respiratory Rate 16 16 20 Blood Pressure 111/58 L 123/57 L 114/58 L Pulse Oximetry 94 L 94 L 99 03/21/18 01:11 03/21/18 02:05 03/21/18 04:00 Temperature 98.3 F Pulse Rate 122 H Respiratory Rate 16 16 22 Blood Pressure 167/70 H Pulse Oximetry 97 03/21/18 06:30 03/21/18 08:00 Temperature 98.0 F Pulse Rate 112 H Respiratory Rate 16 16 Blood Pressure 136/65 Pulse Oximetry 100 Intake & Output 03/20/18 03/21/18 03/21/18 18:59 06:59 18:59 Intake Total 240 / 240 250 / 250 Output Total 500 / 500 1300 / 1300 Balance -500 / -500 -1060 / -1060 250 / 250 Weight 82.1 kg Intake: IV 250 / 250 Intralipid 20% Inj 250 ML @ 31. 250 / 250 25 mls/hr IV.CENTRAL DAILY@1999 [facility] Rx#:[id number] Oral 240 / 240 Output: Urine 500 / 500 1300 / 1300 Other: # Voids 2 Date of Last Bowel Movement 03/18/18 03/18/18 Narrative: Alert and awake Abd: soft; Steri strips in place; minimally tender to palpation RIGHT chest port accesses with TPN Bilateral nephrostomy tubes are capped BLE edema; non pitting Results - Labs 03/21/18 05:45 03/21/18 05:45 - Imaging Imaging: ITS Impressions Abdomen/Pelvis CT 03/07/18 00:00 CONCLUSION: 1. There appears to be an obstruction at the beginning of the third portion of the duodenum. This retroperitoneal soft tissue which also partially encases the anterior margin of the right ureter could be either lymphadenopathy or soft tissue mass from the third portion of the duodenum. Upper GI and Small Bowel X-Ray 03/07/18 00:00 CONCLUSION: Marked distention of the stomach which is still fluid-filled. Questionable obstructing of the third portion of the duodenum. Abdomen X-Ray 03/09/18 00:00 CONCLUSION: Significant amount of persistent oral contrast identified within a somewhat dilated stomach. Findings are consistent with gastroparesis. Venous Doppler Study 03/10/18 00:00 CONCLUSION: 1. Thrombosis of the cephalic vein within the upper arm. The remainder of the venous structures of the arm are patent. 2. The visualized portions of subclavian vein are patent. Chest X-Ray 03/12/18 00:00 CONCLUSION: 1. Possible free air beneath the right hemidiaphragm. This suggests bowel perforation if there has been no recent abdominal or pelvic surgeries. Suggest correlating with clinical history and physical examination. 2. Otherwise, no acute finding is identified within the chest. Gastrografin Study 03/14/18 00:00 CONCLUSION: Unremarkable postoperative appearance. Evidence of gastric bypass procedure with gastrojejunostomy. Anastomosis is patent. No evidence of leak or obstruction. Assessment and Plan - Assessment (1) Gastric distention Code(s): K31.89 - Other diseases of stomach and duodenum Status: Acute Plan: 72 year old female s/p lap Avni en Y gastric bypass with gastrojejunostomy -UGI shows patent anastomosis -keep full liquids 5-7 more days then advance to soft diet -Hmg 7.5 today; going to transfuse 1 unit PRBCs -US ordered for BLE for BLE edema -TPN; will DC this evening -Current pain regiment working -OOB as tolerated - d/c planning, fentynal patch transition to po pain meds - Attending Attestation NOTE FOR SURGICAL ATTENDING, DR. ALLAN MORALES I agree with above assessment and plan. The exam, history, and the medical decision-making described in the above note were completed with the assistance of the mid-level provider. I reviewed and agree with the findings presented. I attest that I had a [id number] encounter with the patient on the same day, and personally performed and documented my assessment and findings in the medical record. The following services were provided during this hospital visit: Chart data review, vital sign assessments/reviewing monitor data Review of consultations notes if present. Medication orders/review and/or management Ordering and/or reviewing lab tests Ordering and/or interpreting/reviewing x-rays and/or diagnostic studies Care of the patient and discussion of the patient with the care team Documentation time To help prompt me to consider important information that might be impacting today's encounter and assessment, Information from prior notes written by myself or my colleagues may have been "brought forward/copy and pasted" into today's note.
--- NOTE | 2018-03-21 14:35 | P.PNIM ---
Subjective Interval history: feeling well. rt leg swelling. Physical Exam Vital signs: Vital Signs 03/20/18 16:00 03/20/18 20:00 03/21/18 01:11 Temperature 98.3 F 98.8 F Pulse Rate 98 H 107 H Respiratory Rate 16 20 16 Blood Pressure 123/57 L 114/58 L Pulse Oximetry 94 L 99 03/21/18 02:05 03/21/18 04:00 03/21/18 06:30 Temperature 98.3 F Pulse Rate 122 H Respiratory Rate 16 22 16 Blood Pressure 167/70 H Pulse Oximetry 97 03/21/18 08:00 03/21/18 12:00 03/21/18 13:41 Temperature 98.0 F 98.8 F 99.3 F Pulse Rate 112 H 122 H 120 H Respiratory Rate 16 16 18 Blood Pressure 136/65 118/56 L 133/58 L Pulse Oximetry 100 95 94 L 03/21/18 14:11 Temperature 98.7 F Pulse Rate 92 H Respiratory Rate Blood Pressure 99/55 L Pulse Oximetry 94 L Intake & Output 03/20/18 03/21/18 03/21/18 18:59 06:59 18:59 Intake Total 240 / 240 250 / 250 Output Total 500 / 500 1300 / 1300 Balance -500 / -500 -1060 / -1060 250 / 250 Weight 82.1 kg Intake: IV 250 / 250 Intralipid 20% Inj 250 ML @ 31. 250 / 250 25 mls/hr IV.CENTRAL DAILY@1999 [facility] Rx#:[id number] Oral 240 / 240 Intake (Blood Product) Amt 0 / 0 Rbc As-3 Leukoreduced Unit 0 / 0 [id number] Output: Urine 500 / 500 1300 / 1300 Other: # Voids 2 Date of Last Bowel Movement 03/18/18 03/18/18 03/18/18 Narrative: GENERAL: elderly woman laying in bed, not in distress. HEENT:not pale,anicteric CARDIOVASCULAR: RRR,s1s2 normal. CHEST: PORT cath in situ, CTAB. GASTROINTESTINAL: Abdomen not distended, clear steri strips around incisions, abdomen soft, non-tender with normoactive bowel sounds. MUSCULOSKELETAL: No cyanosis, or edema. Neuro exam alert and oriented x3 Results Labs CBC & Chem 7: 03/22/18 06:10 03/22/18 06:10 Assessment and Plan Plan 72-year-old white female being admitted for intractable nausea vomiting found to have gastric outlet obstruction. 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 1. Gastric outlet obstruction -s/p lap Avni en Y gastric bypass with gastrojejunostomy 03/12/2018 Upper GI series 03/15/2018 shows patent anastomosis. -Continue supportive care with TPN and wean when diet is advanced, postoperative care, anti-emetics. NGT removed on 03/17. -on full liquid diet . -GI as well as General surgery following. -Acetaminophen, Dilaudid PRN for pain management. Hyperglycemia-likely due to TPN--blood glucose within acceptable limits. -Regular insulin 10 units per L of TPN. -cont Levemir to 20 units subcut twice daily Continue sliding scale insulin, high scale. Acute kidney injury--likely prerenal. now improved -Creatinine peaked at 3.3 on admission, now improved, 1.04 today -Nephrostomy tubes were clamped on 03/20, and she did well with urine output hence they have been cocked today. D/w Hypokalemia -replete as needed. k 3.7 today Mild hypernatremia - resolved. Superficial thrombophlebitis Right upper extremity above the antecubital fossa has a cordlike subcutaneous lesion. US shows superficial thrombophlebitis. heating pad prn, heating pad, avoid NSAIDs given recovering renal function. -No anticoagulation indicated. RLE swelling-dopplers ordered. Recurring squamas cell cancer of the anus with metastases to the pelvis and left clavicle -Continue follow-up with oncology as an outpatient -Patient previously underwent 9 months of chemotherapy as well as radiation with ultimate clearing of the cancer the first time. However recurrence was detected on PET scan within the last 2 months. Full code. SCDs. Lovenox Progress Note: Quality VTE Deep Vein Thrombosis/Pulmonary Embolism Present on Admission: No
[2018-03-21] MEDS: Enoxaparin Inj 30 MG/0.3 ML Syringe SQ SCH (18:43)
--- NOTE | 2018-03-21 18:44 | US ---
EXAM DATE: 03/21/2018 6:39 PM EST AGE/SEX: 72 years / Female INDICATIONS: Bilateral lower extremity edema. CLINICAL DATA: This is the patient's initial encounter. Patient reports that signs and symptoms have been present for 1 day and indicates a pain score of 1/10. MEDICAL/SURGICAL HISTORY: Carcinoma, breast. Carcinoma, anal. Carcinoma, squamous cell. . Por t-A-Cath placement. Lumpectomy. Rectal biopsy. Nephrostomy tube. Gastrojejunostomy - 03/12/18. COMPARISON: TLI, US LEG VENOUS DOPPLER, RIGHT, 08/29/2016. . TECHNIQUE: Venous ultrasound of both lower extremities was performed from the inguinal ligament to t he proximal calf. Real-time, color Doppler and spectral tracing, compression and augmentation techni ques were used. FINDINGS: Right Leg: Nonocclusive thrombus noted extending from the proximal femoral vein to the common femora l vein. Remaining deep venous system to the proximal calf appears patent. Left Leg: Normal compression of the deep venous system from the inguinal region to the proximal calf . No echogenic clot is seen. Normal response of the venous system to augmentation and respiration. Other: None. CONCLUSION: 1. Nonocclusive DVT extending from the proximal right femoral vein to the common femoral vein. 2. No sonographic evidence for left lower extremity DVT. Electronically signed by: Jose A Carrera MD Board Certified Radiologist 03/21/2018 6:43 PM EST
[2018-03-21] MEDS: traZODone 50 MG Tablet PO SCH (21:57)
[2018-03-21] MEDS: TPN FLUID IV.SIG SCH (22:38)
[2018-03-22] MEDS: HYDROmorphone PF Inj 1 MG/ML Ampul IV.PUSH PRN ×2 (02:04→06:03)
[2018-03-22 06:42] LABS: Baso % (Auto) 0.6 % (0.0-2.0); Eos # (Auto) 0.2 th/mm3 (0.0-0.4); Eos % (Auto) 3.4 % (0.0-4.0); Hematocrit 24.7 % (35.0-46.0); Hemoglobin 8.3 gm/dL (11.6-15.3); Lymph # (Auto) 0.7 th/mm3 (1.0-4.8); Lymph % (Auto) 14.7 % (9.0-44.0); Mean Corpuscular HGB Conc 33.5 % (32.0-36.0); Mean Corpuscular Hemoglobin 30.5 pg (27.0-34.0); Mono # (Auto) 0.2 th/mm3 (0.0-0.9); Mono % (Auto) 4.3 % (0.0-8.0); Neut # (Auto) 3.6 th/mm3 (1.8-7.7); Platelet Count 257 th/mm3 (150-450); Red Blood Count 2.71 mil/mm3 (4.00-5.30); Red Cell Distribution Width 15.1 % (11.6-17.2); White Blood Count 4.7 th/mm3 (4.0-11.0)
[2018-03-22 06:59] LABS: Alanine Aminotransferase 38 U/L (10-53); Albumin 2.7 g/dL (3.4-5.0); Anion Gap 6 meq/L (5-15); Aspartate Aminotransferase 28 U/L (15-37); Blood Urea Nitrogen 34 mg/dL (7-18); Calcium 8.7 mg/dL (8.5-10.1); Carbon Dioxide 26.8 meq/L (21.0-32.0); Chloride 106 meq/L (98-107); Glomerular Filtration Rate 49 mL/min (>89); Glucose,Random 75 mg/dL (74-106); Potassium 3.8 meq/L (3.5-5.1); Sodium 139 meq/L (136-145)
[2018-03-22 07:00] LABS: Alkaline Phosphatase 130 U/L (45-117); Total Protein 6.5 g/dL (6.4-8.2)
[2018-03-22] MEDS: Insulin NovoLOG Aspart Correctional Sugar Inj SQ SCH ×4 (08:10→21:59)
[2018-03-22] MEDS: Anastrozole 1 MG Tablet PO SCH (08:13)
[2018-03-22] MEDS: Sodium Chloride 0.9% 2 ML Flush BID IV.FLUSH SCH ×2 (08:14→21:59)
[2018-03-22] MEDS: Gabapentin 100 MG Capsule PO SCH (08:14)
[2018-03-22] MEDS: Senna/Docusate Sodium 8.6/50 MG Tablet PO SCH ×2 (08:14→20:17)
[2018-03-22] MEDS ORDERED: HYDROmorphone PF Inj 0.5 MG/0.5 ML Syringe IV.PUSH PRN (09:22)
[2018-03-22] MEDS: Insulin Detemir Inj 1,000 UNIT/10 ML Vial SQ SCH ×2 (09:24→20:17)
--- NOTE | 2018-03-22 09:37 | P.PNGS ---
Subjective Interval history: Resting in bed No issues overnight Would like one Fentanyl patch for 50 mcg rather than 2 25 mcg Physical Exam Vital signs: Vital Signs 03/21/18 12:00 03/21/18 13:41 03/21/18 14:11 Temperature 98.8 F 99.3 F 98.7 F Pulse Rate 122 H 120 H 92 H Respiratory Rate 16 18 Blood Pressure 118/56 L 133/58 L 99/55 L Pulse Oximetry 95 94 L 94 L 03/21/18 16:00 03/21/18 20:00 03/22/18 00:00 Temperature 97.4 F L 99.3 F 99.9 F H Pulse Rate 98 H 94 H 90 Respiratory Rate 16 20 18 Blood Pressure 108/52 L 138/60 99/51 L Pulse Oximetry 96 95 98 03/22/18 03:22 03/22/18 08:00 Temperature 98.5 F Pulse Rate 87 Respiratory Rate 17 18 Blood Pressure 99/54 L Pulse Oximetry 95 Intake & Output 03/21/18 03/22/18 03/22/18 18:59 06:59 18:59 Intake Total 650 / 650 1405 / 1405 Balance 650 / 650 1405 / 1405 Weight 81.4 kg Intake: IV 250 / 250 925 / 925 Intralipid 20% Inj 250 ML @ 31. 250 / 250 25 mls/hr IV.CENTRAL DAILY@1999 [facility] Rx#:[id number] NS Inj 250 ML @ 15 mls/hr IV. 75 / 75 SIG ONCE [facility] Rx#:[id number] TPN Fluid 2 Liter - Custom 2, 850 / 850 000 ML @ 42 mls/hr IV.SIG DAILY @1999 [facility] Rx#:[id number] Oral 480 / 480 Intake (Blood Product) Amt 400 / 400 Rbc As-3 Leukoreduced Unit 400 / 400 [id number] Other: # Voids 2 Date of Last Bowel Movement 03/18/18 03/18/18 # Bowel Movements 1 Narrative: Alert and awake Abd: soft; Steri strips in place; non tender Results - Labs 03/22/18 06:10 03/22/18 06:10 Laboratory Results - last 24 hr 03/21/18 03/21/18 03/21/18 10:14 10:44 13:12 WBC RBC Hgb Hct MCV MCH MCHC RDW Plt Count MPV Neut % (Auto) Lymph % (Auto) [place] % (Auto) Eos % (Auto) Baso % (Auto) Neut # (Auto) Lymph # (Auto) [place] # (Auto) Eos # (Auto) Baso # (Auto) WBC Differential Differential Comment Sodium Potassium Chloride Carbon Dioxide Anion Gap BUN Creatinine Estimated GFR POC Glucose 161 H Random Glucose Calcium Total Bilirubin AST ALT Alkaline Phosphatase Total Protein Albumin Blood Type O Positive Blood Type Recheck Required Antibody Screen Negative MTS Gel Crossmatch See Detail 03/21/18 03/21/18 03/22/18 18:00 20:19 06:10 WBC 4.7 RBC 2.71 L Hgb 8.3 L Hct 24.7 L MCV 91.0 MCH 30.5 MCHC 33.5 RDW 15.1 Plt Count 257 MPV 8.0 Neut % (Auto) 77.0 H Lymph % (Auto) 14.7 [place] % (Auto) 4.3 Eos % (Auto) 3.4 Baso % (Auto) 0.6 Neut # (Auto) 3.6 Lymph # (Auto) 0.7 L [place] # (Auto) 0.2 Eos # (Auto) 0.2 Baso # (Auto) 0.0 WBC Differential . Differential Comment Auto diff final Sodium Potassium Chloride Carbon Dioxide Anion Gap BUN Creatinine Estimated GFR POC Glucose 94 115 H Random Glucose Calcium Total Bilirubin AST ALT Alkaline Phosphatase Total Protein Albumin Blood Type Blood Type Recheck Antibody Screen MTS Gel Crossmatch 03/22/18 03/22/18 06:10 07:41 WBC RBC Hgb Hct MCV MCH MCHC RDW Plt Count MPV Neut % (Auto) Lymph % (Auto) [place] % (Auto) Eos % (Auto) Baso % (Auto) Neut # (Auto) Lymph # (Auto) [place] # (Auto) Eos # (Auto) Baso # (Auto) WBC Differential Differential Comment Sodium 139 Potassium 3.8 Chloride 106 Carbon Dioxide 26.8 Anion Gap 6 BUN 34 H Creatinine 1.09 H Estimated GFR 49 L POC Glucose 101 Random Glucose 75 Calcium 8.7 Total Bilirubin 0.5 AST 28 ALT 38 Alkaline Phosphatase 130 H Total Protein 6.5 Albumin 2.7 L Blood Type Blood Type Recheck Antibody Screen MTS Gel Crossmatch - Imaging Imaging: ITS Impressions Abdomen/Pelvis CT 03/07/18 00:00 CONCLUSION: 1. There appears to be an obstruction at the beginning of the third portion of the duodenum. This retroperitoneal soft tissue which also partially encases the anterior margin of the right ureter could be either lymphadenopathy or soft tissue mass from the third portion of the duodenum. Upper GI and Small Bowel X-Ray 03/07/18 00:00 CONCLUSION: Marked distention of the stomach which is still fluid-filled. Questionable obstructing of the third portion of the duodenum. Abdomen X-Ray 03/09/18 00:00 CONCLUSION: Significant amount of persistent oral contrast identified within a somewhat dilated stomach. Findings are consistent with gastroparesis. Chest X-Ray 03/12/18 00:00 CONCLUSION: 1. Possible free air beneath the right hemidiaphragm. This suggests bowel perforation if there has been no recent abdominal or pelvic surgeries. Suggest correlating with clinical history and physical examination. 2. Otherwise, no acute finding is identified within the chest. Gastrografin Study 03/14/18 00:00 CONCLUSION: Unremarkable postoperative appearance. Evidence of gastric bypass procedure with gastrojejunostomy. Anastomosis is patent. No evidence of leak or obstruction. Venous Doppler Study 03/21/18 00:00 CONCLUSION: 1. Nonocclusive DVT extending from the proximal right femoral vein to the common femoral vein. 2. No sonographic evidence for left lower extremity DVT. Assessment and Plan - Assessment (1) Gastric distention Code(s): K31.89 - Other diseases of stomach and duodenum Status: Acute Plan: 72 year old female s/p lap Avni en Y gastric bypass with gastrojejunostomy -UGI shows patent anastomosis -keep full liquids for now -Hmg improved -US ordered for BLE for BLE edema ---shows nonocclusive DVT in RIGHT--will discuss with Hematology and Primary team -TPN off -Adjusted pain regiment -OOB as tolerated
--- NOTE | 2018-03-22 11:45 | P.PNIM ---
Subjective Interval history: Patient reports still having pressure and burning sensation on urinating, otherwise feels better. Physical Exam Vital signs: Vital Signs 03/21/18 12:00 03/21/18 13:41 03/21/18 14:11 Temperature 98.8 F 99.3 F 98.7 F Pulse Rate 122 H 120 H 92 H Respiratory Rate 16 18 Blood Pressure 118/56 L 133/58 L 99/55 L Pulse Oximetry 95 94 L 94 L 03/21/18 16:00 03/21/18 20:00 03/22/18 00:00 Temperature 97.4 F L 99.3 F 99.9 F H Pulse Rate 98 H 94 H 90 Respiratory Rate 16 20 18 Blood Pressure 108/52 L 138/60 99/51 L Pulse Oximetry 96 95 98 03/22/18 03:22 03/22/18 08:00 Temperature 98.5 F Pulse Rate 87 Respiratory Rate 17 18 Blood Pressure 99/54 L Pulse Oximetry 95 Intake & Output 03/21/18 03/22/18 03/22/18 18:59 06:59 18:59 Intake Total 650 / 650 1405 / 1405 Balance 650 / 650 1405 / 1405 Weight 81.4 kg Intake: IV 250 / 250 925 / 925 Intralipid 20% Inj 250 ML @ 31. 250 / 250 25 mls/hr IV.CENTRAL DAILY@[facility] Rx#:[id number] NS Inj 250 ML @ 15 mls/hr IV. 75 / 75 SIG ONCE ALIN Rx#:[id number] TPN Fluid 2 Liter - Custom 2, 850 / 850 000 ML @ 42 mls/hr IV.SIG DAILY @[facility] Rx#:[id number] Oral 480 / 480 Intake (Blood Product) Amt 400 / 400 Rbc As-3 Leukoreduced Unit 400 / 400 [id number] Other: # Voids 2 Date of Last Bowel Movement 03/18/18 03/18/18 # Bowel Movements 1 Narrative: GENERAL: elderly woman laying in bed, not in distress. HEENT:not pale,anicteric CARDIOVASCULAR: RRR,s1s2 normal. CHEST: PORT cath in situ, CTAB. GASTROINTESTINAL: Abdomen not distended, clear steri strips around incisions, abdomen soft, non-tender with normoactive bowel sounds. MUSCULOSKELETAL: RLE swelling, no erythema or tenderness. Neuro exam alert and oriented x3 Results Labs CBC & Chem 7: 03/22/18 06:10 03/22/18 06:10 Labs: Microbiology 03/21/18 14:45 Stool Stool Occult Blood (VIN) - Final Hemoccult negative Imaging Imaging: Impressions Venous Doppler Study 03/21/18 00:00 CONCLUSION: 1. Nonocclusive DVT extending from the proximal right femoral vein to the common femoral vein. 2. No sonographic evidence for left lower extremity DVT. Assessment and Plan (1) Gastric distention: Code(s): K31.89 - Other diseases of stomach and duodenum Status: Acute Plan 72-year-old white female being admitted for intractable nausea vomiting found to have gastric outlet obstruction. 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 1. Gastric outlet obstruction -s/p lap Avni en Y gastric bypass with gastrojejunostomy 03/12/2018 Upper GI series 03/15/2018 shows patent anastomosis. -Continue supportive care with TPN and wean when diet is advanced, postoperative care, anti-emetics. NGT removed on 03/17. -on full liquid diet . -GI as well as General surgery following. -pain pain meds with stool regimen. Hyperglycemia-likely due to TPN--blood glucose within acceptable limits. -Regular insulin 10 units per L of TPN. -cont Levemir to 20 units subcut twice daily Continue sliding scale insulin, high scale. Acute kidney injury--likely prerenal. now improved -Creatinine peaked at 3.3 on admission, now improved, 1.09 today -Nephrostomy tubes were clamped on 03/20, and she did well with urine output hence they have been cocked today. D/w Dysuria--urinalysis in keeping with UTI, started on Macrobid, cultures pending. Hypokalemia -replete as needed. k 3.7 today Mild hypernatremia - resolved. Superficial thrombophlebitis Right upper extremity above the antecubital fossa has a cordlike subcutaneous lesion. US shows superficial thrombophlebitis. heating pad prn, heating pad, avoid NSAIDs given recovering renal function. -No anticoagulation indicated. RLE swelling-RLE doppler ordered revealed DVT. Increased Lovenox to therapeutic dose. Recurring squamas cell cancer of the anus with metastases to the pelvis and left clavicle -Continue follow-up with oncology as an outpatient -Patient previously underwent 9 months of chemotherapy as well as radiation with ultimate clearing of the cancer the first time. However recurrence was detected on PET scan within the last 2 months. Full code. SCDs. Lovenox Progress Note: Quality VTE Deep Vein Thrombosis/Pulmonary Embolism Present on Admission: No
[2018-03-22] MEDS ORDERED: Enoxaparin Inj 30 MG/0.3 ML Syringe SQ SCH (12:00)
[2018-03-22] MEDS: Nitrofurantoin Monohydrate-Macrocrystal 100 MG Capsule PO SCH ×2 (12:36→17:36)
[2018-03-22] MEDS: Polyethylene Glycol 3350 17 GM Packet PO SCH (12:37)
--- NOTE | 2018-03-22 14:41 | P.PNONC ---
Subjective Interval history: T-max 99.9 overnight Patient reports she is feeling much better Denies abdominal pain Tolerating liquids without any nausea or vomiting TPN remains off Objective Vital Signs/Intake & Output: Vital Signs 03/21/18 16:00 03/21/18 20:00 03/22/18 00:00 Temperature 97.4 F L 99.3 F 99.9 F H Pulse Rate 98 H 94 H 90 Respiratory Rate 16 20 18 Blood Pressure 108/52 L 138/60 99/51 L Pulse Oximetry 96 95 98 03/22/18 03:22 03/22/18 08:00 03/22/18 12:00 Temperature 98.5 F 98.8 F Pulse Rate 87 85 Respiratory Rate 17 18 18 Blood Pressure 99/54 L 106/58 L Pulse Oximetry 95 94 L Intake & Output 03/21/18 03/22/18 03/22/18 18:59 06:59 18:59 Intake Total 650 / 650 1405 / 1405 Balance 650 / 650 1405 / 1405 Weight 179 lb 7.3 oz Intake: IV 250 / 250 925 / 925 Intralipid 20% Inj 250 ML @ 31. 250 / 250 25 mls/hr IV.CENTRAL DAILY@1999 [facility] Rx#:[id number] NS Inj 250 ML @ 15 mls/hr IV. 75 / 75 SIG ONCE ALIN Rx#:[id number] TPN Fluid 2 Liter - Custom 2, 850 / 850 000 ML @ 42 mls/hr IV.SIG DAILY @1999 [facility] Rx#:[id number] Oral 480 / 480 Intake (Blood Product) Amt 400 / 400 Rbc As-3 Leukoreduced Unit 400 / 400 [id number] Other: # Voids 2 Date of Last Bowel Movement 03/18/18 03/18/18 # Bowel Movements 1 Result Diagrams: 03/22/18 06:10 03/22/18 06:10 Laboratory Results: Laboratory Results - last 24 hr 03/20/18 03/21/18 03/21/18 22:00 10:14 18:00 WBC RBC Hgb Hct MCV MCH MCHC RDW Plt Count MPV Neut % (Auto) Lymph % (Auto) [place] % (Auto) Eos % (Auto) Baso % (Auto) Neut # (Auto) Lymph # (Auto) [place] # (Auto) Eos # (Auto) Baso # (Auto) WBC Differential Differential Comment Sodium Potassium Chloride Carbon Dioxide Anion Gap BUN Creatinine Estimated GFR POC Glucose 94 Random Glucose Calcium Total Bilirubin AST ALT Alkaline Phosphatase Total Protein Albumin Urine Color Yellow Urine Clarity Hazy H Urine pH 6.0 Ur Specific [place] 1.015 Urine Protein Negative Urine Glucose (UA) Negative Urine Ketones Negative Urine Occult Blood Small H Urine Nitrate Negative Urine Bilirubin Negative Urine Urobilinogen Less than 2 Ur Leukocyte Esterase Moderate H Urine RBC 4 H Urine WBC 47 H Ur Squamous Epith Cells <1 Ur Transition Epith Cell <1 Ur Renal Epithelial Cell <1 Urine Bacteria Rare H Hyaline Casts 5 Urine Mucus Few H Micro UA Comment Culture indicated Urine Culture Comments Culture indicated MTS Gel Crossmatch See Detail 03/21/18 03/22/18 03/22/18 20:19 06:10 06:10 WBC 4.7 RBC 2.71 L Hgb 8.3 L Hct 24.7 L MCV 91.0 MCH 30.5 MCHC 33.5 RDW 15.1 Plt Count 257 MPV 8.0 Neut % (Auto) 77.0 H Lymph % (Auto) 14.7 [place] % (Auto) 4.3 Eos % (Auto) 3.4 Baso % (Auto) 0.6 Neut # (Auto) 3.6 Lymph # (Auto) 0.7 L [place] # (Auto) 0.2 Eos # (Auto) 0.2 Baso # (Auto) 0.0 WBC Differential . Differential Comment Auto diff final Sodium 139 Potassium 3.8 Chloride 106 Carbon Dioxide 26.8 Anion Gap 6 BUN 34 H Creatinine 1.09 H Estimated GFR 49 L POC Glucose 115 H Random Glucose 75 Calcium 8.7 Total Bilirubin 0.5 AST 28 ALT 38 Alkaline Phosphatase 130 H Total Protein 6.5 Albumin 2.7 L Urine Color Urine Clarity Urine pH Ur Specific [place] Urine Protein Urine Glucose (UA) Urine Ketones Urine Occult Blood Urine Nitrate Urine Bilirubin Urine Urobilinogen Ur Leukocyte Esterase Urine RBC Urine WBC Ur Squamous Epith Cells Ur Transition Epith Cell Ur Renal Epithelial Cell Urine Bacteria Hyaline Casts Urine Mucus Micro UA Comment Urine Culture Comments MTS Gel Crossmatch 03/22/18 03/22/18 07:41 11:22 WBC RBC Hgb Hct MCV MCH MCHC RDW Plt Count MPV Neut % (Auto) Lymph % (Auto) [place] % (Auto) Eos % (Auto) Baso % (Auto) Neut # (Auto) Lymph # (Auto) [place] # (Auto) Eos # (Auto) Baso # (Auto) WBC Differential Differential Comment Sodium Potassium Chloride Carbon Dioxide Anion Gap BUN Creatinine Estimated GFR POC Glucose 101 102 Random Glucose Calcium Total Bilirubin AST ALT Alkaline Phosphatase Total Protein Albumin Urine Color Urine Clarity Urine pH Ur Specific [place] Urine Protein Urine Glucose (UA) Urine Ketones Urine Occult Blood Urine Nitrate Urine Bilirubin Urine Urobilinogen Ur Leukocyte Esterase Urine RBC Urine WBC Ur Squamous Epith Cells Ur Transition Epith Cell Ur Renal Epithelial Cell Urine Bacteria Hyaline Casts Urine Mucus Micro UA Comment Urine Culture Comments MTS Gel Crossmatch Culture Results: Microbiology 03/20/18 22:00 Urine Culture - Preliminary Clean Catch Urine Streptococcus species 03/21/18 14:45 Stool Occult Blood (VIN) - Final Stool Hemoccult negative Imaging Studies: Impressions Venous Doppler Study 03/21/18 00:00 CONCLUSION: 1. Nonocclusive DVT extending from the proximal right femoral vein to the common femoral vein. 2. No sonographic evidence for left lower extremity DVT. Medications: Active Medications Generic Name Dose Route Start Last Admin Trade Name Freq PRN Reason Stop Dose Admin Anastrozole 1 mg 03/16/18 09:00 03/22/18 08:13 Arimidex PO 1 mg DAILY ALIN Administration Bisacodyl 10 mg 03/21/18 10:56 03/21/18 13:08 Dulcolax Supp RECTAL 10 mg DAILY PRN Administration constipation Enoxaparin Sodium 80 mg 03/22/18 12:00 03/22/18 12:37 Lovenox Inj SQ 80 mg Q12H ALIN Administration Escitalopram Oxalate 20 mg 03/15/18 11:15 03/22/18 08:13 Lexapro PO 20 mg DAILY ALIN Administration Fentanyl 1 patch 03/22/18 11:00 03/22/18 10:56 Duragesic 50 Mcg Patch.72hr T-DERMAL 1 patch Q3D ALIN Administration Gabapentin 100 mg 03/06/18 09:00 03/22/18 08:14 Neurontin PO 100 mg DAILY ALIN Administration Sodium Chloride 500 mls @ 30 mls/hr 03/11/18 12:00 03/14/18 23:00 Ns Inj IV.SIG Not Given .Q10H [facility] Insulin Aspart 0 unit 03/14/18 21:50 03/22/18 12:31 Novolog Insulin Correctional Sugar Inj SQ Not Given ACHS [facility] Protocol Insulin Detemir 18 unit 03/16/18 09:21 03/22/18 09:24 Levemir Inj SQ 18 unit BID ALIN Administration Nitrofurantoin Macrocrystals 100 mg 03/22/18 12:15 03/22/18 12:36 Macrobid PO 100 mg BIDPC ALIN Administration Ondansetron HCl 4 mg 03/07/18 16:13 03/15/18 14:57 Zofran Inj IV.PUSH 4 mg Q6H PRN Administration NAUSEA OR VOMITING Oxybutynin Chloride 5 mg 03/20/18 21:00 03/22/18 08:14 Ditropan PO 5 mg BID ALIN Administration Phenazopyridine HCl 100 mg 03/21/18 14:00 03/22/18 06:02 Pyridium PO 100 mg Q8HR ALIN Administration Polyethylene Glycol 17 gm 03/22/18 12:15 03/22/18 12:37 Miralax PO 17 gm DAILY ALIN Administration Promethazine HCl 12.5 mg 03/05/18 17:24 03/07/18 10:19 Phenergan Inj IM 12.5 mg Q6H PRN Administration NAUSEA Senna/Docusate Sodium 1 tab 03/06/18 21:00 03/22/18 08:14 Cuca-Colace PO 1 tab BID ALIN Administration Sodium Chloride 2 ml 03/15/18 09:00 03/22/18 08:14 Ns Flush IV.FLUSH 2 ml BID ALIN Administration Sodium Chloride 2 ml 03/14/18 21:55 03/17/18 18:05 Ns Flush IV.FLUSH 2 ml PRN PRN Administration FLUSH AFTER USING IV ACCESS Trazodone HCl 50 mg 03/05/18 21:00 03/21/18 21:57 Desyrel PO 50 mg HS ALIN Administration Objective Remarks: GENERAL: Older female asleep in bed on approach. She awakens easily to verbal stimuli. She appears mildly pale. SKIN: warm and dry. HEAD: Normocephalic. EYES: No scleral icterus. No injection or drainage. MOUTH: Moist mucous membranes, upper denture in place. NECK: Supple, trachea midline. CARDIOVASCULAR: Regular rate and rhythm without murmurs. RESPIRATORY: Breath sounds equal bilaterally. Nonlabored. GASTROINTESTINAL: Abdomen soft, non-tender, nondistended. Steri-strips to abdomen intact. Nephrostomy tube capped. EXTREMITIES: No cyanosis. 2+ edema to bilateral lower extremities. MUSCULOSKELETAL: Adequate muscle tone. NEUROLOGICAL: No obvious focal deficit. Awake, alert, and oriented x3. Assessment/Plan - Plan Plan: 1. Gastric outlet obstruction, status post gastro-jejunostomy. The patient continues on full liquid diet. TPN has been stopped. Overall she is tolerating very well with no nausea. 2. Renal function appears to have leveled off. Continue to monitor 3. Patient received 1 unit packed red blood cells yesterday for hemoglobin of 7.5. Her Hemoccult came back negative. She is feeling better today after the blood transfusion. Continue to monitor CBC. 4. Patient had a bilateral lower extremity ultrasound yesterday and I reviewed with her that A right-sided nonocclusive thrombus extending from the proximal femoral vein to the common femoral vein was found. Left leg negative for DVT. She is currently on Lovenox twice daily but tells me the nurses having to inject multiple syringes to give her the full dose. I will stop the Lovenox and transition her to low-dose Eliquis twice daily. - Attending Statement The exam, history, and the medical decision-making described in the above note were completed with the assistance of the mid-level provider. I reviewed and agree with the findings presented. I attest that I had a [id number] encounter with the patient on the same day, and personally performed and documented my assessment and findings in the medical record. Complaining of burning urination and spasms Still on full liquid diet TPN is off Advance diet per surgery Creatinine is slowly rising since the nephrostomy tube are capped. If the creatinine trending continues to be up then my recommendation is to uncap the nephrostomy tube and put the back again. I think she needs 1-2 cycles of chemotherapy to shrink the tumor down and take out the pressure from the ureter before we can put ureteral stent Or capped nephrostomy tube again. Extensive discussion with the patient and her . Both have agreed with that plan. Check the BMP tomorrow and if the creatinine continues to rise then we will asked the urologist to uncap the nephrostomy tubes She is scheduled to have first chemotherapy next week Sunday in my office Patient has nonocclusive DVT of the right lower extremity which is due to tumor in the inguinal area. Switch Lovenox to low-dose Eliquis. Patient and her have asked several questions and these were answered to their satisfaction.
[2018-03-22] MEDS: oxyCODONE/Acetaminophen 10/325 Tablet PO PRN (17:39)
[2018-03-22] MEDS: traZODone 50 MG Tablet PO SCH (20:17)
[2018-03-23 07:37] LABS: Albumin 2.7 g/dL (3.4-5.0); Anion Gap 7 meq/L (5-15); Aspartate Aminotransferase 27 U/L (15-37); Blood Urea Nitrogen 29 mg/dL (7-18); Calcium 8.4 mg/dL (8.5-10.1); Carbon Dioxide 26.1 meq/L (21.0-32.0); Chloride 106 meq/L (98-107); Glomerular Filtration Rate 47 mL/min (>89); Glucose,Random 69 mg/dL (74-106); Potassium 4.1 meq/L (3.5-5.1); Sodium 139 meq/L (136-145)
[2018-03-23 07:39] LABS: Baso % (Auto) 0.4 % (0.0-2.0); Eos # (Auto) 0.1 th/mm3 (0.0-0.4); Eos % (Auto) 2.5 % (0.0-4.0); Hematocrit 23.3 % (35.0-46.0); Lymph # (Auto) 0.6 th/mm3 (1.0-4.8); Lymph % (Auto) 16.5 % (9.0-44.0); Mean Corpuscular HGB Conc 34.3 % (32.0-36.0); Mean Corpuscular Hemoglobin 31.4 pg (27.0-34.0); Mean Corpuscular Volume 91.4 fL (80.0-100.0); Mean Platelet Volume 7.8 fL (7.0-11.0); Mono # (Auto) 0.2 th/mm3 (0.0-0.9); Mono % (Auto) 4.1 % (0.0-8.0); Neut # (Auto) 2.8 th/mm3 (1.8-7.7); Neut % (Auto) 76.5 % (16.0-70.0); Platelet Count 237 th/mm3 (150-450); Red Blood Count 2.55 mil/mm3 (4.00-5.30); Red Cell Distribution Width 15.3 % (11.6-17.2); White Blood Count 3.7 th/mm3 (4.0-11.0)
[2018-03-23 07:41] LABS: Alanine Aminotransferase 37 U/L (10-53); Alkaline Phosphatase 122 U/L (45-117); Total Protein 6.2 g/dL (6.4-8.2)
[2018-03-23] MEDS: Insulin NovoLOG Aspart Correctional Sugar Inj SQ SCH ×4 (09:15→20:22)
[2018-03-23] MEDS: Nitrofurantoin Monohydrate-Macrocrystal 100 MG Capsule PO SCH (09:31)
[2018-03-23] MEDS: Senna/Docusate Sodium 8.6/50 MG Tablet PO SCH ×2 (09:31→20:22)
[2018-03-23] MEDS: Gabapentin 100 MG Capsule PO SCH (09:31)
[2018-03-23] MEDS: Sodium Chloride 0.9% 2 ML Flush BID IV.FLUSH SCH ×2 (09:31→22:58)
[2018-03-23] MEDS: Polyethylene Glycol 3350 17 GM Packet PO SCH (09:31)
[2018-03-23] MEDS: Anastrozole 1 MG Tablet PO SCH (09:31)
[2018-03-23] MEDS: Insulin Detemir Inj 1,000 UNIT/10 ML Vial SQ SCH ×2 (09:33→20:22)
[2018-03-23] MEDS: Heparin Central Flush 100 UNIT/ML 5 ML Vial IV.FLUSH PRN (09:39)
--- NOTE | 2018-03-23 13:34 | P.PNONC ---
Subjective Interval history: Patient lying in bed, no acute distress. She reports the swelling to her right lower extremity has decreased since starting on Eliquis. Objective Vital Signs/Intake & Output: Vital Signs 03/22/18 16:00 03/22/18 20:00 03/23/18 00:00 Temperature 99.3 F 98.5 F 99 F Pulse Rate 85 84 89 Respiratory Rate 18 19 20 Blood Pressure 99/53 L 113/53 L 93/62 L Pulse Oximetry 98 97 95 03/23/18 03:58 03/23/18 08:00 Temperature 98.3 F 98.2 F Pulse Rate 81 90 Respiratory Rate 20 16 Blood Pressure 100/68 100/60 Pulse Oximetry 96 95 Intake & Output 03/22/18 03/23/18 03/23/18 18:59 06:59 18:59 Intake Total 1500 / 1500 Output Total 800 / 800 1900 / 1900 Balance 700 / 700 -1900 / -1900 Weight 82.5 kg Intake: Oral 1500 / 1500 Output: Urine 800 / 800 1900 / 1900 Other: Date of Last Bowel Movement 03/18/18 Result Diagrams: 03/23/18 06:10 03/23/18 06:10 Laboratory Results: Laboratory Results - last 24 hr 03/22/18 03/22/18 03/23/18 16:31 19:38 06:10 WBC 3.7 L RBC 2.55 L Hgb 8.0 L Hct 23.3 L MCV 91.4 MCH 31.4 MCHC 34.3 RDW 15.3 Plt Count 237 MPV 7.8 Neut % (Auto) 76.5 H Lymph % (Auto) 16.5 [place] % (Auto) 4.1 Eos % (Auto) 2.5 Baso % (Auto) 0.4 Neut # (Auto) 2.8 Lymph # (Auto) 0.6 L [place] # (Auto) 0.2 Eos # (Auto) 0.1 Baso # (Auto) 0.0 WBC Differential . Differential Comment Auto diff final Sodium Potassium Chloride Carbon Dioxide Anion Gap BUN Creatinine Estimated GFR POC Glucose 74 76 Random Glucose Calcium Total Bilirubin AST ALT Alkaline Phosphatase Total Protein Albumin 03/23/18 03/23/18 03/23/18 06:10 08:27 12:03 WBC RBC Hgb Hct MCV MCH MCHC RDW Plt Count MPV Neut % (Auto) Lymph % (Auto) [place] % (Auto) Eos % (Auto) Baso % (Auto) Neut # (Auto) Lymph # (Auto) [place] # (Auto) Eos # (Auto) Baso # (Auto) WBC Differential Differential Comment Sodium 139 Potassium 4.1 Chloride 106 Carbon Dioxide 26.1 Anion Gap 7 BUN 29 H Creatinine 1.14 H Estimated GFR 47 L POC Glucose 71 80 Random Glucose 69 L Calcium 8.4 L Total Bilirubin 0.3 AST 27 ALT 37 Alkaline Phosphatase 122 H Total Protein 6.2 L Albumin 2.7 L Culture Results: Microbiology 03/20/18 22:00 Urine Culture - Final Clean Catch Urine Enterococcus faecalis 03/21/18 14:45 Stool Occult Blood (VIN) - Final Stool Hemoccult negative Medications: Active Medications Generic Name Dose Route Start Last Admin Trade Name Freq PRN Reason Stop Dose Admin Anastrozole 1 mg 03/16/18 09:00 03/23/18 09:31 Arimidex PO 1 mg DAILY ALIN Administration Apixaban 2.5 mg 03/22/18 21:00 03/23/18 09:31 Eliquis PO 2.5 mg BID ALIN Administration Bisacodyl 10 mg 03/21/18 10:56 03/21/18 13:08 Dulcolax Supp RECTAL 10 mg DAILY PRN Administration constipation Escitalopram Oxalate 20 mg 03/15/18 11:15 03/23/18 09:31 Lexapro PO 20 mg DAILY [facility] Administration Fentanyl 1 patch 03/22/18 11:00 03/22/18 10:56 Duragesic 50 Mcg Patch.72hr T-DERMAL 1 patch Q3D [facility] Administration Gabapentin 100 mg 03/06/18 09:00 03/23/18 09:31 Neurontin PO 100 mg DAILY [facility] Administration Heparin Sodium (Porcine) 250 unit 03/15/18 15:19 03/23/18 09:39 Heparin Central Flush IV.FLUSH 250 unit PRN PRN Administration Flush Infusapot Sodium Chloride 500 mls @ 30 mls/hr 03/11/18 12:00 03/14/18 23:00 Ns Inj IV.SIG Not Given .Q10H [facility] Insulin Aspart 0 unit 03/14/18 21:50 03/23/18 12:05 Novolog Insulin Correctional Sugar Inj SQ Not Given ACHS [facility] Protocol Insulin Detemir 18 unit 03/16/18 09:21 03/23/18 09:33 Levemir Inj SQ 18 unit BID ALIN Administration Nitrofurantoin Macrocrystals 100 mg 03/22/18 12:15 03/23/18 09:31 Macrobid PO 100 mg BIDPC [facility] Administration Ondansetron HCl 4 mg 03/07/18 16:13 03/15/18 14:57 Zofran Inj IV.PUSH 4 mg Q6H PRN Administration NAUSEA OR VOMITING Oxybutynin Chloride 5 mg 03/20/18 21:00 03/23/18 09:31 Ditropan PO 5 mg BID ALIN Administration Oxycodone/Acetaminophen 1 tab 03/22/18 09:20 03/22/18 17:39 Percocet 10/325 Mg PO 1 tab Q4H PRN Administration pain 6-10 Phenazopyridine HCl 100 mg 03/21/18 14:00 03/23/18 06:07 Pyridium PO 100 mg Q8HR [facility] Administration Polyethylene Glycol 17 gm 03/22/18 12:15 03/23/18 09:31 Miralax PO 17 gm DAILY [facility] Administration Promethazine HCl 12.5 mg 03/05/18 17:24 03/07/18 10:19 Phenergan Inj IM 12.5 mg Q6H PRN Administration NAUSEA Senna/Docusate Sodium 1 tab 03/06/18 21:00 03/23/18 09:31 Cuca-Colace PO 1 tab BID ALIN Administration Sodium Chloride 2 ml 03/15/18 09:00 03/23/18 09:31 Ns Flush IV.FLUSH 2 ml BID ALIN Administration Sodium Chloride 2 ml 03/14/18 21:55 03/17/18 18:05 Ns Flush IV.FLUSH 2 ml PRN PRN Administration FLUSH AFTER USING IV ACCESS Trazodone HCl 50 mg 03/05/18 21:00 03/22/18 20:17 Desyrel PO 50 mg HS [facility] Administration Objective Remarks: GENERAL: Well-nourished, well-developed female patient, in no acute distress. SKIN: Pale, warm and dry. HEAD: Normocephalic. EYES: No scleral icterus. No injection or drainage. NECK: Supple, trachea midline. CARDIOVASCULAR: Regular rate and rhythm without murmurs. RESPIRATORY: Anterior breath sounds clear, equal bilaterally. Nonlabored. GASTROINTESTINAL: Abdomen soft, non-tender, nondistended. Steri-strips to abdomen intact. Nephrostomy tube capped. EXTREMITIES: No cyanosis, or edema MUSCULOSKELETAL: Adequate muscle tone. NEUROLOGICAL: No obvious focal deficit. Awake, alert, and oriented x3. PSYCHIATRIC: Appropriate mood and affect; insight and judgment normal Assessment/Plan - Plan Plan: 1. Gastric outlet obstruction, status post gastro-jejunostomy. The patient continues on full liquid diet. TPN has been stopped. Nausea has subsided. 2. Nephrostomy tube currently, creatinine increased to 1.14 today. Recommend uncapping nephrostomy tube in until the patient has received 1-2 cycles of chemotherapy. 3. Anemia, status post 1 unit PRBCs for hemoglobin of 7.5 g/dL on 03/21/2018, posttransfusion 8.3 g/dL. Hemoglobin today trended down slightly to 8.0. We will continue to monitor. 4. Right DVT, continue low-dose Eliquis twice daily. - Attending Statement The exam, history, and the medical decision-making described in the above note were completed with the assistance of the mid-level provider. I reviewed and agree with the findings presented. I attest that I had a [id number] encounter with the patient on the same day, and personally performed and documented my assessment and findings in the medical record. Patient denies any new complaint. Right lower extremity swelling has improved Creatinine is rising since the nephrostomy Tubes Wer capped. My recommendation is to uncap the nephrostomy tube and attached drainage urostomy bag again. Patient is tolerating full liquid diet. Surgeon will most likely advance her diet tomorrow
--- NOTE | 2018-03-23 13:46 | P.PNGS ---
Subjective Patient reports: feels better (Patient is doing much better she is tolerating her full liquid diet without nausea or emesis. She is yet to have a bowel movement though. She says her kidneys are functioning better. Overall she feels much better. Since she has been on low-dose Eliquis her right lower extremity swelling has decreased.) Physical Exam Vital signs: Vital Signs 03/22/18 16:00 03/22/18 20:00 03/23/18 00:00 Temperature 99.3 F 98.5 F 99 F Pulse Rate 85 84 89 Respiratory Rate 18 19 20 Blood Pressure 99/53 L 113/53 L 93/62 L Pulse Oximetry 98 97 95 03/23/18 03:58 03/23/18 08:00 Temperature 98.3 F 98.2 F Pulse Rate 81 90 Respiratory Rate 20 16 Blood Pressure 100/68 100/60 Pulse Oximetry 96 95 Intake & Output 03/22/18 03/23/18 03/23/18 18:59 06:59 18:59 Intake Total 1500 / 1500 Output Total 800 / 800 1900 / 1900 Balance 700 / 700 -1900 / -1900 Weight 82.5 kg Intake: Oral 1500 / 1500 Output: Urine 800 / 800 1900 / 1900 Other: Date of Last Bowel Movement 03/18/18 Narrative: Her abdomen is soft and nondistended and nontender. The laparoscopy incisions are healing well been the Steri-Strips which are gradually peeling up. Results - Labs 03/23/18 06:10 03/23/18 06:10 Laboratory Results - last 24 hr 03/22/18 03/22/18 03/23/18 16:31 19:38 06:10 WBC 3.7 L RBC 2.55 L Hgb 8.0 L Hct 23.3 L MCV 91.4 MCH 31.4 MCHC 34.3 RDW 15.3 Plt Count 237 MPV 7.8 Neut % (Auto) 76.5 H Lymph % (Auto) 16.5 [place] % (Auto) 4.1 Eos % (Auto) 2.5 Baso % (Auto) 0.4 Neut # (Auto) 2.8 Lymph # (Auto) 0.6 L [place] # (Auto) 0.2 Eos # (Auto) 0.1 Baso # (Auto) 0.0 WBC Differential . Differential Comment Auto diff final Sodium Potassium Chloride Carbon Dioxide Anion Gap BUN Creatinine Estimated GFR POC Glucose 74 76 Random Glucose Calcium Total Bilirubin AST ALT Alkaline Phosphatase Total Protein Albumin 03/23/18 03/23/18 03/23/18 06:10 08:27 12:03 WBC RBC Hgb Hct MCV MCH MCHC RDW Plt Count MPV Neut % (Auto) Lymph % (Auto) [place] % (Auto) Eos % (Auto) Baso % (Auto) Neut # (Auto) Lymph # (Auto) [place] # (Auto) Eos # (Auto) Baso # (Auto) WBC Differential Differential Comment Sodium 139 Potassium 4.1 Chloride 106 Carbon Dioxide 26.1 Anion Gap 7 BUN 29 H Creatinine 1.14 H Estimated GFR 47 L POC Glucose 71 80 Random Glucose 69 L Calcium 8.4 L Total Bilirubin 0.3 AST 27 ALT 37 Alkaline Phosphatase 122 H Total Protein 6.2 L Albumin 2.7 L - Imaging Imaging: ITS Impressions Abdomen/Pelvis CT 03/07/18 00:00 CONCLUSION: 1. There appears to be an obstruction at the beginning of the third portion of the duodenum. This retroperitoneal soft tissue which also partially encases the anterior margin of the right ureter could be either lymphadenopathy or soft tissue mass from the third portion of the duodenum. Upper GI and Small Bowel X-Ray 03/07/18 00:00 CONCLUSION: Marked distention of the stomach which is still fluid-filled. Questionable obstructing of the third portion of the duodenum. Abdomen X-Ray 03/09/18 00:00 CONCLUSION: Significant amount of persistent oral contrast identified within a somewhat dilated stomach. Findings are consistent with gastroparesis. Chest X-Ray 03/12/18 00:00 CONCLUSION: 1. Possible free air beneath the right hemidiaphragm. This suggests bowel perforation if there has been no recent abdominal or pelvic surgeries. Suggest correlating with clinical history and physical examination. 2. Otherwise, no acute finding is identified within the chest. Gastrografin Study 03/14/18 00:00 CONCLUSION: Unremarkable postoperative appearance. Evidence of gastric bypass procedure with gastrojejunostomy. Anastomosis is patent. No evidence of leak or obstruction. Venous Doppler Study 03/21/18 00:00 CONCLUSION: 1. Nonocclusive DVT extending from the proximal right femoral vein to the common femoral vein. 2. No sonographic evidence for left lower extremity DVT. Assessment and Plan - Assessment (1) Gastric distention Code(s): K31.89 - Other diseases of stomach and duodenum Status: Acute Plan: 72 year old female s/p lap Avni en Y gastric bypass with gastrojejunostomy -UGI shows patent anastomosis -keep full liquids for now -Hmg improved Nonocclusive DVT right side. Improved right lower extremity swelling on Eliquis. Anticipating uncapping nephrostomy tubes in anticipation of chemotherapy next week. Patient requests another Dulcolax suppository and if it does not work a fleets enema. This is reasonable. There is no contraindication related to her surgical incisions which are healing well.
[2018-03-23] MEDS ORDERED: Bisacodyl 10 MG Supp RECTAL ONE (14:15)
--- NOTE | 2018-03-23 15:43 | P.PNIM ---
Subjective Interval history: still having dysuria. no other complaints. would like to speak to a superintendent board [employer] when she is ready to be discharged to advise on appropriate diet at home. Physical Exam Vital signs: Vital Signs 03/22/18 16:00 03/22/18 20:00 03/23/18 00:00 Temperature 99.3 F 98.5 F 99 F Pulse Rate 85 84 89 Respiratory Rate 18 19 20 Blood Pressure 99/53 L 113/53 L 93/62 L Pulse Oximetry 98 97 95 03/23/18 03:58 03/23/18 08:00 Temperature 98.3 F 98.2 F Pulse Rate 81 90 Respiratory Rate 20 16 Blood Pressure 100/68 100/60 Pulse Oximetry 96 95 Intake & Output 03/22/18 03/23/18 03/23/18 18:59 06:59 18:59 Intake Total 1500 / 1500 Output Total 800 / 800 1900 / 1900 Balance 700 / 700 -1900 / -1900 Weight 82.5 kg Intake: Oral 1500 / 1500 Output: Urine 800 / 800 1900 / 1900 Other: Date of Last Bowel Movement 03/18/18 03/18/18 Narrative: GENERAL: elderly woman laying in bed, not in distress. HEENT:not pale,anicteric CARDIOVASCULAR: RRR,s1s2 normal. CHEST: PORT cath in situ, CTAB. GASTROINTESTINAL: Abdomen not distended, clear steri strips around incisions, abdomen soft, non-tender with normoactive bowel sounds. MUSCULOSKELETAL: RLE swelling, no erythema or tenderness. Neuro exam alert and oriented x3 Results Labs CBC & Chem 7: 03/23/18 06:10 03/23/18 06:10 Labs: Microbiology 03/20/18 22:00 Clean Catch Urine Urine Culture - Final Enterococcus faecalis Assessment and Plan Plan 72-year-old white female being admitted for intractable nausea vomiting found to have gastric outlet obstruction. 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 1. Gastric outlet obstruction -s/p lap Avni en Y gastric bypass with gastrojejunostomy 03/12/2018 Upper GI series 03/15/2018 shows patent anastomosis. -Continue supportive care with TPN and wean when diet is advanced, postoperative care, anti-emetics. NGT removed on 03/17. -on full liquid diet . -GI as well as General surgery following. -pain pain meds with stool regimen. Hyperglycemia-likely due to TPN--blood glucose within acceptable limits. -Regular insulin 10 units per L of TPN. -cont Levemir to 20 units subcut twice daily Continue sliding scale insulin, high scale. Acute kidney injury--likely prerenal. now improved -Creatinine peaked at 3.3 on admission, now improved,but slowly creeping up 1.14 today -Nephrostomy tubes were clamped on 03/20, and she did well with urine output hence they have been cocked 03/22. Oncology prefer patient to be back on Nephrostomy tubes until after another 2 rounds of chemo given the gradual increase in cr D/w Dysuria--urinalysis in keeping with UTI, started on Macrobid, cultures growing E.faecalis resistant to Macrobid but sensitive to Ampicillin hence switched. Hypokalemia -replete as needed. k 3.7 today Mild hypernatremia - resolved. Superficial thrombophlebitis Right upper extremity above the antecubital fossa has a cordlike subcutaneous lesion. US shows superficial thrombophlebitis. heating pad prn, heating pad, avoid NSAIDs given recovering renal function. -No anticoagulation indicated. RLE swelling-RLE doppler ordered revealed DVT. Initially on Lovenox, was switched to Apixaban on 03/22. Recurring squamas cell cancer of the anus with metastases to the pelvis and left clavicle -Continue follow-up with oncology as an outpatient -Patient previously underwent 9 months of chemotherapy as well as radiation with ultimate clearing of the cancer the first time. However recurrence was detected on PET scan within the last 2 months. Full code. SCDs. Lovenox Progress Note: Quality VTE Deep Vein Thrombosis/Pulmonary Embolism Present on Admission: No
[2018-03-23] MEDS: traZODone 50 MG Tablet PO SCH (20:22)
[2018-03-23] MEDS: oxyCODONE/Acetaminophen 10/325 Tablet PO PRN (22:55)
[2018-03-24] MEDS: oxyCODONE/Acetaminophen 10/325 Tablet PO PRN (03:44)
[2018-03-24 06:46] LABS: Baso % (Auto) 0.6 % (0.0-2.0); Eos # (Auto) 0.1 th/mm3 (0.0-0.4); Eos % (Auto) 3.9 % (0.0-4.0); Hematocrit 24.2 % (35.0-46.0); Hemoglobin 8.1 gm/dL (11.6-15.3); Lymph # (Auto) 0.8 th/mm3 (1.0-4.8); Lymph % (Auto) 22.2 % (9.0-44.0); Mean Corpuscular HGB Conc 33.5 % (32.0-36.0); Mean Corpuscular Hemoglobin 30.6 pg (27.0-34.0); Mean Corpuscular Volume 91.2 fL (80.0-100.0); Mean Platelet Volume 7.7 fL (7.0-11.0); Mono # (Auto) 0.2 th/mm3 (0.0-0.9); Mono % (Auto) 5.5 % (0.0-8.0); Neut # (Auto) 2.5 th/mm3 (1.8-7.7); Neut % (Auto) 67.8 % (16.0-70.0); Platelet Count 250 th/mm3 (150-450); Red Blood Count 2.65 mil/mm3 (4.00-5.30); Red Cell Distribution Width 15.2 % (11.6-17.2); White Blood Count 3.6 th/mm3 (4.0-11.0)
[2018-03-24 07:13] LABS: Calcium 8.4 mg/dL (8.5-10.1); Carbon Dioxide 27.4 meq/L (21.0-32.0); Potassium 4.1 meq/L (3.5-5.1)
[2018-03-24] MEDS: Insulin NovoLOG Aspart Correctional Sugar Inj SQ SCH ×4 (08:02→20:18)
[2018-03-24] MEDS: Heparin Central Flush 100 UNIT/ML 5 ML Vial IV.FLUSH PRN (08:45)
[2018-03-24] MEDS: Polyethylene Glycol 3350 17 GM Packet PO SCH (08:46)
[2018-03-24] MEDS: Anastrozole 1 MG Tablet PO SCH (08:46)
[2018-03-24] MEDS: Gabapentin 100 MG Capsule PO SCH (08:46)
[2018-03-24] MEDS: Insulin Detemir Inj 1,000 UNIT/10 ML Vial SQ SCH (08:46)
[2018-03-24] MEDS: Sodium Chloride 0.9% 2 ML Flush BID IV.FLUSH SCH ×2 (08:47→20:21)
[2018-03-24] MEDS: Senna/Docusate Sodium 8.6/50 MG Tablet PO SCH ×2 (08:47→20:18)
--- NOTE | 2018-03-24 12:27 | P.PNIM ---
Subjective Interval history: patient feels well. still reports pressure like sensation when attempting to urinate. Nephrostomy bags reconnected yesterday. Physical Exam Vital signs: Vital Signs 03/23/18 16:00 03/23/18 20:00 03/24/18 00:00 Temperature 98.5 F 99.1 F 98.7 F Pulse Rate 93 H 91 H 88 Respiratory Rate 16 18 20 Blood Pressure 103/58 L 117/56 L 102/57 L Pulse Oximetry 95 94 L 97 03/24/18 08:00 Temperature 98.6 F Pulse Rate 117 H Respiratory Rate 17 Blood Pressure 130/62 Pulse Oximetry 94 L Intake & Output 03/23/18 03/24/18 03/24/18 18:59 06:59 18:59 Output Total 2250 / 2250 Balance -2250 / -2250 Weight 80.3 kg Output: Urine Amount (Stoma) 2250 / 2250 Nephrostomy Tube Left 1550 / 1550 Nephrostomy Tube Right 700 / 700 Other: Date of Last Bowel Movement 03/23/18 03/23/18 # Bowel Movements 1 Narrative: GENERAL: elderly woman laying in bed, not in distress. HEENT:not pale,anicteric CARDIOVASCULAR: RRR,s1s2 normal. CHEST: PORT cath in situ, CTAB. GASTROINTESTINAL: Abdomen not distended, clear steri strips around incisions, abdomen soft, non-tender with normoactive bowel sounds. MUSCULOSKELETAL: RLE swelling, no erythema or tenderness. Neuro exam alert and oriented x3 Results Labs CBC & Chem 7: 03/24/18 05:30 03/24/18 05:30 Labs: Microbiology 03/20/18 22:00 Clean Catch Urine Urine Culture - Final Enterococcus faecalis Assessment and Plan Plan 72-year-old white female being admitted for intractable nausea vomiting found to have gastric outlet obstruction. 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 1. Gastric outlet obstruction -s/p lap Avni en Y gastric bypass with gastrojejunostomy 03/12/2018 Upper GI series 03/15/2018 shows patent anastomosis. -Continue supportive care with TPN and wean when diet is advanced, postoperative care, anti-emetics. NGT removed on 03/17. -diet was advanced to regular . -GI as well as General surgery following. -pain pain meds with stool regimen. Hyperglycemia-likely due to TPN--blood glucose within acceptable limits. -Regular insulin 10 units per L of TPN. -cont Levemir to 20 units subcut twice daily Continue sliding scale insulin, high scale. Acute kidney injury--likely prerenal. now improved -Creatinine peaked at 3.3 on admission, now improved,but slowly creeping up 1.14 today -Nephrostomy tubes were clamped on 03/20, and she did well with urine output hence they have been cocked 03/22. Oncology prefer patient to be back on Nephrostomy tubes until after another 2 rounds of chemo given the gradual increase in cr. Nephrostomy tubes reconnected on 03/23, draining appropriately. RLE swelling-RLE doppler ordered revealed DVT. Initially on Lovenox, was switched to Apixaban on 03/22. Superficial thrombophlebitis Right upper extremity above the antecubital fossa has a cordlike subcutaneous lesion. US shows superficial thrombophlebitis. heating pad prn, heating pad, avoid NSAIDs given recovering renal function. -No anticoagulation indicated. Dysuria--urinalysis in keeping with UTI, started on Macrobid, cultures growing E.faecalis resistant to Macrobid but sensitive to Ampicillin,penicillin,vanc hence switched to Ampicillin. Hypokalemia ---resolved. replete as needed. Mild hypernatremia - resolved. Recurring squamas cell cancer of the anus with metastases to the pelvis and left clavicle -Continue follow-up with oncology as an outpatient -Patient previously underwent 9 months of chemotherapy as well as radiation with ultimate clearing of the cancer the first time. However recurrence was detected on PET scan within the last 2 months. Full code. discussed plan with patient and her at bedside. Progress Note: Quality VTE Deep Vein Thrombosis/Pulmonary Embolism Present on Admission: No
--- NOTE | 2018-03-24 16:59 | P.PN ---
Subjective Interval history: Patient tolerated lunch very well. Had a good bowel movement yesterday. No pain. Nephrostomy tubes opened with serosanguineous drainage. Physical Exam Vital signs: Vital Signs 03/23/18 20:00 03/24/18 00:00 03/24/18 08:00 Temperature 99.1 F 98.7 F 98.6 F Pulse Rate 91 H 88 117 H Respiratory Rate 18 20 17 Blood Pressure 117/56 L 102/57 L 130/62 Pulse Oximetry 94 L 97 94 L 03/24/18 12:00 Temperature 98.3 F Pulse Rate 94 H Respiratory Rate 18 Blood Pressure 125/62 Pulse Oximetry 97 Intake & Output 03/23/18 03/24/18 03/24/18 18:59 06:59 18:59 Output Total 2250 / 2250 Balance -2250 / -2250 Weight 80.3 kg Output: Urine Amount (Stoma) 2250 / 2250 Nephrostomy Tube Left 1550 / 1550 Nephrostomy Tube Right 700 / 700 Other: Date of Last Bowel Movement 03/23/18 03/23/18 03/23/18 # Bowel Movements 1 - Constitutional no acute distress - Routine Abdominal Exam Present: soft Results - Labs CBC & Chem 7: 03/24/18 05:30 03/24/18 05:30 Laboratory Results - last 24 hr 03/23/18 03/23/18 03/24/18 17:26 19:14 05:30 WBC RBC Hgb Hct MCV MCH MCHC RDW Plt Count MPV Neut % (Auto) Lymph % (Auto) [place] % (Auto) Eos % (Auto) Baso % (Auto) Neut # (Auto) Lymph # (Auto) [place] # (Auto) Eos # (Auto) Baso # (Auto) WBC Differential Differential Comment Sodium 139 Potassium 4.1 Chloride 105 Carbon Dioxide 27.4 Anion Gap 7 BUN 21 H Creatinine 1.14 H Estimated GFR 47 L POC Glucose 77 85 Random Glucose 87 Calcium 8.4 L 03/24/18 03/24/18 03/24/18 05:30 07:52 12:10 WBC 3.6 L RBC 2.65 L Hgb 8.1 L Hct 24.2 L MCV 91.2 MCH 30.6 MCHC 33.5 RDW 15.2 Plt Count 250 MPV 7.7 Neut % (Auto) 67.8 Lymph % (Auto) 22.2 [place] % (Auto) 5.5 Eos % (Auto) 3.9 Baso % (Auto) 0.6 Neut # (Auto) 2.5 Lymph # (Auto) 0.8 L [place] # (Auto) 0.2 Eos # (Auto) 0.1 Baso # (Auto) 0.0 WBC Differential . Differential Comment Auto diff final Sodium Potassium Chloride Carbon Dioxide Anion Gap BUN Creatinine Estimated GFR POC Glucose 90 124 H Random Glucose Calcium Assessment and Plan - Assessment (1) Gastric distention Code(s): K31.89 - Other diseases of stomach and duodenum Status: Acute Plan: Status post gastrojejunal bypass. Tolerating diet. Okay to begin chemotherapy treatment this week. Will likely sign off tomorrow if patient continues to do well. - Attending Attestation I attest that I had a [id number] encounter with the patient on the same day, and personally performed and documented my assessment and findings in the medical record. The following services were provided during this hospital visit: Chart data review, vital sign assessments/reviewing monitor data Review of consultation notes if present Medication orders/review and/or management Ordering and/or reviewing lab tests Ordering and/or interpreting/reviewing x-rays and/or diagnostic studies Care of the patient and discussion of the patient with the care team Documentation time To help prompt me to consider important information that might be impacting today's encounter and assessment, Information from prior notes written by myself or my colleagues may have been "brought forward/copy and pasted" into today's note.
[2018-03-24] MEDS: traZODone 50 MG Tablet PO SCH (20:18)
[2018-03-24] MEDS ORDERED: Insulin Detemir Inj 1,000 UNIT/10 ML Vial SQ SCH (21:00)
[2018-03-25 05:55] LABS: Calcium 8.7 mg/dL (8.5-10.1); Carbon Dioxide 28.2 meq/L (21.0-32.0); Potassium 3.8 meq/L (3.5-5.1)
[2018-03-25] MEDS: Insulin NovoLOG Aspart Correctional Sugar Inj SQ SCH ×2 (08:46→12:10)
[2018-03-25] MEDS: Gabapentin 100 MG Capsule PO SCH (08:48)
[2018-03-25] MEDS: Senna/Docusate Sodium 8.6/50 MG Tablet PO SCH (08:48)
[2018-03-25] MEDS: Polyethylene Glycol 3350 17 GM Packet PO SCH (08:48)
[2018-03-25] MEDS: Anastrozole 1 MG Tablet PO SCH (08:50)
[2018-03-25] MEDS: Sodium Chloride 0.9% 2 ML Flush BID IV.FLUSH SCH (08:51)
[2018-03-25] MEDS ORDERED: Sod Phosphate/Sod Biphosphate (Adult) Enema 133 ML Bottle RECTAL ONE (10:00)
--- NOTE | 2018-03-25 10:17 | P.PNGS ---
Subjective Interval history: Resting in bed No issues over the weekend Tolerating regular diet Physical Exam Vital signs: Vital Signs 03/24/18 12:00 03/24/18 16:00 03/24/18 20:00 Temperature 98.3 F 98.8 F 99.3 F Pulse Rate 94 H 95 H 98 H Respiratory Rate 18 17 18 Blood Pressure 125/62 105/50 L 116/68 Pulse Oximetry 97 96 93 L 03/25/18 00:00 03/25/18 08:00 Temperature 98.5 F 98.7 F Pulse Rate 84 100 H Respiratory Rate 18 17 Blood Pressure 109/52 L 129/59 L Pulse Oximetry 93 L 94 L Intake & Output 03/24/18 03/25/18 03/25/18 18:59 06:59 18:59 Output Total 1750 / 1750 1225 / 1225 Balance -1750 / -1750 -1225 / -1225 Weight 80.4 kg Output: Urine Amount (Stoma) 1750 / 1750 1225 / 1225 Nephrostomy Tube Left 975 / 975 375 / 375 Nephrostomy Tube Right 775 / 775 850 / 850 Other: Date of Last Bowel Movement 03/23/18 03/23/18 Narrative: Resting in bed Abd: soft; Steri Strips in place; non tender Bilateral urostomy bags in place RIGHT leg swelling improved Results - Labs 03/24/18 05:30 03/25/18 05:15 Laboratory Results - last 24 hr 03/24/18 03/24/18 03/24/18 12:10 17:22 17:30 Sodium Potassium Chloride Carbon Dioxide Anion Gap BUN Creatinine Estimated GFR POC Glucose 124 H 65 L Random Glucose 59 L Calcium 03/24/18 03/24/18 03/25/18 17:48 19:46 05:15 Sodium 139 Potassium 3.8 Chloride 104 Carbon Dioxide 28.2 Anion Gap 7 BUN 18 Creatinine 1.11 H Estimated GFR 48 L POC Glucose 82 132 H Random Glucose 74 Calcium 8.7 03/25/18 07:58 Sodium Potassium Chloride Carbon Dioxide Anion Gap BUN Creatinine Estimated GFR POC Glucose 117 H Random Glucose Calcium - Imaging Imaging: ITS Impressions Abdomen/Pelvis CT 03/07/18 00:00 CONCLUSION: 1. There appears to be an obstruction at the beginning of the third portion of the duodenum. This retroperitoneal soft tissue which also partially encases the anterior margin of the right ureter could be either lymphadenopathy or soft tissue mass from the third portion of the duodenum. Upper GI and Small Bowel X-Ray 03/07/18 00:00 CONCLUSION: Marked distention of the stomach which is still fluid-filled. Questionable obstructing of the third portion of the duodenum. Abdomen X-Ray 03/09/18 00:00 CONCLUSION: Significant amount of persistent oral contrast identified within a somewhat dilated stomach. Findings are consistent with gastroparesis. Chest X-Ray 03/12/18 00:00 CONCLUSION: 1. Possible free air beneath the right hemidiaphragm. This suggests bowel perforation if there has been no recent abdominal or pelvic surgeries. Suggest correlating with clinical history and physical examination. 2. Otherwise, no acute finding is identified within the chest. Gastrografin Study 03/14/18 00:00 CONCLUSION: Unremarkable postoperative appearance. Evidence of gastric bypass procedure with gastrojejunostomy. Anastomosis is patent. No evidence of leak or obstruction. Venous Doppler Study 03/21/18 00:00 CONCLUSION: 1. Nonocclusive DVT extending from the proximal right femoral vein to the common femoral vein. 2. No sonographic evidence for left lower extremity DVT. Assessment and Plan - Assessment (1) Gastric distention Code(s): K31.89 - Other diseases of stomach and duodenum Status: Acute Plan: 72 year old female s/p lap Avni en Y gastric bypass with gastrojejunostomy -UGI shows patent anastomosis -Tolerating regular diet -Fleets enema today -Nonocclusive DVT right side. Improved right lower extremity swelling; on Eliquis. -Dr. Stallings planning for chemo this week -GS clear for DC -Rx for Fentanyl patch and Percocet on chart -Follow up SundayApr 01 at 1:50PM
--- NOTE | 2018-03-25 11:18 | P.PNONC ---
Subjective Interval history: Patient sitting up in bed, states she is ready to go home. She has a follow-up appointment with Dr. Stallings this week. She will maintain this appointment. She warrants no complaints at this time. Her nephrostomy tubes have been uncapped. Objective Vital Signs/Intake & Output: Vital Signs 03/24/18 12:00 03/24/18 16:00 03/24/18 20:00 Temperature 98.3 F 98.8 F 99.3 F Pulse Rate 94 H 95 H 98 H Respiratory Rate 18 17 18 Blood Pressure 125/62 105/50 L 116/68 Pulse Oximetry 97 96 93 L 03/25/18 00:00 03/25/18 08:00 Temperature 98.5 F 98.7 F Pulse Rate 84 100 H Respiratory Rate 18 17 Blood Pressure 109/52 L 129/59 L Pulse Oximetry 93 L 94 L Intake & Output 03/24/18 03/25/18 03/25/18 18:59 06:59 18:59 Output Total 1750 / 1750 1225 / 1225 Balance -1750 / -1750 -1225 / -1225 Weight 80.4 kg Output: Urine Amount (Stoma) 1750 / 1750 1225 / 1225 Nephrostomy Tube Left 975 / 975 375 / 375 Nephrostomy Tube Right 775 / 775 850 / 850 Other: Date of Last Bowel Movement 03/23/18 03/23/18 Result Diagrams: 03/24/18 05:30 03/25/18 05:15 Laboratory Results: Laboratory Results - last 24 hr 03/24/18 03/24/18 03/24/18 12:10 17:22 17:30 Sodium Potassium Chloride Carbon Dioxide Anion Gap BUN Creatinine Estimated GFR POC Glucose 124 H 65 L Random Glucose 59 L Calcium 03/24/18 03/24/18 03/25/18 17:48 19:46 05:15 Sodium 139 Potassium 3.8 Chloride 104 Carbon Dioxide 28.2 Anion Gap 7 BUN 18 Creatinine 1.11 H Estimated GFR 48 L POC Glucose 82 132 H Random Glucose 74 Calcium 8.7 03/25/18 07:58 Sodium Potassium Chloride Carbon Dioxide Anion Gap BUN Creatinine Estimated GFR POC Glucose 117 H Random Glucose Calcium Culture Results: Microbiology 03/20/18 22:00 Urine Culture - Final Clean Catch Urine Enterococcus faecalis Medications: Active Medications Generic Name Dose Route Start Last Admin Trade Name Freq PRN Reason Stop Dose Admin Amoxicillin 500 mg 03/23/18 15:45 03/25/18 05:08 Amoxil PO 500 mg Q8HR [facility] Administration Anastrozole 1 mg 03/16/18 09:00 03/25/18 08:50 Arimidex PO 1 mg DAILY [facility] Administration Apixaban 2.5 mg 03/22/18 21:00 03/25/18 08:51 Eliquis PO 2.5 mg BID [facility] Administration Bisacodyl 10 mg 03/21/18 10:56 03/21/18 13:08 Dulcolax Supp RECTAL 10 mg DAILY PRN Administration constipation Escitalopram Oxalate 20 mg 03/15/18 11:15 03/25/18 08:51 Lexapro PO 20 mg DAILY [facility] Administration Fentanyl 1 patch 03/22/18 11:00 03/25/18 11:02 Duragesic 50 Mcg Patch.72hr T-DERMAL 1 patch Q3D [facility] Administration Gabapentin 100 mg 03/06/18 09:00 03/25/18 08:48 Neurontin PO 100 mg DAILY [facility] Administration Heparin Sodium (Porcine) 250 unit 03/15/18 15:19 03/24/18 08:45 Heparin Central Flush IV.FLUSH 250 unit PRN PRN Administration Flush Infusapot Sodium Chloride 500 mls @ 30 mls/hr 03/11/18 12:00 03/14/18 23:00 Ns Inj IV.SIG Not Given .Q10H [facility] Insulin Aspart 0 unit 03/14/18 21:50 03/25/18 08:46 Novolog Insulin Correctional Sugar Inj SQ Not Given [facility] Protocol Ondansetron HCl 4 mg 03/07/18 16:13 03/15/18 14:57 Zofran Inj IV.PUSH 4 mg Q6H PRN Administration NAUSEA OR VOMITING Oxybutynin Chloride 5 mg 03/20/18 21:00 03/25/18 08:50 Ditropan PO 5 mg BID [facility] Administration Oxycodone/Acetaminophen 1 tab 03/22/18 09:20 03/24/18 03:44 Percocet 10/325 Mg PO 1 tab Q4H PRN Administration pain 6-10 Oxycodone/Acetaminophen 1 tab 03/22/18 11:06 03/23/18 18:49 Percocet 5/325 Mg PO 1 tab Q4H PRN Administration Pain 1-5 Phenazopyridine HCl 100 mg 03/21/18 14:00 03/25/18 05:08 Pyridium PO 100 mg Q8HR [facility] Administration Polyethylene Glycol 17 gm 03/22/18 12:15 03/25/18 08:48 Miralax PO 17 gm DAILY [facility] Administration Promethazine HCl 12.5 mg 03/05/18 17:24 03/07/18 10:19 Phenergan Inj IM 12.5 mg Q6H PRN Administration NAUSEA Senna/Docusate Sodium 1 tab 03/06/18 21:00 03/25/18 08:48 Cuca-Colace PO 1 tab BID [facility] Administration Sodium Chloride 2 ml 03/15/18 09:00 03/25/18 08:51 Ns Flush IV.FLUSH 2 ml BID [facility] Administration Sodium Chloride 2 ml 03/14/18 21:55 03/17/18 18:05 Ns Flush IV.FLUSH 2 ml PRN PRN Administration FLUSH AFTER USING IV ACCESS Trazodone HCl 50 mg 03/05/18 21:00 03/24/18 20:18 Desyrel PO 50 mg HS [facility] Administration Objective Remarks: GENERAL: Well-nourished, well-developed female patient, in no acute distress. SKIN: Pale, warm and dry. HEAD: Normocephalic. EYES: No scleral icterus. No injection or drainage. NECK: Supple, trachea midline. CARDIOVASCULAR: Regular rate and rhythm without murmurs. RESPIRATORY: Anterior breath sounds clear, equal bilaterally. Nonlabored. GASTROINTESTINAL: Abdomen soft, non-tender, nondistended. Steri-strips to abdomen intact. Bilateral nephrostomy tube draining orange urine. EXTREMITIES: No cyanosis, or edema MUSCULOSKELETAL: Adequate muscle tone. NEUROLOGICAL: No obvious focal deficit. Awake, alert, and oriented x3. PSYCHIATRIC: Appropriate mood and affect; insight and judgment normal Assessment/Plan - Plan Plan: 1. Gastric outlet obstruction, status post gastro-jejunostomy. TPN has been stopped. No further nausea or vomiting. 2. Nephrostomy tubes have been uncapped, creatinine has decreased slightly to 1.11. Draining orange urine, patient states she is on Pyridium. 3. Anemia, hemoglobin stable at 8.1 g/dL. Patient has a lab follow-up this week for follow-up. 4. Right DVT, continue low-dose Eliquis twice daily. 5. Patient cleared from an oncology standpoint for discharge home. She has been advised to keep her previously scheduled appointments with oncology. - Attending Statement The exam, history, and the medical decision-making described in the above note were completed with the assistance of the mid-level provider. I reviewed and agree with the findings presented. I attest that I had a [id number] encounter with the patient on the same day, and personally performed and documented my assessment and findings in the medical record. Patient is feeling much better. She is off of the TPN and eating regular diet with good tolerance. GFR is improving. Her pain is under control on Duragesic 50 mcg. She has not been asking for IV Dilaudid since yesterday. In my opinion patient can be discharged to home. Patient has an appointment with me this Sunday to resume chemotherapy at our [place] office. Sign off Available as needed
--- NOTE | 2018-03-25 11:19 | P.PNIM ---
Subjective Interval history: patient feeling well. she tolerated regular diet. Physical Exam Vital signs: Vital Signs 03/24/18 12:00 03/24/18 16:00 03/24/18 20:00 Temperature 98.3 F 98.8 F 99.3 F Pulse Rate 94 H 95 H 98 H Respiratory Rate 18 17 18 Blood Pressure 125/62 105/50 L 116/68 Pulse Oximetry 97 96 93 L 03/25/18 00:00 03/25/18 08:00 Temperature 98.5 F 98.7 F Pulse Rate 84 100 H Respiratory Rate 18 17 Blood Pressure 109/52 L 129/59 L Pulse Oximetry 93 L 94 L Intake & Output 03/24/18 03/25/18 03/25/18 18:59 06:59 18:59 Output Total 1750 / 1750 1225 / 1225 Balance -1750 / -1750 -1225 / -1225 Weight 80.4 kg Output: Urine Amount (Stoma) 1750 / 1750 1225 / 1225 Nephrostomy Tube Left 975 / 975 375 / 375 Nephrostomy Tube Right 775 / 775 850 / 850 Other: Date of Last Bowel Movement 03/23/18 03/23/18 Narrative: GENERAL: elderly woman laying in bed, not in distress. HEENT:not pale,anicteric CARDIOVASCULAR: RRR,s1s2 normal. CHEST: PORT cath in situ, CTAB. GASTROINTESTINAL: Abdomen not distended, clear steri strips around incisions, abdomen soft, non-tender with normoactive bowel sounds. MUSCULOSKELETAL: RLE swelling, no erythema or tenderness. 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 1. Gastric outlet obstruction -s/p lap Avni en Y gastric bypass with gastrojejunostomy 03/12/2018 Upper GI series 03/15/2018 shows patent anastomosis. -TPN was discontinued. -diet was advanced to regular,patient tolerated it well. -pain pain meds with stool regimen. Hyperglycemia-likely due to TPN--resolved. was on insulin while on TPN which was subsequently discontinued. Acute kidney injury--likely prerenal. improved. -Creatinine peaked at 3.3 this hospitalization, had trended down to 1.11 -Nephrostomy tubes were clamped on 03/20, and she did well with urine output hence they were cocked on 03/22. Oncology prefered patient to be back on Nephrostomy tubes until after another 2 rounds of chemo. Nephrostomy tubes reconnected on 03/23, draining appropriately. RLE swelling-RLE doppler ordered revealed DVT. Initially on Lovenox, was switched to Apixaban on 03/22. Superficial thrombophlebitis Right upper extremity above the antecubital fossa has a cordlike subcutaneous lesion. US showed superficial thrombophlebitis. heating pad prn, heating pad, avoid NSAIDs given recovering renal function. Dysuria--urinalysis in keeping with UTI, started on Macrobid, cultures growing E.faecalis resistant to Macrobid but sensitive to Ampicillin,penicillin,vanc hence switched to Ampicillin. Hypokalemia ---resolved. replete as needed. Mild hypernatremia - resolved. 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 However recurrence was detected on PET scan within the last 2 months. Full code. discussed plan with patient and her at bedside. PATIENT IS CLINICALLY STABLE FOR DISCHARGE HOME. SHE ALREADY HAS FOLLOW UP APPT WITH ONCOLOGY. Progress Note: Quality VTE Deep Vein Thrombosis/Pulmonary Embolism Present on Admission: No
--- NOTE | 2018-03-25 11:26 | P.DS ---
DS: Providers Date of admission: 03/05/18 16:45 Primary care physician: Mj Shearer MD Consults: 03/05/18 17:21 Consult to Gastroenterology Routine Consulting Provider: Piyush Richards Reason for Consultation: intractable N/V, distended stomach Notified:: Service Spoke with:: Karely Date Notified:: 03/05/18 Time Notified:: 17:26 Ordering Provider: JORGE A 03/05/18 17:39 HUB Only Consult Order Routine Consulting Provider: Tory Spears 03/06/18 14:18 HUB Only Consult Order Routine Consulting Provider: Tory Spears 03/08/18 13:21 Consult to General Surgery Routine Consulting Provider: Mark Alfredo Reason for Consultation: Gastric outlet obstruction Notified:: Service Spoke with:: Jackie Date Notified:: 03/08/18 Time Notified:: 13:30 Comments:: Ordering Provider: BOOKER 03/15/18 10:17 Consult to Oncology Routine Consulting Provider: Eddie Stallings Preferred Material Handler Floorperson:: Eddie Stallings Reason for Consultation: Patient known to you; recurrent anal cancer; s/p lap Avni en Y gastric bypass with gastrojejunostomy for gastric outlet obstruction Notified:: Office Spoke with:: bernie Date Notified:: 03/15/18 Time Notified:: 10:26 Ordering Provider: ANDRE 03/23/18 17:10 Consult to Urology Routine Consulting Provider: Jurgen Brasher Preferred Material Handler Floorperson:: Corwin Shay Reason for Consultation: Reconsult for consideration of uncapping nephrostomy tube. Pts creatinine rising. Notified:: Service Spoke with:: Karely Date Notified:: 03/23/18 Time Notified:: 17:17 Ordering Provider: GONZALEZ Brief History from admission: 72-year-old white female being admitted for intractable nausea vomiting. Patient was in her usual state of health after being discharged yesterday from her oncologist office for IV fluids for dehydration secondary to nausea vomiting , when she went home and had persistent symptoms. Thus per her instruction she came to the emergency department today. Patient reports that she can vomit even on an empty stomach, does have emesis with stomach contents showing up. Denies having any abimbola abdominal pain. Reports that the last bowel movement she had was about 3 days ago which was loose, has been taking MiraLAX for at least about a month now. But she does endorse barely eating any food due to her nausea and vomiting. Patient denies any new pains at the site of her bilateral nephrostomy sites. Denies any abimbola abdominal pain. Reports that she has been suffering from nausea and vomiting chronically. She reports that recently she is gone almost 10 days without a bowel movement until the when she had 3 days ago. Prior to this month her usual pattern is going every 3-4 days. 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 She had a pre-existing tube that was placed back in January 16 on the right side. In the ED today patient's creatinine was found to be 3.3 with GFR at about 14. Potassium was 2.8. Patient was given IV potassium, Reglan, and IV fluids. CT scan of the abdomen was performed which showed a large distended fluid-filled stomach per radiology. Per my independent review there were no findings suggestive of severe constipation. 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 1. Gastric outlet obstruction -s/p lap Avni en Y gastric bypass with gastrojejunostomy 03/12/2018. Patient was initially on bowel rest and was started on TPN. Upper GI series 03/15/2018 shows patent anastomosis. Diet was gradually initiated with clears initially and had advanced to regular diet by the time of discharge which she was tolerating well. She is passing flatus and had had some bowel movements post op but she required to be on stool softeners and also received an enema. 2.Hyperglycemia-likely due to TPN--resolved. was on insulin while on TPN which was subsequently discontinued. 3.Acute kidney injury--likely prerenal. improved. -Creatinine peaked at 3.3 this hospitalization, had trended down to 1.11 -Nephrostomy tubes were clamped on 03/20, and she did well with urine output hence they were cocked on 03/22. Oncology prefered patient to be back on Nephrostomy tubes until after another 2 rounds of chemo. Nephrostomy tubes reconnected on 03/23, draining appropriately. 4.RLE swelling-RLE doppler ordered revealed DVT. Initially on Lovenox, was switched to Apixaban on 03/22. Superficial thrombophlebitis Right upper extremity above the antecubital fossa has a cordlike subcutaneous lesion. US showed superficial thrombophlebitis. heating pad prn. 5.Dysuria--urinalysis in keeping with UTI, started on Macrobid, cultures growing E.faecalis resistant to Macrobid but sensitive to Ampicillin,penicillin, vanc hence switched to Ampicillin. 6.Hypokalemia ---resolved. replete as needed. Mild hypernatremia - resolved. 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 However recurrence was detected on PET scan within the last 2 months. Patient has a follow up appointment with her oncologist on Sunday03/27/18 for possible chemotherapy. PATIENT IS CLINICALLY STABLE FOR DISCHARGE HOME. SHE ALREADY HAS FOLLOW UP APPT WITH ONCOLOGY. Time Spent with Patient Total time spent providing and/or coordinating discharge services: Quality: VTE Deep Vein Thrombosis/Pulmonary Embolism Present on Admission: No Results Completed studies during hospitalization: Pending at discharge 03/06/18 14:56 Surgical [PTH] Routine Labs on day of discharge: Labs from last 24 hours 03/25/18 03/25/18 03/24/18 07:58 05:15 19:46 Sodium 139 Potassium 3.8 Chloride 104 Carbon Dioxide 28.2 Anion Gap 7 BUN 18 Creatinine 1.11 H Estimated GFR 48 L POC Glucose 117 H 132 H Random Glucose 74 Calcium 8.7 03/24/18 03/24/18 03/24/18 17:48 17:30 17:22 Sodium Potassium Chloride Carbon Dioxide Anion Gap BUN Creatinine Estimated GFR POC Glucose 82 65 L Random Glucose 59 L Calcium 03/24/18 12:10 Sodium Potassium Chloride Carbon Dioxide Anion Gap BUN Creatinine Estimated GFR POC Glucose 124 H Random Glucose Calcium Impressions ITS Impressions Abdomen/Pelvis CT 03/07/18 00:00 CONCLUSION: 1. There appears to be an obstruction at the beginning of the third portion of the duodenum. This retroperitoneal soft tissue which also partially encases the anterior margin of the right ureter could be either lymphadenopathy or soft tissue mass from the third portion of the duodenum. Upper GI and Small Bowel X-Ray 03/07/18 00:00 CONCLUSION: Marked distention of the stomach which is still fluid-filled. Questionable obstructing of the third portion of the duodenum. Abdomen X-Ray 03/09/18 00:00 CONCLUSION: Significant amount of persistent oral contrast identified within a somewhat dilated stomach. Findings are consistent with gastroparesis. Chest X-Ray 03/12/18 00:00 CONCLUSION: 1. Possible free air beneath the right hemidiaphragm. This suggests bowel perforation if there has been no recent abdominal or pelvic surgeries. Suggest correlating with clinical history and physical examination. 2. Otherwise, no acute finding is identified within the chest. Gastrografin Study 03/14/18 00:00 CONCLUSION: Unremarkable postoperative appearance. Evidence of gastric bypass procedure with gastrojejunostomy. Anastomosis is patent. No evidence of leak or obstruction. Venous Doppler Study 03/21/18 00:00 CONCLUSION: 1. Nonocclusive DVT extending from the proximal right femoral vein to the common femoral vein. 2. No sonographic evidence for left lower extremity DVT. Discharge Plan Discharge Disposition Patient Disposition: 01 Discharge Home Discharge Condition Condition: Fair Discharge Order Discharge Orders: Discharge Order (Routine); Ordered 03/25/18 Ordered By: Pérez Fishman Oncology Clear for Discharge (Routine); Ordered 03/25/18 Ordered By: Marlene Phillips Discharge Details Anticipated Discharge Date: 03/25/18 Physicians Team ED Provider: Viola Banda Primary Care Provider: Mj Shearer Attending Provider: Pérez Fishman Other Providers: Piyush Richards ; Tory Spears ; Mark Alfredo ; Eddie Stallings ; Jurgen Brasher Rxs /Orders / Referrals /Forms Prescriptions: New fentanyl [Duragesic] 50 mcg/hr Patch 72 Hour 1 patch Transdermal Q3D Qty: 3 RF: 0 oxycodone-acetaminophen 5-325 mg Tablet 1 tab PO Q4H PRN (Reason: acute post op pain exception ) Qty: 15 RF: 0 amoxicillin 500 mg Capsule 500 mg PO Q8HR 3 Days Qty: 6 RF: 0 oxybutynin chloride 5 mg Tablet 5 mg PO BID 30 Days Qty: 60 RF: 0 apixaban [Eliquis] 2.5 mg Tablet 2.5 mg PO BID 30 Days Qty: 60 RF: 0 Continue anastrozole 1 mg Tablet 1 mg PO DAILY RF: 0 trazodone 50 mg Tablet 50 mg PO HS RF: 0 gabapentin 100 mg Capsule 300 mg PO DAILY RF: 0 acebutolol 200 mg Capsule 200 mg PO DAILY RF: 0 escitalopram oxalate 20 mg Tablet 20 mg PO DAILY RF: 0 ondansetron 8 mg Tablet,Disintegrating 8 mg PO TID PRN (Reason: Vomiting) RF: 0 Referrals: Mj Shearer MD [Primary Care Provider] - See Instructions Mark Alfredo MD [Physician] - See Instructions (Appt set for Apr 01 at 1: 50PM ) Discharge Instructions Patient Printed Instructions: Amoxicillin/Clavulanate Potassium (By mouth), Apixaban (By mouth), Implanted Venous Access Port (GEN), Nephrostomy Tube Care ( DC) Discharge Interventions Interventions: Discharge Planning - Case Management Last Done: 03/25/18 10:52 Status ED Status: Left Department
== END 2018-03-25 13:50 | disposition home or self-care (01) | DRG 327 ==
LOC: NEPC 13:58 → NEDA 16:45 → N07 19:15
PROVIDERS: ADMIT Hospitalist; ATTEND Hospitalist
PROC: PANENDO (2018-03-06 10:19)
DX: E87.6 Hypokalemia; F32.9 Major depressive disorder, single episode, unspecified; C79.51 Secondary malignant neoplasm of bone; R73.9 Hyperglycemia, unspecified; G62.9 Polyneuropathy, unspecified; N13.6 Pyonephrosis; Z85.820 Personal history of malignant melanoma of skin; E78.00 Pure hypercholesterolemia, unspecified; E87.0 Hyperosmolality and hypernatremia; Z85.3 Personal history of malignant neoplasm of breast; Z83.3 Family history of diabetes mellitus; N32.89 Other specified disorders of bladder; Z92.3 Personal history of irradiation; Z79.899 Other long term (current) drug therapy; N17.9 Acute kidney failure, unspecified; Z88.8 Allergy status to other drugs, medicaments and biological substances; N39.0 Urinary tract infection, site not specified; Z87.891 Personal history of nicotine dependence; Z79.811 Long term (current) use of aromatase inhibitors; K64.9 Unspecified hemorrhoids; I82.611 Acute embolism and thrombosis of superficial veins of right upper extremity; M06.9 Rheumatoid arthritis, unspecified; Z88.1 Allergy status to other antibiotic agents; K31.1 Adult hypertrophic pyloric stenosis; D64.9 Anemia, unspecified; Z80.0 Family history of malignant neoplasm of digestive organs; N18.9 Chronic kidney disease, unspecified; Z85.828 Personal history of other malignant neoplasm of skin; K20.9 Esophagitis, unspecified; E86.0 Dehydration; F41.9 Anxiety disorder, unspecified; D25.9 Leiomyoma of uterus, unspecified; C79.89 Secondary malignant neoplasm of other specified sites; K29.70 Gastritis, unspecified, without bleeding; C21.0 Malignant neoplasm of anus, unspecified; Z93.6 Other artificial openings of urinary tract status; Z92.21 Personal history of antineoplastic chemotherapy
CPT/HCPCS: 36430; 50431; 71010; 71045; 74000; 74018; 74176; 74240; 74245; 76937; 80048; 80053; 81001; 82272; 82947; 82948; 82962; 83605; 83735; 84132; 84134; 84484; 85014; 85018; 85025; 86850; 86900; 86901; 86923; 87040; 87077; 87086; 87186; 87205; 87328; 87329; 87506; 88305; 88312; 90765; 90775; 93005; 93970; 93971; 94150; 96365; 96375; 99283; 99285; A4646; J0131; J0330; J0690; J0696; J1170; J1642; J1650; J1815; J2175; J2250; J2270; J2370; J2405; J2550; J2704; J2710; J2765; J3010; J3480; J7030; J7050; J7070; J7120; P9016; Q9950; Q9963; Q9965; Q9967